=== PATIENT | female | born 1990 | race Caucasian/White ===

== ENCOUNTER → 2018-01-22 13:38 | Outpatient (CLI) | payer OTHER, SELFPAY | PROVIDERS: Visit Provider Obstetrics & Gynecology | DX: R31.0 Gross hematuria (principal) | CPT/HCPCS: 87086; 87088; 87186 ==

== ENCOUNTER → 2018-04-19 16:47 | Outpatient (CLI) | payer OTHER, SELFPAY ==
[2018-04-19 19:20] LABS: Chlamydia Trachomatis by PCR Negative (Negative); Neisserai gonorrhoeae by PCR Negative (Negative); Probe Check PASS; Sample Adequacy Control PASS; Specimen Processing Control PASS
== END ==
PROVIDERS: Visit Provider Obstetrics & Gynecology
DX: Z11.3 Encounter for screening for infections with a predominantly sexual mode of transmission (principal)
CPT/HCPCS: 87491; 87591

== ENCOUNTER → 2018-05-13 14:40 | Outpatient (CLI) | payer OTHER, SELFPAY ==
[2018-05-13 15:42] LABS: Absolute Neutrophil Count 9.7 X10^3/uL (2.0-7.7); Basophil# 0.03 X10^3/uL; Basophil% 0.2 % (0-1); Eosinophil# 0.17 X10^3/uL; Eosinophils% 1.3 % (0-5); Hematocrit 39.1 % (37-47); Hemoglobin 13.1 g/dl (12.0-15.0); Lymphocyte % 19.9 % (19-41); Mean Corp Hgb Conc 33.5 g/gl (32-36); Mean Corpuscular Hgb 29.9 pg (27.0-32.0); Mean Corpuscular Volume 89.3 fL (81-99); Mean Platelet Vol. 10.2 fl (6.2-12.0); Monocyte# 0.58 X10^3/uL; Monocyte% 4.4 % (0-10); Neutrophil # 9.67 X10^3/uL (2.7-7.7); Platelet Count 336 K/mm3 (150-450); Red Blood Count 4.38 M/mm3 (4.2-5.4); White Blood Count 13.1 K/mm3 (4.4-11.0)
[2018-05-13 15:44] LABS: POSITIVE COUNT NO; POSITIVE DIFFERENTIAL NO; POSITIVE MORPHOLOGY NO
[2018-05-13 15:53] LABS: Color, Urine Yellow (Yellow); Glucose, Dipstick Normal (Normal); Ketone-Dipstick Negative (Negative); Leukocyte Esterase-Dipstick 25 /ul (Negative); Nitrite-Dipstick Negative (Negative); Occult Blood-Urine Negative /ul (Negative); Protein-Dipstick Negative (Negative); Urine Bilirubin Dipstick Negative (Negative); Urine Clarity Clear (Clear); Urine Urobilinogen Normal (Normal)
[2018-05-13 16:16] LABS: Amphetamine Urine VISTA NEGATIVE (<1000 ng/mL); Barbiturate Urine VISTA NEGATIVE (< 200 ng/mL); Benzodiazepine Urine VISTA NEGATIVE (< 200 ng/mL); Cocaine Urine VISTA NEGATIVE (< 300 ng/mL); Ecstacy Urine VISTA NEGATIVE (< 500 ng/mL); Methadone Urine VISTA NEGATIVE (< 300 ng/mL); PCP Urine VISTA NEGATIVE (< 25 ng/mL); THC Urine VISTA NEGATIVE (< 50 ng/mL); Vista UDS pH Range 6
[2018-05-13 16:17] LABS: Thyroid Stim Hormone (TSH) 0.82 uIU/mL (0.358-3.74)
[2018-05-13 16:56] LABS: HIV - WCH Non-Reactive (Nonreactive); Rubella IgG 24.7 IU/mL
[2018-05-15 11:11] LABS: HEPATITIS B SURFACE AG Negative (Negative); Hep C Antibodies <0.1 s/co ratio (0.0-0.9)
[2018-05-17 04:13] LABS: Prenatal RPR NONREACTIVE (NONREACTIVE)
== END ==
PROVIDERS: Visit Provider Obstetrics & Gynecology
DX: Z34.81 Encounter for supervision of other normal pregnancy, first trimester (principal)
CPT/HCPCS: 36415; 80307; 81002; 84443; 85025; 86703; 86762; 86803; 87340

== ENCOUNTER → 2018-09-06 10:33 | Outpatient (CLI) | payer OTHER, SELFPAY ==
[2018-09-06 15:28] LABS: Hematocrit 43.1 % (37-47); Hemoglobin 14.3 g/dl (12.0-15.0); Mean Corpuscular Volume 88.3 fL (81-99); Red Blood Count 4.88 M/mm3 (4.2-5.4); White Blood Count 7.8 K/mm3 (4.4-11.0)
[2018-09-06 15:29] LABS: Mean Corp Hgb Conc 33.2 g/gl (32-36); Mean Corpuscular Hgb 29.3 pg (27.0-32.0); Mean Platelet Vol. 10.1 fl (6.2-12.0); Platelet Count 274 K/mm3 (150-450); RBC Distribution Width CV 13.3 % (11.6-14.6); RBC Distribution Width SD 42.6 fl (35.1-43.9); Scan Indicated on CBC? Y/N NO
[2018-09-06 15:41] LABS: Glucose Challenge Gest 1H 50g 90 mg/dL (70-140)
== END ==
PROVIDERS: Visit Provider Obstetrics & Gynecology
DX: Z34.83 Encounter for supervision of other normal pregnancy, third trimester (principal)
CPT/HCPCS: 36415; 82950; 85027

== ENCOUNTER → 2018-11-05 18:11 | Outpatient (CLI) | payer OTHER, SELFPAY ==
[2017-03-14 02:43] VITALS: BMI 37.2
== END ==
PROVIDERS: Referring Provider Obstetrics & Gynecology; Visit Provider Obstetrics & Gynecology
DX: Z36.85 Encounter for antenatal screening for Streptococcus B (principal)
CPT/HCPCS: 87081

== ENCOUNTER 2018-12-01 16:10 | Inpatient (IN) | payer OTHER, SELFPAY ==
[2018-12-01 16:44] VITALS: BMI 39.2
[2018-12-01] MEDS: Lactated Ringers 1,000 ML 50 ML IV ×3 (16:52→17:44)
[2018-12-01 17:18] LABS: Absolute Lymphocyte Count 2.52 X10^3/ul (0.83-4.51); Absolute Neutrophil Count 9.8 X10^3/uL (2.0-7.7); Basophil# 0.01 X10^3/uL; Basophil% 0.1 % (0-1); Eosinophil# 0.05 X10^3/uL; Eosinophils% 0.4 % (0-5); Hematocrit 35.7 % (37-47); Hemoglobin 12.3 g/dl (12.0-15.0); Lymphocyte # 2.52 X10^3/ul (4.0); Lymphocyte % 18.8 % (19-41); Mean Corp Hgb Conc 34.5 g/gl (32-36); Mean Corpuscular Hgb 30.8 pg (27.0-32.0); Mean Corpuscular Volume 89.3 fL (81-99); Mean Platelet Vol. 11.1 fl (6.2-12.0); Monocyte# 0.95 X10^3/uL; Monocyte% 7.1 % (0-10); Neutrophil # 9.83 X10^3/uL (2.7-7.7); Neutrophil % 73.5 % (47-70); Platelet Count 271 K/mm3 (150-450); White Blood Count 13.4 K/mm3 (4.4-11.0)
[2018-12-01 17:19] LABS: POSITIVE COUNT NO; POSITIVE DIFFERENTIAL NO; POSITIVE MORPHOLOGY NO
[2018-12-01] MEDS: fentaNYL-bupivacaine (epidural) 100 ML BAG EPIDURAL (18:08)
[2018-12-01] MEDS: Oxytocin 30 units/NS 500 ml 30 UNITS/500 ML IV.SOLN 334 UNITS IV (19:19)
--- NOTE | 2018-12-01 19:32 | PCM.HP.OB ---
- Problem List (1) Active labor at term Status: Acute (2) Obesity affecting Status: Acute History Date of Admission: 12/01/18 History of this : This is a 28 year-old, G [], P [], at 40 weeks gestational age. Allergies amoxicillin Adverse Reaction (Verified 12/01/18 16:41) Hives Home Medications: Home Medications Vits [Prenatabs FA] 1 tablet PO DAILY 03/13/17 Smoking Status: Never smoker Alcohol: None Number of Fetus(es): 1 Heart Tracin moderate variability reactive no decelerations category I tracing Mars: regular History Past Pregnancies: Past Pregnancies previous 40week 8lbs10 ounces VAVD Labs: Mom's Problem List Problem Status Onset Code Active labor at term Acute Obesity affecting Acute O99.210 Mom's Labs & Results 12/01/18 12/01/18 16:52 16:52 WBC 13.4 H RBC 4.00 L Hgb 12.3 Hct 35.7 L MCV 89.3 MCH 30.8 MCHC 34.5 RDW 14.0 RDW Differential 45.0 H Plt Count 271 MPV 11.1 Immature Gran % (Auto) 0.100 Neut % (Auto) 73.5 H Lymph % (Auto) 18.8 L [place] % (Auto) 7.1 Eos % (Auto) 0.4 Baso % (Auto) 0.1 Absolute Neuts (auto) 9.8 H Absolute Lymphs (auto) 2.52 Total Counted Not Reportable Blood Type O POSITIVE Antibody Screen NEGATIVE Course Did the patient receive Yes care? Labs Blood Type: O RH: POSITIVE RPR/VDRL/Syphilis Nonreactive Rubella status Immune HbSAg Negative Date Done: 05/13/18 Chlamydia Negative Gonorrhea Negative HIV/AIDS Non-Reactive Group B Strep: Negative Current Obstetrical History Gestational Diabetes No Incompetent Cervix No Infertility No IUGR No Macrosomia No Hypertension/Pre-eclampsia No Placenta Previa/Abruption No PTL/PROM No Uterine anomaly No Oligohydramnios No Polyhydramnios No Multiple gestation No Past Medical History Asthma No Diabetes No Hypertension No Heart disease No Mitral valve prolapse No Neurologic/Seizure disorder/ No Migraines Kidney disease No Liver disease No Varicosities No Clotting disorders/Hx of DVT No Thyroid Dysfunction No Other medical diseases No Psychiatric disorders No Major trauma No Abnormal PAP smear No Sleep apnea No Mammogram in the last 2 years No Social History Marital Status: Alleged father dimple Kim Smoking No Smoking Status Never smoker How long have you used na substances (years)? Expected Delivery Method: Spontaneous Vaginal Review of Systems Constitutional: Denies: Fever, Malaise Eyes: Denies: Blurred vision, Vision Change HEENT: Denies: Head Aches, Visual Changes Cardiovascular: Denies: Chest Pain, Palpitations Respiratory: Denies: Cough, Shortness of Breath, Wheezing Gastrointestinal: Denies: Abdominal Pain, Diarrhea, Nausea, Vomiting Genitourinary: Denies: Dysuria, Hematuria Musculoskeletal: Denies: Joint Pain, Muscle pain Skin: Denies: Lesions, Rash Neurological: Denies: Blurred vision, Focal weakness, Headaches Psychiatric: Denies: Anxiety, Depression Endocrine: Denies: Heat/ Cold Intolerance Hematologic/ Lymphatic: Denies: Easy Bruising, Easy Bleeding Physical Exam General: Alert, Cooperative, No apparent distress HEENT: Atraumatic, Normocephalic. Negative for: Thyromegaly, Lymphadenopathy Cardiovascular: Regular rate Lungs: Normal air movement Abdomen: Soft, Non Tender, Gravid Neurological: Deep Tendon Reflexes 2+/4 and Symmetrical, Neuro grossly intact. Negative for: Clonus GEM EXPERT: Normal external genitalia. Negative for: Vulvar lesions Estimated gestational size: Appropriate for gestational size Presentation: Cephalic Cervix Dilation (cm): 4.5 Assessment/Plan All Active Problems Active labor at term (Acute) Obesity affecting (Acute) This is a 28 year-old, at 40 weeks gestational age presents IAL Patient presents IAL, plan expectant management for , pitocin/AROM PRN if needed. Pain management: plans epidural. GBS negative. Management of any complications: none I have reviewed the [facility] and made any clinically relevant updates.
--- NOTE | 2018-12-01 19:36 | HP.PCM_ITS ---
- Problem List (1) Active labor at term Status: Acute (2) Obesity affecting Status: Acute History Date of Admission: 12/01/18 History of this : This is a 28 year-old, G [], P [], at 40 weeks gestational age. Allergies amoxicillin Adverse Reaction (Verified 12/01/18 16:41) Hives Home Medications: Home Medications Vits [Prenatabs FA] 1 tablet PO DAILY 03/13/17 Smoking Status: Never smoker Alcohol: None Number of Fetus(es): 1 Heart Tracin moderate variability reactive no decelerations category I tracing [employer]: regular History Past Pregnancies: Past Pregnancies previous 40week 8lbs10 ounces VAVD Labs: Mom's Problem List Problem Status Onset Code Active labor at term Acute Obesity affecting Acute O99.210 Mom's Labs & Results 12/01/18 12/01/18 16:52 16:52 WBC 13.4 H RBC 4.00 L Hgb 12.3 Hct 35.7 L MCV 89.3 MCH 30.8 MCHC 34.5 RDW 14.0 RDW Differential 45.0 H Plt Count 271 MPV 11.1 Immature Gran % (Auto) 0.100 Neut % (Auto) 73.5 H Lymph % (Auto) 18.8 L [place] % (Auto) 7.1 Eos % (Auto) 0.4 Baso % (Auto) 0.1 Absolute Neuts (auto) 9.8 H Absolute Lymphs (auto) 2.52 Total Counted Not Reportable Blood Type O POSITIVE Antibody Screen NEGATIVE Course Did the patient receive Yes care? Labs Blood Type: O RH: POSITIVE RPR/VDRL/Syphilis Nonreactive Rubella status Immune HbSAg Negative Date Done: 05/13/18 Chlamydia Negative Gonorrhea Negative HIV/AIDS Non-Reactive Group B Strep: Negative Current Obstetrical History Gestational Diabetes No Incompetent Cervix No Infertility No IUGR No Macrosomia No Hypertension/Pre-eclampsia No Placenta Previa/Abruption No PTL/PROM No Uterine anomaly No Oligohydramnios No Polyhydramnios No Multiple gestation No Past Medical History Asthma No Diabetes No Hypertension No Heart disease No Mitral valve prolapse No Neurologic/Seizure disorder/ No Migraines Kidney disease No Liver disease No Varicosities No Clotting disorders/Hx of DVT No Thyroid Dysfunction No Other medical diseases No Psychiatric disorders No Major trauma No Abnormal PAP smear No Sleep apnea No Mammogram in the last 2 years No Social History Marital Status: Alleged father dimple Kim Smoking No Smoking Status Never smoker How long have you used na substances (years)? Expected Delivery Method: Spontaneous Vaginal Review of Systems Constitutional: Denies: Fever, Malaise Eyes: Denies: Blurred vision, Vision Change HEENT: Denies: Head Aches, Visual Changes Cardiovascular: Denies: Chest Pain, Palpitations Respiratory: Denies: Cough, Shortness of Breath, Wheezing Gastrointestinal: Denies: Abdominal Pain, Diarrhea, Nausea, Vomiting Genitourinary: Denies: Dysuria, Hematuria Musculoskeletal: Denies: Joint Pain, Muscle pain Skin: Denies: Lesions, Rash Neurological: Denies: Blurred vision, Focal weakness, Headaches Psychiatric: Denies: Anxiety, Depression Endocrine: Denies: Heat/ Cold Intolerance Hematologic/ Lymphatic: Denies: Easy Bruising, Easy Bleeding Physical Exam General: Alert, Cooperative, No apparent distress HEENT: Atraumatic, Normocephalic. Negative for: Thyromegaly, Lymphadenopathy Cardiovascular: Regular rate Lungs: Normal air movement Abdomen: Soft, Non Tender, Gravid Neurological: Deep Tendon Reflexes 2+/4 and Symmetrical, Neuro grossly intact. Negative for: Clonus SIGHTER: Normal external genitalia. Negative for: Vulvar lesions Estimated gestational size: Appropriate for gestational size Presentation: Cephalic Cervix Dilation (cm): 4.5 Assessment/Plan All Active Problems Active labor at term (Acute) Obesity affecting (Acute) This is a 28 year-old, at 40 weeks gestational age presents IAL Patient presents IAL, plan expectant management for , pitocin/AROM PRN if n eeded. Pain management: plans epidural. GBS negative. Management of any complications: none I have reviewed the [facility] and made any clinically relevant updates.
--- NOTE | 2018-12-01 19:41 | PCM.OPRPT ---
Problem List (1) Active labor at term Status: Acute (2) Obesity affecting Status: Acute Report of Operation Date of Procedure: 12/01/18 Pre-Operative Diagnosis: ial Post-Operative Diagnosis: same Surgery/Procedure Performed:: Vaginal Delivery Maternal Presentation: Active Labor 28-year-old G2, P1 at 40 weeks 2 days presents in active labor Amniotic Membrane Rupture Type: Spontaneous Amniotic Fluid Description: Moderate meconium Final BERKLEY: 11/29/18 Gestational age: 40 Weeks and 2 Days Date of Procedure: 12/01/18 Pre-Operative Diagnosis: Active labor Post-Operative Diagnosis: In active labor Surgery/ Procedure Performed: Spontaneous Vaginal Delivery Type of Anesthesia: Epidural Description of Procedure: Patient began pushing and delivered the head in the MELISSA presentation. The head was delivered atraumatically . The anterior and posterior shoulders delivered without complication followed by the rest of the infant and the was placed on the maternal abdomen. Delayed cord clamping was employed for approximately 60 seconds. Cord was clamped and cut and gentle traction was applied to the cord and the placenta delivered spontaneously immediately following it was noted to be intact with three-vessel cord. The perineum and vagina were inspected and noted to have no laceration. EBL was 200 cc. Patient and infant tolerated delivery well. Presentation: MELISSA Placental Delivery Description: Spontaneous Placenta Disposition: [facility] Cord Vessel Description: 3 Vessels Cord Entanglement: None Estimated Blood Loss: 200 A gender: Male (1 minute): 8 (5 minute): 9 Episiotomy Description: None Laceration: None Medications given after delivery: IV Pitocin Complications: None
[2018-12-01] MEDS: Oxytocin 30 units/NS 500 ml 30 UNITS/500 ML IV.SOLN 167 UNITS IV (19:49)
[2018-12-01] MEDS: 0.9% Saline Lock 10 ML Syringe IV (20:49)
[2018-12-01 21:28] VITALS: BP 127/79; PULSE 102; RESP 18; TEMP 36.3
[2018-12-01 23:15] VITALS: BP 117/60; PULSE 91; RESP 18; TEMP 37.1
[2018-12-02] MEDS: Naproxen 250 MG Tablet 500 MG PO ×3 (04:02→21:18)
[2018-12-02 04:12] VITALS: BP 113/72; PULSE 83; RESP 16; TEMP 37
--- NOTE | 2018-12-02 07:55 | PCM.PN.OB ---
Patient Problems: Active and Suspected Problems Active labor at term (Acute) Obesity affecting (Acute) Subjective: doing well no complaints pain controlled no CP SOB N V ambulating well tolerating po lochia moderate, going well - Physical Exam General: Alert, Oriented x3 Abdomen: Soft, Non Tender, - - FF below U Vital Signs Temp Pulse Resp BP 98.6 F 83 16 113/72 12/02/18 04:12 12/02/18 04:12 12/02/18 04:12 12/02/18 04:12 Oxygen Delivery Method Room Air Weight: 214 lb 4.629 oz Body Mass Index (BMI) 39.2 Intake and Output for Last 24 Hours 11/30/18 12/01/18 12/02/18 23:59 23:59 23:59 Intake Total 2069 / 2069 Output Total 720 / 720 Balance 1350 / 1350 Laboratory Tests Past 24 Hrs 12/01/18 12/01/18 16:52 16:52 WBC 13.4 H RBC 4.00 L Hgb 12.3 Hct 35.7 L MCV 89.3 MCH 30.8 MCHC 34.5 RDW 14.0 RDW Differential 45.0 H Plt Count 271 MPV 11.1 Immature Gran % (Auto) 0.100 Neut % (Auto) 73.5 H Lymph % (Auto) 18.8 L [place] % (Auto) 7.1 Eos % (Auto) 0.4 Baso % (Auto) 0.1 Absolute Neuts (auto) 9.8 H Absolute Lymphs (auto) 2.52 Total Counted Not Reportable Blood Type O POSITIVE Antibody Screen NEGATIVE Medical Necessity - Tobacco Use Smoking Status: Never smoker Assessment/Plan All Active Problems Active labor at term (Acute) Obesity affecting (Acute) s/p PPD # 1 1. routine post delivery care 2. breast feeding- support given 3. rh positive 4. rubella immune
--- NOTE | 2018-12-02 08:21 | PCM.PN.OB ---
Patient Problems: Active and Suspected Problems Active labor at term (Acute) Obesity affecting (Acute) Subjective: PPD#1 Doing well. Breast feeding Some cramping with nursing. Bleeding as a period Plans circumcision. - Physical Exam General: Alert, Oriented x3, Cooperative, No apparent distress HEENT: Atraumatic Neck: Supple Abdomen: Soft - Fundus firm NT at umiblicus Neurological: Cranial nerves II-XII grossly intact Psych/Mental Status: Normal Affect Vital Signs Temp Pulse Resp BP 98.6 F 83 16 113/72 12/02/18 04:12 12/02/18 04:12 12/02/18 04:12 12/02/18 04:12 Oxygen Delivery Method Room Air Weight: 97.2 kg Body Mass Index (BMI) 39.2 Intake and Output for Last 24 Hours 11/30/18 12/01/18 12/02/18 23:59 23:59 23:59 Intake Total 2070 / 2070 Output Total 720 / 720 Balance 1350 / 1350 Laboratory Tests Past 24 Hrs 12/01/18 12/01/18 16:52 16:52 WBC 13.4 H RBC 4.00 L Hgb 12.3 Hct 35.7 L MCV 89.3 MCH 30.8 MCHC 34.5 RDW 14.0 RDW Differential 45.0 H Plt Count 271 MPV 11.1 Immature Gran % (Auto) 0.100 Neut % (Auto) 73.5 H Lymph % (Auto) 18.8 L [place] % (Auto) 7.1 Eos % (Auto) 0.4 Baso % (Auto) 0.1 Absolute Neuts (auto) 9.8 H Absolute Lymphs (auto) 2.52 Total Counted Not Reportable Blood Type O POSITIVE Antibody Screen NEGATIVE Medical Necessity - Tobacco Use Smoking Status: Never smoker Assessment/Plan All Active Problems Active labor at term (Acute) Obesity affecting (Acute) PPD#1 Stable pp. Continue care. Anticipate dischg 12/03/18
[2018-12-02 08:53] VITALS: BP 102/70; PULSE 58; RESP 16; TEMP 36.6
[2018-12-02] MEDS: Senna/Docusate Sodium 1 Tablet PO (11:59)
[2018-12-02 12:10] VITALS: BP 120/64; PULSE 80; RESP 18; TEMP 36.8
[2018-12-02 15:15] VITALS: BP 115/71; PULSE 86; RESP 15; TEMP 36.4
[2018-12-02] MEDS: Acetaminophen 500 MG Tablet 1000 MG PO (18:48)
[2018-12-02 21:19] VITALS: BP 117/76; PULSE 70; RESP 18; TEMP 36.7
[2018-12-03 02:09] VITALS: BP 93/44; PULSE 58; RESP 14; TEMP 36.3; O2SAT 95
--- NOTE | 2018-12-03 07:47 | PCM.PN.OB ---
Patient Problems: Active and Suspected Problems Active labor at term (Acute) Obesity affecting (Acute) Subjective: PPD#2 Doing well. Nursing well. Some cramping but this as well as bleeding has improved. No concerns voiced. - Physical Exam General: Alert, Oriented x3, Cooperative, No apparent distress HEENT: Atraumatic Neck: Supple Abdomen: Soft - Fundus firm NT at approx umbilicus Psych/Mental Status: Normal Affect Vital Signs Temp Pulse Resp BP Pulse Ox 97.4 F L 58 L 14 93/44 L 95 12/03/18 02:09 12/03/18 02:09 12/03/18 02:09 12/03/18 02:12/03/18 02:09 Oxygen Delivery Method Room Air Weight: 97.2 kg Body Mass Index (BMI) 39.2 Intake and Output for Last 24 Hours 12/01/18 12/02/18 12/03/18 23:59 23:59 23:59 Intake Total 0 / 2070 Output Total 720 / 720 Balance 1350 / 1350 Medical Necessity - Tobacco Use Smoking Status: Never smoker Assessment/Plan All Active Problems Active labor at term (Acute) Obesity affecting (Acute) PPD#2 Stable pp. dischg home today. RTO in 6 wk for pp check, prn sooner.
--- NOTE | 2018-12-03 07:49 | PCM.DCVAG ---
Discharge Diet: No Restrictions Discharge Activity: May Shower, May Take a Tub Bath May resume sexual activity in: 4-6 weeks Additional Activity Instructions:: Nothing in the vagina for 4-6 weeks. You may return to work/school in 6 weeks. Additional Instructions: If you experience any of the following, contact your healthcare provider. Bleeding that soaks a pad every hour for 2 hours Fever 100.4 or higher Unrelieved abdominal pain Problems urinating (including inability to urinate or burning while urinating). Visual changes Severe headache Flu-like symptoms Pain or redness in one of both of your breasts Pain, warmth, tenderness or swelling in your legs, especially the calf area Frequent nausea and vomiting Symptoms of depression or anxiety If you experience any of the following, call 911 or go to the nearest Emergency Room. Chest pain Problems breathing Seizure activity Partial or complete paralysis of a body part, slurred speech, weakness or drooping of the face, or a sudden inability to walk or hold your balance Allergies/Adverse Reactions: Allergies amoxicillin Adverse Reaction (Verified 12/01/18 16:41) Hives Medications to take at Discharge Vits [Prenatabs FA] 1 tablet PO DAILY 03/13/17 Please Follow Up With: Trang Burroughs MD - [phone] When: Call to make an appointment with your doctor in 6 weeks. Test Results: Test results from this visit will be discussed in further detail at your follow-up appointment, if applicable. Proposed Discharge Date: 12/03/18
--- NOTE | 2018-12-03 07:50 | DCINST_ITS ---
Discharge Diet: No Restrictions Discharge Activity: May Shower, May Take a Tub Bath May resume sexual activity in: 4-6 weeks Additional Activity Instructions:: Nothing in the vagina for 4-6 weeks. You may return to work/school in 6 weeks. Additional Instructions: If you experience any of the following, contact your healthcare provider. * Bleeding that soaks a pad every hour for 2 hours * Fever 100.4 or higher * Unrelieved abdominal pain * Problems urinating (including inability to urinate or burning while urinating). * Visual changes * Severe headache * Flu-like symptoms * Pain or redness in one of both of your breasts * Pain, warmth, tenderness or swelling in your legs, especially the calf area * Frequent nausea and vomiting * Symptoms of depression or anxiety If you experience any of the following, call 911 or go to the nearest Emergency Room. * Chest pain * Problems breathing * Seizure activity * Partial or complete paralysis of a body part, slurred speech, weakness or drooping of the face, or a sudden inability to walk or hold your balance Allergies/Adverse Reactions: Allergies amoxicillin Adverse Reaction (Verified 12/01/18 16:41) Hives Medications to take at Discharge Vits [Prenatabs FA] 1 tablet PO DAILY 03/13/17 Please Follow Up With: Trang Burroughs MD - [phone] When: Call to make an appointment with your doctor in 6 weeks. Test Results: Test results from this visit will be discussed in further detail at your follow- up appointment, if applicable. Proposed Discharge Date: 12/03/18
[2018-12-03 07:57] VITALS: BP 107/71; PULSE 50; RESP 16; TEMP 36.4; O2SAT 96
[2018-12-03] MEDS: Senna/Docusate Sodium 1 Tablet PO (08:15)
== END 2018-12-03 11:50 | disposition home or self-care (01) | DRG 807 ==
PROVIDERS: Admitting Provider Obstetrics & Gynecology; Visit Provider Obstetrics & Gynecology
DX: O99.214 Obesity complicating childbirth (principal); Z37.0 Single live birth; E66.9 Obesity, unspecified; Z3A.40 40 weeks gestation of pregnancy; O77.0 Labor and delivery complicated by meconium in amniotic fluid
CPT/HCPCS: 85025; 86850; 86900; 99218; J7120; A4216; G0378

== ENCOUNTER → 2019-12-26 14:12 | Outpatient (CLI) | payer OTHER, SELFPAY ==
[2019-12-26 15:04] LABS: Absolute Lymphocyte Count 2.64 X10^3/uL (0.83-4.51); Absolute Neutrophil Count 9.4 X10^3/uL (2.0-7.7); Basophil# 0.04 X10^3/uL; Basophil% 0.3 % (0-1); Eosinophil# 0.08 X10^3/uL; Eosinophils% 0.6 % (0-5); Hematocrit 42.3 % (37-47); Hemoglobin 14.3 g/dL (12.0-15.0); Lymphocyte # 2.64 X10^3/ul (4.0); Lymphocyte % 20.7 % (19-41); Mean Corp Hgb Conc 33.8 g/dL (32-36); Mean Corpuscular Hgb 29.4 pg (27.0-32.0); Mean Corpuscular Volume 86.9 fL (81-99); Mean Platelet Vol. 10.1 fl (6.2-12.0); Monocyte# 0.55 X10^3/uL; Monocyte% 4.3 % (0-10); NRBC Flagged by Analyzer 0 % (0-5); Neutrophil # 9.41 X10^3/uL (2.7-7.7); Neutrophil % 73.8 % (47-70); Platelet Count 398 K/mm3 (150-450); RBC Distribution Width CV 12.8 % (11.6-14.6); RBC Distribution Width SD 40.1 fl (35.1-43.9); Red Blood Count 4.87 M/mm3 (4.2-5.4); White Blood Count 12.8 K/mm3 (4.4-11.0)
[2019-12-26 15:17] LABS: Color, Urine Yellow (Yellow); Glucose, Dipstick Normal (Normal); Ketone-Dipstick 5 mg/dl (Negative); Leukocyte Esterase-Dipstick 25 /ul (Negative); Nitrite-Dipstick Negative (Negative); Occult Blood-Urine Negative /ul (Negative); Protein-Dipstick Negative (Negative); Specific Gravity, Urine 1.015 (1.002-1.030); Urine Bilirubin Dipstick Negative (Negative); Urine Clarity Sl. Cloudy (Clear); Urine Urobilinogen 1 mg/dl (Normal)
[2019-12-26 15:37] LABS: Thyroid Stim Hormone (TSH) < 0.01 uIU/mL (0.358-3.74)
[2019-12-26 15:38] LABS: Amphetamine Urine VISTA NEGATIVE (<1000 ng/mL); Barbiturate Urine VISTA NEGATIVE (< 200 ng/mL); Benzodiazepine Urine VISTA NEGATIVE (< 200 ng/mL); Cocaine Urine VISTA NEGATIVE (< 300 ng/mL); Ecstacy Urine VISTA NEGATIVE (< 500 ng/mL); Methadone Urine VISTA NEGATIVE (< 300 ng/mL); PCP Urine VISTA NEGATIVE (< 25 ng/mL); THC Urine VISTA NEGATIVE (< 50 ng/mL); Vista UDS pH Range 6
[2019-12-26 16:12] LABS: HIV - WCH Non-Reactive (Nonreactive); Hepatitis B Surface Antigen Non-Reactive (Nonreactive); Hepatitis C Antibody Non-Reactive (Nonreactive); Vitamin D,25 Hydroxy 24.4 ng/mL
[2019-12-26 17:16] LABS: Chlamydia Trachomatis by PCR Negative (Negative); Neisserai gonorrhoeae by PCR Negative (Negative); Probe Check PASS; Sample Adequacy Control PASS; Specimen Processing Control PASS
[2019-12-29 12:10] LABS: Free T3 6.1 pg/mL (2.18-3.98); T4 Free Direct 1.96 ng/dL (0.76-1.46)
[2019-12-30 12:30] LABS: HPV APTIMA, High Risk Negative (Negative)
[2020-01-01 01:57] LABS: Prenatal RPR NONREACTIVE (NONREACTIVE)
[2020-01-05 20:43] LABS: Thyroid Stim Immunoglob 2.37 IU/L (0.00-0.55)
--- OUTSIDE RECORDS SUMMARY | 2020-05-09 08:38 | XMS RPT_ITS | CCD ---
:1990 External Reference #:[id number] Author Organization [employer] Care Team Providers Name Role Phone Unavailable Unavailable Unavailable Results Result Name Value Range Unit Interpretation Flag Date Location progress on 2020-03 PROGRESS HNO ID: [id number] Normal 04-21-2020 [facility] Author: Gabo Lake [place] ([id number]) Service: ? Author Type: Physician Type: Progress Notes Filed: 04/21/2020 7:48 AM Note Text: CC: Shereen TAVAREZ is a 29 year old female who presents to [facility] office for follow up HPI: Left low back pain, started yesterday when she was bending o shruthi to pick something up. Is now 27-28 weeks . Has had sciatica with previous pregnancies as well. Is radiating down her left leg posteriorly. No bowel or bladder changes or weakness. Is having tingling down left leg. PAST MEDICAL HISTORY Diagnosis Date - Known health problems: none PAST SURGICAL HISTORY Procedure Laterality Date - NONE Current Outpatient Medications Medication Sig - albuterol HFA (VENTOLIN HFA) 90 mcg/actuation inhaler Inha le 2 Puffs as instructed every 4 hours as needed for Wheezing/Shortness of Breath. No current facility-administered medications for this visit. ALLERGIES Allergen Reactions - Amoxicillin Hives Social History Tobacco Use - Smoking status: Never Smoker - Smokeless tobacco: Never Used Substance Use Topics - Alcohol use: No - Drug use: No ROS: See HPI PE: There were no vitals taken for this visit. Gen: AANDOX3, NAD, non-toxic appearing Skin: No rashes, lesions, or wounds on exposed skin. Left anterior innominate Left inferior pubic shear Lumbar L3-5 NRrSBr No edema legs ASSESSMENT/PLAN: 1. Lumbar back pain with radiculopathy affecting left lower extremity - ICD9: 724.4, ICD10: M54.16 (primary diagnosis) OMT: Discussed risks, benefits, alternatives, and potential SEs of treatment. Patient wished to proceed with OMT. OMT was perfo rmed to the lumbar, pelvic, pubic area including soft tissue, functional methods. Patient tolerated treatment well with good release, increase ROM, and decrease in pain, without complications. Instructed patient to drink plenty of water. Gentle stretches at home. 2. Somatic dysfunction of pelvic region - ICD9: 739.5, ICD10 : M99.05 OMT: Discussed risks, benefits, alternatives, and potential SEs of treatment. Patient wished to proceed with OMT. OMT was perfo rmed to the lumbar, pelvic, pubic area including soft tissue, functional methods. Patient tolerated treatment well with good release, increase ROM, and decrease in pain, without complications. Instructed patient to drink plenty of water. Gentle stretches at home. 3. Somatic dysfunction of spine, lumbar - ICD9: 739.3, ICD10 : M99.03 OMT: Discussed risks, benefits, alternatives, and potential SEs of treatment. Patient wished to proceed with OMT. OMT was perfo rmed to the lumbar, pelvic, pubic area including soft tissue, functional methods. Patient tolerated treatment well with good release, increase ROM, and decrease in pain, without complications. Instructed patient to drink plenty of water. Gentle stretches at home. 4. Somatic dysfunction of pubic bone - ICD9: 739.5, ICD10: M 99.05 OMT: Discussed risks, benefits, alternatives, and potential SEs of treatment. Patient wished to proceed with OMT. OMT was perfo rmed to the lumbar, pelvic, pubic area including soft tissue, functional methods. Patient tolerated treatment well with good release, increase ROM, and decrease in pain, without complications. Instructed patient to drink plenty of water. Gentle stretches at home. Gabo Lake DO Return if no improvement. Follow up with Gabo Lake DO. To ER if develops chest pain, shortness of breath Discussed risks, benefits, alternatives, and potential side effects of medications. Patient/Guardian expressed understanding and agreed with the plan. See patient instructions. Gabo Lake DO [address] [place] [address] cnov on 2020-04-21 CNOV Office Visit (FAMPWS) Normal 04-21-20 [place] [facility] SHEREEN TAVAREZ ([id number]) 1990 [place] Date Time Provider Department ([id number]) 04/21/20 7:20 AM [facility] During your visit today, we recorded the following informati on about you: Gabo Lake DO 04/21/2020 7:48 AM Signed CC: Shereen TAVAREZ is a 29 ye ar old female who presents to the office for follow up HPI: Left low back pain, started yesterday when she was bending o shruthi to pick something up. Is now 27-28 weeks . Has had sciatica with previous pregnancies as well. Is radiating down her left leg po steriorly. No bowel or bladder changes or weakness. Is having tingling down left le g. PAST MEDICAL HISTORY Diagnosis Date - Known health problems: none PAST SURGICAL HISTORY Procedure Laterality Date - NONE Current Outpatient Medications Medication Sig - albuterol HFA (VENTOLIN HFA) 90 mcg/actuation inhaler Inha le 2 Puffs as instructed every 4 hours as needed for Wheezing/Shortness of Breath. No current facility-administered medications for this visit. ALLERGIES Allergen Reactions - Amoxicillin Hives Social History Tobacco Use - Smoking status: Never Smoker - Smokeless tobacco: Never Used Substance Use Topics - Alcohol use: No - Drug use: No ROS: See HPI PE: There were no vitals taken for this visit. Gen: AANDOX3, NAD, non-toxic appearing Skin: No rashes, lesions, or wounds on exposed skin. Left anterior innominate Left inferior pubic shear Lumbar L3-5 NRrSBr No edema legs ASSESSMENT/PLAN: 1. Lumbar back pain with radiculopathy affecting left lower extremity - ICD9: 724.4, ICD10: M54.16 (primary diagnosis) OMT: Discussed risks, benefits, alternatives, an d potential SEs of treatment. Patient wished to proceed with OMT. OMT was performed to the lumbar, pelvic, pubic area including soft tissue, functional methods. Paticammy t tolerated treatment well with good release, increase ROM, and decrease in pain, without complications. Instructed pa tient to drink plenty of water. Gentle stretches at home. 2. Somatic dysfunction of pelvic region - ICD9: 739.5, ICD10 : M99.05 OMT: Discussed risks, benefits, alternatives, an d potential SEs of treatment. Patient wished to proceed with OMT. OMT was performed to the lumbar, pelvic, pubic area including soft tissue, functional methods. Paticammy t tolerated treatment well with good release, increase ROM, and decrease in pain, without complications. Instructed pa tient to drink plenty of water. Gentle stretches at home. 3. Somatic dysfunction of spine, lumbar - ICD9: 739.3, ICD10 : M99.03 OMT: Discussed risks, benefits, alternatives, an d potential SEs of treatment. Patient wished to proceed with OMT. OMT was performed to the lumbar, pelvic, pubic area including soft tissue, functional methods. Paticammy t tolerated treatment well with good release, increase ROM, and decrease in pain, without complications. Instructed pa tient to drink plenty of water. Gentle stretches at home. 4. Somatic dysfunction of pubic bone - ICD9: 739.5, ICD10: M 99.05 OMT: Discussed risks, benefits, alternatives, an d potential SEs of treatment. Patient wished to proceed with OMT. OMT was performed to the lumbar, pelvic, pubic area including soft tissue, functional methods. Kristal t tolerated treatment well with good release, increase ROM, and decrease in pain, without complications. Instructed pa tient to drink plenty of water. Gentle stretches at home. Gabo Lake DO Return if no improvement. Follow up with Gabo Lake DO. To ER if develops chest pain, shortness of breath Discussed risks, benefits, alternatives, and potential side effects of medications. Patient/Guardian expressed understanding and agreed with the plan. See patient instructions. Gabo Lake DO [address] [place] [address] Referring Provider: [facility] [[id number]] Allergies As of Date: 04/21/2020 Noted Allergy Reaction AMOXICILLIN 08/13/2017 4 - Hives Date Reviewed: 04/27/2018 Reviewed by: Tahir Mckeon LPN - Fully Assessed Primary Visit Diagnosis:Lumbar back pain with radiculopathy affecting left lower extremity [M54.16] Other Visit Diagnoses:Somatic dysfunction of pelvic region [ M99.05] Somatic dysfunction of spine, lumbar [M99.03] Somatic dysfunction of pubic bone [M99.05] Prescriptions as of 04/21/2020 Sig: ALBUTEROL SULFATE HFA 90 MCG/* Inhale 2 Puffs as instructed * Problem List As Of Date: 04/21/2020 (None) Encounter Status:Closed by [facility] DO on 04/21/20 progress note on 11-04-23 Print Producer I saw Shereen for genetic coun seling along with the licensed genetic counselor. Normal 04-14-2020 [facility]' s Authentication See counseling letter for further details. Hospital ([id number]) Interface Message Text 29 y.o. at 24w3d with - short femur length - thyroid disorder in , managed by musculoskeletal physician. Continue methimazole as prescribed Follow up monthly growth. The total patient time of th e visit was 25 minutes, of which greater than 50% of the time was spent counseling and coordinating care. progress note on 08-02-02 Print Producer Maternal Medicine Consult Norm al 01-22-2020 [place] Authentication Date of Service: 01/22/2020 [facility] Interface Message Referring Provider: Esmer Acevedo [facility] Text Primary Care Provider: [facility] MD Mary ([id number]) Reason for Consult: Dr. Esmer Acevedo requests that Shereen be evaluated due to maternal Graves' disease. HPI: Shereen is a and is at 12 w4d. She presents today for evaluation of her blood glucose values and co management . She has be en diagnosed with Graves's disease. The disease course is stable and she has minimal symptoms. She Shereen denies nausea, vomiting, visual disturbance, headaches, epigastric pain, abdominal pain, cramping, regular contractions, leakage of fluid, and/or vaginal bleeding. Overall, she feels wel l and has no complaints. Her treatment includes PTU. She appears to be compliant most of the time. OB History Para Term AB Living 3 2 2 0 0 2 SAB TAB Ectopic Multiple Live Births 0 0 0 0 2 # Outcome Date GA Lbr Naun/2nd Weight Sex Delivery Anes PTL L v 3 Current 2 Term 12/01/18 40w5d 3.827 kg M Vag-Spont EPI N WOOD Name: Ladarius England Term 03/14/17 40w5d 3.941 kg M Vag-Spont EPI WOOD Name: Munir Past Medical History: Diagnosis Date Graves disease 01/05/20: TSI = 2.37 Obesity BMI = 35.09 History reviewed. No pertinent surgical history. Allergies Allergen Reactions Amoxicillin Hives Social History Socioeconomic History Marital status: Spouse name: None Number of children: None Years of education: None Highest education level: None Occupational History None Social Needs Financial resource strain: None Food insecurity Worry: None Inability: None Transportation needs Medical: None Non-medical: None Tobacco Use Smoking status: Never Smoker Smokeless tobacco: Never Used Substance and Sexual Activity Alcohol use: Never Frequency: Never Drug use: Never Sexual activity: None Lifestyle Physical activity Days per week: None Minutes per session: None Stress: None Relationships Social connections Talks on phone: None Gets together: None Attends buddhism service: None Active member of club or organization: None Attends meetings of clubs or organizations: None Relationship status: None Intimate partner violence Fear of current or ex partner: None Emotionally abused: None Physically abused: None Forced sexual activity: None Other Topics Concern None Social History Narrative None Infections Live with someone with or exposed to TB No History of STI's None Rash or viral illness since last menstruation No 2nd STI GBS 3rd STI Hx of Chicken Pox Yes Other infections Partner has hx of genital herpes No Genetics Age is > than 35y as of estimated date No Thalassemia No Neural Tube Defect No Congenital Heart Defect No Down Syndrome No Joao-Sachs No Kristina Disease No Sickle Cell Disease or Trait No Hemophilia, Thrombophilia No Muscular Dystrophy No Cystic Fibrosis No Kamron's Chorea No Intellectual Disability/Autism No Metabolic Disorder No Recurrent Loss, or a Stillbirth No Inherited Genetic or Chromosomal Disorder No Illicit; Rec.drugs; Alcohol since last menses No Family History Problem Relation Age of Onset No known problems Mother No known problems Father No known problems Sister No known problems Brother Heart Disease Maternal Grandfather DVT Paternal Grandmother Clotting Disorder Paternal Grandmother Heart Disease Paternal Grandmother Outpatient Encounter Medications as of 01/22/2020 Medication Sig Dispense Refill propylthiouracil (PTU) 50 MG tablet take 1 tablet by m outh three times a day Vit-Fe Fumarate-FA ( VITAMIN PO) Take by mo uth cholecalciferol (VITAMIN D3) 125 MCG (5000 UT) cap Take by m outh daily No facility-administered encounter medications on file as of 01/22/2020. Review of Systems Review of Systems Constitutional: Negative. HENT: Negative. Eyes: Negative. Respiratory: Negative. Cardiovascular: Negative. Gastrointestinal: Negative. Genitourinary: Negative. Musculoskeletal: Negative. Skin: Negative. Neurological: Negative. Endo/Heme/Allergies: Negative. Psychiatric/Behavioral: Negative. Physical Exam Constitutional: She is oriented to person, place, and time. She appears well-developed. Neck: Normal range of motion. Cardiovascular: Normal rate and regular rhythm. Pulmonary/Chest: Effort normal. Abdominal: Soft. Musculoskeletal: Normal range of motion. Neurological: She is alert and oriented to person, place, an d time. Skin: Skin is warm. Psychiatric: She has a normal mood and a ffect. Her behavior is normal. Thought content normal. Laboratory Test Results: No results found for any previous visit. Ultrasound Results: - Please see Ultrasound test for full de tails. Assessment/Plan: Shereen Tavarez is a 29 y.o. at 12w4d with: Active Non-Hospital Problems Diagnosis Date Noted Supervision of other high risk , antepartum 020 MFM PLAN OF CARE MD/OB APPOINTMENTS Genetic screening: How often should patient be evaluated? Monthly t o 28 weeks, q 2 weeks from 28 to 36 weeks then weekly until delivery Work restrictions: NA EVALUATION surveillance: weekly BPP after 32 weeks Ultrasound: growth every 4 weeks The scans will focus also on the presence of a goiter as indicated by a an anterior neck mass and polyhydramnios. DELIVERY PLAN Hospital: per her provider's cjoice Let labor GBS culture: Contraception: : Graves disease Business Management Manager: [facility] 01/05/20: TSI = 2.37 Positive 12/26/19: TSH < 0.01, Free T4= 1.96, Free T3 = 6.1. The patient has Graves' disease on PTU and is followed by medical endocrine. See genetic counseling regar ding the potential effects of early medication exposure. I explained the patient the maternal and effects of Gr aves' disease Maternal: Increased risk for preeclampsia and labor Possible thyroid scott : FGR In utero and Graves' disease tachycardia leading to heart failure and hydrops goiter Recommendations: 1. Follow with endocrine 2. She will switch to PTU therapy 3. evaluation to monitor for Graves' disea se Follow up as clinically inidcated. The total patient time of e visit was 30 minutes, of which greater than 50% of the time was spent counseling and coordinating care. radhan on 2019-12-26 CNPN Telephone (FAMPWS) Normal 12-26-2019 [facility] SHEREEN TAVAREZ ([id number]) 1990 [place] Date Time Provider Department ([id number]) 12/26/19 [facility] During your visit today, we recorded the following informati on about you: Allergies As of Date: 12/26/2019 Noted Allergy Reaction AMOXICILLIN 08/13/2017 4 - Hives Date Reviewed: 04/27/2018 Reviewed by: Tahir Mckeon LPN - Fully Assessed Reason for Visit: orders only [Other] Order(s):albuterol HFA (VENTOLIN HFA) 90 mcg/actuation inhalerInhale 2 Puffs as instructed every 4 hours as needed for Wheezing/Shortness of Breath.Disp: 1 InhalerRfl: 0 Prescriptions as of 12/26/2019 Sig: ALBUTEROL SULFATE HFA 90 MCG/* Inhale 2 Puffs as instructed * Problem List As Of Date: 12/26/2019 (None) Prescriptions ordered this encounter Disp Refills Start End ALBUTEROL SULFATE HFA 90 MCG/ACTUATI* 1 In* 0 12/26/2019 Cmt: Generic or brand: dispense inhaler preferre d by patient/insurance unless AUSTYN flag is selected. Route: INHALATION Sig: Inhale 2 Puffs as instructed every 4 hours as needed fo r Wheezing/Shortness of Breath. Encounter Status:Closed by LAURYN REAGAN on 01/01/20 Summary Purpose Family History No Family History Records FoundNo Family History Records Found Advance Directives No Advanced Directives Records FoundNo Advanced Directives Records Found Additional Source Comments FOR RECORDS PERTAINING TO PATIENTS WHO ARE OR HAVE BEEN ENROLLED IN A CHEMICAL DEPENDENCY/SUBSTANCE ABUSE PROGRAM, SOME INFORMATION MAY BE OMITTED. This clinical summary was aggregated from multiple sources. Caution should be exercised in using it in the provision of clinical care. This summary normalizes information from multiple sources, and as a consequence, information in this document may materially changethe coding, format and clinical context of patient data. In addition, data may be omittedin some cases. CLINICAL DECISIONS SHOULD BE BASED ON THE PRIMARY CLINICAL RECORDS. [facility] provides no warranty or guarantee of the accuracy or completeness of information in this document. UNRECOGNIZED CONTENT PROVIDED BELOW FOR UNRECOGNIZED SECTION INFORMATION SOURCE DATE CREATED AUTHOR AUTHOR'S ORGANIZATIO N 04/16/2020 [facility] DATE CREATED AUTHOR AUTHOR'S ORGANIZATIO N 04/21/2020 [facility]
== END ==
PROVIDERS: Visit Provider Obstetrics & Gynecology
DX: Z34.81 Encounter for supervision of other normal pregnancy, first trimester (principal); Z12.4 Encounter for screening for malignant neoplasm of cervix; Z11.3 Encounter for screening for infections with a predominantly sexual mode of transmission; E55.9 Vitamin D deficiency, unspecified
CPT/HCPCS: 36415; 80307; 81002; 82306; 84439; 84443; 84445; 84481; 85025; 86703; 86762; 86803; 87340; 87491; 87591; 87624; 88175; G0145

== ENCOUNTER → 2020-01-21 16:09 | Outpatient (CLI) | payer OTHER, SELFPAY ==
[2020-01-13 18:39] VITALS: BMI 39.2
[2020-01-21 17:29] LABS: AST(SGOT) 23 U/L (15-37); Alanine Aminotransfer ALT/SGPT 41 U/L (13-56); Albumin, Serum 3.1 g/dL (3.2-5.0); Alkaline Phosphatase 73 U/L (45-117); Bilirubin, Direct 0.13 mg/dL (0.00-0.30); Globulin 3.5 g/dL (2.2-4.2); Protein, Total 6.6 g/dL (6.4-8.2)
[2020-01-21 17:40] LABS: Free T3 3.8 pg/mL (2.18-3.98); T4 Free Direct 1.47 ng/dL (0.76-1.46); Thyroid Stim Hormone (TSH) < 0.01 uIU/mL (0.358-3.74)
== END ==
PROVIDERS: PCP Internal Medicine Endocrinology, Diabetes & Metabolism; Visit Provider Obstetrics & Gynecology
DX: O99.281 Endocrine, nutritional and metabolic diseases complicating pregnancy, first trimester (principal); E05.90 Thyrotoxicosis, unspecified without thyrotoxic crisis or storm; Z3A.00 Weeks of gestation of pregnancy not specified
CPT/HCPCS: 36415; 80076; 84439; 84443; 84481

== ENCOUNTER → 2020-02-16 12:10 | Outpatient (CLI) | payer OTHER, SELFPAY ==
[2020-01-13 18:39] VITALS: BMI 39.2
[2020-02-16 15:41] LABS: Free T3 3.5 pg/mL (2.18-3.98); T4 Free Direct 1.17 ng/dL (0.76-1.46); Thyroid Stim Hormone (TSH) < 0.01 uIU/mL (0.358-3.74)
== END ==
PROVIDERS: PCP Internal Medicine Endocrinology, Diabetes & Metabolism; Referring Provider Internal Medicine Endocrinology, Diabetes & Metabolism; Visit Provider Internal Medicine Endocrinology, Diabetes & Metabolism
DX: O99.280 Endocrine, nutritional and metabolic diseases complicating pregnancy, unspecified trimester (principal); E05.90 Thyrotoxicosis, unspecified without thyrotoxic crisis or storm; Z3A.00 Weeks of gestation of pregnancy not specified
CPT/HCPCS: 36415; 84439; 84443; 84481

== ENCOUNTER → 2020-03-19 16:24 | Outpatient (CLI) | payer OTHER, SELFPAY ==
[2020-01-13 18:39] VITALS: BMI 39.2
[2020-03-19 18:04] LABS: Free T3 2.5 pg/mL (2.18-3.98); T4 Free Direct 0.95 ng/dL (0.76-1.46); Thyroid Stim Hormone (TSH) < 0.01 uIU/mL (0.358-3.74)
== END ==
PROVIDERS: PCP Internal Medicine Endocrinology, Diabetes & Metabolism; Visit Provider Internal Medicine Endocrinology, Diabetes & Metabolism
DX: O99.282 Endocrine, nutritional and metabolic diseases complicating pregnancy, second trimester (principal); E05.90 Thyrotoxicosis, unspecified without thyrotoxic crisis or storm; Z3A.00 Weeks of gestation of pregnancy not specified
CPT/HCPCS: 36415; 84439; 84443; 84481

== ENCOUNTER → 2020-05-06 16:13 | Outpatient (CLI) | payer OTHER, SELFPAY ==
[2020-04-21 16:02] VITALS: BMI 39.2
[2020-05-06 17:55] LABS: Free T3 2.2 pg/mL (2.18-3.98); T4 Free Direct 0.87 ng/dL (0.76-1.46); Thyroid Stim Hormone (TSH) 0.65 uIU/mL (0.358-3.74)
== END ==
PROVIDERS: PCP Student in an Organized Health Care Education/Training Program; Referring Provider Internal Medicine Endocrinology, Diabetes & Metabolism; Visit Provider Internal Medicine Endocrinology, Diabetes & Metabolism
CPT/HCPCS: 36415; 84439; 84443; 84481

== ENCOUNTER → 2020-05-12 15:41 | Outpatient (CLI) | payer OTHER, SELFPAY ==
[2020-04-21 16:02] VITALS: BMI 39.2
[2020-05-12 14:46] VITALS: BMI 39.9
[2020-05-12 15:11] LABS: Absolute Lymphocyte Count 2.63 X10^3/uL (0.83-4.51); Absolute Neutrophil Count 9.8 X10^3/uL (2.0-7.7); Basophil# 0.04 X10^3/uL; Basophil% 0.3 % (0-1); Eosinophils% 0.8 % (0-5); Hematocrit 36.2 % (37-47); Hemoglobin 11.9 g/dL (12.0-15.0); Lymphocyte # 2.63 X10^3/ul (4.0); Lymphocyte % 20.1 % (19-41); Mean Corp Hgb Conc 32.9 g/dL (32-36); Mean Corpuscular Hgb 30.7 pg (27.0-32.0); Mean Corpuscular Volume 93.5 fL (81-99); Mean Platelet Vol. 10.2 fl (6.2-12.0); Monocyte% 3.8 % (0-10); NRBC Flagged by Analyzer 0 % (0-5); Neutrophil # 9.75 X10^3/uL (2.7-7.7); Neutrophil % 74.4 % (47-70); Platelet Count 341 K/mm3 (150-450); RBC Distribution Width CV 13.8 % (11.6-14.6); RBC Distribution Width SD 47.1 fl (35.1-43.9); Red Blood Count 3.87 M/mm3 (4.2-5.4); White Blood Count 13.1 K/mm3 (4.4-11.0)
[2020-05-12 15:29] LABS: Glucose Challenge Gest 1H 50g 125 mg/dL (70-140)
--- NOTE | 2020-05-12 15:42 | US_ITS ---
STUDY: SECOND AND THIRD TRIMESTER OBSTETRICAL ULTRASOUND REASON FOR EXAM: Female, 29 years old GROWTH LMP: TECHNIQUE: Transabdominal TECHNICAL QUALITY: Adequate. PRIOR ULTRASOUND: None. FINDINGS: There is a single intrauterine fetus. The fetus is in a breech presentation. There is demonstrated cardiac activity with a heart rate of 153 bpm. There is a normal amniotic fluid volume.. The amniotic fluid index (COLEMAN) is 14.4 cm. The placenta is posterior There are Grade 1 placental changes. The cervix measures 3.6 cm in length. The bilateral adnexal regions are normal. BIOMETRY: BPD: 7.1 cm: 28 weeks, 2 days HC: 26.2 cm: 28 weeks, 3 days AC: 23.9 cm: 28 weeks, 1 days FL: 4.8 cm: 26 weeks, 1 days CI: 0.78 FL/BPD: 0.68 FL/HC: FL/AC: 0.2 HC/AC: 1.1 age by current US: 28 weeks, 3 days. BERKLEY by current US: 08/01/2020. Estimated weight: 1096 grams, +/- 164 grams, 33 %. age by prior US: weeks, days. BERKLEY by prior US: . Age by LMP: 27 weeks, 5 days. BERKLEY by LMP: 08/06/2020. ANATOMY: Limited study demonstrating femoral length 5.1% US/OB Limited With Biometrics IMPRESSION: Viable intrauterine gestation approximately 28-29 weeks gestational age with fetus in breech position.. Femoral length 5.1%. Recommend correlation with prior studies to assess for interval changes when available Electronically Signed: Augusto Mooney MD at 17:40 EDT , Service support ,
== END ==
PROVIDERS: PCP Student in an Organized Health Care Education/Training Program; Referring Provider Obstetrics & Gynecology; Visit Provider Obstetrics & Gynecology
DX: O09.90 Supervision of high risk pregnancy, unspecified, unspecified trimester (principal); O28.3 Abnormal ultrasonic finding on antenatal screening of mother; Z3A.00 Weeks of gestation of pregnancy not specified
CPT/HCPCS: 36415; 76816; 82950; 85025

== ENCOUNTER → 2020-06-08 16:02 | Outpatient (CLI) | payer OTHER, SELFPAY ==
[2020-04-21 16:02] VITALS: BMI 39.2
[2020-06-08 14:10] VITALS: BMI 39.9
[2020-06-08 14:55] LABS: Free T3 2.3 pg/mL (2.18-3.98); T4 Free Direct 0.86 ng/dL (0.76-1.46); Thyroid Stim Hormone (TSH) 1.13 uIU/mL (0.358-3.74)
--- NOTE | 2020-06-08 16:03 | US_ITS ---
STUDY: SECOND AND THIRD TRIMESTER OBSTETRICAL ULTRASOUND REASON FOR EXAM: Female, 29 years old. Growth. Known bilateral short femurs. LMP: 10/26/2019. TECHNIQUE: Transabdominal TECHNICAL QUALITY: Adequate. PRIOR ULTRASOUND: 05/12/2020. FINDINGS: There is a single intrauterine fetus. The fetus is in a cephalic presentation. There is demonstrated cardiac activity with a heart rate of 164 bpm. There is a normal amniotic fluid volume. The largest amniotic fluid pocket measures 3.7 cm. The amniotic fluid index (COLEMAN) is 13.78 cm. The placenta is posterior in location and is not low lying. There are Grade 1 placental changes. The cervix measures 3.9 cm in length. The bilateral adnexal regions are normal. BIOMETRY: BPD: 7.56 cm: 30 weeks, 2 days HC: 28.95 cm: 31 weeks, 6 days AC: 28.69 cm: 32 weeks, 4 days FL: 5.48 cm: 28 weeks, 6 days CI: 74.96 FL/BPD: 72.47 FL/HC: 18.92 FL/AC: 19.09 HC/AC: 1.08 age by current US: 30 weeks, 6 days. BERKLEY by current US: 08/11/2020. Estimated weight: 1736 grams, +/- 26 grams, 50 %. age by prior US: 32 weeks, 2 days. BERKLEY by prior US: 08/01/2020. Age by LMP: 32 weeks, 2 days. BERKLEY by LMP: 08/06/2020. US/OB Limited With Biometrics IMPRESSION: 1. Live single intrauterine at 30 weeks, 6 days. BERKLEY is 08/11/2020. There is adequate interval growth since the prior ultrasound. 2. Continued low femur length in relationship to the liver may represent measurements. This lies at 0 22 percentile. 3. EFW 1736 g 4. COLEMAN 13.78 cm. 5. Posterior grade 1 placenta. 6. VERTEX presentation. Electronically Signed: Héctor Adair DO at 17:20 EST Tel [phone], Service support ,
== END ==
PROVIDERS: Internal Medicine Endocrinology, Diabetes & Metabolism; PCP Student in an Organized Health Care Education/Training Program; Referring Provider Obstetrics & Gynecology; Visit Provider Obstetrics & Gynecology
DX: O28.3 Abnormal ultrasonic finding on antenatal screening of mother (principal); E05.00 Thyrotoxicosis with diffuse goiter without thyrotoxic crisis or storm; Z3A.00 Weeks of gestation of pregnancy not specified
CPT/HCPCS: 36415; 76816; 84439; 84443; 84481

== ENCOUNTER → 2020-07-08 15:39 | Outpatient (CLI) | payer OTHER, SELFPAY ==
[2020-06-30 15:58] VITALS: BMI 41.0
[2020-07-08 16:27] LABS: Free T3 2.2 pg/mL (2.18-3.98); T4 Free Direct 0.94 ng/dL (0.76-1.46); Thyroid Stim Hormone (TSH) 0.89 uIU/mL (0.358-3.74)
== END ==
PROVIDERS: PCP Student in an Organized Health Care Education/Training Program; Visit Provider Internal Medicine Endocrinology, Diabetes & Metabolism
DX: E05.00 Thyrotoxicosis with diffuse goiter without thyrotoxic crisis or storm (principal)
CPT/HCPCS: 36415; 84439; 84443; 84481

== ENCOUNTER → 2020-07-09 | Outpatient (CLI) | payer OTHER, SELFPAY ==
[2020-07-09 15:44] VITALS: BMI 41.5
== END | disposition home or self-care (01) ==
LOC: LABSPEC 16:53
PROVIDERS: PCP Student in an Organized Health Care Education/Training Program; Visit Provider Obstetrics & Gynecology
DX: O09.90 Supervision of high risk pregnancy, unspecified, unspecified trimester (principal); Z3A.00 Weeks of gestation of pregnancy not specified
CPT/HCPCS: 87081

== ENCOUNTER → 2020-07-28 17:32 | Outpatient (CLI) | payer OTHER, SELFPAY ==
[2020-07-21 11:40] VITALS: BMI 41.3
[2020-07-28 15:45] VITALS: BMI 41.9
== END ==
PROVIDERS: PCP Student in an Organized Health Care Education/Training Program; Referring Provider Obstetrics & Gynecology; Visit Provider Obstetrics & Gynecology
DX: Z34.90 Encounter for supervision of normal pregnancy, unspecified, unspecified trimester (principal)
CPT/HCPCS: 87635; C9803; U0005; U0003

== ENCOUNTER 2020-08-06 03:00 | Inpatient (IN) | payer OTHER, SELFPAY ==
[2020-08-03 15:28] VITALS: BMI 41.9
[2020-08-06] VITALS (53 sets, daily range): BP systolic 84–141; BP diastolic 51–84; PULSE 74–157; RESP 18; TEMP 35.9–37.3; O2SAT 97–100; BMI 41.4
[2020-08-06] MEDS: Lactated Ringers 500 ML 999 ML IV ×3 (02:45→12:41)
[2020-08-06 03:13] LABS: Absolute Lymphocyte Count 3.27 X10^3/uL (0.83-4.51); Basophil# 0.04 X10^3/uL; Basophil% 0.3 % (0-1); Eosinophil# 0.13 X10^3/uL; Hematocrit 34.6 % (37-47); Hemoglobin 11.6 g/dL (12.0-15.0); Lymphocyte # 3.27 X10^3/ul (4.0); Lymphocyte % 24.8 % (19-41); Mean Corp Hgb Conc 33.5 g/dL (32-36); Mean Corpuscular Hgb 31.2 pg (27.0-32.0); Mean Platelet Vol. 10.7 fl (6.2-12.0); Monocyte# 0.68 X10^3/uL; Monocyte% 5.2 % (0-10); NRBC Flagged by Analyzer 0 % (0-5); Neutrophil # 8.96 X10^3/uL (2.7-7.7); Neutrophil % 68.1 % (47-70); Platelet Count 295 K/mm3 (150-450); RBC Distribution Width CV 13.7 % (11.6-14.6); RBC Distribution Width SD 45.8 fl (35.1-43.9); Red Blood Count 3.72 M/mm3 (4.2-5.4); White Blood Count 13.2 K/mm3 (4.4-11.0)
[2020-08-06] MEDS: Lactated Ringers 1,000 ML 200 ML IV ×3 (03:15→10:49)
[2020-08-06 03:29] LABS: Prothrombin Time (Protime)PT. 12.4 SECONDS (11.7-14.9)
[2020-08-06 03:36] LABS: AST(SGOT) 26 U/L (15-37); Alanine Aminotransfer ALT/SGPT 33 U/L (13-56); Creatinine, Serum 0.76 mg/dL (0.55-1.02); EST Glomerular Filtration Rate 95 mL/min (>60); Est Glom Filt Rate - Afr Amer 115 mL/min (>60); Estimated Creatinine Clearance 85.61 ml/min; Uric Acid 4.2 mg/dL (2.6-6.0)
--- NOTE | 2020-08-06 03:36 | PCM.HPOB.BLA ---
- Problem List (1) Active labor at term Status: Acute (2) 39 weeks gestation of Status: Acute Comment: electronic covid test NEGATIVE (3) Abnormal ultrasound Status: Acute Comment: Short long bones 03/04- <10th%, 04/16- FL 5th%, 06/08 FL <1%ile overall growth 15%ile; growth [id number]. NIPT low risk. Per MFM, no need to increase frequency of growths. Recommend checking thoracic circumference with next growth to make sure lungs developing. MFM concerned for skeletal dysplasia. US 07/08 shows EFW 41%ile with long bones 5-9%. (4) Graves disease Status: Acute Comment: On methimazole. On ASA to lower PreE risk since autoimmune. Follows with (5) Influenza vaccination declined Status: Acute (6) Obesity affecting Status: Acute Comment: 1h GTT next visit. (7) Status: Acute Qualifiers: Comment: cell free DNA- normal; normal NT. CHINMAY Diamante Ob (8) Supervision of high risk , antepartum Status: Acute Comment: PRR BERKLEY 08/01/20 boy PC:Munir Durand Spouse: Arnoldo History and Physical Date of Admission: 08/06/20 Intake Vital Signs 08/03/20 Height 5 ft 2 in 08/03/20 Weight: 229 lb 4 oz 08/03/20 BMI 41.9 08/03/20 BP 110/88 H Intake Visit Reasons: 40 WK OB Construction Rigger Required: No Is patient in pain?: No Allergies amoxicillin Adverse Reaction (Verified 08/03/20 15:28) Hives Medications Vits Prenatabs FA 1 tab PO DAILY 03/13/17 history Confirmed 08/03/20 acetaminophen 325 mg capsule 325 mg PO ONCE PRN 01/12/20 history Confirmed 08/03/20 cholecalciferol (vitamin D3) 50 mcg (2,000 unit) capsule 50 mcg PO DAILY 01/12/20 history Confirmed 08/03/20 aspirin 81 mg tablet,delayed release 81 mg PO DAILY 04/21/20 history Confirmed 08/03/20 methimazole 5 mg tablet 5 mg PO .M, W, F only #30 tab 07/09/20 Rx Confirmed 08/03/20 Last Menstral Period: 10/26/19 Zika: Zika virus screening: Negative : No PFSH PFSH Medical History Graves disease (Acute) Family History Grandmother blood clots Heart disease Grandfather Heart disease Social History (Updated 08/03/20 @ 15:[address] 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 Date Name GA/Weeks Outcome Route Bth Weight Gen Labor Lgth Anesthesia Del Locatn Provider FOB 03/14/17 Munir 40 live - full term vacuum 8lbs 11oz Male 27 epidural [facility] Dr. Manjeet Acuña 12/01/18 Ladarius 40 live - full term 8lbs 7oz Male 5 hours epidural [facility] Dr. Sharonda Acuña Delivery Date: 03/14/17 No issues during or delivery JoleenLaura Delivery Date: 12/01/18 No issues during or delivery Laura Goodrich HPI 40 WK OB: Details: ANMOL AGARWAL is a 29 year old G3, P2 presents at 40 weeks 5 days with contractions as any vaginal bleeding or loss of fluid admits good movement. has been complicated with short and long bones but overall normal growth. OB Visit BERKLEY Calculator Estimated Delivery Date Method Current WG Current Estimate 08/01/20 LMP (Certain) 40w 2d Expected Delivery Route/Plan Labor Preferences- labor support person: Arianne labor intervention preferences: open pain management options preferred: epidural cut cord/dad catch: Yes - both : PP control planned: discussed possible routes of delivery and associated risks: discussed possible delivery modalities and possible indications for each including R/B/A of , VAVD, FAVD, and CS. questions answered. special requests: Specific Issue/Plans flu vaccine: declines tdap vaccine: given 05/12 rhogam: NA LARC form signed: declined movement and labor precautions reviewed. Problem list reviewed and updated with the most current plan of care details and appropriate orders placed. Relevant counseling for the gestational age provided. Continue routine care and follow up unless otherwise noted in visit notes/problem list details Initial Weight: Not Recorded Date EGA Weight BP Urine Prot Glucose FHR FuHt Pres Dilation Effaced St Visit Note 04/21/20 25w 3d 214 lb 120/80 Negative Negative 135 25 GP - CHINMAY from [employer]. Denies ctx, LOF, VB, DFM. Discussed practice model. Needs q4 growths for short femur lengths - wants to do at hospital to group with appointments. 05/12/20 28w 3d 218 lb 128/78 Negative Negative 140 28 GP - no LOF, VB, DFM, Ctx. Glucose test done today. Has growth scheduled for today. 05/25/20 30w 2d 219 lb 120/84 Negative Negative 145 30 SM- no vb lof good fm no regular ctx discussed leg bones 06/08/20 32w 2d 218 lb 4 oz 96/76 Negative Negative 145 32 SM- SM- no vb lof good fm no regular ctx. fu us today 06/23/20 34w 3d 225 lb 110/80 150 34 Cephalic GP - no LOF, VB, DFM, ctx. Discussed FL <1%ile with Dr. Díaz - recommend thoracic circumference with next growth. No need for more frequent surveillance with overall normal growth. 06/30/20 35w 3d 224 lb 2 oz 122/82 155 Cephalic 0.5 40 -3 GP - Problem visit for vaginal spotting. Reports was red this am. Has tapered throughout the day. No bleeding on exam. Cervix ftp. 07/09/20 36w 5d 227 lb 108/78 Negative Negative 150 36 Cephalic 1 40 -3 GP -no LOF, VB, DFM, ctx. Most recent growth shows interval growth of long bones with overall EFW 41%ile. GBS done today. 07/15/20 37w 4d 226 lb 2 oz 110/70 Negative Negative 145 37 Cephalic 1 40 -3 Sm- no vb lof good fm no regular ctx 07/21/20 38w 3d 226 lb 2 oz 110/76 Negative Negative 140 38 Cephalic 2 40 -3 GP - no LOF, VB, DFM, ctx. Denies complaints. COVID testing scheduled for 40 weeks. 07/28/20 39w 3d 229 lb 4 oz 110/86 150 39 Cephalic 3 60 -2 GP - no LOF, VB, DFM, ctx. Membranes swept today. 08/03/20 40w 2d 229 lb 4 oz 110/88 Negative Negative 140 40 Cephalic 3 60 -2 SM- no vb lof good fm no reuglar ctx plan IOL Diagnostics Diagnostics Details: HIV: Urine Culture: Sequential Screen: NIPT Screen: ROS Const Reports system reviewed and no additional complaints, except as docu Card Reports system reviewed and no additional complaints, except as docu Resp Reports system reviewed and no additional complaints, except as docu GI Reports system reviewed and no additional complaints, except as docu, Reports nausea Reports system reviewed and no additional complaints, except as docu Musc Reports system reviewed and no additional complaints, except as docu Exam Const General: cooperative, healthy appearing, comfortable, anxious HENFL Head: normal to inspection Nose: external nose normal Face and sinus: normal facial exam Neck Neck: normal visual inspection, full ROM, no lymphadenopathy Thyroid: thyroid normal Chest Chest palpation & inspection: normal inspection of the chest Resp Effort & Inspection: normal respiratory effort GI Inspection: normal to inspection Palpation: soft, other (gravid uterus) Other: vertex and appropriate size for gestational age Other: Cervical Exam: 4 Extrem General: pedal edema Results POC Urinalysis 2 Dip (Clinic) Office Urine Glucose Negative Last Edit by Laura Goodrich on 08/03/20 15:39 Office Urine Protein Negative Last Edit by Laura Goodrich on 08/03/20 15:39 Assessment & Plan Problems 1. Influenza vaccination declined Z28.21 2. Graves disease E05.00 On methimazole. On ASA to lower PreE risk since autoimmune. Follows with 3. Abnormal ultrasound O28.3 Short long bones 03/04- US 07/08 shows EFW 41%ile with long bones 5-9%. 4. 39 weeks gestation of Z3A.39 electronic covid test NEGATIVE 5. Supervision of high risk , antepartum O09.90 PRR BERKLEY 1/10/21 boy PC:Munir Durand Spouse: Arnoldo 6. 40 weeks gestation of Z3A.40 cell free DNA- normal; normal NT. CHINMAY Diamante Ob 7. Obesity affecting O99.210 1h GTT nl 29-year-old G3, P2 at 40 weeks 5 days presents in active labor Patient presents IAL, plan expectant management for , pitocin/AROM if needed. Pain management: Plans epidural. GBS negative. Management of any complications: Short long bones but overall reassuring growth I have reviewed the [facility] and made any clinically relevant updates. Orders Orders: POC Urinalysis 2 Dip (Clinic) Today Coding Level of Care Code OB Routine Diagnoses Influenza vaccination declined Z28.21 Graves disease E05.00 Abnormal ultrasound O28.3 39 weeks gestation of Z3A.39 Supervision of high risk , antepartum O09.90 40 weeks gestation of Z3A.40 ??Weeks of gestation: 40 weeks Obesity affecting O99.210
[2020-08-06] MEDS: fentaNYL-bupivacaine (epidural) 100 ML BAG EPIDURAL ×2 (04:51→10:25)
[2020-08-06] MEDS: Mag Hydrox/Al Hydrox/Simeth 30 ML UDC PO (05:01)
--- NOTE | 2020-08-06 05:13 | NURSING ---
pt just received epidural, on bed rest until after delivery and pt to be assisted by RN when ambulating
[2020-08-06] MEDS: Oxytocin 30 units/NS 500 ml 30 UNITS/500 ML IV.SOLN IV (10:20)
[2020-08-06] MEDS: Oxytocin 30 units/NS 500 ml 30 UNITS/500 ML IV.SOLN 334 UNITS IV (12:52)
[2020-08-06] MEDS: Naproxen 250 MG Tablet 500 MG PO ×2 (15:14→23:28)
[2020-08-06] MEDS: 0.9% Saline Lock 10 ML Syringe IV (15:28)
[2020-08-06] MEDS: Acetaminophen 500 MG Tablet 1000 MG PO (17:25)
--- NOTE | 2020-08-06 22:11 | OP.PCM_ITS ---
Problem List (1) Active labor at term Status: Acute (2) 39 weeks gestation of Status: Acute Comment: electronic covid test NEGATIVE (3) Abnormal ultrasound Status: Acute Comment: Short long bones 03/04- <10th%, 04/16- FL 5th%, 06/08 FL <1%ile overall growth 15%ile; growth [id number]. NIPT low risk. Per MFM, no need to increase frequency of growths. Recommend checking thoracic circumference with next growth to make sure lungs developing. MFM concerned for skeletal dysplasia. US 07/08 shows EFW 41%ile with long bones 5-9%. (4) Graves disease Status: Acute Comment: On methimazole. On ASA to lower PreE risk since autoimmune. Follows with (5) Influenza vaccination declined Status: Acute (6) Obesity affecting Status: Acute Comment: 1h GTT next visit. (7) Status: Acute Qualifiers: Comment: cell free DNA- normal; normal NT. CHINMAY Diamante Ob (8) Supervision of high risk , antepartum Status: Acute Comment: PRR BERKLEY 08/01/20 boy PC:Munir Durand Spouse: Arnoldo Vaginal Delivery Maternal Presentation: Active Labor ial 40w5d Amniotic Membrane Rupture Type: Artificial Amniotic Fluid Description: Clear Final BERKLEY: 08/01/20 Gestational age: 40 Weeks and 5 Days Date of Procedure: 08/06/20 Pre-Operative Diagnosis: ial Post-Operative Diagnosis: same Surgery/ Procedure Performed: Spontaneous Vaginal Delivery Type of Anesthesia: Epidural Description of Procedure: Patient began pushing and delivered the head in the RAIN presentation. The head was delivered atraumatically and a loose nuchal cord ?1 was identified and ea sily reduced over the infant's head. The anterior and posterior shoulders delivered without complication followed by the rest of the and the was placed on the maternal abdomen. Delayed cord clamping was employed for approximately 60 seconds. Cord was clamped and cut and gentle traction was applied to the cord and the placenta delivered spontaneously immediately following it was noted to be intact with three-vessel cord. The perineum and vagina were inspected and noted to have no laceration. EBL was 200. Patient and tolerated delivery well. Presentation: RAIN Placental Delivery Description: Spontaneous Placenta Disposition: [facility] Cord Vessel Description: 3 Vessels Cord Entanglement: Around neck x 1, loose Estimated Blood Loss: 200 A gender: Male Episiotomy Description: None Laceration: None Medications given after delivery: IV Pitocin Complications: None Multi Select Codes - Urinary/Genital Urinary/Genital CPT Codes: 90603 Vaginal Delivery [facility]
--- NOTE | 2020-08-06 22:12 | DCINST_ITS ---
Discharge Diet: No Restrictions Discharge Activity: Return to Normal Activity, May not drive while taking narcotic pain medications., May Shower May resume sexual activity in: 4-6 weeks Call your doctor if your incision/area has: Continuous Slow Oozing, Sudden Increased Bleeding, Increased Pain/ Swelling, Increased Redness, Foul Smelling Discharge Additional Instructions: If you experience any of the following, contact your healthcare provider. * Bleeding that soaks a pad every hour for 2 hours * Fever 100.4 or higher * Unrelieved incision or abdominal pain * Swelling, redness, discharge or bleeding from your incision or episiotomy site * Your incision begins to separate * Problems urinating (including inability to urinate or burning while urinating). * Visual changes * Severe headache * Flu-like symptoms * Pain or redness in one of both of your breasts * Pain, warmth, tenderness or swelling in your legs, especially the calf area * Frequent nausea and vomiting * Symptoms of depression or anxiety If you experience any of the following, call 911 or go to the nearest Emergency Room. * Chest pain * Problems breathing * Seizure activity * Partial or complete paralysis of a body part, slurred speech, weakness or drooping of the face, or a sudden inability to walk or hold your balance Allergies/Adverse Reactions: Allergies amoxicillin Adverse Reaction (Verified 08/03/20 15:28) Hives Medications to take at Discharge Vits [Prenatabs FA] 1 tab PO DAILY 03/13/17 acetaminophen 325 mg capsule 325 mg PO ONCE PRN 01/12/20 cholecalciferol (vitamin D3) 50 mcg (2,000 unit) capsule 50 mcg PO DAILY 01/12/20 aspirin 81 mg tablet,delayed release 81 mg PO DAILY 04/21/20 methimazole 5 mg tablet 5 mg PO .M, W, F only #30 tab 07/09/20 Naproxen [Naprosyn] 250 - 500 mg PO Q8H PRN PRN #30 tab 08/06/20 The following prescriptions were given: Naproxen [Naprosyn] 250 - 500 mg PO Q8H PRN PRN #30 tab PRN Reason: MILD PAIN Transmission Status: Pending to [facility] Please Follow Up With: Jacquelyn Mcdonough MD - [phone] When: Call to make an appointment with your doctor in 6 weeks. If you had elevated Blood pressure or 4th degree laceration you will need to be seen in 2 weeks. Primary Care Physician: Gabo Lake DO [Primary Care Provider] - Test Results: Test results from this visit will be discussed in further detail at your follow- up appointment, if applicable.
--- NOTE | 2020-08-06 23:25 | NURSING ---
RN in room, pt up to bathroom. Baseball sized clot passed into toilet. RN will continue to assess, instructed pt to call if another clot is passed.
[2020-08-07 03:44] VITALS: BP 116/72; PULSE 71; RESP 18; TEMP 36.7; O2SAT 98
[2020-08-07] MEDS: Acetaminophen 500 MG Tablet 1000 MG PO ×2 (03:46→19:57)
[2020-08-07] MEDS: Naproxen 250 MG Tablet 500 MG PO ×2 (07:51→15:33)
[2020-08-07 07:55] VITALS: BP 109/65; PULSE 78; RESP 16; TEMP 36.2; O2SAT 95
[2020-08-07] MEDS: Senna/Docusate Sodium 1 Tablet PO ×2 (08:21→19:56)
--- NOTE | 2020-08-07 08:48 | PCM.PN.OB ---
Patient Problems: Active and Suspected Problems (Last Reviewed 08/03/20 @ 15:28 by Laura Goodrich) Active labor at term (Acute) 39 weeks gestation of (Acute) electronic covid test NEGATIVE Influenza vaccination declined (Acute) Graves disease (Acute) On methimazole. On ASA to lower PreE risk since autoimmune. Follows with Abnormal ultrasound (Acute) Short long bones 03/04- <10th%, 04/16- FL 5th%, 06/08 FL <1%ile overall growth 15%ile; growth [id number]. NIPT low risk. Per MFM, no need to increase frequency of growths. Recommend checking thoracic circumference with next growth to make sure lungs developing. MFM concerned for skeletal dysplasia. US 07/08 shows EFW 41%ile with long bones 5-9%. Supervision of high risk , antepartum (Acute) PRR BERKLEY 08/01/20 boy PC:Munir Durand Spouse: Arnoldo (Acute) cell free DNA- normal; normal NT. CHINMAY Diamante Ob Obesity affecting (Acute) 1h GTT next visit. Subjective: Patient doing well without complaints. Tolerating PO. Ambulating and voiding without difficulty. feeding well. Denies chest pain, shortness of breath, calf pain/swelling, fevers, chills, lightheadedness. - Physical Exam Vitals/I&O's: Vital Signs Temp Pulse Resp BP Pulse Ox 97.2 F L 78 16 109/65 95 08/07/20 07:55 08/07/20 07:55 08/07/20 07:55 08/07/20 07:55 08/07/20 07:55 Oxygen Delivery Method Room Air Weight: 226 lb 10.163 oz Body Mass Index (BMI) 41.4 Intake and Output for Last 24 Hours 08/05/20 08/06/20 08/07/20 23:59 23:59 23:59 Intake Total 4167.38 / 4167.38 Output Total 1600 / 1600 Balance 2567.38 / 2567.38 General: Alert, Oriented x3 Current Medications Acetaminophen (Acetaminophen 500 Mg Tablet) 1,000 mg PO Q8H PRN PRN PRN Reason: Pain Score 1-3 Last Admin: 08/07/20 03:46 Dose: 1,000 mg Documented by: Bisacodyl (Bisacodyl 10 Mg Suppository) 10 mg RECTAL UD PRN PRN Reason: If no BM Dibucaine (Dibucaine 30 Gm Tube) 1 applic TOPICAL TID PRN PRN; Protocol PRN Reason: Discomfort Hydrocortisone (Hydrocortisone 2.5% Crm) 1 applic TOPICAL TID PRN PRN; Protocol PRN Reason: Discomfort Methylergonovine Maleate (Methylergonovine 0.2 Mg/Ml Ampul) 0.2 mg IM X1 PRN PRN Reason: Excess bleeding/uterine atony Naproxen (Naproxen 250 Mg Tablet) 500 mg PO Q8H PRN PRN PRN Reason: Pain Score 1-3 Last Admin: 08/07/20 07:51 Dose: 500 mg Documented by: Ondansetron HCl (Ondansetron 4 Mg/2 Ml Vial) 4 mg IV Q4H PRN PRN PRN Reason: Nausea Oxycodone HCl (Oxycodone 5 Mg Tablet) 5 - 10 mg PO Q4H PRN PRN PRN Reason: Pain Score 4-10 Senna/Docusate Sodium (Senna/Docusate Sodium 1 Tablet) 1 - 2 tablet PO DAILY PRN PRN PRN Reason: Constipation Last Admin: 08/07/20 08:21 Dose: 2 tablet Documented by: Simethicone (Simethicone 80 Mg Tablet) 80 mg PO PCHS PRN PRN Reason: Indigestion/Stomach pain Sodium Chloride (0.9% Saline Lock 10 Ml Syringe) 5 - 15 ml IV UD PRN PRN Reason: SALINE FLUSH Last Admin: 08/06/20 15:28 Dose: 10 ml Documented by: Medical Necessity - Tobacco Use Smoking Status: Never smoker Assessment/Plan All Active Problems (Last Reviewed 08/03/20 @ 15:28 by Laura Goodrich) Active labor at term (Acute) 39 weeks gestation of (Acute) Influenza vaccination declined (Acute) Graves disease (Acute) Abnormal ultrasound (Acute) Supervision of high risk , antepartum (Acute) (Acute) Obesity affecting (Acute) Active labor at term (Resolved) Echogenic intracardiac focus of fetus on ultrasound (Resolved) s/p PPD # 1 1. routine post delivery care 2. breast feeding- support given 3. rh positive 4. rubella immune
[2020-08-07 11:28] VITALS: BP 117/71; PULSE 81; RESP 16; TEMP 36.6
[2020-08-07 14:32] VITALS: BP 108/66; PULSE 81; RESP 16; TEMP 36.2
[2020-08-07 19:51] VITALS: BP 120/60; PULSE 88; RESP 16; TEMP 36.6
[2020-08-08 01:41] VITALS: BP 134/81; PULSE 70; RESP 16; TEMP 36.6
[2020-08-08] MEDS: Naproxen 250 MG Tablet 500 MG PO (03:23)
--- NOTE | 2020-08-08 06:14 | PCM.PN.OB ---
Patient Problems: Active and Suspected Problems (Last Reviewed 08/03/20 @ 15:28 by Laura Goodrich) Active labor at term (Acute) 39 weeks gestation of (Acute) electronic covid test NEGATIVE Influenza vaccination declined (Acute) Graves disease (Acute) On methimazole. On ASA to lower PreE risk since autoimmune. Follows with Abnormal ultrasound (Acute) Short long bones 03/04- <10th%, 04/16- FL 5th%, 06/08 FL <1%ile overall growth 15%ile; growth [id number]. NIPT low risk. Per MFM, no need to increase frequency of growths. Recommend checking thoracic circumference with next growth to make sure lungs developing. MFM concerned for skeletal dysplasia. US 07/08 shows EFW 41%ile with long bones 5-9%. Supervision of high risk , antepartum (Acute) PRR BERKLEY 08/01/20 boy PC:Munir Durand Spouse: Arnoldo (Acute) cell free DNA- normal; normal NT. CHINMAY Diamante Ob Obesity affecting (Acute) 1h GTT next visit. Subjective: Patient doing well without complaints. Tolerating PO. Ambulating and voiding without difficulty. feeding well. Denies chest pain, shortness of breath, calf pain/swelling, fevers, chills, lightheadedness. - Physical Exam Vitals/I&O's: Vital Signs Temp Pulse Resp BP Pulse Ox 97.8 F 70 16 134/81 H 95 08/08/20 01:41 08/08/20 01:41 08/08/20 01:41 08/08/20 01:41 08/07/20 07:55 Oxygen Delivery Method Room Air Weight: 226 lb 10.163 oz Body Mass Index (BMI) 41.4 Intake and Output for Last 24 Hours 08/06/20 08/07/20 08/08/20 23:59 23:59 23:59 Intake Total 4167.38 / 4167.38 Output Total 1600 / 1600 Balance 2567.38 / 2567.38 General: Alert, Oriented x3 Current Medications Acetaminophen (Acetaminophen 500 Mg Tablet) 1,000 mg PO Q8H PRN PRN PRN Reason: Pain Score 1-3 Last Admin: 08/07/20 19:57 Dose: 1,000 mg Documented by: Bisacodyl (Bisacodyl 10 Mg Suppository) 10 mg RECTAL UD PRN PRN Reason: If no BM Dibucaine (Dibucaine 30 Gm Tube) 1 applic TOPICAL TID PRN PRN; Protocol PRN Reason: Discomfort Hydrocortisone (Hydrocortisone 2.5% Crm) 1 applic TOPICAL TID PRN PRN; Protocol PRN Reason: Discomfort Methylergonovine Maleate (Methylergonovine 0.2 Mg/Ml Ampul) 0.2 mg IM X1 PRN PRN Reason: Excess bleeding/uterine atony Naproxen (Naproxen 250 Mg Tablet) 500 mg PO Q8H PRN PRN PRN Reason: Pain Score 1-3 Last Admin: 08/08/20 03:23 Dose: 500 mg Documented by: Ondansetron HCl (Ondansetron 4 Mg/2 Ml Vial) 4 mg IV Q4H PRN PRN PRN Reason: Nausea Oxycodone HCl (Oxycodone 5 Mg Tablet) 5 - 10 mg PO Q4H PRN PRN PRN Reason: Pain Score 4-10 Senna/Docusate Sodium (Senna/Docusate Sodium 1 Tablet) 1 - 2 tablet PO DAILY PRN PRN PRN Reason: Constipation Last Admin: 08/07/20 19:56 Dose: 1 tablet Documented by: Simethicone (Simethicone 80 Mg Tablet) 80 mg PO PCHS PRN PRN Reason: Indigestion/Stomach pain Sodium Chloride (0.9% Saline Lock 10 Ml Syringe) 5 - 15 ml IV UD PRN PRN Reason: SALINE FLUSH Last Admin: 08/06/20 15:28 Dose: 10 ml Documented by: Medical Necessity - Tobacco Use Smoking Status: Never smoker Assessment/Plan All Active Problems (Last Reviewed 08/03/20 @ 15:28 by Laura Goodrich) Active labor at term (Acute) 39 weeks gestation of (Acute) Influenza vaccination declined (Acute) Graves disease (Acute) Abnormal ultrasound (Acute) Supervision of high risk , antepartum (Acute) (Acute) Obesity affecting (Acute) Active labor at term (Resolved) Echogenic intracardiac focus of fetus on ultrasound (Resolved) s/p PPD # 2 1. routine post delivery care 2. breast feeding- support given 3. rh positive 4. rubella immune
[2020-08-08] MEDS: Acetaminophen 500 MG Tablet 1000 MG PO (06:30)
[2020-08-08 08:39] VITALS: BP 117/68; PULSE 53; RESP 16; TEMP 36; O2SAT 96
== END 2020-08-08 10:40 | disposition home or self-care (01) | DRG 807 ==
LOC: WPOUT 03:01 → WP 03:01
PROVIDERS: Admitting Provider Obstetrics & Gynecology; PCP Student in an Organized Health Care Education/Training Program; Referring Provider Obstetrics & Gynecology; Visit Provider Obstetrics & Gynecology
DX: O99.284 Endocrine, nutritional and metabolic diseases complicating childbirth (principal); Z37.0 Single live birth; E05.00 Thyrotoxicosis with diffuse goiter without thyrotoxic crisis or storm; O99.214 Obesity complicating childbirth; Z3A.40 40 weeks gestation of pregnancy; O69.81X0 Labor and delivery complicated by cord around neck, without compression, not applicable or unspecified
CPT/HCPCS: 59050; 82565; 84450; 84460; 84550; 85025; 85610; 85730; 86850; 86900; 86901; 99218; J7120; A4216; G0378

== ENCOUNTER → 2020-09-24 07:42 | Outpatient (CLI) | payer OTHER, SELFPAY ==
[2020-09-16 11:30] VITALS: BMI 38.8
[2020-09-24 08:40] LABS: Free T3 2.4 pg/mL (2.18-3.98); T4 Free Direct 1.06 ng/dL (0.76-1.46); Thyroid Stim Hormone (TSH) 1.18 uIU/mL (0.358-3.74)
== END ==
PROVIDERS: PCP Student in an Organized Health Care Education/Training Program; Visit Provider Internal Medicine Endocrinology, Diabetes & Metabolism
DX: E05.00 Thyrotoxicosis with diffuse goiter without thyrotoxic crisis or storm (principal)
CPT/HCPCS: 36415; 84439; 84443; 84481

== ENCOUNTER → 2020-10-21 12:28 | Outpatient (CLI) | payer OTHER, SELFPAY ==
[2020-09-27 15:35] VITALS: BMI 39.0
[2020-10-21 13:58] LABS: Vitamin B12 371 pg/mL (211-911)
[2020-10-21 14:09] LABS: Free T3 3.2 pg/mL (2.18-3.98); T4 Free Direct 1.26 ng/dL (0.76-1.46); Thyroid Stim Hormone (TSH) 0.15 uIU/mL (0.358-3.74)
== END ==
PROVIDERS: PCP Student in an Organized Health Care Education/Training Program; Visit Provider Internal Medicine Endocrinology, Diabetes & Metabolism
DX: E05.00 Thyrotoxicosis with diffuse goiter without thyrotoxic crisis or storm (principal); M79.601 Pain in right arm; M79.602 Pain in left arm; R20.2 Paresthesia of skin
CPT/HCPCS: 36415; 82607; 84439; 84443; 84481

== ENCOUNTER → 2020-12-11 08:33 | Outpatient (CLI) | payer OTHER, SELFPAY ==
[2020-09-27 15:35] VITALS: BMI 39.0
[2020-12-11 10:24] LABS: Free T3 6.7 pg/mL (2.18-3.98); T4 Free Direct 2.19 ng/dL (0.76-1.46); Thyroid Stim Hormone (TSH) < 0.01 uIU/mL (0.358-3.74)
== END ==
PROVIDERS: PCP Student in an Organized Health Care Education/Training Program; Referring Provider Internal Medicine Endocrinology, Diabetes & Metabolism; Visit Provider Internal Medicine Endocrinology, Diabetes & Metabolism
DX: E05.00 Thyrotoxicosis with diffuse goiter without thyrotoxic crisis or storm (principal)
CPT/HCPCS: 36415; 84439; 84443; 84481

== ENCOUNTER → 2020-12-24 12:50 | Outpatient (CLI) | payer OTHER, SELFPAY ==
[2020-09-27 15:35] VITALS: BMI 39.0
[2020-12-24 14:24] LABS: Free T3 6.1 pg/mL (2.18-3.98); T4 Free Direct 1.74 ng/dL (0.76-1.46); Thyroid Stim Hormone (TSH) < 0.01 uIU/mL (0.358-3.74)
== END ==
PROVIDERS: PCP Student in an Organized Health Care Education/Training Program; Referring Provider Internal Medicine Endocrinology, Diabetes & Metabolism; Visit Provider Internal Medicine Endocrinology, Diabetes & Metabolism
DX: E05.00 Thyrotoxicosis with diffuse goiter without thyrotoxic crisis or storm (principal)
CPT/HCPCS: 36415; 84439; 84443; 84481

== ENCOUNTER → 2021-01-28 12:07 | Outpatient (CLI) | payer OTHER, SELFPAY ==
[2020-09-27 15:35] VITALS: BMI 39.0
[2021-01-28 13:23] LABS: Free T3 5.6 pg/mL (2.18-3.98); T4 Free Direct 1.81 ng/dL (0.76-1.46); Thyroid Stim Hormone (TSH) < 0.01 uIU/mL (0.358-3.74)
== END ==
PROVIDERS: PCP Student in an Organized Health Care Education/Training Program; Referring Provider Internal Medicine Endocrinology, Diabetes & Metabolism; Visit Provider Internal Medicine Endocrinology, Diabetes & Metabolism
DX: E05.00 Thyrotoxicosis with diffuse goiter without thyrotoxic crisis or storm (principal)
CPT/HCPCS: 36415; 84439; 84443; 84481

== ENCOUNTER → 2021-03-12 10:44 | Outpatient (CLI) | payer OTHER, SELFPAY ==
[2021-03-12 13:03] LABS: Free T3 3.2 pg/mL (2.18-3.98); T4 Free Direct 1.16 ng/dL (0.76-1.46); Thyroid Stim Hormone (TSH) < 0.01 uIU/mL (0.358-3.74)
== END ==
PROVIDERS: PCP Student in an Organized Health Care Education/Training Program; Referring Provider Internal Medicine Endocrinology, Diabetes & Metabolism; Visit Provider Internal Medicine Endocrinology, Diabetes & Metabolism
DX: E05.00 Thyrotoxicosis with diffuse goiter without thyrotoxic crisis or storm (principal)
CPT/HCPCS: 36415; 84439; 84443; 84481

== ENCOUNTER → 2021-06-14 12:44 | Outpatient (CLI) | payer OTHER, SELFPAY ==
[2021-06-14 16:10] LABS: Free T3 2.7 pg/mL (2.18-3.98); T4 Free Direct 1.05 ng/dL (0.76-1.46); Thyroid Stim Hormone (TSH) 2.64 uIU/mL (0.358-3.74)
== END ==
PROVIDERS: PCP Student in an Organized Health Care Education/Training Program; Referring Provider Internal Medicine Endocrinology, Diabetes & Metabolism; Visit Provider Internal Medicine Endocrinology, Diabetes & Metabolism
DX: E05.00 Thyrotoxicosis with diffuse goiter without thyrotoxic crisis or storm (principal)
CPT/HCPCS: 36415; 84439; 84443; 84481

== ENCOUNTER → 2021-12-17 | Outpatient (CLI) | payer OTHER, SELFPAY ==
[2021-12-17 10:46] LABS: Cholesterol 185 mg/dL (200); Glucose 94 mg/dL (74-106); High Density Lipoprotein 34 mg/dL; Triglycerides 91 mg/dL; Very Low Density Lipoprotein 18 mg/dL (5-40)
[2021-12-17 10:50] LABS: Vitamin D,25 Hydroxy 111.3 ng/mL
[2021-12-17 10:51] LABS: Vitamin B12 1546 pg/mL (211-911)
[2021-12-17 10:59] LABS: Free T3 2.4 pg/mL (2.18-3.98); T4 Free Direct 0.95 ng/dL (0.76-1.46); Thyroid Stim Hormone (TSH) 5.15 uIU/mL (0.358-3.74)
== END | disposition home or self-care (01) ==
LOC: LAB 09:15
PROVIDERS: Internal Medicine Endocrinology, Diabetes & Metabolism; PCP Student in an Organized Health Care Education/Training Program; Visit Provider Obstetrics & Gynecology
DX: E05.00 Thyrotoxicosis with diffuse goiter without thyrotoxic crisis or storm (principal); R20.2 Paresthesia of skin; Z13.1 Encounter for screening for diabetes mellitus; Z13.21 Encounter for screening for nutritional disorder
CPT/HCPCS: 36415; 80061; 82306; 82607; 82947; 84439; 84443; 84481

== ENCOUNTER → 2022-01-26 | Outpatient (CLI) | payer OTHER, SELFPAY ==
[2022-01-26 12:38] LABS: Vitamin B12 662 pg/mL (211-911)
[2022-01-26 12:43] LABS: Free T3 2.4 pg/mL (2.18-3.98); T4 Free Direct 0.91 ng/dL (0.76-1.46)
== END | disposition home or self-care (01) ==
PROVIDERS: PCP Student in an Organized Health Care Education/Training Program; Referring Provider Nurse Practitioner Family; Visit Provider Nurse Practitioner Family
DX: E05.00 Thyrotoxicosis with diffuse goiter without thyrotoxic crisis or storm (principal); R79.89 Other specified abnormal findings of blood chemistry
CPT/HCPCS: 36415; 82607; 84439; 84443; 84481

== ENCOUNTER → 2022-04-29 | Outpatient (CLI) | payer OTHER, SELFPAY ==
[2022-04-29 11:44] LABS: Free T3 2.5 pg/mL (2.18-3.98); T4 Free Direct 1.01 ng/dL (0.76-1.46); Thyroid Stim Hormone (TSH) 3.16 uIU/mL (0.358-3.74)
== END | disposition home or self-care (01) ==
LOC: LAB 09:50
PROVIDERS: PCP Student in an Organized Health Care Education/Training Program; Referring Provider Internal Medicine Endocrinology, Diabetes & Metabolism; Visit Provider Internal Medicine Endocrinology, Diabetes & Metabolism
DX: E05.00 Thyrotoxicosis with diffuse goiter without thyrotoxic crisis or storm (principal)
CPT/HCPCS: 36415; 84439; 84443; 84481

== ENCOUNTER → 2022-07-21 | Outpatient (CLI) | payer OTHER, SELFPAY ==
[2022-07-21 15:12] LABS: Free T3 2.2 pg/mL (2.18-3.98); T4 Free Direct 0.88 ng/dL (0.76-1.46); Thyroid Stim Hormone (TSH) 2.74 uIU/mL (0.358-3.74)
== END | disposition home or self-care (01) ==
LOC: LAB 13:28
PROVIDERS: PCP Student in an Organized Health Care Education/Training Program; Referring Provider Internal Medicine Endocrinology, Diabetes & Metabolism; Visit Provider Internal Medicine Endocrinology, Diabetes & Metabolism
DX: E05.00 Thyrotoxicosis with diffuse goiter without thyrotoxic crisis or storm (principal)
CPT/HCPCS: 36415; 84439; 84443; 84481

== ENCOUNTER → 2022-08-22 | Outpatient (CLI) | payer OTHER, SELFPAY ==
[2022-08-22 17:57] LABS: Free T3 2.8 pg/mL (2.18-3.98); T4 Free Direct 1.15 ng/dL (0.76-1.46); Thyroid Stim Hormone (TSH) 1.23 uIU/mL (0.358-3.74)
[2022-08-24 22:06] LABS: Chlamydia By Nucleic Acid AMP Negative (Negative)
[2022-08-24 22:37] LABS: Gonococcus By Nucleic Acid AMP Negative (Negative)
== END | disposition home or self-care (01) ==
PROVIDERS: Obstetrics & Gynecology; PCP Student in an Organized Health Care Education/Training Program; Visit Provider Internal Medicine Endocrinology, Diabetes & Metabolism
DX: Z34.90 Encounter for supervision of normal pregnancy, unspecified, unspecified trimester (principal); E05.00 Thyrotoxicosis with diffuse goiter without thyrotoxic crisis or storm
CPT/HCPCS: 36415; 84439; 84443; 84481; 87086; 87088; 87491; 87591

== ENCOUNTER → 2022-09-08 | Outpatient (CLI) | payer OTHER, SELFPAY ==
[2022-09-08 10:58] LABS: Absolute Lymphocyte Count 2.28 X10^3/uL (0.83-4.51); Absolute Neutrophil Count 8.4 X10^3/uL (2.0-7.7); Basophil# 0.03 X10^3/uL; Basophil% 0.3 % (0-1); Eosinophil# 0.15 X10^3/uL; Eosinophils% 1.3 % (0-5); Hematocrit 37.5 % (37-47); Lymphocyte # 2.28 X10^3/ul (0.83-4.51); Lymphocyte % 19.9 % (19-41); Mean Corp Hgb Conc 34.7 g/dL (32-36); Mean Corpuscular Volume 89.3 fL (81-99); Mean Platelet Vol. 10.1 fl (6.2-12.0); Monocyte# 0.53 X10^3/uL; Monocyte% 4.6 % (0-10); NRBC Flagged by Analyzer 0 % (0-5); Neutrophil # 8.39 X10^3/uL (2.7-7.7); Neutrophil % 73.5 % (47-70); Platelet Count 340 K/mm3 (150-450); RBC Distribution Width CV 13.2 % (11.6-14.6); RBC Distribution Width SD 42.6 fl (35.1-43.9); White Blood Count 11.4 K/mm3 (4.4-11.0)
[2022-09-08 11:20] LABS: Glucose Challenge Gest 1H 50g 100 mg/dL (70-140)
[2022-09-08 11:59] LABS: HIV - WCH Non-Reactive (Nonreactive); Hepatitis B Surface Antigen Non-Reactive (Nonreactive); Hepatitis C Antibody Non-Reactive (Nonreactive); Rubella IgG Reactive (Nonreactive); Syphilis Antibodies Non-reactive
[2022-09-08 14:36] LABS: Free T3 2.5 pg/mL (2.18-3.98); T4 Free Direct 1.08 ng/dL (0.76-1.46); Thyroid Stim Hormone (TSH) 0.72 uIU/mL (0.358-3.74)
== END | disposition home or self-care (01) ==
LOC: LAB 10:00
PROVIDERS: Internal Medicine Endocrinology, Diabetes & Metabolism; Obstetrics & Gynecology; PCP Student in an Organized Health Care Education/Training Program; Visit Provider Obstetrics & Gynecology
DX: Z34.90 Encounter for supervision of normal pregnancy, unspecified, unspecified trimester (principal); E05.00 Thyrotoxicosis with diffuse goiter without thyrotoxic crisis or storm; Z68.36 Body mass index [BMI] 36.0-36.9, adult
CPT/HCPCS: 36415; 82950; 84439; 84443; 84481; 85025; 86703; 86762; 86780; 86803; 86850; 86900; 86901; 87340

== ENCOUNTER → 2022-11-02 | Outpatient (CLI) | payer OTHER, SELFPAY ==
[2022-11-02 12:06] LABS: Free T3 2.6 pg/mL (2.18-3.98); T4 Free Direct 0.96 ng/dL (0.76-1.46); Thyroid Stim Hormone (TSH) 1.42 uIU/mL (0.358-3.74)
== END | disposition home or self-care (01) ==
LOC: LAB 11:03
PROVIDERS: PCP Student in an Organized Health Care Education/Training Program; Referring Provider Internal Medicine Endocrinology, Diabetes & Metabolism; Visit Provider Internal Medicine Endocrinology, Diabetes & Metabolism
DX: E05.00 Thyrotoxicosis with diffuse goiter without thyrotoxic crisis or storm (principal)
CPT/HCPCS: 36415; 84439; 84443; 84481

== ENCOUNTER → 2022-12-21 | Outpatient (CLI) | payer OTHER, SELFPAY ==
[2022-12-21 16:26] LABS: Free T3 2.2 pg/mL (2.18-3.98); T4 Free Direct 0.99 ng/dL (0.76-1.46); Thyroid Stim Hormone (TSH) 0.74 uIU/mL (0.358-3.74)
[2022-12-23 04:08] LABS: Thyroid Peroxidase AB 39 IU/mL (0-34)
== END | disposition home or self-care (01) ==
LOC: LAB 15:02
PROVIDERS: Obstetrics & Gynecology; PCP Student in an Organized Health Care Education/Training Program; Visit Provider Internal Medicine Endocrinology, Diabetes & Metabolism
DX: E05.00 Thyrotoxicosis with diffuse goiter without thyrotoxic crisis or storm (principal)
CPT/HCPCS: 36415; 84439; 84443; 84481; 86376

== ENCOUNTER → 2023-01-08 | Outpatient (CLI) | payer OTHER, SELFPAY ==
[2023-01-08 12:49] LABS: Glucose Challenge Gest 1H 50g 97 mg/dL (70-140); T4 Free Direct 0.88 ng/dL (0.76-1.46); Thyroid Stim Hormone (TSH) 1.16 uIU/mL (0.358-3.74)
[2023-01-08 12:58] LABS: Absolute Lymphocyte Count 2.47 X10^3/uL (0.83-4.51); Absolute Neutrophil Count 9.8 X10^3/uL (2.0-7.7); Basophil# 0.03 X10^3/uL; Basophil% 0.2 % (0-1); Eosinophils% 0.8 % (0-5); Hematocrit 34.9 % (37-47); Hemoglobin 11.5 g/dL (12.0-15.0); Lymphocyte # 2.47 X10^3/ul (0.83-4.51); Lymphocyte % 18.9 % (19-41); Mean Corpuscular Hgb 31.2 pg (27.0-32.0); Mean Corpuscular Volume 94.6 fL (81-99); Mean Platelet Vol. 10.6 fl (6.2-12.0); Monocyte# 0.56 X10^3/uL; Monocyte% 4.3 % (0-10); NRBC Flagged by Analyzer 0 % (0-5); Neutrophil # 9.82 X10^3/uL (2.7-7.7); Platelet Count 316 K/mm3 (150-450); RBC Distribution Width CV 13.8 % (11.6-14.6); RBC Distribution Width SD 47.3 fl (35.1-43.9); Red Blood Count 3.69 M/mm3 (4.2-5.4); White Blood Count 13.1 K/mm3 (4.4-11.0)
[2023-01-08 13:06] LABS: HIV - WCH Non-Reactive (Nonreactive); Syphilis Antibodies Non-reactive
[2023-01-08 13:39] LABS: Free T3 2.4 pg/mL (2.18-3.98)
== END | disposition home or self-care (01) ==
LOC: LAB 11:23
PROVIDERS: Internal Medicine Endocrinology, Diabetes & Metabolism; PCP Student in an Organized Health Care Education/Training Program; Referring Provider Obstetrics & Gynecology; Visit Provider Obstetrics & Gynecology
DX: O99.280 Endocrine, nutritional and metabolic diseases complicating pregnancy, unspecified trimester (principal); E05.00 Thyrotoxicosis with diffuse goiter without thyrotoxic crisis or storm; Z3A.00 Weeks of gestation of pregnancy not specified
CPT/HCPCS: 36415; 82950; 84439; 84443; 84481; 85025; 86703; 86780

== ENCOUNTER → 2023-03-06 | Outpatient (CLI) | payer OTHER, SELFPAY ==
[2023-03-06 14:43] LABS: Free T3 2.2 pg/mL (2.18-3.98); Thyroid Stim Hormone (TSH) 0.81 uIU/mL (0.358-3.74)
[2023-03-08 08:13] LABS: Thyroid Peroxidase AB 28 IU/mL (0-34)
== END | disposition home or self-care (01) ==
LOC: LAB 12:48
PROVIDERS: PCP Student in an Organized Health Care Education/Training Program; Referring Provider Advanced Practice Midwife; Visit Provider Advanced Practice Midwife
DX: O99.280 Endocrine, nutritional and metabolic diseases complicating pregnancy, unspecified trimester (principal); E05.00 Thyrotoxicosis with diffuse goiter without thyrotoxic crisis or storm; Z3A.00 Weeks of gestation of pregnancy not specified
CPT/HCPCS: 36415; 84439; 84443; 84481; 86376

== ENCOUNTER → 2023-03-19 | Outpatient (CLI) | payer OTHER, SELFPAY | END | disposition home or self-care (01) | LOC: LABSPEC 17:03 | PROVIDERS: PCP Student in an Organized Health Care Education/Training Program; Visit Provider Obstetrics & Gynecology | DX: O09.90 Supervision of high risk pregnancy, unspecified, unspecified trimester (principal); Z3A.00 Weeks of gestation of pregnancy not specified | CPT/HCPCS: 87081 ==

== ENCOUNTER 2023-04-07 01:30 | Outpatient (CLI) | payer OTHER, SELFPAY ==
[2023-04-07 01:47] VITALS: BMI 40.7
[2023-04-07 01:53] VITALS: BP 123/74; PULSE 96; O2SAT 96
[2023-04-07 01:55] VITALS: TEMP 36.8
[2023-04-07 03:08] VITALS: PULSE 83; O2SAT 100
[2023-04-07 03:13] VITALS: PULSE 89; O2SAT 100
[2023-04-07 04:13] VITALS: PULSE 93; O2SAT 100
[2023-04-07] MEDS: Calcium Carbonate 500 MG Tablet 1000 MG PO (04:38)
[2023-04-07 06:11] VITALS: BP 136/81; PULSE 82; TEMP 36.6; O2SAT 98
--- NOTE | 2023-04-08 10:21 | OB.TRI.PN_ITS ---
Progress Notes Date of Service: 04/07/23 Progress Note: Patient presents for triage evaluation secondary to contractions FHT: 140 Moderate variability reactive no decelerations category I tracing [place]: q 2-5 Contractions Assessment and plan: false labor no cervical change Reactive NST, reassuring maternal and status patient discharged to home to follow-up as scheduled. See problem list details for additional plan information. Charges/Coding Procedures Urinary/Genital 52xxx-59xxx: 02125-41 non-stress test Interp
== END 2023-04-07 06:30 | disposition home or self-care (01) ==
LOC: WPOUT 01:34 → WP 01:34
PROVIDERS: PCP Student in an Organized Health Care Education/Training Program; Referring Provider Obstetrics & Gynecology; Visit Provider Obstetrics & Gynecology
DX: O47.9 False labor, unspecified (principal); Z3A.00 Weeks of gestation of pregnancy not specified
CPT/HCPCS: 59025; 59050; 99221; G0378

== ENCOUNTER 2023-04-17 07:25 | Inpatient (IN) | payer OTHER, SELFPAY ==
[2023-04-17] VITALS (46 sets, daily range): BP systolic 69–140; BP diastolic 35–102; PULSE 82–143; RESP 16–18; TEMP 35.9–36.9; O2SAT 80–100; BMI 40.2
--- NOTE | 2023-04-17 07:26 | HP.PCM.OB_ITS ---
HPI - General General Date of Admission: 04/17/23 HPI Narrative ANMOL AGARWAL, is a 32 F at 40.2 weeks who presents in active labor. Maternal Data Information BERKLEY Calculator Estimated Delivery Date Method Current WG Current Estimate 04/15/23 Ultrasound #1 40w 2d Other Estimates 04/02/23 LMP (Certain) 42w 1d 04/07/23 Ultrasound #2 41w 3d Final BERKLEY: 04/15/23 Final BERKLEY Source: US >20 weeks Gestational age: 40.2 weeks [facility] Medical History (Updated 04/17/23 @ 07:39 by Melida Armas CNM) Graves disease Home Medications vits,calcium no.78-iron fumarate-folic acid 29 mg-1 mg tablet 1 tab PO DAILY Check with primary doctor 03/13/17 [History Last Taken 04/16/23 21:00] Allergy/AdvReac Type Severity Reaction Status Date / Time amoxicillin AdvReac Hives Verified 04/17/23 07:18 Family History Grandmother blood clots Heart disease Grandfather Heart disease Social History adopted: No household members: family number of children: 3 current occupational status: employed 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 current occupational exposures/hazards: No pets and animals: No history of recent travel: No sexually active: Yes Smoking Status: Never smoker alcohol intake: never substance use type: does not use well-balanced diet: daily or most days caffeine: No eating out: 1-3 times/week during the past year weight has: remained stable what type of physical activity do you participate in: walking frequency: 1-2 times per week duration: < 15 minutes/day nj/scientology: Latter-Day seatbelt use: always do you feel safe at home: Yes additional social history: - [place]- 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 Date Name GA/Weeks Outcome Route Bth Weight Infant Gen Labor Lgth Anesthesia Del Locatn Provider FOB 03/14/17 Munir 40 live - full term vacuum 8lbs 11oz Male [address] [facility] [address]. Manjeet Acuña 12/01/18 Ladarius 40 live - full term 8lbs 7oz Male 5 ho urs epidural [facility] Dr. Sharonda Acuña 08/06/20 [place] 40 live - full term Male epidu ral [facility] SHAZIA Delivery Date: 03/14/17 Last Updated by: Laura Goodrich No issues during or delivery Delivery Date: 12/01/18 Last Updated by: Laura Goodrich No issues during or delivery Delivery Date: 08/06/20 Last Updated by: Trang Holliday abnormal US- shortened long bones Visit Details Expected Delivery Route/Plan Labor Preferences- CB/BF classes: declines labor support person: Arnoldo labor intervention preferences: [] pain management options preferred: epidural cut cord/dad catch: cord : yes PP control planned: condoms discussed possible routes of delivery and associated risks: [] special requests: [] Plans Covid status: discussed Flu vaccine: discussed Tdap vaccine: given Rhogam: na LARC form signed: yes Problem list reviewed and updated with the most current plan of care details and appropriate orders placed. Relevant counseling for the gestational age provided. Continue routine care and follow up unless otherwise noted in visit notes/problem list details OB Flowsheet Initial Weight: Not Recorded Date -?-?-?-?-?-?-?-?-?-?-?-?- EGA Weight BP Urine Prot -?-?-?-?-?-?-?-?-?-?-?-?- Glucose FHR FuHt Pres Dilation -?-?-?-?-?-?-?-?-?-?-?-?- Effaced St Visit Note 08/22/22 -?-?-?-?-?-?-?-?-?-?-?-?- 6w 2d 207 lb 130/89 -?-?-?-?-?-?-?-?-?-?-?-?- 130 -?-?-?-?-?-?-?-?-?-?-?-?- JV- single live IUP measuring 6 weeks 2 days. denies NIPT. needs early GCT. has albaro followed by Dr. Portillo. 09/20/22 -?-?-?-?-?-?-?-?-?-?-?-?- 10w 3d 206 lb 6 oz 118/80 Nega tive -?-?-?-?-?-?-?-?-?-?-?-?- Negative 155 -?-?-?-?-?-?-?-?-?-?-?-?- JV- CRL much mor e clear today and measuring 11 weeks 4 days. BERKLEY now 04/07. 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 11/13/22 -?-?-?-?-?-?-?-?-?-?-?-?- 18w 1d 210 lb 116/77 Negative -?-?-?-?-?-?-?-?-?-?-?-?- Negative 150 -?-?-?-?-?-?-?-?-?-?-?-?- SM- no vb lof go od fm no regular ctx will determine due date 12/11/22 -?-?-?-?-?-?-?-?-?-?-?-?- 22w 1d 209 lb 8 oz 116/79 -?-?-?-?-?-?-?-?-?-?-?-?- 145 -?-?-?-?-?-?-?-?-?-?-?-?- SM- no vb crampi ng 01/08/23 -?-?-?-?-?-?-?-?-?-?-?-?- 26w 1d 213 lb 4 oz 112/75 -?-?-?-?-?-?-?-?-?-?-?-?- 140 -?-?-?-?-?-?-?-?-?-?-?-?- Sm- no vb lof go od fm no regular ctx cbc gct reviewed and thyroid labs 01/22/23 -?-?-?-?-?-?-?-?-?-?-?-?- 28w 1d 215 lb 4 oz 114/60 Nega tive -?-?-?-?-?-?-?-?-?-?-?-?- Negative 145 28 -?-?-?-?-?-?-?-?-?-?-?-?- SM- no vb lof go od fm no regular ctx 02/05/23 -?-?-?-?-?-?-?-?-?-?-?-?- 30w 1d 217 lb 116/76 Negative -?-?-?-?-?-?-?-?-?-?-?-?- Negative 149 30 -?-?-?-?-?-?-?-?-?-?-?-?- MH-No Vb, LOF. G ood FM. Denies complaints 02/19/23 -?-?-?-?-?-?-?-?-?-?-?-?- 32w 1d 219 lb 97/69 Negative -?-?-?-?-?-?-?-?-?-?-?-?- Negative 145 32 -?-?-?-?-?-?-?-?-?-?-?-?- SM- no vb lof go od fm nor egualr ctx 03/05/23 -?-?-?-?-?-?-?-?-?-?-?-?- 34w 1d 218 lb 6 oz 115/79 Nega tive -?-?-?-?-?-?-?-?--?-?-?-?- Negative 135 34 -?-?-?-?-?-?-?-?-?-?-?-?- KW-no lof/vb/ctx . good fm. thyroid labs ordered for 3rd trimester. 03/19/23 -?-?-?-?-?-?-?-?-?-?--?-?- 36w 1d 220 lb 114/77 Negative -?-?-?-?-?-?-?-?-?-?-?-?- Negative 135 37 Cephalic 0 .5 -?-?-?-?-?-?-?-?-?-?-?-?- SM- no vb lof go od fm no regular ctx 03/28/23 -?-?-?-?-?-?-?-?-?-?-?-?- 37w 3d 221 lb 4 oz 111/68 Nega tive -?-?-?-?-?-?-?-?-?-?-?-?- Negative 134 38.5 Cephalic 1 -?-?-?-?-?-?-?-?-?-?-?-?- 0 -3 JV- JV- no lof, vaginal bleeding , or dec fm. no complaints. wants breast pump 04/02/23 -?-?-?-?-?-?-?-?-?-?-?-?- 38w 1d 217 lb 6 oz 122/84 Nega tive -?-?-?-?-?-?-?-?-?-?-?-?- Negative 132 39 Cephalic 1 .5 -?-?-?-?-?-?-?-?-?-?-?-?- 50 -2 MH-No VB, LOF. Good FM. No reg CTX. Doing well. 04/09/23 -?-?-?-?-?-?-?-?-?-?-?-?- 39w 1d 216 lb 8 oz 119/87 Nega tive -?-?-?-?-?-?-?-?-?-?-?-?- Negative 135 40 Cephalic 2 .5 -?-?-?-?-?-?-?-?-?-?-?-?- 50 -3 SM- no vb lof good fm irreuglar ctx 04/16/23 -?-?-?-?-?-?-?-?-?-?-?-?- 40w 1d 218 lb 126/82 -?-?-?-?-?-?-?-?-?-?-?-?- 135 40 Cephalic 3.5 -?-?-?-?-?-?-?-?-?-?-?-?- 70 -2 SM- membra carlos swept no vb lof good fm n oregular ctx plan IOL sunday NST FHR Rate Baby B Baseline: 135 Variability:: Moderate Accelerations:: 15 x 15 FHR Category:: Category I ROS Constitutional Constitutional: Denies change in weight, fatigue, fever(s), headache(s), poor appetite or weakness Eyes Eyes: Denies blurry vision, change in vision, floaters, seeing flashes or spots in vision ENT HEENT: Denies dizziness, headache(s), loss taste/smell or sore throat Cardiovascular Cardiovascular: Denies chest pain, dizziness, dyspnea, irregular heart rhythm, lightheadedness, palpitations or rapid heart rate Respiratory/Chest Respiratory/Chest: Denies change in mental status, chest tightness, cough, dyspnea or breast pain Gastrointestinal Gastrointestinal: Denies anorexia, chewing difficulty, constipation, diarrhea or weight changes Genitourinary Genitourinary: Denies difficulty urinating, dysuria, flank pain, genital pain, urinary frequency or urinary urgency Musculoskeletal Musculoskeletal: Denies back pain, difficulty walking, extremity pain, joint pain, muscle cramps or muscle weakness Integumentary Integumentary: Denies lesions or unusual bruising Neurologic Neurologic: Denies abnormal movements, abnormal speech, dizziness, numbness, seizure-like activity, syncope or weakness Psychiatric Psychiatric: Denies behavioral changes, change in appetite, confusion, depres ritu, homicidal ideation, suicidal ideation or suicidal thoughts Endocrine Endocrinology: Denies excessive sweating, polydipsia or polyuria Hematologic/Lymphatic Hematologic/Lymphatic: Denies anemia Allergic/Immunologic Allergic/Immunologic: Denies itchy eyes, lip swelling, throat swelling, tongue swelling or wheezing Vital Signs Vital Signs Vital Signs: 04/17/23 07:17 04/17/23 07:17 Pulse Rate 96 Blood Pressure 125/79 H BP Systolic 125 BP Diastolic 79 Weight Weight: 216 lb 11.43 oz Body Mass Index (BMI) 40.2 Physical Exam Const alert, oriented x3 and no apparent distress General Appearance: cooperative Orientation / Consciousness: awake HEENT normocephalic Neck full ROM Lymph Lymphatic: no lymphadenopathy noted Chest inspection of chest normal Resp normal respiratory effort and normal air movement Effort and Inspection: able to speak in complete sentences and symmetric chest movement GI soft to palpation and non-tender Inspection: gravid Palpation: soft; Negative for tender external exam normal Back/Spine normal to inspection Extremity normal to inspection and full ROM Skin no rashes or lesions noted Psych mental status grossly normal Appearance: grossly normal Speech: normal speech Labs Labs Labs: Blood Type O POSITIVE Antibody Screen NEGATIVE Hct 34.9 % (37-47) L Hgb 11.5 g/dL (12.0-15.0) L Obstetrics US Syphilis Total Ab Non-reactive Rubella IgG Antibody Reactive (Nonreactive) Hep Bs Antigen Non-Reactive (Nonreactive) Chlamydia DNA (KAREN) Negative (Negative) Neisseria gonorrhoeae DNA (KAREN) Negative (Negative) HIV 1&2 Antibody Non-Reactive (Nonreactive) Glucose 1 Hr 50 gm 97 mg/dL (70-140) Group B Strep DNA Negative (Negative) Rhogam given: No Miscellaneous Test Assessment & Plan (1) Supervision of high risk , antepartum: COMMENT: PRR , BERKLEY 04/15/23 (per [facility]) girl Ladarius Valle Easton Arnoldo (2) : QUALIFIERS: Weeks of gestation: 40 weeks Qualified Code(s): Z3A.40 - 40 weeks gestation of COMMENT: declines ntd genetic & carrier testing. (3) High serum vitamin B12: (4) Graves disease: COMMENT: labs q trimester (5) Active labor at term: PLAN: Patient presents IAL, plan expectant management for , pitocin/AROM PRN if needed. Pain management: plans epidural. GBS neg. Management of any complications: none I have reviewed the [facility] and made any clinically relevant updates. Dr Rendon aware of admission and plan of care. Agrees with plan of care. Charges/Coding Multi Select Codes Urinary/Genital Urinary/Genital CPT Codes: No Charge
[2023-04-17] MEDS: Lactated Ringers 1,000 ML 50 ML IV (07:45)
[2023-04-17] MEDS: LACTATED RINGERS 500 ML 999 ML IV ×2 (08:00→08:59)
[2023-04-17 08:03] LABS: Absolute Lymphocyte Count 2.64 X10^3/uL (0.83-4.51); Absolute Neutrophil Count 10.7 X10^3/uL (2.0-7.7); Basophil# 0.02 X10^3/uL; Basophil% 0.1 % (0-1); Eosinophil# 0.09 X10^3/uL; Eosinophils% 0.6 % (0-5); Hematocrit 31.6 % (37-47); Hemoglobin 10.8 g/dL (12.0-15.0); Lymphocyte # 2.64 X10^3/ul (0.83-4.51); Lymphocyte % 18.5 % (19-41); Mean Corp Hgb Conc 34.2 g/dL (32-36); Mean Corpuscular Volume 90.8 fL (81-99); Mean Platelet Vol. 10.6 fl (6.2-12.0); Monocyte# 0.79 X10^3/uL; Monocyte% 5.5 % (0-10); NRBC Flagged by Analyzer 0 % (0-5); Neutrophil # 10.69 X10^3/uL (2.7-7.7); Neutrophil % 74.9 % (47-70); Platelet Count 229 K/mm3 (150-450); RBC Distribution Width SD 46.1 fl (35.1-43.9); Red Blood Count 3.48 M/mm3 (4.2-5.4); White Blood Count 14.3 K/mm3 (4.4-11.0)
[2023-04-17] MEDS: fentaNYL-bupivacaine (epidural) 100 ML BAG EPIDURAL ×2 (08:34→12:57)
[2023-04-17 09:17] LABS: Syphilis Antibodies Non-reactive
[2023-04-17] MEDS: Oxytocin 15 Units/NS 250ml 15 UNITS/250 ML IV.SOLN 2 UNITS IV (11:45)
--- NOTE | 2023-04-17 12:41 | PCM.PN.OB ---
Subjective Subjective Comfortable with epidural. current tracing: FHT: 130 Moderate variability reactive no decelerations category I tracing [place]: moderate Contractions, became irregular after epidural SVE 5/90/-1 AROM clear fluid at 1240 A/P: continue pitocin titration per policy position changes epidural management per anesthesia Anticipate Objective Data Objective Data Vital Signs: Vital Signs Temp Pulse BP Pulse Ox 97.2 F L 84 99/56 L 99 04/17/23 12:25 04/17/23 12:26 04/17/23 12:04/17/23 12:26 Weight: 216 lb 11.43 oz Body Mass Index (BMI) 40.2 Intake & Output: Intake and Output for Last 24 Hours 04/15/23 04/16/23 04/17/23 23:59 23:59 23:59 Intake Total 1013.87 / 1013.87 Balance 1013.87 / 1013.87 Lab / Micro Data 04/17/23 07:45 Labs: Laboratory Results - last 24 hr 04/17/23 07:45: WBC 14.3 H, RBC 3.48 L, Hgb 10.8 L, Hct 31.6 L, MCV 90.8, MCH 31.0, MCHC 34.2, RDW Std Deviation 46.1 H, RDW Coeff of Crys 14.0, Plt Count 229, MPV 10.6, Immature Gran % (Auto) 0.400, Neut % (Auto) 74.9 H, Lymph % (Auto) 18.5 L, Cassia % (Auto) 5.5, Eos % (Auto) 0.6, Baso % (Auto) 0.1, Absolute Neuts (auto) 10.7 H, Absolute Lymphs (auto) 2.64, Nucleated RBC % 0, Syphilis Total Ab Non-reactive, Blood Type O POSITIVE, Antibody Screen NEGATIVE Assessment & Plan (1) Active labor at term: (2) Supervision of high risk , antepartum: COMMENT: PRR , BERKLEY 04/15/23 (per [facility]) girl Ladarius Valle Easton Arnoldo (3) : QUALIFIERS: Weeks of gestation: 40 weeks Qualified Code(s): Z3A.40 - 40 weeks gestation of COMMENT: declines ntd genetic & carrier testing. (4) High serum vitamin B12: (5) Graves disease: COMMENT: labs q trimester Charges/Coding Multi Select Codes Urinary/Genital Urinary/Genital CPT Codes: No Charge
[2023-04-17] MEDS: Oxytocin 15 Units/NS 250ml 15 UNITS/250 ML IV.SOLN 83 UNITS IV (14:39)
--- NOTE | 2023-04-17 15:05 | EX.PCM.OBRPT ---
Assessment & Plan (1) Vaginal delivery: COMMENT: KW 40.2 IAL, Girl Malinda (2) Supervision of high risk , antepartum: COMMENT: PRR , BERKLEY 04/15/23 (per [facility]) girl Mercedes Ladarius Connell Stephane Arnoldo (3) : QUALIFIERS: Weeks of gestation: 40 weeks Qualified Code(s): Z3A.40 - 40 weeks gestation of COMMENT: declines ntd genetic & carrier testing. (4) High serum vitamin B12: (5) Graves disease: COMMENT: labs q trimester Maternal Data Information BERKLEY Calculator Estimated Delivery Date Method Current WG Current Estimate 04/15/23 Ultrasound #1 40w 2d Other Estimates 04/02/23 LMP (Certain) 42w 1d 04/07/23 Ultrasound #2 41w 3d Final BERKLEY: 04/15/23 Final BERKLEY Source: [place] >20 weeks Gestational age: 40.2 Vaginal Delivery Maternal Presentation Maternal Presentation: Active Labor Maternal Presentation: Progressed well to 10cm dilated and made steady progress with effective maternal pushing. Delivered the head in RAIN presentation. The head was delivered atraumatically and no nuchal cord was identified. The anterior and posterior shoulders delivered without complication followed by the rest of the infant and the was placed on the maternal abdomen. Delayed cord clamping was employed for approximately 3 minutes. Cord was clamped and cut and gentle traction was applied to the cord and the placenta delivered spontaneously. Immediately following, it was noted to be intact with a 3 vessel cord. The perineum and vagina were inspected and noted to have no laceration. EBL was 150cc. Patient and tolerated delivery well. Apgars 8/9. Dr Velásquez notified of vaginal delivery and orders reviewed. Physician agrees with current plan of care. Operative Information Date of Procedure: 04/17/23 Pre-Operative Diagnosis: See AP comments Post-Operative Diagnosis: Same Surgery / Procedure Performed: Spontaneous Vaginal Delivery corporate counselor #1: Melida Armas Type of Anesthesia: Epidural Estimated Blood Loss: 150 Time of Delivery: 11:50 Findings Presentation: Vertex Amniotic Membrane Rupture Type: Artificial Amniotic Fluid Description: Clear Placental Delivery Description: Spontaneous Placenta Disposition: [facility] Cord Vessel Description: 3 Vessels Cord Entanglement: None A Gender: Female (1 minute): 8 (5 minute): 9 Delayed Cord Clamping: Yes Post Vaginal Delivery Medications Given After Delivery: IV Pitocin and IM Pitocin Episiotomy Description: None Laceration: None Complication Complications: None Multi Select Codes Urinary/Genital Urinary/Genital CPT Codes: 82837 Vaginal Delivery [facility]
--- NOTE | 2023-04-17 15:09 | DCINST_ITS ---
Discharge Instructions Diet Discharge Diet: No restrictions Activity Discharge Activity: Return to Normal Activity May resume sexual activity in: 6-8 weeks Dressing / Incision Call your doctor if you observe: Fever of 101 or Higher, Coldness, Increased Pain, Numbness or Tingling, Change in Color, Inability to urinate, Inability to have a bowel movement, Using more than 1 pad per hour, Shortness of breath, Dizziness, Fainting spells, Swelling in the ankles, Chest pain, Increased palpitations (irregular heartbeat), Calf discomfort and Uncontrolled pain Follow Up Care Please Follow Up With: Melida Armas CNM When: Please call the office to schedule your follow up appointment in 6 weeks. If you had high blood pressure please call to schedule an appointment in 2 weeks. Test Results: Test results from this visit will be discussed in further detail at your follow- up appointment, if applicable. Discharge Plan Admission Admit Date/Time: 04/17/23 07:25 Attending Provider: Melida Armas Primary Care Provider: Gabo Lake Discharge Orders/Prescriptions Prescriptions: No Action vit,[id number] 1 TABLET tablet 1 tab PO DAILY Referrals / Follow Up: Gabo Lake DO [Primary Care Provider] - Disposition Disposition (needs filled in before D/C Order can be placed): Home, Self Care
[2023-04-17] MEDS: Ibuprofen 600 MG Tablet PO (20:15)
[2023-04-17] MEDS: Acetaminophen 500 MG Tablet 1000 MG PO (23:14)
[2023-04-18] VITALS (7 sets, daily range): BP systolic 120–138; BP diastolic 74–91; PULSE 60–80; RESP 16–18; TEMP 36.1–36.6; O2SAT 98–99
[2023-04-18] MEDS: Ibuprofen 600 MG Tablet PO ×4 (03:37→21:48)
[2023-04-18] MEDS: Acetaminophen 500 MG Tablet 1000 MG PO ×3 (06:26→20:47)
[2023-04-18] MEDS: Senna/Docusate Sodium 1 Tablet PO (09:16)
--- NOTE | 2023-04-18 13:02 | PCM.PN.OB ---
Subjective Subjective Patient doing well without complaints. Tolerating PO. Ambulating and voiding without difficulty. Feeding well. Denies chest pain, shortness of breath, calf pain/swelling, fevers, chills, lightheadedness. Objective Data Objective Data Vital Signs: Vital Signs Temp Pulse Resp BP Pulse Ox O2 Del Method 97.0 F L 77 16 120/85 H 97 Room Air 04/18/23 12:27 04/18/23 12:27 04/18/23 12:27 04/18/23 12:27 04/17/23 20:00 04/18/23 08:46 Oxygen Delivery Method Room Air Weight: 216 lb 11.43 oz Body Mass Index (BMI) 40.2 Intake & Output: Intake and Output for Last 24 Hours 04/16/23 04/17/23 04/18/23 23:59 23:59 23:59 Intake Total 2352.36 / 2352.36 Output Total 1750 / 1750 Balance 602.36 / 602.36 Lab / Micro Data 04/17/23 07:45 Physical Exam Const alert and no apparent distress Chest inspection of chest normal Resp normal respiratory effort Cardio regular rate and regular rhythm GI normal to inspection, nondistended, normoactive bowel sounds GI Narrative: fundus firm, below u, no clots Extremity normal to inspection and no calf tenderness Extremity Narrative: trace edema Skin no rashes or lesions noted Assessment & Plan (1) Vaginal delivery: COMMENT: KW 40.2 IAL, Girl Gracelynn PLAN: s/p PPD # 1 1. routine post delivery care 2. breast feeding- support given, desires additional support overnight 3. rh positive 4. rubella immune 5. d/c home tomorrow
[2023-04-19 01:36] VITALS: BP 118/71; PULSE 68; RESP 18; TEMP 36.3; O2SAT 98
[2023-04-19 01:37] VITALS: BP 118/71; PULSE 68
[2023-04-19] MEDS: Acetaminophen 500 MG Tablet 1000 MG PO (03:05)
--- NOTE | 2023-04-19 07:28 | PCM.PN.OB ---
Subjective Subjective Patient doing well without complaints. Tolerating PO. Ambulating and voiding without difficulty. feeding well. Denies chest pain, shortness of breath, calf pain/swelling, fevers, chills, lightheadedness. Objective Data Objective Data Vital Signs: Vital Signs Temp Pulse Resp BP Pulse Ox O2 Del Method 97.3 F L 68 18 118/71 98 Room Air 04/19/23 01:36 04/19/23 01:37 04/19/23 01:36 04/19/23 01:37 04/19/23 01:36 04/19/23 01:36 Oxygen Delivery Method Room Air Weight: 216 lb 11.43 oz Body Mass Index (BMI) 40.2 Intake & Output: Intake and Output for Last 24 Hours 04/17/23 04/18/23 04/19/23 23:59 23:59 23:59 Intake Total 2352.36 / 2352.36 Output Total 1750 / 1750 Balance 602.36 / 602.36 Lab / Micro Data 04/17/23 07:45 ROS Constitutional Constitutional: Reports systems reviewed and no addt'l complaints, except as documented Cardiovascular Cardiovascular: Reports systems reviewed and no addt'l complaints, except as documented Respiratory/Chest Respiratory/Chest: Reports systems reviewed and no addt'l complaints, except as documented Gastrointestinal Gastrointestinal: Reports systems reviewed and no addt'l complaints, except as documented Physical Exam Const alert, oriented x3 and no apparent distress HEENT Head and Scalp: atraumatic Resp normal respiratory effort GI soft to palpation and non-tender Bimanual Exam - Vag & Uterus: uterus non-tender Uterus Palpation: uterus fundus firm (below Umbilicus) Assessment & Plan (1) Vaginal delivery: COMMENT: KW 40.2 IAL, Girl Gracelynn PLAN: Plan s/p PPD # 2 1. routine post delivery care 2. breast feeding- support given 3. rh positive 4. rubella immune
[2023-04-19 07:54] VITALS: BP 118/78; PULSE 68; RESP 14; TEMP 36.2; O2SAT 97
[2023-04-19 07:55] VITALS: BP 118/78; PULSE 71
[2023-04-19 10:20] VITALS: RESP 16
== END 2023-04-19 10:25 | disposition home or self-care (01) | DRG 807 ==
LOC: WPOUT 07:27 → WP 07:27
PROVIDERS: Admitting Provider Advanced Practice Midwife; PCP Student in an Organized Health Care Education/Training Program; Referring Provider Advanced Practice Midwife; Visit Provider Advanced Practice Midwife
DX: O99.284 Endocrine, nutritional and metabolic diseases complicating childbirth (principal); Z37.0 Single live birth; O26.23 Pregnancy care for patient with recurrent pregnancy loss, third trimester; E05.00 Thyrotoxicosis with diffuse goiter without thyrotoxic crisis or storm; O48.0 Post-term pregnancy; Z3A.40 40 weeks gestation of pregnancy
CPT/HCPCS: 59025; 59050; 85025; 86780; 86850; 86900; 86901; 99221; J7120; G0378

== ENCOUNTER → 2023-04-20 | Outpatient (CLI) | payer OTHER, SELFPAY ==
[2023-04-20 18:20] LABS: Free T3 2.3 pg/mL (2.18-3.98); T4 Free Direct 0.95 ng/dL (0.76-1.46); Thyroid Stim Hormone (TSH) 1.31 uIU/mL (0.358-3.74)
== END | disposition home or self-care (01) ==
LOC: LAB 17:07
PROVIDERS: PCP Student in an Organized Health Care Education/Training Program; Referring Provider Internal Medicine Endocrinology, Diabetes & Metabolism; Visit Provider Internal Medicine Endocrinology, Diabetes & Metabolism
DX: E05.00 Thyrotoxicosis with diffuse goiter without thyrotoxic crisis or storm (principal)
CPT/HCPCS: 84439; 84443; 84445; 84481

== ENCOUNTER → 2023-05-17 | Outpatient (CLI) | payer OTHER, SELFPAY ==
[2023-05-17 13:46] LABS: Free T3 2.5 pg/mL (2.18-3.98); T4 Free Direct 1.05 ng/dL (0.76-1.46); Thyroid Stim Hormone (TSH) 0.89 uIU/mL (0.358-3.74)
== END | disposition home or self-care (01) ==
LOC: LAB 10:51
PROVIDERS: PCP Student in an Organized Health Care Education/Training Program; Referring Provider Internal Medicine Endocrinology, Diabetes & Metabolism; Visit Provider Internal Medicine Endocrinology, Diabetes & Metabolism
DX: E05.00 Thyrotoxicosis with diffuse goiter without thyrotoxic crisis or storm (principal)
CPT/HCPCS: 36415; 84439; 84443; 84481

== ENCOUNTER → 2025-02-27 | Outpatient (CLI) | payer OTHER, SELFPAY ==
--- OUTSIDE RECORDS SUMMARY | 2025-02-27 10:16 | XMS RPT_ITS | CCD ---
Author Organization [facility] Care Team Providers Care Tax Specialist Name Role Phone Dr. Gabo Harrington Primary Care Provider Dr. Gabo Harrington Referring Provider Dr. Jacquelyn Mcdonough Attending Provider [phone] Dr. Ruddy Portillo Attending Provider Gabo Harrington DO Primary Care Provider Dr. Gabo Harrington Primary Care Provider Dr. Gabo Harrington Referring Provider Dr. Ruddy Portillo Attending Provider Dr. Mandie العلي Attending Provider [phone] Dr. Gabo Harrington Primary Care Provider Dr. Gabo Harrington Referring Provider Dr. Gabo Harrington Primary Care Provider Dr. Gabo Harrington Referring Provider Dr. Mandie العلي Attending Provider [phone] QI Armas Attending Provider [phone] Dr. Ruddy Portillo Attending Provider GABO HARRINGTON Primary Care Unavailable DENEEN PUGA Attending Unavailable MARQUISE TSE Referring Unavailable GABO HARRINGTON Primary Care Unavailable DENEEN PUGA Attending Unavailable MARQUISE TSE Referring Unavailable Dr. Gabo Harrington Primary Care Provider Dr. Gabo Harrington Referring Provider Dr. Mandie العلي Attending Provider Dr. Jacquelyn Mcdonough Attending Provider [phone] Dr. Gabo Harrington Primary Care Provider Dr. Gabo Harrington Referring Provider WHITNEY Tse NP Attending Provider [phone] QI Armas Attending Provider [phone] Dr. Gabo Harrington Primary Care Provider Dr. Gabo Harrington Referring Provider Dr. Jacquelyn Mcdonough Attending Provider [phone] Dr. Mandie العلي Attending Provider [phone] Gabo Harrington DO Primary Care Provider GABO HARRINGTON Primary Care Unavailable Mandie Negrete Attending UnavailGabo Araiza Referring Unavailable Gabo Harrington Primary Care Unavailable Gabo Harrington Primary Care Unavailable Rachel Be Attending Unavailable Dr. Gabo Harrington DO Primary Care Provider Rachel Be RN Attending Provider UnavailDr. Gabo Araiza DO Referring Provider Meghan Ames CNM Attending Provider Meghan Ames CNM Referring Provider Allergies Allergy Classification Reported Allergen(s) Allergy Type Date of Onset Reaction(s) Facility (16 sources) Amoxicillin; Translations: [AMOXICILLIN] Drug Allergy 08-13-2017 [facility] Work Phone: (1 source) Amoxicillin Drug Allergy 02-20-2025 [facility] Medications Current Medications Medication Drug Class(es) Dates Sig (Normalized) Sig (Original) [id number] 200 actuat albuterol 0.09 mg/actuat metered dose inhaler (3 sources) beta2-Adrenergic Agonist Start: 12-26-2019 take 2 puff(s) by inhalation every four hours as needed for wheezing albuterol HFA (VENTOLIN HFA) 90 mcg/actuation inhaler Inhale 2 Puffs as instructed every 4 hours as needed for Wheezing/Shortness of Breath. 1 Inhaler 12/26/2019 Active Comment on above: Inhale 2 Puffs as in structed every 4 hours as needed for Wheezing/Shortness of Breath. ciprofloxacin 500 mg oral tablet (2 sources) Quinolone Antimicrobial Start: 04-02-2024 End: 04-12-2024 take 1 tablet by mouth twice daily ciprofloxacin HCl (CIPRO) 500 mg tablet Take 1 tablet by mouth two times a day for 10 days. 20 tablet 04/02/2024 04/12/2024 Active doxycycline monohydrate 100 mg oral tablet (1 source) Tetracycline-class Drug Start: 07-06-2022 End: 07-16-2022 take 1 tablet by mouth twice daily doxycycline monohydrate 100 mg tablet Indications: Bacterial sinusitis Take 1 tablet by mouth twice daily for 10 days. 20 tablet 0 07/06/2022 07/16/2022 Active Comment on above: Take 1 tablet by karyn th twice daily for 10 days. nitrofurantoin, macrocrystals 25 mg / nitrofurantoin, monohydrate 75 mg oral capsule (1 source) Nitrofuran Antibacterial Start: 03-24-2024 End: 03-29-2024 take 1 capsule by mouth twice daily nitrofurantoin monohydrate and macrocrystal (MACROBID) 100 mg capsule Take 1 capsule by mouth two times a day for 5 days. 10 capsule 03/24/2024 03/29/2024 Active Vit,Bbzw42-Nsqi-Kpg ic (10 sources) Start: 03-13-2017 take 1 tablet by mouth once daily Vit,Pxbs88-Euio-Nfi ic Active 1 TABLET PO DAILY March 13, 2017 9:28am Start: 03-13-2017 take 1 tablet by karyn th once daily Vit,Hbmj01-Hcse-Fpbgz Active 1 TABLET PO DAILY March 13, 2017 12:00am Start: 03-13-2017 take 1 tablet by karyn th once daily Vit,Ffen38-Acxo-Gvxth Active 1 TABLET PO DAILY March 12, 2017 11:00pm Vit,Fthy83-Awcd-Sormy 1 TABLET tablet (1 source) Start: 03-13-2017 take 1 tablet by mouth once daily Vit,Wqpj83-Hoqj-Lcbmc 1 TABLET tablet Active 1 {tbl} PO DAILY March 13, 2017 12:00am Check with primary doctor Vitamin B Complex (B Complex-Vitamin B12) tablet (11 sources) Start: 11-08-2021 take 1 tablet by mouth once daily Vitamin B Complex (B Complex-Vitamin B12) tablet Active 1 TABLET PO DAILY November 08, 2021 4:37pm Start: 11-08-2021 End: 08-18-2022 Vitamin B Complex (B Complex -Vitamin B12) tablet Discontinued 1 {tbl} PO DAILY November 08, 2021 12:00am August 18, 2022 4:35pm Start: 11-08-2021 End: 08-18-2022 take 1 tablet by mouth once daily Vitamin B Complex (B Complex-Vitamin B12) tablet Discontinued 1 TABLET PO DAILY November 08, 2021 12:00am August 18, 2022 4:35pm Start: 11-08-2021 End: 08-18-2022 take 1 tablet by mouth once daily Vitamin B Complex (B Complex-Vitamin B12) tablet Discontinued 1 TABLET PO DAILY November 07, 2021 11:00pm August 18, 2022 3:35pm Start: 11-08-2021 take 1 tablet by karyn th once daily Vitamin B Complex (B Complex-Vitamin B12) tablet Active 1 TABLET PO DAILY November 07, 2021 11:00pm Completed/Discontinued Medications Medication Drug Class(es) Dates Sig (Normalized) Sig (Original) acetaminophen 325 mg oral capsule (11 sources) Start: 01-12-2020 End: 09-16-2020 take 1 capsule by mouth once as needed for pain Acetaminophen (Tylenol) 325 mg capsule Discontinued 325 mg PO ONCE as needed for Pain Score 1-10 January 12, 2020 12:00am September 16, 2020 12:30pm aspirin 81 mg delayed release oral tablet (11 sources) Platelet Aggregation Inhibitor, Nonsteroidal Anti-inflammatory Drug Start: 04-21-2020 End: 09-16-2020 Aspirin (Adult Low Dose Aspirin) 81 mg tablet,delayed release (DR/EC) Discontinued 81 mg PO DAILY April 21, 2020 12:00am September 16, 2020 12:30pm cholecalciferol 0.05 mg oral capsule (20 sources) Vitamin D Start: 11-08-2021 End: 08-18-2022 take 1 capsule by mouth once daily Cholecalciferol (Vitamin D3) 50 mcg (2,000 unit) capsule Discontinued 50 ug PO DAILY November 08, 2021 12:00am August 18, 2022 4:35pm Start: 01-12-2020 End: 09-16-2020 take 1 capsule by mouth once daily Cholecalciferol (Vitamin D3) 50 mcg (2,000 unit) capsule Discontinued 50 ug PO DAILY January 12, 2020 12:00am September 16, 2020 12:30pm methIMAzole 5 mg oral tablet (20 sources) Thyroid Hormone Synthesis Inhibitor Start: 11-07-2022 End: 04-07-2023 Methimazole 5 mg tablet Discontinued 2.5 mg PO .-W-January 08, 2023 12:54pm April 07, 2023 1:49am Start: 11-07-2022 End: 04-07-2023 Methimazole Discontinued 2.5 MG PO .-W-F January 08, 2023 12:54pm April 07, 2023 1:49am Start: 09-25-2022 End: 11-07-2022 take 2.5 mg by mouth once daily Methimazole 5 mg table t Discontinued 2.5 mg PO DAILY 15 November 07, 2022 4:17pm November 07, 2022 4:18pm Start: 09-25-2022 End: 11-07-2022 take 2.5 mg by mouth once daily Methimazole Discontinu ed 2.5 MG PO DAILY November 07, 2022 4:17pm November 07, 2022 4:18pm Start: 05-15-2022 End: 08-06-2022 take 1 tablet by mouth once daily Methimazole 5 mg tablet Discontinued 5 mg PO DAILY 60 May 15, 2022 4:33pm August 06, 2022 4:21pm Start: 01-27-2022 End: 05-15-2022 take 2 tablets by mouth once daily Methimazole 5 mg tablet Discontinued 10 mg PO DAILY 60 May 15, 2022 4:32pm May 15, 2022 4:33pm Start: 01-27-2022 End: 05-15-2022 take 10 mg by mouth once daily Methimazole Discontinue d 10 MG PO DAILY 60 May 15, 2022 4:32pm May 15, 2022 4:33pm Start: 04-08-2021 End: 01-27-2022 take 3 tablets by mouth once daily Methimazole 5 mg tablet Discontinued 15 mg PO DAILY 90 January 17, 2022 1:12pm January 27, 2022 5:32pm Start: 04-08-2021 End: 01-27-2022 take 15 mg by mouth once daily Methimazole Discontinue d 15 MG PO DAILY January 17, 2022 1:12pm January 27, 2022 5:32pm Start: 03-17-2021 End: 04-08-2021 Methimazole Discontinued 15 MG PO DAILY March 17, 2021 8:07am April 08, 2021 7:43pm Sun- 10 mg, Mon- 15 mg, Tues- 10 mg, Wed- 15 mg, Thurs- 10 mg, Fri- 15 mg, Sat- 10 mg Start: 12-24-2020 End: 04-08-2021 Methimazole 5 mg tablet Disc ontinued 15 mg PO DAILY 90 2 March 17, 2021 8:07am April 08, 2021 7:43pm Sun- 10 mg, Mon- 15 mg, Tues- 10 mg, Wed- 15 mg, Thurs- 10 mg, Fri- 15 mg, Sat- 10 mg Start: 12-24-2020 End: 03-17-2021 Methimazole Discontinued 10 MG PO DAILY January 28, 2021 3:34pm March 17, 2021 8:08am Sun- 10 mg, Mon- 15 mg, Tues- 10 mg, Wed- 15 mg, Thurs- 10 mg, Fri- 15 mg, Sat- 10 mg Start: 01-22-2020 End: 12-24-2020 take 1 tablet by mouth once daily Methimazole 5 mg tablet Discontinued 5 mg PO DAILY 30 December 13, 2020 8:01am December 24, 2020 2:40pm naproxen 250 mg oral tablet (11 sources) Nonsteroidal Anti-inflammatory Drug Start: 08-06-2020 End: 09-16-2020 take 250-500 mg by mouth every eight hours as needed for pain Naproxen 250 MG tablet Discontinued 250 - 500 mg PO EVERY 8 HOURS NEEDED as needed for MILD PAIN 21 08August 06, 2020 1:00am September 16, 2020 12:30pm propylthiouracil 50 mg oral tablet (20 sources) Thyroid Hormone Synthesis Inhibitor Start: 08-06-2022 End: 09-25-2022 Propylthiouracil 50 mg tablet Discontinued 50 mg PO .Mon-Sat 30 3 August 06, 2022 4:25pm September 25, 2022 9:44am Start: 01-12-2020 End: 01-22-2020 take 1 tablet by mouth three times daily Propylthiouracil 50 mg tablet Discontinued 50 mg PO THREE TIMES A DAY January 12, 2020 12:00am January 22, 2020 8:21am Problems Active Problems Problem Classification Problem Date Documented Da te Episodic/Chronic Other complications of (13 sources) Maternal obesity complicating , childbirth and the puerperium, antepartum; Translations: [Obesity complicating , unspecified trimester] 08-10-2020 Chronic Comment on above: HgBA1C Ordered w/NOB labs 1h GTT next visit. Other complications of (11 sources) ultrasound scan abnormal; Translations: [Abnormal ultrasonic finding on screening of mother] 08-10-2020 Episodic Comment on above: Short long bones 02/20 3- <10th%, 04/16- FL 5th%, 06/08 FL <1%ile overall growth 15%ile; growth i2maitb. NIPT low risk. Per [facility], no need to increase frequency of growths. Recommend checking thoracic circumference with next growth to make sure lungs developing. [facility] concerned for skeletal dysplasia. US 07/08 shows EFW 41%ile with long bones 5-9%. Other complications of (11 sources) heart echogenicity on obstetric ultrasound scan; Translations: [Abnormal ultrasonic finding on screening of mother] 05-25-2020 Episodic Comment on above: resolved 04/14/20 Other complications of (20 sources) High risk ; Translations: [Supervision of high risk , unspecified, unspecified trimester] 08-18-2022 Episodic Comment on above: , B[place]LEY 09/30/25, PC: Ladarius Amaral [place]on & Malinda, : Arnoldo PRR [place] 08/01/20 boy PC:Munir Durand Spouse: Arnoldo PRR , B[place]LEY 04/15/ 3 (per [facility] US) girl Mercedes PC Ladarius Amaral, Stephane Arnoldo Other complications of (20 sources) Supervision of high risk , unspecified, unspecified trimester; Translations: [Supervision of unspecified high-risk ] 08-22-2022 Episodic Other complications of (2 sources) Multigravida of advanced maternal age; Translations: [Supervision of elderly multigravida, unspecified trimester] 02-20-2025 Episodic Other nutritional; endocrine; and metabolic disorders (11 sources) Body mass index 30+ - obesity; Translations: [Body mass index (BMI) 36.0-36.9, adult] 10-10-2021 Chronic Comment on above: labs ordered weight management [id number] trim glucose WNL Other nutritional; endocrine; and metabolic disorders (7 sources) Body mass index (BMI) 36.0-36.9, adult; Translations: [Body Mass Index 36.0-36.9, adult] Chronic Other and delivery including normal (20 sources) ; Translations: [Encounter for supervision of normal , unspecified, unspecified trimester] 08-18-2022 Episodic Comment on above: KW 40.2 IAL, Girl Gr belen Discussed genetic/ca rrier testing - declined. cell free DNA- normal; normal NT. [facility] [place] [facility] declines ntd genetic & carrier testing. Other screening for suspected conditions (not mental disorders or infectious disease) (20 sources) Other specified abnormal findings of blood chemistry; Translations: [High serum vitamin B12] 12-20-2021 Episodic Other upper respiratory infections (1 source) Bacterial sinusitis; Translations: [Chronic sinusitis, unspecified] Chronic Residual codes; unclassified (11 sources) Influenza vaccination declined; Translations: [Immunization not carried out because of patient refusal] 08-10-2020 Episodic Residual codes; unclassified (11 sources) Gestation period, 39 weeks; Translations: [39 weeks gestation of ] 08-10-2020 Episodic Comment on above: electronic covid ursula t NEGATIVE Thyroid disorders (20 sources) Graves' disease; Translations: [Thyrotoxicosis with diffuse goiter without thyrotoxic crisis or storm] Chronic Comment on above: Resolved/Stable; N o medications since 2022 Urinary tract infections (1 source) Acute cystitis; Translations: [Acute cystitis without hematuria] 03-24-2024 Episodic Past or Other Problems Problem Classification Problem Date Documented Da te Episodic/Chronic Unclassified (20 sources) Normal labor; Translations: [Active labor at term] 08-06-2020 Results Test Name Value Interpretation Reference Range Facility [facility] STEFANOSHEREEN ([id number]) 1990 F Date Time Provider Department 04/02/24 GABO HARRINGTON INTMWS During your visit today, we recorded the following information about you: Kaye Whitman LPN 04/02/2024 3:59 PM Signed Patient did virtual visit 03/24/2024, dx UTI, prescribed Macrobid, recommended to take AZO with Macrobid, s/s resolved. Starting with dysuria, urgency, no as bad. Appt offered, Patient prefers not to come in asking for RX to be called into [facility]. Lakisha Abdul LPN, APRN.JESSICA 04/02/2024 7:11 PM Signed Needs appt or express care visit for further tx. Lakisha Adrian APRN.Gabo Peña DO 04/02/2024 7:44 PM Signed rx sent to pharmacy I was able to assess her today Gabo Harrington DO Allergies As of Date: 04/02/2024 Noted Allergy Reaction AMOXICILLIN 08/13/2017 4 - Hives Date Reviewed: 07/06/2022 Reviewed by: Cammy Enamorado LPN - Fully Assessed Reason for Visit: Patient Question [4737] Order(s):ciprofloxac in HCl (CIPRO) 500 mg tabletTake 1 tablet by mouth two times a day for 10 days.Disp: 20 tabletRfl: 0 Prescriptions as of 04/02/2024 - ciprofloxacin HCl (CIPRO) 500 mg tablet Take 1 tablet by mouth two times a day for 10 days. - albuterol HFA (VENTOLIN HFA) 90 mcg/actuation inhaler Inhale 2 Puffs as instructed every 4 hours as needed for Wheezing/Shortness of Breath. Problem List As Of Date: 04/02/2024 (None) Prescriptions ordered this encounter Disp Refills Start End CIPROFLOXACIN 500 MG TABLET 20 t* 0 04/02/2024 04/02/2024 Route: ORAL Sig: Take 1 tablet by mouth two times a day for 10 days. CIPROFLOXACIN 500 MG TABLET 20 t* 0 04/02/2024 04/12/2024 Route: ORAL Sig: Take 1 tablet by mouth two times a day for 10 days. Medications Discontinued During This Encounter Prescriptions - ciprofloxacin HCl (CIPRO) 500 mg tablet (Discontinued) Take 1 tablet by mouth two times a day for 10 days. Encounter Status:Closed by CE VAZQUEZ LPN on 04/02/24 Normal [facility] Laboratory - Chemistry and C hemistry - challengeon 04-02-2023 Glucose Ql (U) Negative [facility] - Urinalysison Protein Ql (U) Negative [facility] - Chemistry and C hemistry - challengeon 03-28-2023 Glucose Ql (U) Negative [facility] - Urinalysison Protein Ql (U) Negative [facility] - Chemistry and C hemistry - challengeon 03-19-2023 Glucose Ql (U) Negative [facility] - Urinalysison Protein Ql (U) Negative [facility] No Panel InformationOrdered By: Jacquelyn Mcdonough on 03-19-2023 Group B Streptococcus Culture Group B Beta Streptococcus is not isolated. [facility] Laboratory - Chemistry and C hemistry - challengeOrdered By: Melida Armas on 03-06-2023 Free T4 [Mass/Vol] 1.00 ng/dL 0.76-1.46 [facility] No Panel InformationOrdered By: Melida Armas on 03-06-2023 Free Triiodothyronine (T3) pg/dL 2.2 pg/mL 2.18-3.98 [facility] Thyroid Stimulating Hormone (TSH) 0.81 uIU/mL 0.358-3.74 [facility] Serum or plasma thyroperoxid ase antibody assay (units/volume)Ordered By: Melida Armas on 03-06-2023 TPO Ab Qn 28 [IU]/mL 0-34 [facility] Comment on above: Performed at: [address] [id number] Director: Shukri Montesinos PhD, Phone: [phone] Laboratory - Chemistry and C hemistry - challengeon 03-05-2023 Glucose Ql (U) Negative [facility] - Urinalysison Protein Ql (U) Negative [facility] Laboratory - Chemistry and C hemistry - challengeon 02-19-2023 Glucose Ql (U) Negative [facility] - Urinalysison Protein Ql (U) Negative [facility] Laboratory - Chemistry and C hemistry - challengeon 02-05-2023 Glucose Ql (U) Negative [facility] - Urinalysison Protein Ql (U) Negative [facility] Laboratory - Chemistry and C hemistry - challengeon 01-22-2023 Glucose Ql (U) Negative [facility] - Urinalysison Protein Ql (U) Negative [facility] Absolute lymphocyte countOrd ered By: Dr. Mcdonough on 01-08-2023 Lymphocytes Auto (Unsp spec) [#/Vol] 2.47 10*3/uL 0.83-4.51 [facility] Basophil percentageOrdered B y: Dr. Mcdonough on 01-08-2023 Basophils/100 WBC (Bld) 0.2 % 0-1 [facility] Eosinophils/100 WBC (Bld) 0.8 % 0-5 [facility] Neutrophils (Bld) [#/Vol] 9.8 10*3/uL 2.0-7.7 [facility] Neutrophils/100 WBC (Bld) 75.0 % 47-70 [facility] WBC (Bld) [#/Vol] 13.1 10*3/uL 4.4-11.0 [place] Blood erythrocytes count (nu mber/volume)Ordered By: Dr. Mcdonough on 01-08-2023 RBC (Bld) [#/Vol] 3.69 10*6/uL 4.2-5.4 [place] Blood hemoglobin measurement (mass/volume)Ordered By: Dr. Mcdonough on 01-08-2023 Hemoglobin (Bld) [Mass/Vol] 11.5 g/dL 12.0-15.0 [facility] Blood lymphocytes/100 leukoc ytesOrdered By: Dr. Mcdonough on 01-08-2023 Lymphocytes/100 WBC (Bld) 18.9 % 19-41 [facility] Blood monocytes/100 leukocyt esOrdered By: Dr. Mcdonough on 01-08-2023 Monocytes/100 WBC (Bld) 4.3 % 0-10 [facility] Blood platelet mean volumeOr dered By: Dr. Mcdonough on 01-08-2023 Platelet mean volume (Bld) [Entitic vol] 10.6 fL 6.2-12.0 [facility] Determination of erythrocyte mean corpuscular volume (MCV)Ordered By: Dr. Mcdonough on 01-08-2023 MCV (RBC) [Entitic vol] 94.6 fL 81-99 [facility] Gestational diabetes screen 1-hour screen with 50g oral glucose loadOrdered By: Dr. Mcdonough on 01-08-2023 Glucose 1 Hr post 50 g glucose PO [Mass/Vol] 97 mg/dL 70-140 [facility] HIV 1 and HIV-2 antibody ass ay with HIV-1 p24 antigen detectionOrdered By: Dr. Mcdonough on 01-08-2023 HIV 1+2 Ab+HIV1 p24 Ag IA Ql Non-Reactive Nonreactive [facility] Hematocrit Auto (Bld) [Volum e fraction]Ordered By: Dr. Mcdonough on 01-08-2023 Hematocrit (Bld) [Volume fraction] 34.9 % 37-47 [facility] Laboratory - Chemistry and C hemistry - challengeOrdered By: Dr. Mcdonough on 01-08-2023 Free T4 [Mass/Vol] 0.88 ng/dL 0.76-1.46 [facility] Laboratory - Hematology and Cell countsOrdered By: Dr. Mcdonough on 01-08-2023 Erythrocyte distribution width (RBC) [Entitic vol] 47.3 fL 35.1-43.9 [facility] Erythrocyte distribution width (RBC) [Ratio] 13.8 % 11.6-14.6 [facility] Immature granulocytes/100 WBC (Bld) 0.800 % 0.0-0.9 [facility] Comment on above: IG% - Immature Granu locytes (promyelocytes, myelocytes and metamyelocytes) > 1% indicates that a LEFT SHIFT is Present. MCH (RBC) [Entitic mass] 31.2 pg 27.0-32.0 [facility] Nucleated RBC/100 WBC (Bld) [Ratio] 0 % 0-5 [facility] MCHC Auto (RBC) [Mass/Vol]Or dered By: Dr. Mcdonough on 01-08-2023 MCHC (RBC) [Mass/Vol] 33.0 g/dL 32-36 [facility] No Panel InformationOrdered By: Dr. Portillo on 01-08-2023 Free Triiodothyronine (T3) pg/dL 2.4 pg/mL 2.18-3.98 [facility] No Panel InformationOrdered By: Dr. Mcdonough on 01-08-2023 Thyroid Stimulating Hormone (TSH) 1.16 uIU/mL 0.358-3.74 [facility] Platelets bldOrdered By: Dr. Mcdonough on 01-08-2023 Platelets (Bld) [#/Vol] 316 10*3/uL 150-450 [facility] Serum Treponema species anti body detectionOrdered By: Dr. Mcdonough on 01-08-2023 Treponema sp Ab Ql (S) Non-Reactive [facility] Laboratory - Chemistry and C hemistry - challengeOrdered By: Dr. Portillo on 12-21-2022 Free T4 [Mass/Vol] 0.99 ng/dL 0.76-1.46 [facility] No Panel InformationOrdered By: Dr. Portillo on 12-21-2022 Free Triiodothyronine (T3) pg/dL 2.2 pg/mL 2.18-3.98 [facility] Thyroid Stimulating Hormone (TSH) 0.74 uIU/mL 0.358-3.74 [facility] Serum or plasma thyroperoxid ase antibody assay (units/volume)Ordered By: Dr. Mcdonough on 12-21-2022 TPO Ab Qn 39 [IU]/mL 0-34 [facility] Comment on above: Performed at: [address] [id number] Director: Shukri Montesinos PhD, Phone: [phone] Laboratory - Chemistry and C hemistry - challengeon 11-13-2022 Glucose Ql (U) Negative [facility] Laboratory - Urinalysison Protein Ql (U) Negative [facility] Laboratory - Chemistry and C hemistry - challengeOrdered By: Dr. Protillo on 11-02-2022 Free T4 [Mass/Vol] 0.96 ng/dL 0.76-1.46 [facility] No Panel InformationOrdered By: Dr. Portillo on 11-02-2022 Free Triiodothyronine (T3) pg/dL 2.6 pg/mL 2.18-3.98 [facility] Thyroid Stimulating Hormone (TSH) 1.42 uIU/mL 0.358-3.74 [facility] Laboratory - Chemistry and C hemistry - challengeon 10-17-2022 Glucose Ql (U) Negative [facility] Laboratory - Urinalysison Protein Ql (U) Negative [facility] Laboratory - Chemistry and C hemistry - challengeon 09-20-2022 Glucose Ql (U) Negative [facility] Laboratory - Urinalysison Protein Ql (U) Negative [facility] Absolute lymphocyte countOrd ered By: Dr. Mcdonough on 09-08-2022 Lymphocytes Auto (Unsp spec) [#/Vol] 2.28 10*3/uL 0.83-4.51 [facility] Basophil percentageOrdered B y: Dr. Mcdonough on 09-08-2022 Basophils/100 WBC (Bld) 0.3 % 0-1 [facility] Eosinophils/100 WBC (Bld) 1.3 % 0-5 [facility] Neutrophils (Bld) [#/Vol] 8.4 10*3/uL 2.0-7.7 [facility] Neutrophils/100 WBC (Bld) 73.5 % 47-70 [facility] WBC (Bld) [#/Vol] 11.4 10*3/uL 4.4-11.0 [place] Blood erythrocytes count (nu mber/volume)Ordered By: Dr. Mcdonough on 09-08-2022 RBC (Bld) [#/Vol] 4.20 10*6/uL 4.2-5.4 [place] Blood hemoglobin measurement (mass/volume)Ordered By: Dr. Mcdonough on 09-08-2022 Hemoglobin (Bld) [Mass/Vol] 13.0 g/dL 12.0-15.0 [facility] Blood lymphocytes/100 leukoc ytesOrdered By: Dr. Mcdonough on 09-08-2022 Lymphocytes/100 WBC (Bld) 19.9 % 19-41 [facility] Blood monocytes/100 leukocyt esOrdered By: Dr. Mcdonough on 09-08-2022 Monocytes/100 WBC (Bld) 4.6 % 0-10 [facility] Blood platelet mean volumeOr dered By: Dr. Mcdonough on 09-08-2022 Platelet mean volume (Bld) [Entitic vol] 10.1 fL 6.2-12.0 [facility] Determination of erythrocyte mean corpuscular volume (MCV)Ordered By: Dr. Mcdonough on 09-08-2022 MCV (RBC) [Entitic vol] 89.3 fL 81-99 [facility] Gestational diabetes screen 1-hour screen with 50g oral glucose loadOrdered By: Dr. Negrete on 09-08-2022 Glucose 1 Hr post 50 g glucose PO [Mass/Vol] 100 mg/dL 70-140 [facility] HIV 1 and HIV-2 antibody ass ay with HIV-1 p24 antigen detectionOrdered By: Dr. Mcdonough on 09-08-2022 HIV 1+2 Ab+HIV1 p24 Ag IA Ql Non-Reactive Nonreactive [facility] Hematocrit Auto (Bld) [Volum e fraction]Ordered By: Dr. Mcdonough on 09-08-2022 Hematocrit (Bld) [Volume fraction] 37.5 % 37-47 [facility] Laboratory - Chemistry and C hemistry - challengeOrdered By: Dr. Portillo on 09-08-2022 Free T4 [Mass/Vol] 1.08 ng/dL 0.76-1.46 [facility] Laboratory - Hematology and Cell countsOrdered By: Dr. Mcdonough on 09-08-2022 Erythrocyte distribution width (RBC) [Entitic vol] 42.6 fL 35.1-43.9 [facility] Erythrocyte distribution width (RBC) [Ratio] 13.2 % 11.6-14.6 [facility] Immature granulocytes/100 WBC (Bld) 0.400 % 0.0-0.9 [facility] Comment on above: IG% - Immature Granu locytes (promyelocytes, myelocytes and metamyelocytes) > 1% indicates that a LEFT SHIFT is Present. MCH (RBC) [Entitic mass] 31.0 pg 27.0-32.0 [facility] Nucleated RBC/100 WBC (Bld) [Ratio] 0 % 0-5 [facility] MCHC Auto (RBC) [Mass/Vol]Or dered By: Dr. Mcdonough on 09-08-2022 MCHC (RBC) [Mass/Vol] 34.7 g/dL 32-36 [facility] No Panel InformationOrdered By: Dr. Portillo on 09-08-2022 Free Triiodothyronine (T3) pg/dL 2.5 pg/mL 2.18-3.98 [facility] Thyroid Stimulating Hormone (TSH) 0.72 uIU/mL 0.358-3.74 [facility] No Panel InformationOrdered By: Dr. Mcdonough on 09-08-2022 Hepatitis B Surface Antigen Non-Reactive Nonreactive [facility] Hepatitis C Antibody Non-Reactive Nonreactive [facility] Comment on above: Non Reactive: < 0.8 Equivocal: >/= 0.8 to < 1.0 Reactive: >/= 1.0The CDC recommends that a reactive/equivocal HCV antibody result be followed up by the HCV Nucleic Acid Amplificationtest (676615) Rubella IgG Antibody Reactive Nonreactive [facility] Comment on above: Antibody Results Int erpretation of Immune Status Non Reactive Presumed Non-Immune Equivocal Equivocal Reactive Presumed Immune Platelets bldOrdered By: Dr. Mcdonough on 09-08-2022 Platelets (Bld) [#/Vol] 340 10*3/uL 150-450 [facility] Serum Treponema species anti body detectionOrdered By: Dr. Mcdonough on 09-08-2022 Treponema sp Ab Ql (S) Non-Reactive [facility] Culture, urineOrdered By: Dr Milton Mcdonough on 08-24-2022 Bacteria identified Cx Nom (U) Presumptive Lactobacillus sp. [facility] Chlamydia trachomatis rRNA d etection by probe and target amplification methodOrdered By: Dr. Mcdonough on 08-22-2022 C. trachomatis rRNA KAREN+probe Ql (Unsp spec) Negative Negative [facility] Laboratory - Chemistry and C hemistry - challengeOrdered By: Dr. Portillo on 08-22-2022 Free T4 [Mass/Vol] 1.15 ng/dL 0.76-1.46 [facility] - Microbiology an d Antimicrobial susceptibilityOrdered By: Dr. Mcdonough on 08-22-2022 N. gonorrhoeae DNA KAREN+probe Ql (Unsp spec) Negative Negative [facility] Comment on above: Performed at: [address] [id number] Director: Norma Stubbs MD, Phone: [phone] No Panel InformationOrdered By: Dr. Portillo on 08-22-2022 Free Triiodothyronine (T3) pg/dL 2.8 pg/mL 2.18-3.98 [facility] Thyroid Stimulating Hormone (TSH) 1.23 uIU/mL 0.358-3.74 [facility] Laboratory - Chemistry and C hemistry - challengeOrdered By: Dr. Portillo on 07-21-2022 Free T4 [Mass/Vol] 0.88 ng/dL 0.76-1.46 [facility] No Panel InformationOrdered By: Dr. Portillo on 07-21-2022 Free Triiodothyronine (T3) pg/dL 2.2 pg/mL 2.18-3.98 [facility] Thyroid Stimulating Hormone (TSH) 2.74 uIU/mL 0.358-3.74 [facility] - Chemistry and C hemistry - challengeon 04-29-2022 Free T4 [Mass/Vol] 1.01 ng/dL 0.76-1.46 [facility] Work Phone: No Panel Informationon 04-29 Free Triiodothyronine (T3) pg/dL 2.5 pg/mL 2.18-3.98 [facility] Work Phone: [phone] Thyroid Stimulating Hormone (TSH) 3.16 uIU/mL 0.358-3.74 [facility] Work Phone: Basophil percentageon 2021 Cholesterol [Mass/Vol] 185 mg/dL <200 [facility] Work Phone: [phone] Comment on above: <200 mg/dL Desirable 200-240 mg/dL Borderline >240 mg/dL High Risk Glucose [Mass/Vol] 94 mg/dL 74-106 [facility] Work Phone: [phone] Triglyceride [Mass/Vol] 91 mg/dL [facility] Work Phone: [phone] Comment on above: The drugs N-Acetylcy steine and Metamizole may falsely depress this assay.Serum Triglycerides Reference Interval Normal <150 mg/dL Borderline high 150 - 199 mg/dL High 200 - 499 mg/dL Very High > or = 500 mg/dL Laboratory - Chemistry and C hemistry - challengeon 12-17-2021 Cobalamin (Vitamin B12) [Mass/Vol] 1546 pg/mL 211-911 [facility] Work Phone: [phone] Free T4 [Mass/Vol] 0.95 ng/dL 0.76-1.46 [facility] Work Phone: [phone] Panel Informationon 12-17 Free Triiodothyronine (T3) pg/dL 2.4 pg/mL 2.18-3.98 [facility] Work Phone: [phone] Thyroid Stimulating Hormone (TSH) 5.15 uIU/mL 0.358-3.74 [facility] Work Phone: [phone] Vitamin D 25-Hydroxy 111.3 ng/mL [facility] Work Phone: [phone] Comment on above: Vitamin D 25(OH) Sta tus Range Deficiency <20 ng/mL (50nmol/L) Insufficiency 20 - 30 ng/mL (50 - 75 nmol/L) Sufficiency 30 - 100 ng/mL (75 - 250 nmol/L) Toxicity >100 ng/mL (>250 nmol/L)Evidence suggests that patients undergoing fluorescein dye angiography can retain small amounts of fluorescein in the body for up to 48 to 72 hours post-treatment. In the cases of patients with renal insufficiency, retention could be much longer. Samples containing fluorescein can produce falsely elevated values when tested with the Advia Centaur Vitamin D assay. With fluorescein interference, observed Vitamin D values can be as high as >150 ng/mL (>375 nmol/L). Samples should be resubmitted post fluorescein clearance to ensure there is no interference with Vitamin D test results. Serum or plasma cholesterol in HDL measurement (mass/volume)on 12-17-2021 Cholesterol in HDL [Mass/Vol] 34 mg/dL [facility] Work Phone: Comment on above: The drugs N-Acetylcy steine and Metamizole may falsely depress this assay. Reference Range HDL <40 mg/dL Low HDL Cholesterol HDL >or= 60 mg/dL High HDL Cholesterol Serum or plasma cholesterol in VLDL measurement (mass/volume)on 12-17-2021 Cholesterol in VLDL [Mass/Vol] 18 mg/dL 5-40 [facility] Work Phone: Serum or plasma low density lipoprotein (LDL) cholesterol measurement (mass/volume)on 12-17-2021 Cholesterol in LDL [Mass/Vol] 133 mg/dL 0-130 [facility] Work Phone: Vital Signs Date Time Vital Sign Value Performing Clinician Tushar ramos 02-27-2025 08:48-0400 Body height 156.[address] Gabo Harrington DO Work Phone: [facility] 02-27-2025 08:48-0400 Body mass index (BMI) [Ratio] 39.6 kg/m2 Dr. Gabo Harrington DO Work Phone: [facility] 02-27-2025 08:48-0400 Body weight 96.[address] Gabo Harrington DO Work Phone: [facility] 02-27-2025 08:48-0400 Diastolic blood pressure 81 mm[Hg] Dr. Gabo Harringotn DO Work Phone: 0(262)376-623941 [place] [address] 02-27-2025 08:48-0400 Systolic blood pressure 116 mm[Hg] Dr. Gabo Harrington DO Work Phone: 4(340)158-028041 [place] [address] 04-07-2023 06:11-0400 Diastolic blood pressure 81 mm[Hg] Dr. Gabo Harrington Work Phone: 5(194)390-247041 [place] [address] 04-07-2023 06:11-0400 Heart rate 82 /min Dr. Gabo Harrington Work Phone: 3(670)599-081041 [place] [address] 04-07-2023 06:11-0400 SaO2% (BldA) [Mass fraction] 98 % Dr. Gabo Harrington Work Phone: 3(697)411-741541 [place] [address] 04-07-2023 06:11-0400 Systolic blood pressure 136 mm[Hg] Dr. Gabo Harrington Work Phone: 6(872)764-210441 [place] [address] 04-07-2023 01:55-0400 Body temperature 98.2 [degF] Dr. Gabo Harrington Work Phone: 3(850)983-464241 [place] [address] 04-07-2023 01:47-0400 Body height 154.[address] Gabo Harrington Work Phone: 6(059)397-196741 [place] [address] 04-07-2023 01:47-0400 Body mass index (BMI) [Ratio] 40.7 kg/m2 Dr. Gabo Harrington Work Phone: 9(814)549-866441 [place] [address] 04-07-2023 01:47-0400 Body weight 97.[address] Gabo Harrington Work Phone: 8(233)521-055341 [place] [address] 04-02-2023 08:39-0400 Body mass index (BMI) [Ratio] 39.1 kg/m2 Dr. Gabo Harrington Work Phone: 6(133)355-103041 [place] [address] 04-02-2023 08:39-0400 Body weight 98.[address] Gabo Harrington Work Phone: 9(552)863-862541 [place] [address] 04-02-2023 08:39-0400 Diastolic blood pressure 84 mm[Hg] Dr. Gabo Harrington Work Phone: 3(981)045-996141 [place] [address] 04-02-2023 08:39-0400 Systolic blood pressure 122 mm[Hg] Dr. Gabo Harrington Work Phone: 1(765)271-913641 [place] [address] 03-28-2023 16:21-0400 Body mass index (BMI) [Ratio] 39.8 kg/m2 Dr. Gabo Harrington Work Phone: 5(506)106-529841 [place] [address] 03-28-2023 16:21-0400 Body weight 100.[address] Gabo Harrington Work Phone: 4(376)851-135241 [place] [address] 03-28-2023 16:21-0400 Diastolic blood pressure 68 mm[Hg] Dr. Gabo Harrington Work Phone: 0(727)400-720241 [place] [address] 03-28-2023 16:21-0400 Systolic blood pressure 111 mm[Hg] Dr. Gabo Harrington Work Phone: 7(030)208-157341 [place] [address] 03-19-2023 16:25-0400 Body height 158.[address] Gabo Harrington Work Phone: 1(984)268-079041 [place] [address] 03-19-2023 16:23-0400 Body mass index (BMI) [Ratio] 36 kg/m2 Dr. Gabo Harrington Work Phone: 1(220)407-196641 [place] [address] 03-19-2023 16:23-0400 Body weight 99.[address] Gabo Harrington Work Phone: 0(357)048-807941 [place] [address] 03-19-2023 16:23-0400 Diastolic blood pressure 77 mm[Hg] Dr. Gabo Harrington Work Phone: 4(960)203-898141 [place] [address] 03-19-2023 16:23-0400 Systolic blood pressure 114 mm[Hg] Dr. Gabo Harrington Work Phone: 0(579)332-900441 [place] [address] 03-05-2023 09:14-0400 Body height 158.[address] Gabo Harrington Work Phone: 3(177)053-122541 [place] [address] 03-05-2023 09:10-0400 Body mass index (BMI) [Ratio] 39.3 kg/m2 Dr. Gabo Harrington Work Phone: 2(484)719-305441 [place] [address] 03-05-2023 09:10-0400 Body weight 99.[address] Gabo Harrington Work Phone: 3(647)145-540841 [place] [address] 03-05-2023 09:10-0400 Diastolic blood pressure 79 mm[Hg] Dr. Gabo Harrington Work Phone: 6(425)366-457741 [place] [address] 03-05-2023 09:10-0400 Systolic blood pressure 115 mm[Hg] Dr. Gabo Harrington Work Phone: 6(130)021-644041 [place] [address] 02-19-2023 16:15-0400 Body mass index (BMI) [Ratio] 40.7 kg/m2 Dr. Gabo Harrington Work Phone: 4(492)495-934541 [place] [address] 02-19-2023 16:15-0400 Body weight 99.[address] Gabo Harrington Work Phone: 6(123)105-821841 [place] [address] 02-19-2023 16:15-0400 Diastolic blood pressure 69 mm[Hg] Dr. Gabo Harrington Work Phone: 1(704)647-967541 [place] [address] 02-19-2023 16:15-0400 Systolic blood pressure 97 mm[Hg] Dr. Gabo Harrington Work Phone: 5(180)109-423341 [place] [address] 02-05-2023 15:51-0400 Body mass index (BMI) [Ratio] 39 kg/m2 Dr. Gabo Harrington Work Phone: 3(026)917-371541 [place] [address] 02-05-2023 15:51-0400 Body weight 98.[address] Gabo Harrington Work Phone: 7(465)736-373041 [place] [address] 02-05-2023 15:51-0400 Diastolic blood pressure 76 mm[Hg] Dr. Gabo Harrington Work Phone: 9(721)848-910841 [place] [address] 02-05-2023 15:51-0400 Systolic blood pressure 116 mm[Hg] Dr. Gabo Harrington Work Phone: 2(026)834-039041 [place] [address] 01-22-2023 16:23-0400 Body mass index (BMI) [Ratio] 38.7 kg/m2 Dr. Gabo Harrington Work Phone: 0(678)896-539441 [place] [address] 01-22-2023 16:23-0400 Body weight 97.[address] Gabo Harrington Work Phone: 3(646)932-846741 [place] [address] 01-22-2023 16:23-0400 Diastolic blood pressure 60 mm[Hg] Dr. Gabo Harrington Work Phone: 8(511)021-588941 [place] [address] 01-22-2023 16:23-0400 Systolic blood pressure 114 mm[Hg] Dr. Gabo Harrington Work Phone: 2(373)596-625541 [place] [address] 01-08-2023 16:26-0400 Diastolic blood pressure 75 mm[Hg] Dr. Gabo Harrington Work Phone: 5(148)314-354141 [place] [address] 01-08-2023 16:26-0400 Systolic blood pressure 112 mm[Hg] Dr. Gabo Harrington Work Phone: 6(381)003-933641 [place] [address] 01-08-2023 16:11-0400 Body height 158.[address] Gabo Harrington Work Phone: 3(129)798-992641 [place] [address] 01-08-2023 16:08-0400 Body mass index (BMI) [Ratio] 38.3 kg/m2 Dr. Gabo Harrington Work Phone: 1(032)872-400441 [place] [address] 01-08-2023 16:08-0400 Body weight 96.[address] Gabo Harrington Work Phone: 1(340)045-421341 [place] [address] 12-11-2022 16:19-0400 Body height 158.[address] Gabo Harrington Work Phone: 6(287)743-778441 [place] [address] 12-11-2022 16:10-0400 Body mass index (BMI) [Ratio] 37.7 kg/m2 Dr. Gabo Harrington Work Phone: 9(552)103-828541 [place] [address] 12-11-2022 16:10-0400 Body weight 95.[address] Gabo Harrington Work Phone: 4(131)007-660641 [place] [address] 12-11-2022 16:10-0400 Diastolic blood pressure 79 mm[Hg] Dr. Gabo Harrington Work Phone: 0(040)036-281446 [place] [address] 12-11-2022 16:10-0400 Systolic blood pressure 116 mm[Hg] Dr. Gabo Harrington Work Phone: 9(563)103-717341 [place] [address] 11-13-2022 16:35-0400 Body mass index (BMI) [Ratio] 38.4 kg/m2 Dr. Gabo Harrington Work Phone: 2(029)937-710241 [place] [address] 11-13-2022 16:35-0400 Body weight 95.[address] Gabo Harrington Work Phone: 1(067)279-798141 [place] [address] 11-13-2022 16:35-0400 Diastolic blood pressure 77 mm[Hg] Dr. Gabo Harrington Work Phone: 4(678)472-359941 [place] [address] 11-13-2022 16:35-0400 Systolic blood pressure 116 mm[Hg] Dr. Gabo Harrington Work Phone: 0(259)810-781441 [place] [address] 11-07-2022 16:01-0400 Body temperature 98 [degF] Dr. Gabo Harrington Work Phone: 4(984)024-613241 [place] [address] 11-07-2022 16:01-0400 Body weight 95.[address] Gabo Harrington Work Phone: 6(883)447-134841 [place] [address] 11-07-2022 16:01-0400 Diastolic blood pressure 72 mm[Hg] Dr. Gabo Harrington Work Phone: 4(874)712-055141 [place] [address] 11-07-2022 16:01-0400 Heart rate 85 /min Dr. Gabo Harrington Work Phone: 1(985)954-122541 [place] [address] 11-07-2022 16:01-0400 Respiratory rate 16 /min Dr. Gabo Harrington Work Phone: 9(036)598-586741 [place] [address] 11-07-2022 16:01-0400 SaO2% (BldA) [Mass fraction] 99 % Dr. Gabo Harrington Work Phone: 3(864)368-888241 [place] [address] 11-07-2022 16:01-0400 Systolic blood pressure 115 mm[Hg] Dr. Gabo Harrington Work Phone: 2(440)579-028941 [place] [address] 10-17-2022 16:29-0400 Body height 158.[address] Gabo Harrington Work Phone: 7(872)025-533341 [place] [address] 10-17-2022 16:28-0400 Body mass index (BMI) [Ratio] 37.1 kg/m2 Dr. Gabo Harrington Work Phone: 7(790)638-425941 [place] [address] 10-17-2022 16:28-0400 Body weight 93.[address] Gabo Harrington Work Phone: 3(513)898-759941 [place] [address] 10-17-2022 16:28-0400 Diastolic blood pressure 88 mm[Hg] Dr. Gabo Harrington Work Phone: 6(954)518-374641 [place] [address] 10-17-2022 16:28-0400 Systolic blood pressure 128 mm[Hg] Dr. Gabo Harrington Work Phone: 1(828)245-864041 [place] [address] 09-20-2022 15:45-0500 Body mass index (BMI) [Ratio] 37.1 kg/m2 Dr. Gabo Harrington Work Phone: 0(661)233-069141 [place] [address] 09-20-2022 15:45-0500 Body weight 93.[address] Gabo Harrington Work Phone: 4(437)682-860941 [place] [address] 09-20-2022 15:45-0500 Diastolic blood pressure 80 mm[Hg] Dr. Gabo Harrington Work Phone: 2(066)190-357041 [place] [address] 09-20-2022 15:45-0500 Systolic blood pressure 118 mm[Hg] Dr. Gabo Harrington Work Phone: 0(802)432-190741 [place] [address] 08-22-2022 16:05-0500 Body height 158.[address] Gabo Harrington Work Phone: 4(241)688-336741 [place] [address] 08-22-2022 16:05-0500 Body mass index (BMI) [Ratio] 37.2 kg/m2 Dr. Gabo Harrington Work Phone: 7(024)016-998441 [place] [address] 08-22-2022 16:05-0500 Body weight 93.[address] Gabo Harrington Work Phone: 9(594)744-066546 [place] [address] 08-22-2022 16:05-0500 Diastolic blood pressure 89 mm[Hg] Dr. Gabo Harrington Work Phone: 5(360)518-432341 [place] [address] 08-22-2022 16:05-0500 Systolic blood pressure 130 mm[Hg] Dr. Gabo Harrington Work Phone: 8(706)964-989741 [place] [address] 05-15-2022 16:04-0400 Body height 158.[address] Gabo Harrington Work Phone: 9(139)907-420141 [place] [address] Work Phone: 05-15-2022 16:04-0400 Body mass index (BMI) [Ratio] 36.9 kg/m2 Dr. Gabo Harrington Work Phone: 8(415)716-088841 [place] [address] 05-15-2022 16:04-0400 Body temperature 96.4 [degF] Dr. Gabo Harrington Work Phone: 1(396)301-273741 [place] [address] 05-15-2022 16:04-0400 Body weight 93.[address] Gabo Harrington Work Phone: 7(728)252-331041 [place] [address] 05-15-2022 16:04-0400 Diastolic blood pressure 77 mm[Hg] Dr. Gabo Harrington Work Phone: 4(472)972-618741 [place] [address] 05-15-2022 16:04-0400 Heart rate 97 /min Dr. Gabo Harrington Work Phone: 0(371)222-476346 [place] [address] 05-15-2022 16:04-0400 Respiratory rate 18 /min Dr. Gabo Harrington Work Phone: 8(518)778-395241 [place] [address] 05-15-2022 16:04-0400 SaO2% (BldA) [Mass fraction] 96 % Dr. Gabo Harrington Work Phone: 8(215)157-498041 [place] [address] 05-15-2022 16:04-0400 Systolic blood pressure 119 mm[Hg] Dr. Gabo Harrington Work Phone: 5(440)973-488241 [place] [address] 11-08-2021 16:32-0400 Body height 158.[address] Gabo Harrington Work Phone: [facility] Work Phone: 11-08-2021 16:32-0400 Body mass index (BMI) [Ratio] 37 kg/m2 Dr. Gabo Harrington Work Phone: [facility] Work Phone: 11-08-2021 16:32-0400 Body temperature 95.6 [degF] Dr. Gabo Harrington Work Phone: [facility] Work Phone: 11-08-2021 16:32-0400 Body weight 93.[address] Gabo Harrington Work Phone: [facility] Work Phone: 11-08-2021 16:32-0400 Diastolic blood pressure 84 mm[Hg] Dr. Gabo Harrington Work Phone: [facility] Work Phone: 11-08-2021 16:32-0400 Heart rate 81 /min Dr. Gabo Harrington Work Phone: [facility] Work Phone: 11-08-2021 16:32-0400 Respiratory rate 18 /min Dr. Gabo Harrington Work Phone: [facility] Work Phone: 11-08-2021 16:32-0400 SaO2% (BldA) [Mass fraction] 98 % Dr. Gabo Harrington Work Phone: [facility] Work Phone: 11-08-2021 16:32-0400 Systolic blood pressure 124 mm[Hg] Dr. Gabo Harrington Work Phone: [facility] Work Phone: 10-10-2021 16:26-0400 Body mass index (BMI) [Ratio] 36.7 kg/m2 Dr. Gabo Harrington Work Phone: [facility] Work Phone: 10-10-2021 16:26-0400 Body weight 92.[address] Gabo Harrington Work Phone: [facility] Work Phone: 10-10-2021 16:26-0400 Diastolic blood pressure 88 mm[Hg] Dr. Gabo Harrington Work Phone: [facility] Work Phone: 10-10-2021 16:26-0400 Systolic blood pressure 114 mm[Hg] Dr. Gabo Harrington Work Phone: [facility] Work Phone: Encounters Encounter Date Encounter Type Care Provider Facility Start: 02-27-2025 End: 02-27-[address] Gabo Harrington DO Work Phone: -[facility] Start: 02-27-2025 End: 02-27-2025 Patient encounter procedure Meghanflori COSBYM -[facility] Work Phone: Start: 02-20-2025 Non-patient / Non-visit Rachel mistry RN -[facility] Work Phone: Start: 02-20-2025 ambulatory Gabo Dickson y:[facility] Start: 07-24-2024 ambulatory Mandietimothy Ross Caden [place] [place]: 04-02-2024 End: 04-02-2024 Telephone encounter Gabo Harrington DO Work Phone: [facility] [place] Comment on above: Patient Question Start: 03-24-2024 End: 03-24-2024 ambulatory GABO HARRINGTON Facility:[facility] Start: 03-24-2024 End: 03-24-2024 Telemedicine consultation with patient Stef Mantilla XIOMARA Work Phone: Telemedicine Comment on above: Acute cystitis witho ut hematuria (Primary Dx) Start: 04-07-2023 End: 04-07-[address] Gabo Harrington Work Phone: [facility] Work Phone: Start: 04-07-2023 End: 04-07-[address] Gabo Harrington Work Phone: [facility] Work Phone: Start: 04-02-2023 End: 04-02-[address] Gabo Harrington Work Phone: [facility] Work Phone: Start: 03-28-2023 End: 03-28-[address] Gabo Harrington Work Phone: [facility] Work Phone: Start: 03-19-2023 End: 03-19-[address] Gabo Harrington Work Phone: [facility] Work Phone: Start: 03-19-2023 End: 03-19-[address] Gabo Harrington Work Phone: [facility] Work Phone: Start: 03-06-2023 End: 03-06-[address] Gabo Harrington Work Phone: [facility] Work Phone: Start: 03-06-2023 End: 03-06-[address] Gabo Harrington Work Phone: [facility] Work Phone: Start: 03-05-2023 End: 03-05-[address] Gabo Harrington Work Phone: [facility] Work Phone: Start: 02-19-2023 End: 02-19-[address] Gabo Harrington Work Phone: [facility] Work Phone: Start: 02-05-2023 End: 02-05-[address] Gabo Harrington Work Phone: [facility] Work Phone: Start: 01-22-2023 End: 01-22-[address] Gabo Harrington Work Phone: [facility] Work Phone: Start: 01-08-2023 End: 01-08-[address] Gabo Harrington Work Phone: [facility] Start: 01-08-2023 End: 01-08-[address] Gabo Harrington Work Phone: [facility] Work Phone: Start: 01-08-2023 End: 01-08-[address] Gabo Harrington Work Phone: [facility] Start: 12-21-2022 End: 12-21-[address] Gabo Harrington Work Phone: [facility] Work Phone: Start: 12-21-2022 End: 12-21-[address] Gabo Harrington Work Phone: [facility] Start: 12-11-2022 End: 12-11-[address] Gabo Harrington Work Phone: [facility] Start: 12-05-2022 End: 12-05-2022 ambulatory GABO HARRINGTON [facility] Start: 11-13-2022 End: 11-13-[address] Gabo Harrington Work Phone: [facility] Start: 11-07-2022 End: 11-07-[address] Gabo Harrington Work Phone: [facility] Start: 11-02-2022 End: 11-02-[address] Gabo Harrington Work Phone: [facility] Work Phone: Start: 11-02-2022 End: 11-02-[address] [facility] Start: 10-17-2022 End: 10-17-[address] Gabo Harrington Work Phone: [facility] Start: 09-20-2022 End: 09-20-[address] Gabo Harrington Work Phone: [facility] Start: 09-08-2022 End: 09-08-[address] Gabo Harrington Work Phone: [facility] Work Phone: Start: 09-08-2022 End: 09-08-[address] [facility] Start: 08-22-2022 End: 08-22-[address] Gabo Harrington Work Phone: [facility] Work Phone: Start: 08-22-2022 End: 08-22-[address] [facility] Start: 08-22-2022 End: 08-22-[address] Gabo Harrington Work Phone: [facility] Start: 07-21-2022 End: 07-21-[address] Gabo Harrington Work Phone: [facility] Work Phone: Start: 07-21-2022 End: 07-21-[address] Gabo Harrington Work Phone: [facility] Start: 07-06-2022 End: 07-06-2022 ambulatory Aimee Finch APRN.[employer] OPERATOR Work Phone: [facility] [place] Comment on above: Bacterial sinusitis (Primary Dx) Start: 07-06-2022 End: 07-06-2022 Telemedicine consultation with patient Aimee Finch APRN.[employer] OPERATOR Work Phone: [facility] Start: 05-15-2022 End: 05-15-[address] Gabo Harrington Work Phone: [facility] Start: 04-29-2022 End: 04-29-[address] Gabo Harrington Work Phone: [facility] Start: 12-17-2021 End: 12-17-[address] Gabo Harrington Work Phone: [facility] Start: 11-08-2021 End: 11-08-[address] Gabo Harrington Work Phone: [facility] Start: 10-10-2021 End: 10-10-[address] Gabo Harrington Work Phone: [facility] Procedures Date Procedure Procedure Detail Performing Clinician Start: 03-19-2023 Group B Streptococcu s Culture Dr. Gabo Harrington Work Phone: Urine culture Dr. Gabo valadez Work Phone: Plan of Treatment Date Care Activity Detail Author Start: 01-22-2033 Urine microalbumin profile DTaP,Tdap,Td Vaccine (4 - Td or Tdap) [facility] Start: 02-27-2025 CBC W Auto Differential panel - Blood [facility] Start: 02-27-2025 Hemoglobin A1c/Hemoglobin.total in Blood [facility] Start: 02-27-2025 Hepatitis C antibody measurement [facility] Start: 02-27-2025 Procedure [facility] Start: 02-27-2025 Rubella IgG measurement [facility] Start: 02-27-2025 Serologic test for syphilis [facility] Start: 02-27-2025 T4 free measurement [facility] Start: 02-27-2025 Thyroid stimulating hormone measurement [facility] Start: 02-27-2025 Triiodothyronine, free measurement [facility] Start: 02-27-2025 [facility] Start: 03-23-2024 Covid-19 Vaccine () Covid-19 Vaccine () [facility] Start: 03-23-2024 Influenza vaccination Influenza Vaccine (#1) [facility] Start: 04-07-2023 Nonstress test [facility] Start: 04-07-2023 Obstetric monitoring [facility] Start: 04-07-2023 Vital signs measurements [facility] Start: 04-07-2023 [facility] Start: 04-07-2023 Patient discharge [facility] Start: 03-23-2022 Influenza vaccination INFLUENZA (#1) [facility] Start: 10-14-2021 COVID-19 VACCINE (3 - Booster for Moderna series) COVID-19 VACCINE (3 - Booster for Moderna series) [facility] Start: 07-23-2021 DEPRESSION ASSESSMENT DEPRESSION ASSESSMENT [facility] Start: 11-07-2019 HPV TESTING HPV TESTING [facility] Start: 2010 PAP TESTING PAP TESTING [facility] Start: 2010 Screening for malignant neoplasm of cervix Cervical Cancer Screening [facility] Start: 2008 Hepatitis B Vaccine (1 of 3 - 19+ 3-dose series) Hepatitis B Vaccine (1 of 3 - 19+ 3-dose series) [facility] Start: 2008 Urine microalbumin profile DTAP,TDAP,TD (1 - Tdap) [facility] Start: 11-07-2007 Anxiety Screening Anxiety Screening [facility] Start: 11-07-2007 Depression Screening Depression Screening [facility] Start: 11-07-2007 HEPATITIS C SCREENING HEPATITIS C SCREENING [facility] Start: 11-07-2007 Hepatitis C screening Hepatitis C Screening [facility] Start: 11-07-2007 HIV SCREENING HIV SCREENING [facility] Start: 1989 HEPATITIS B (1 of 3 - 3-dose series) HEPATITIS B (1 of 3 - 3-dose series) [facility] CBC W Auto Different ial panel - Blood [facility] CBC W Auto Different ial panel - Blood [facility] Chlamydia deoxyribon ucleic acid detection [facility] Erythrocyte mean cor puscular volume determination [facility] Glucose [Mass/volume ] in Serum or Plasma --1 hour post 50 g glucose PO [facility] Glucose [Mass/volume ] in Serum or Plasma --1 hour post 50 g glucose PO [facility] Hematocrit [Volume F raction] of Blood [facility] Hemoglobin [Mass/vol ume] in Blood [facility] Hepatitis B surface antigen measurement [facility] Hepatitis B virus knowles rface Ag [Presence] in Serum [facility] Hepatitis C antibody measurement [facility] HIV 1+2 Ab+HIV1 p24 Ag [Presence] in Serum or Plasma by Immunoassay [facility] HIV 1+2 Ab+HIV1 p24 Ag [Presence] in Serum or Plasma by Immunoassay [facility] Leukocytes [#/volume ] in Blood [facility] Liquid based cervica l cytology screening [facility] Mean corpuscular hem oglobin concentration determination [facility] Mean corpuscular hem oglobin determination [facility] Neutrophil count [facility] Neutrophil percent differential count [facility] Patient Education Kick Counts ED False Labor OB Triage: Return to Hospital or Notify Physician if you Experience: [facility] Work Phone: Patient referral [facility] Work Phone: Platelets [#/volume] in Blood [facility] Red blood cell count [facility] Red cell distributio n width determination [facility] Rubella IgG measurement [facility] T4 free measurement [facility] T4 free measurement [facility] Thyroid stimulating hormone measurement [facility] Thyroid stimulating hormone measurement [facility] Treponema sp Ab [Pre sence] in Serum [facility] Treponema sp Ab [Pre sence] in Serum [facility] Triiodothyronine, fr ee measurement [facility] Immunizations Immunization Date Immunization Notes Care Provider Kenneth kinney 01-22-2023 tetanus toxoid, redu terrence diphtheria toxoid, and acellular pertussis vaccine, adsorbed Dr. Gabo Harrington Work Phone: [facility] 05-12-2020 diphtheria, tetanus toxoids and acellular pertussis vaccine, unspecified formulation Dr. Gabo Harrington Work Phone: [facility] Work Phone: 05-12-2020 tetanus toxoid, redu terrence diphtheria toxoid, and acellular pertussis vaccine, adsorbed Dr. Gabo Harrington Work Phone: [facility] Payers Date Payer Category Payer Self-pay [id number] 2019 Unknown [id number] 2012 Unknown [id number] 47 [id number] 1989 Unknown [id number] 1989 Unknown [id number] Unknown [id number] Unknown [id number] Unknown [id number] Social History Date Type Detail Facility Start: 11-08-2021 End: 04-02-2023 Tobacco smoking status KYIS Unknown if ever smoked [facility] Start: 12-01-2018 None [facility] Start: 1990 Sex Assigned At Female W [facility] Start: 08-13-2017 End: 08-01-2025 Tobacco smoking status NHIS Never smoked tobacco [facility] Work Phone: Start: 08-13-2017 Tobacco use and exposure Smoke less tobacco non-user [facility] Work Phone: Start: 02-26-2022 Alcohol intake 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) [facility] Start: 07-06-2022 History SDOH Alcohol Frequency 1 [facility] Start: 07-06-2022 History SDOH Alcohol Std Drinks 0 [facility] Start: 07-06-2022 History SDOH Social Connections Phone 5 [facility] Start: 07-06-2022 History SDOH Social Connections Get Together 2 [facility] Start: 07-06-2022 History SDOH Social Connections Baptism 3 [facility] Start: 1990 Sex Assigned At Not on file C [facility] Start: 07-06-2022 End: 08-19-2022 History of Social function [facility] Start: 07-06-2022 End: 08-19-2022 Social connection and isolation panel [facility] Do you belong to any clubs or organizations such as mormonism groups, unions, fraternal or athletic groups, or school groups? Yes [facility] Are you now , , , , never or living with a partner? [facility] How often to you hav e a drink containing alcohol? Never [facility] How many standard dr inks containing alcohol do you have on a typical day? Patient does not drink [facility] In the past 12 month s, was there a time when you were not able to pay the mortgage or rent on time? No [facility] Clinical Notes 07-06-2022 to 02-27-2025 Telephone Encounter - Gabo Harringtno DO - 04/02/2024 7:44 PM EDTTelephone Encounter - Gabo Harrington DO - 04/02/2024 7:44 PM Stef Huang APRN.[employer] OPERATOR - 03/24/2024 8:16 AM EDT Note Date & Type Note Facility 02-27-2025 Progress note [facility] 04-02-2024 Telephone encounter Note rx sent to pharmacy I was able to assess her today Gabo Harrington DO [facility] 04-02-2024 Miscellaneous Notes rx sent to pharmacy I was able to assess her today Gabo Meyer DO Jaya Needs appt or express care visit for further tx. Lakisha Adrian APRN.[employer] OPERATOR Patient did virtual visit 03/24/2024, dx UTI, prescribed Macrobid, recommended to take AZO with Macrobid, s/s resolved. Starting with dysuria, urgency, no as bad. Appt offered, Patient prefers not to come in asking for RX to be called into [facility] Kaye Whitman LPN documented in this encounter [facility] 04-02-2024 Telephone encounter Note Needs appt or express care visit for further tx. Lakisha Adrian APRN.[employer] OPERATOR [facility] Work Phone: 04-02-2024 Telephone encounter Note Patient did virtual visit 03/24/2024, dx UTI, prescribed Macrobid, recommended to take AZO with Macrobid, s/s resolved. Starting with dysuria, urgency, no as bad. Appt offered, Patient prefers not to come in asking for RX to be called into [facility]. Kaye Whitman LPN [facility] 03-24-2024 Note HNO ID: [id number] Author: STEF MANTILLA APRN.[employer] OPERATOR Service: ? Author Type: Nurse Practitioner Type: Progress Notes Filed: 03/24/2024 08:23 Note Text: Telemedicine Visit - Distance Health Virtual Visit Note Patient seen on [employer] Video Visit platform. Location of patient: [place] I have communicated my name and active licensure. The patient's identity and physical location were verified at the time of this visit. Either the patient or their legal door to door sales representative has been informed of the risks and benefits of -- and alternatives to -- treatment through a remote evaluation and consents to proceed with the evaluation remotely. History of Present Illness Shereen Tavarez is a 33 year old female with a history of UTI symptoms for 1 days. Urinary symptoms ROS: Positive for: Abdominal pain , Bladder pressure, Dysuria, Increase in frequency of urination, and Urgency Negative for: Back/Flank pain, Blood in urine, Cloudy urine, Diarrhea, Fevers, Malodorous urine, Vaginal itch or discharge, and Vomiting /Lactating: : No: Lactating: No Sexually active: Yes: STI concerns: No LMP: 2 weeks ago Number of previous UTI's in last 6 months: 0 Number of previous UTI's in last 12 months: 1 Alleviating Factors include none PAST MEDICAL HISTORY No date: Known health problems: none PAST SURGICAL HISTORY No date: NONE FAMILY HISTORY Problem Relation Age of Onset Heart Maternal Grandfather early [place], age 52 [place] Social History Tobacco Use Smoking status: Never Smokeless tobacco: Never Substance Use Topics Alcohol use: No Drug use: No ALLERGIES Allergen Reactions Amoxicillin Hives Current Outpatient Medications Medication Sig nitrofurantoin monohydrate and macrocrystal (MACROBID) 100 mg capsule Take 1 capsule by mouth two times a day for 5 days. albuterol HFA (VENTOLIN HFA) 90 mcg/actuation inhaler Inhale 2 Puffs as instructed every 4 hours as needed for Wheezing/Shortness of Breath. No current facility-administered medications for this visit. Video Exam (Examination performed via Video enabled technology) General Appearance: Alert, oriented, pleasant, in NAD: Yes Ill appearing: No Lethargic appearing: No Respiratory distress: No Abdomen: non-tender by self palpation CVA Tenderness: non-tender bilaterally by self palpation ASSESSMENT/PLAN: 1. Acute cystitis without hematuria - ICD9: 595.0, ICD10: N30.00 1. Symptoms consistent with UTI 2. Antibiotic: Macrobid 3 Patient instructed to increase fluid intake through out the day. 4. May use UroStat (pyridium) over the counter for bladder spasm/discomfort. 5. Express Care if symptoms not resolved or markedly improved within 2-3 days Red flags discussed for in person care and follow up, including but not limited to worsening symptoms, hematuria, new back pain, fever, chills, or other concerning symptoms All questions answered Stef Mantilla APRN.[facility] 03-24-2024 History of Presen t illness Narrative Telemedicine Visit - Distance Health Virtual Visit Note Patient seen on [employer] Video Visit platform. Location of patient: [place] I have communicated my name and active licensure. The patient's identity and physical location were verified at the time of this visit. Either the patient or their legal door to door sales representative has been informed of the risks and benefits of -- and alternatives to -- treatment through a remote evaluation and consents to proceed with the evaluation remotely. History of Present Illness Shereen Tavarez is a 33 year old female with a history of UTI symptoms for 1 days. Urinary symptoms ROS: Positive for: Abdominal pain , Bladder pressure, Dysuria, Increase in frequency of urination, and Urgency Negative for: Back/Flank pain, Blood in urine, Cloudy urine, Diarrhea, Fevers, Malodorous urine, Vaginal itch or discharge, and Vomiting /Lactating: : No: Lactating: No Sexually active: Yes: STI concerns: No LMP: 2 weeks ago Number of previous UTI's in last 6 months: 0 Number of previous UTI's in last 12 months: 1 Alleviating Factors include none PAST MEDICAL HISTORY No date: Known health problems: none PAST SURGICAL HISTORY No date: NONE FAMILY HISTORY Problem Relation Age of Onset Heart Maternal Grandfather early [place], age 52 [place] Social History Tobacco Use Smoking status: Never Smokeless tobacco: Never Substance Use Topics Alcohol use: No Drug use: No ALLERGIES Allergen Reactions Amoxicillin Hives Current Outpatient Medications Medication Sig nitrofurantoin monohydrate and macrocrystal (MACROBID) 100 mg capsule Take 1 capsule by mouth two times a day for 5 days. albuterol HFA (VENTOLIN HFA) 90 mcg/actuation inhaler Inhale 2 Puffs as instructed every 4 hours as needed for Wheezing/Shortness of Breath. No current facility-administered medications for this visit. Video Exam (Examination performed via Video enabled technology) General Appearance: Alert, oriented, pleasant, in NAD: Yes Ill appearing: No Lethargic appearing: No Respiratory distress: No Abdomen: non-tender by self palpation CVA Tenderness: non-tender bilaterally by self palpation ASSESSMENT/PLAN: 1. Acute cystitis without hematuria - ICD9: 595.0, ICD10: N30.00 1. Symptoms consistent with UTI 2. Antibiotic: Macrobid 3 Patient instructed to increase fluid intake through out the day. 4. May use UroStat (pyridium) over the counter for bladder spasm/discomfort. 5. Express Care if symptoms not resolved or markedly improved within 2-3 days Red flags discussed for in person care and follow up, including but not limited to worsening symptoms, hematuria, new back pain, fever, chills, or other concerning symptoms All questions answered Stef Mantilla APRN.CNP documented in this encounter [facility] 07-06-2022 History of Presen t illness Narrative This Team Access Model visit is a virtual encounter. It required patient-provider interaction for the medical decision making as documented below. Patient agrees to the visit: Yes Patient Location: [place] CC: Patient presents with: Sinus Problem HPI Shereen TAVAREZ is a 31 year old female who is contacted today for a virtual visit. This is an established patient of Dr. Gabo Harrington DO. Shereen is a new patient to me today. Concerns today.. Sinus infection? -- Had likely influenza A about 2 weeks ago -- never tested but around others who were tested and now her 2 sons were tested positive for Flu A yesterday. 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 Pt reports symptoms are not improving. Feels like it has now turned into a sinus infection. Sinus pain and tenderness below bilateral eyes. Sinus headache intermittently. Green nasal drainage and productive cough with green sputum. All together symptoms have been going on for 12-14 days. Pt denies any SOB, CP, Dizziness, or palpations. No other concerns or complaints. REVIEW OF SYSTEMS See HPI PAST MEDICAL HISTORY Diagnosis Date Known health problems: none PAST SURGICAL HISTORY Procedure Laterality Date NONE ALLERGIES Amoxicillin MEDICATIONS albuterol HFA (VENTOLIN HFA) 90 mcg/actuation inhaler Inhale 2 Puffs as instructed every 4 hours as needed for Wheezing/Shortness of Breath. FAMILY HISTORY Problem Relation Age of Onset Heart Maternal Grandfather early [place], age 52 [place] Social History Tobacco Use Smoking status: Never Smokeless tobacco: Never Substance Use Topics Alcohol use: No Drug use: No EXAM: Deferred physical exam as visit was completed over the phone Patient is speaking in complete sentences without obvious respiratory distress or audible wheezing. Virtual visit completed using video, limited exam completed. GENERAL: alert and appropriate, in no distress, well-hydrated, well nourished, and happy, smiling, interactive SKIN: no rash noted HEAD: normocephalic, no abnormality or lesion noted DATA REVIEWED: Most recent labs and imaging results. HEPATITIS B(1 of 3 - 3-dose series) Never done COVID-19 VACCINE(1) Never done HEPATITIS C SCREENING Never done HIV SCREENING Never done DTAP,TDAP,TD(1 - Tdap) Never done PAP TESTING Never done HPV TESTING Never done DEPRESSION ASSESSMENT Never done INFLUENZA(1) Never done ASSESSMENT/PLAN: 1. Bacterial sinusitis - ICD9: 473.9, 041.9, ICD10: J32.9, B96.89 - Will begin treatment with as per antibiotic as written, see orders - The patient should also be given OTC decongestants prn, OTC cough and cold meds as needed, warm salt water gargles, throat lozenges and/or OTC throat spray as needed, and nasal saline gtts and suction prn for the first 5-7 days of treatment. - Supportive care with plenty of fluids, rest, and analgesia prn. - Follow up in 3-5 days if symptoms persist or worsen. - DOXYCYCLINE MONOHYDRATE 100 MG TABLET RTO if symptoms worsen or do not improve. Prescription instructions reviewed with patient as applicable. Potential red flag symptoms discussed with the patient. Reviewed appropriate action plan to take if red flag symptoms occur. Patient agreeable to treatment plan. During this patient visit I have spent approximately 15 minutes in counseling regarding treatment options and medications. Aimee Finch APRN.[employer] OPERATOR documented in this encounter [facility] Evaluation note Diagnosis Onset Date BMI 36.0-36.9,adult acute Graves disease acute [facility] Work Phone: evaluation note* Diagnosis Bacterial sinusitis- Primary Unspecified sinusitis (chronic) [facility] Diagnosis Onset Date Resolution Status Graves disease acute [facility] Work Phone: evaluation note* Diagnosis Onset Date Resolution Status Graves disease acute BMI 36.0-36.9,adult acute Graves disease acute High serum vitamin B12 acute acute Supervision of high risk , antepartum acute [facility] Work Phone: evaluation note* Diagnosis Onset Date Resolution Status BMI 36.0-36.9,adult acute Graves disease acute High serum vitamin B12 acute acute Supervision of high risk , antepartum acute [facility] Work Phone: evaluation note* Diagnosis Onset Date Resolution Status BMI 36.0-36.9,adult acute Graves disease acute High serum vitamin B12 acute acute Supervision of high risk , antepartum acute BMI 36.0-36.9,adult acute Graves disease acute High serum vitamin B12 acute acute Supervision of high risk , antepartum acute Graves disease acute acute Supervision of high risk , antepartum acute Graves disease acute [facility] Work Phone: evaluation note* Diagnosis Onset Date Resolution Status Graves disease acute High serum vitamin B12 acute acute Supervision of high risk , antepartum acute BMI 36.0-36.9,adult resolved Graves disease acute acute Supervision of high risk , antepartum acute Graves disease acute Graves disease acute High serum vitamin B12 acute acute Supervision of high risk , antepartum acute Graves disease acute High serum vitamin B12 acute acute Supervision of high risk , antepartum acute [facility] Work Phone: evaluation note* Diagnosis Onset Date Resolution Status Graves disease acute High serum vitamin B12 acute acute Supervision of high risk , antepartum acute BMI 36.0-36.9,adult resolved Graves disease acute acute Supervision of high risk , antepartum acute Graves disease acute Graves disease acute High serum vitamin B12 acute acute Supervision of high risk , antepartum acute Graves disease acute High serum vitamin B12 acute acute Supervision of high risk , antepartum acute Graves disease acute High serum vitamin B12 acute acute Supervision of high risk , antepartum acute [facility] Work Phone: evaluation note* Diagnosis Onset Date Resolution Status Graves disease acute High serum vitamin B12 acute acute Supervision of high risk , antepartum acute Graves disease acute High serum vitamin B12 acute acute Supervision of high risk , antepartum acute Graves disease acute High serum vitamin B12 acute acute Supervision of high risk , antepartum acute Graves disease acute acute Supervision of high risk , antepartum acute Graves disease acute High serum vitamin B12 acute acute Supervision of high risk , antepartum acute Graves disease acute High serum vitamin B12 acute acute Supervision of high risk , antepartum acute Graves disease acute High serum vitamin B12 acute acute Supervision of high risk , antepartum acute [facility] Work Phone: evaluation note* Diagnosis Onset Date Resolution Status Graves disease acute High serum vitamin B12 acute acute Supervision of high risk , antepartum acute Graves disease acute High serum vitamin B12 acute acute Supervision of high risk , antepartum acute Graves disease acute acute Supervision of high risk , antepartum acute Graves disease acute High serum vitamin B12 acute acute Supervision of high risk , antepartum acute Graves disease acute High serum vitamin B12 acute acute Supervision of high risk , antepartum acute Graves disease acute High serum vitamin B12 acute acute Supervision of high risk , antepartum acute Graves disease acute High serum vitamin B12 acute acute Supervision of high risk , antepartum acute [facility] Work Phone: Evaluation note* Diagnosis Onset Date Resolution Status Graves disease acute High serum vitamin B12 acute acute Supervision of high risk , antepartum acute Graves disease acute High serum vitamin B12 acute acute Supervision of high risk , antepartum acute Graves disease acute acute Supervision of high risk , antepartum acute Graves disease acute High serum vitamin B12 acute acute Supervision of high risk , antepartum acute Graves disease acute High serum vitamin B12 acute acute Supervision of high risk , antepartum acute Graves disease acute High serum vitamin B12 acute acute Supervision of high risk , antepartum acute Graves disease acute High serum vitamin B12 acute acute Supervision of high risk , antepartum acute Graves disease acute High serum vitamin B12 acute acute Supervision of high risk , antepartum acute Graves disease acute acute Supervision of high risk , antepartum acute [facility] Work Phone: Evaluation note* Diagnosis Acute cystitis without hematuria- Primary Acute cystitis documented in this encounter [facility] Diagnosis Onset Date Resolution Status Admit Date AMA (advanced maternal age) multigravida 35+ acute February 27 8:45am Obesity affecting acute February 27, 2025 8:45am acute February 27 8:45am Supervision of high-risk acute February 27, 2025 8:45am Graves disease chronic February 8:45am [facility] Work Phone: Progress note Author Meghan Ames [facility] Services Note Date/Time February 27, 2025 9:3 2am [facility] [address], [address] [place] [address] OFFICE VISIT Date of Service: 02/27/25 MR#: [id number] Acct: [id number] Name: SHEREEN TAVAREZ Rep #: [id number] : 1990 Provider: QI Ames Age/Sex: 34/F Location: [facility] Status: Signed Intake Vital Signs 06/08/23 15:36 02/27/25 08:48 Height 5 ft 1.5 in 5 ft 1.5 in Weight: 213 lb BMI 39.6 BP 116/81 H Intake Visit Reasons: *EST* NOB LMP 6/4, [place] 09/30 Local Government Legislator Required: No Is patient in pain?: No Allergies amoxicillin Adverse Reaction (Verified 02/27/25 08:48) Hives Medications ?Medication ?Instructions ?Recorded ?Confirmed ?Type vits,calcium no.78-iron 1 tab PO DAILY Check with primary 03/13/17 02/27/25 History fumarate-folic acid 29 mg-1 mg doctor tablet Last Menstrual Period: 12/24/24 Zika: Zika virus screening: Negative : No PFSH PFSH Medical History Graves disease Family History Grandmother blood clots Heart disease Grandfather Heart disease Social History adopted: No household members: spouse and children number of children: 4 current occupational status: employed 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 @ [employer] current occupational exposures/hazards: No pets and animals: No history of recent travel: Yes ( - January 2025) out of state: Yes out of country: No sexually active: Yes Smoking Status: Never smoker second hand exposure: No alcohol intake: never substance use type: does not use well-balanced diet: daily or most days caffeine: Yes Type: coffee eating out: 1-3 times/week during the past year weight has: remained stable what type of physical activity do you participate in: walking frequency: 3-4 times per week duration: 15-30 minutes/day nj/pentecostalism: Orthodox seatbelt use: always do you feel safe at home: Yes additional social history: : 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 Date Name GA/Weeks Outcome Route Bth Weight Infant Gen Labor Lgth Anesthesia Del Locatn Provider FOB 03/14/17 Munir 40 live - full term vacuum 8lbs 11oz Male [address] [facility] [address]. Manjeet Mclaughlin 12/01/18 Ladarius 40 live - full term 8lbs 7oz Male 5 ho urs epidural [facility] Dr. Melody Mclaughlin 08/06/20 Stephane 40 live - full term 7lb 10oz Male ep idural [facility] SHAZIA Arnoldo 04/17/23 Malinda 40 live - full term 9lb 2oz Female epidural [facility] Rustam Mclaughlin Delivery Date: 03/14/17 Last Updated by: Laura Goodrich No issues during or delivery Delivery Date: 12/01/18 Last Updated by: Laura Goodrich No issues during or delivery Delivery Date: 08/06/20 Last Updated by: Trang Holliday abnormal US- shortened long bones HPI *EST* NOB LMP 6/4, [place] 09/30 Details: SHEREEN TAVAREZ is a 34 year old who presents for New OB visit. OB Visit [place] Calculator Estimated Delivery Date Method Current WG Current Estimate 10/08/25 Ultrasound #1 8w 1d Other Estimates 09/30/25 LMP (Certain) 9w 2d Estimated Due Date: 09/30/25 Expected Delivery Route/Plan Labor Preferences- CB/BF classes: [] labor support person: [] labor intervention preferences: [] pain management options preferred: [] cut cord/dad catch: [] : [] PP control planned: [] discussed possible routes of delivery and associated risks: [] special requests: [] Specific Issue/Plans Covid status: [] Flu vaccine: [] Tdap vaccine: [] Rhogam: [] LARC form signed: [] Problem list reviewed and updated with the most current plan of care details and appropriate orders placed. Relevant counseling for the gestational age provided. Continue routine care and follow up unless otherwise noted in visit notes/problem list details Initial Weight: 213 lb Date -?-?-?-?-?-?-?-?-?-?-?-?- EGA Weight BP Urine Prot -?-?-?-?-?-?-?-?-?-?-?-?- Glucose FHR FuHt Pres Dilation -?-?-?-?-?-?-?-?-?-?-?-?- Effaced St Visit Note 02/27/25 -?-?-?-?-?-?-?-?-?-?-?-?- 8w 1d 213 lb (+0 oz) 116/81 -?-?-?-?-?-?-?-?-?-?-?-?- 170 -?-?-?-?-?-?-?-?-?-?--?-?- LC-1.79CRL not c on with LMP. [place] changed 10/08/2025. declines nipt LC-1.79CRL not con with LMP. [place] changed 10/08/2025. declines nipt. thryoid panel and hbga1c added to nob labs Menstrual History Last Menstrual Period: 12/24/24 Reported LMP: definite Normal amount/duration: Yes Frequency in days: 28 On hormonal BC at conception: No hCG+: 02/11/25 Antepartum Record Genetic Screening: Congenital Heart Defect: Other, Neural Tube Defect: Other, Hemoglobinopathy Or Carrier: Other, Cystic Fibrosis: Other, Chromosome Abnormality: Other, Joao-Sachs: Other, Hemophilia: Other, Intellectual Disability/Autism: Other, Recurrent Loss/Stillbirth: Other, Other Structural Defect: Other, Other Genetic Disease: Other and Maternal Metabolic Disorder: Other Infection History: Live with someone with TB or Exposed to TB: No, Patient or Partner has history of Genital Herpes: No, Rash or Viral illness since last mentrual period: No, Prior GBS-Infected child: No, History of STD: No, HIV Infection: No, History of Hepatitis: No, Recent travel outside of [place]: No, Concern for hepatitis exposure: No, Varicella immune: Yes (Had chicken pox) and Covid Vaccinated: Yes (Moderna - no boosters) Medical History Medical History: Positive: Auto-immune disorder (Graves disease), Thyroid dysfunction and Drug/latex allergies/reactions (see allergies list) and Negative: Diabetes, Hypertension, Heart disease, Kidney disease/UTI, Neurologic/epilepsy, Psychiatric, Depression/ depression, Hepatitis/liver disease, Varicosities/phlebitis, Trauma/domestic violence, History of blood transfusions (O+), D (Rh) Sensitized, Pulmonary (e.g.,TB,Asthma), Seasonal allergies, Breast, Ip Litigation Associate surgery, Operations/hospitalizations, Anesthetic complications, History of abnormal pap, Uterine anomaly/etta, Infertility, Anti-retroviral treatment, Relevant family history and Other ACOG First Trimester First Trimester: Desire for , Alcohol, Tobacco Cessation, Illicit/Recreational Drug/Substance Use, Intimate Partner Violence, Barriers to care, Unstable Housing, Communication Barriers, Environmental/Work Hazards, Anticipated Course of Care, Toxoplasmosis Precations, Use of Any medications, Sexual activity, Exercise, Dental Care, Sauna/Hot tub use, Seat Belt use, Childbirth classes/Hospital facilities, Travel, Indications for Ultrasound and Screening for Aneuploidy; Discussed Second Trimester Second Trimester: Signs and Symptoms of Labor, Selecting a care provider, Reproductive Life Planning & Contreception, Care Planning and Intimate Partner Violence; Discussed Tobacco Cessation and Discussed Depression/Anxiety Third Trimester Third Trimester: Pain Management Plans, Labor support person(s), Immediate Larc, Movement Monitoring, Signs and Symptoms of Preeclampsia, Infant Feeding No , [place] Education and Family Medical Leave or Disability Forms ROS Const Denies anorexia, Denies body aches, Denies chills, Denies excessive sweating, Denies fatigue, Denies headache(s) and Denies lethargy ENT Denies headache(s) GI Denies abdominal pain, Denies coffee ground emesis, Reports constipation, Denies cramping and Reports nausea Denies sexual dysfunction, Reports urinary frequency, Denies urinary incontinence, Denies urinary hesitancy, Denies urinary urgency, Denies vaginal discharge, Denies vaginal dryness, Denies vaginal odor and Denies vaginal pruritus Skin/Breast Details: breast discomfort Neuro No headache(s) Endo Denies cold intolerance, Denies deepening of the voice, Denies excessive sweating, Denies fatigue, Denies flushing, Denies heat intolerance, Denies polydipsia and Denies polyphagia Exam Const General: cooperative, healthy appearing, comfortable and no acute distress Neck Neck: normal visual inspection, full ROM and no lymphadenopathy Thyroid: thyroid normal Chest Chest palpation & inspection: normal inspection of the chest Breast inspection: normal inspection of the breasts and normal inspection of the axillae Resp Effort & Inspection: normal respiratory effort, able to speak in complete sentences and symmetric chest movement GI Inspection: normal to inspection Palpation: soft External Female Exam: normal external appearance and normal appearance of the urethra Urethra: normal appearance of the urethra Speculum Exam - Vagina: normal appearance of the vagina Speculum Exam - Cervix: normal appearance of the cervix Bimanual Exam- Vagina & Uterus: uterine size normal (consistent with dates of ) OB/External & Speculum: no bleeding Skin General: rashes and/or lesions noted Neuro General: patient alert, patient awake and patient oriented x3 Psych Appearance: grossly normal and well kempt Coding Level of Care Code OB Routine Diagnoses Obesity affecting O99.210 AMA (advanced maternal age) multigravida 35+ O09.529 Supervision of high-risk O09.90 9 weeks gestation of Z3A.09 Weeks of gestation: 9 weeks Graves disease E05.00 Assessment and Plan Assessment and Plan (1) Obesity affecting : Status: Acute Comment: HgBA1C Ordered w/NOB labs (2) AMA (advanced maternal age) multigravida 35+: Status: Acute (3) Supervision of high-risk : Status: Acute Comment: , [place] 09/30/25, PC: Ladarius Amaral Easton & Malinda, : Arnoldo (4) : Status: Acute Qualifiers: Weeks of gestation: 9 weeks Qualified Code(s): Z3A.09 - 9 weeks gestation of Comment: Discussed genetic/carrier testing - declined. (5) Graves disease: Status: Chronic Comment: Resolved/Stable; No medications since 2022 Plan Details Additional Comments: ACOG trimester education reviewed and updated. oriented to practice. reviewed genetic and carrier screening patient has decided to not obtain screening. nutrition, medication approved list reviewed. weight gain goal 10-15 in ACOG booklet provided and reviewed see problem list details for updated plan management information and see below for orders placed at this visit. GA appropriate handout given. 02/27/25 0977 <Electronically signed by Meghan gaspar CNM> Date _ Meghan Ames CNM Cosigner Signature: Date (if applicable) CC: ~ [facility] Work Phone: Reason for referral (narrative)No reason for referral information availableBlRancho [facility] Work Phone: Chief Complaint and Reason for Visit Chief Complaint Annual (BODY AND FRAME MAN) 6 M FU MELODY AND ORDERS Reason for Visit BMI 36.0-36.9,adult Graves disease Chief Complaint EORDER FU Appt Reason for Visit Graves disease Chief Complaint FU Appt NOB LMP 12/5 Reason for Visit Graves disease BMI 36.0-36.9,adult Graves disease High serum vitamin B12 Supervision of high risk , antepartum Chief Complaint NOB LMP 12/5 ONE HR GLUCOSE Reason for Visit BMI 36.0-36.9,adult Graves disease High serum vitamin B12 Supervision of high risk , antepartum Chief Complaint NOB LMP 12/5 ONE HR GLUCOSE est ob 10w est ob 14w 6 M FU Reason for Visit BMI 36.0-36.9,adult Graves disease High serum vitamin B12 Supervision of high risk , antepartum BMI 36.0-36.9,adult Graves disease High serum vitamin B12 Supervision of high risk , antepartum Graves disease Supervision of high risk , antepartum Graves disease Chief Complaint ONE HR GLUCOSE est ob 10w est ob 14w 6 M FU est ob 18w est ob 22w E-ORDER Reason for Visit Graves disease High serum vitamin B12 Supervision of high risk , antepartum BMI 36.0-36.9,adult Graves disease Supervision of high risk , antepartum Graves disease Graves disease High serum vitamin B12 Supervision of high risk , antepartum Graves disease High serum vitamin B12 Supervision of high risk , antepartum Chief Complaint est ob 10w est ob 14w 6 M FU est ob 18w est ob 22w E-ORDER E-ORDER est ob 26w Reason for Visit Graves disease High serum vitamin B12 Supervision of high risk , antepartum BMI 36.0-36.9,adult Graves disease Supervision of high risk , antepartum Graves disease Graves disease High serum vitamin B12 Supervision of high risk , antepartum Graves disease High serum vitamin B12 Supervision of high risk , antepartum Graves disease High serum vitamin B12 Supervision of high risk , antepartum Chief Complaint est ob 18w est ob 22w E-ORDER E-ORDER est ob 26w est ob 28w est ob 30w est ob 32w est ob 34w E ORDERS Reason for Visit Graves disease High serum vitamin B12 Supervision of high risk , antepartum Graves disease High serum vitamin B12 Supervision of high risk , antepartum Graves disease High serum vitamin B12 Supervision of high risk , antepartum Graves disease Supervision of high risk , antepartum Graves disease High serum vitamin B12 Supervision of high risk , antepartum Graves disease High serum vitamin B12 Supervision of high risk , antepartum Graves disease High serum vitamin B12 Supervision of high risk , antepartum Chief Complaint est ob 22w E-ORDER E-ORDER est ob 26w est ob 28w est ob 30w est ob 32w est ob 34w E ORDERS est ob 36w Reason for Visit Graves disease High serum vitamin B12 Supervision of high risk , antepartum Graves disease High serum vitamin B12 Supervision of high risk , antepartum Graves disease Supervision of high risk , antepartum Graves disease High serum vitamin B12 Supervision of high risk , antepartum Graves disease High serum vitamin B12 Supervision of high risk , antepartum Graves disease High serum vitamin B12 Supervision of high risk , antepartum Graves disease High serum vitamin B12 Supervision of high risk , antepartum Chief Complaint est ob 22w E-ORDER E-ORDER est ob 26w est ob 28w est ob 30w est ob 32w est ob 34w E ORDERS est ob 36w est ob 37w est ob 38w RULE OUT [employer] Reason for Visit Graves disease High serum vitamin B12 Supervision of high risk , antepartum Graves disease High serum vitamin B12 Supervision of high risk , antepartum Graves disease Supervision of high risk , antepartum Graves disease High serum vitamin B12 Supervision of high risk , antepartum Graves disease High serum vitamin B12 Supervision of high risk , antepartum Graves disease High serum vitamin B12 Supervision of high risk , antepartum Graves disease High serum vitamin B12 Supervision of high risk , antepartum Graves disease High serum vitamin B12 Supervision of high risk , antepartum Graves disease Supervision of high risk , antepartum Chief Complaint Admit Date Amb Documentation February 20, 2025 9:2 2am *EST* NOB LMP 12/24, [place] 09/30February 27, 2025 8:45am Reason for Visit Admit Date AMA (advanced maternal age) multigravida 35+ February 27, 2025 8:45am Obesity affecting February 27, 2025 8:45am February 27, 2025 8:4 5am Supervision of high-risk Augus t 2024 8:45am Graves disease February 27, 2025 8:4 5am Family History Relationship Condition Age at Onset Recorded Date/T eduarda grandmother Unknown Cardiac disease Unknown grandfather Cardiac disease Unknown Advance Directives Advance Directive Response Recorded Date/ Time Living Will No August 06 4:14am Power of Box Printer No August 06, 2020 4:14am Advance Directive Response Recorded Date/ Time Living Will No August 06 3:14am Power of Box Printer No August 06, 2020 3:14am Summary Purpose Additional Source Comments Goals (unrecognized section and content) Goals may be documented in a n alternate sectionGoals may be documented in an alternate sectionGoals may be documented in an alternate sectionGoals may be documented in an alternate sectionGoals may be documented in an alternate sectionGoals may be documented in an alternate sectionGoals may be documented in an alternate sectionGoals may be documented in an alternate sectionGoals may be documented in an alternate sectionGoals may be documented in an alternate sectionGoals may be documented in an alternate section Source Comments (unrecognize d section and content) In the event this informatio n is protected by the Federal Confidentiality of Alcohol and Drug Abuse Patient Records regulations: The Federal rules restrict any use of the information to criminally investigate or prosecute any alcohol or drug abuse patient.[facility] CenterIn the event this information is protected by the Federal Confidentiality of Alcohol and Drug Abuse Patient Records regulations: The Federal rules restrict any use of the information to criminally investigate or prosecute any alcohol or drug abuse patient.[facility] CenterIn the event this information is protected by the Federal Confidentiality of Alcohol and Drug Abuse Patient Records regulations: The Federal rules restrict any use of the information to criminally investigate or prosecute any alcohol or drug abuse patient.[facility] Reason for Visit (unrecogniz ed section and content) Reason Comments Sinus Problem Reason Comments UTI Reason Comments Patient Question Care Teams (unrecognized sec tion and content) Tax Specialist Relationship Specialty Start Date End Date Gabo Harrington DO [address] [place] [address] PCP - General Family Medicine 12/21/17 Team Status: Active Member Role Status Dates Dr. Gabo Harrnigton DO Primary Care Provider Active Team Status: Inactive Member Role Status Dates Dr. Gabo Harrington DO Primary Care Provider, Referr ing Provider Active Dr. Ruddy Portillo MD Attending Provider Active Team Status: Inactive Member Role Status Dates Dr. Gabo Harrington DO Primary Care Provider, Referr ing Provider Active Dr. Mandie العلي DO Attending Provider Activ e Team Status: Inactive Member Role Status Dates Dr. Gabo Harrington DO Primary Care Provider Active Dr. Ruddy Portillo MD Attending Provider, Referring Provi tangeal Active Team Status: Inactive Member Role Status Dates Dr. Gabo Harrington DO Primary Care Provider Active Dr. Jacquelyn Mcdonough MD Other Provider Active Dr. Ruddy Portillo MD Attending Provider Active Team Status: Inactive Member Role Status Dates Dr. Gabo Harrington DO Primary Care Provider Active Dr. Jacquelyn Mcdonough MD Attending Provider Active Dr. Mandie العلي DO Other Provider Active Dr. Ruddy Portillo MD Other Provider Active Team Status: Inactive Member Role Status Dates Dr. Gabo Harrington DO Primary Care Provider, Referr ing Provider Active Melida Armas CNM Attending Provider Active Team Status: Inactive Member Role Status Dates Dr. Gabo Harrington DO Primary Care Provider, Referr ing Provider Active Dr. Jacquelyn Mcdonough MD Attending Provider Active Team Status: Inactive Member Role Status Dates Dr. Gabo Harrington DO Primary Care Provider Active Dr. Ruddy Portillo MD Attending Provider Active Dr. Jacquelyn Mcdonough MD Other Provider Active Team Status: Inactive Member Role Status Dates Dr. Gabo Harrington DO Primary Care Provider Active Dr. Jacquelyn Mcdonough MD Attending Provider, Referr ing Provider Active Dr. Ruddy Portillo MD Other Provider Active Team Status: Inactive Member Role Status Dates Dr. Gabo Harrington DO Primary Care Provider, Referr ing Provider Active Marquise Tse BRIGADIER, BRIGADIER-C Attending Provider Active Team Status: Inactive Member Role Status Dates Dr. Gabo Harrington DO Primary Care Provider Active Melida Armas CNM Attending Provider, Referring Pro vider Active Team Status: Inactive Member Role Status Dates Dr. Gabo Harrington DO Primary Care Provider Active Dr. Jacquelyn Mcdonough MD Attending Provider Active Team Status: Inactive Member Role Status Dates Dr. Gabo Harrington DO Primary Care Provider Active Dr. Jacquelyn Mcdonough MD Attending Provider, Referr ing Provider Active Tax Specialist Relationship Specialty Start Date End Date Gabo Harrington DO [address] [place] [address] PCP - General Family Medicine 12/21/17 Tax Specialist Relationship Specialty Start Date End Date Gabo Harrington DO [address] [place] [address] PCP - General Family Medicine 12/21/17 Team Status: Active Member Role/Relationship Status Dates Dr. Gabo Harrington DO Primary Care Provider Active Team Status: Active Member Role/Relationship Status Dates Dr. aGbo Harrington DO Primary Care Provider Active Start: February 20, 2025 Rachel Be RN Attending Provider Active St art: February 20, 2025 Team Status: Inactive Member Role/Relationship Status Dates Dr. Gabo Harrington DO Primary Care Provider Active Start: February 27, 2025 End: February 27, 2025 Dr. Gabo Harrington DO Referring Provider Active Start: February 27, 2025 End: February 27, 2025 Meghan Ames CNM Attending Provider Active Start: February 27, 2025 End: February 27, 2025 Team Status: Active Member Role/Relationship Status Dates Dr. Gabo Harrington DO Primary Care Provider Active Start: February 27, 2025 Meghan Ames CNM Attending Provider Active Start: February 27, 2025 Meghan Ames CNM Referring Provider Active Start: February 27, 2025 INFORMATION SOURCE (unrecogn ized section and content) DATE CREATED AUTHOR 12/06/2022 [facility] DATE CREATED AUTHOR 'S ORGANIZ ATION 04/05/2024 [facility] DATE CREATED AUTHOR AUTHOR'S FRIDA KENDRICK 02/22/2025 [facility] FOR RECORDS PERTAINING TO PATIENTS WHO ARE OR HAVE BEEN ENROLLED IN A CHEMICAL DEPENDENCY/SUBSTANCEABUSE PROGRAM, SOME INFORMATION MAY BE OMITTED. This clinical summary was aggregated from multiple sources. Caution should be exercised in using it in the provision of clinical care. This summary normalizes information from multiple sources, and as a consequence, information in this document may materially change the coding, format and clinical context of patient data. In addition, data may be omitted in some cases. CLINICAL DECISIONS SHOULD BE BASED ON THE PRIMARY CLINICAL RECORDS. [facility] [employer] [facility]. provides no warranty or guarantee of the accuracy or completeness of information in this document.
--- OUTSIDE RECORDS SUMMARY | 2025-02-27 10:16 | XMS RPT_ITS | CCD ---
Author Organization [facility] Care Team Providers Care Level Vial Marker Name Role Phone Dr. Gabo Harringtno Primary Care Provider Dr. Gabo Harrington Referring [...] sources) Amoxicillin; Translations: [AMOXICILLIN] Drug Allergy 08-13-2017 [facility] Work Phone: (1 source) Amoxicillin Drug Allergy 02-20-2025 [facility] Medications Current Medications Medication Drug Class(es) Dates Sig (Normalized) Sig (Original) [id number] 200 actuat albuterol 0.09 mg/actuat metered dose [...] 5 days. 10 capsule 03/24/2024 03/29/2024 Active Vit,Uckp04-Rvma-Xgf ic (10 sources) Start: 03-13-2017 take 1 tablet by mouth once daily Vit,Spzi71-Lfwl-Mru ic Active 1 TABLET PO DAILY March 13, 2017 9:28am Start: 03-13-2017 take 1 tablet by karyn th once daily Vit,Njbn30-Wgpm-Jkatp Active 1 TABLET PO DAILY March 13, 2017 12:00am Start: 03-13-2017 take 1 tablet by karyn th once daily Vit,Quis60-Qbln-Cbacl Active 1 TABLET PO DAILY March 12, 2017 11:00pm Vit,Nuqm69-Umcu-Felyd 1 TABLET tablet (1 source) Start: 03-13-2017 take 1 tablet by mouth once daily Vit,Buik09-Kpuk-Dywic 1 TABLET tablet Active 1 {tbl} PO [...] 06/08 [place] <1%ile overall growth 15%ile; growth [id number]. NIPT low risk. Per [facility], no need to increase frequency of growths. Recommend checking thoracic circumference with next growth to make sure lungs developing. [facility] concerned for skeletal dysplasia. US 07/08 [...] Arnoldo PRR , [place] 04/15/ 3 (per [facility] US) [facility] Ladarius Amaral, [...] Comment on above: labs ordered weight management [id number] trim glucose WNL Other nutritional; endocrine; and [...] cell free DNA- normal; normal NT. [facility] [place] [facility] declines ntd genetic & carrier testing. [...] Test Name Value Interpretation Reference Range Facility [facility] STEFANOSHEREEN ([id number]) 1990 F Date Time Provider Department 04/02/24 [...] asking for RX to be called into [facility]. Lakisha Abdul LPN, APRN.JESSICA 04/02/2024 7:11 PM Signed Needs appt or express care visit for further tx. Lakisha Adrian APRN.Gabo Peña DO 04/02/2024 7:44 PM Signed rx sent to pharmacy I was able to assess her today Gabo Harrington DO Allergies As of Date: 04/02/2024 Noted Allergy Reaction AMOXICILLIN 08/13/2017 4 - Hives Date Reviewed: 07/06/2022 Reviewed by: Cammy Enamordao LPN - Fully Assessed Reason for Visit: Patient Question [6467] Order(s):ciprofloxac in HCl (CIPRO) 500 mg tabletTake [...] by CE VAZQUEZ LPN on 04/02/24 Normal [facility] Laboratory - Chemistry and C hemistry - challengeon 04-02-2023 Glucose Ql (U) Negative [facility] Laboratory - Urinalysison Protein Ql (U) Negative [facility] Laboratory - Chemistry and C hemistry - challengeon 03-28-2023 Glucose Ql (U) Negative [facility] Laboratory - Urinalysison Protein Ql (U) Negative [facility] Laboratory - Chemistry and C hemistry - challengeon 03-19-2023 Glucose Ql (U) Negative [facility] Laboratory - Urinalysison Protein Ql (U) Negative [facility] No Panel InformationOrdered By: Jacquelyn Mcdonough on 03-19-2023 Group B Streptococcus Culture Group B Beta Streptococcus is not isolated. [facility] Laboratory - Chemistry and C hemistry - challengeOrdered By: Melida Armas on 03-06-2023 Free T4 [Mass/Vol] 1.00 ng/dL 0.76-1.46 [facility] No Panel InformationOrdered By: Melida Armas on 03-06-2023 Free Triiodothyronine (T3) pg/dL 2.2 pg/mL 2.18-3.98 [facility] Thyroid Stimulating Hormone (TSH) 0.81 uIU/mL 0.358-3.74 [facility] Serum or plasma thyroperoxid ase antibody assay (units/volume)Ordered By: Melida Armas on 03-06-2023 TPO Ab Qn 28 [IU]/mL 0-34 [facility] Comment on above: Performed at: [address] [id number] Director: Shukri Montesinos PhD, Phone: [phone] Laboratory - Chemistry and C hemistry - challengeon 03-05-2023 Glucose Ql (U) Negative [facility] Laboratory - Urinalysison Protein Ql (U) Negative [facility] Laboratory - Chemistry and C hemistry - challengeon 02-19-2023 Glucose Ql (U) Negative [facility] Laboratory - Urinalysison Protein Ql (U) Negative [facility] Laboratory - Chemistry and C hemistry - challengeon 02-05-2023 Glucose Ql (U) Negative [facility] Laboratory - Urinalysison Protein Ql (U) Negative [facility] Laboratory - Chemistry and C hemistry - challengeon 01-22-2023 Glucose Ql (U) Negative [facility] Laboratory - Urinalysison Protein Ql (U) Negative [facility] Absolute lymphocyte countOrd ered By: Dr. Mcdonough on 01-08-2023 Lymphocytes Auto (Unsp spec) [#/Vol] 2.47 10*3/uL 0.83-4.51 [facility] Basophil percentageOrdered B y: Dr. Mcdonough on 01-08-2023 Basophils/100 WBC (Bld) 0.2 % 0-1 [facility] Eosinophils/100 WBC (Bld) 0.8 % 0-5 [facility] Neutrophils (Bld) [#/Vol] 9.8 10*3/uL 2.0-7.7 [facility] Neutrophils/100 WBC (Bld) 75.0 % 47-70 [facility] WBC (Bld) [#/Vol] 13.1 10*3/uL 4.4-11.0 [facility] Blood erythrocytes count (nu mber/volume)Ordered By: Dr. Mcdonough on 01-08-2023 RBC (Bld) [#/Vol] 3.69 10*6/uL 4.2-5.4 [facility] Blood hemoglobin measurement (mass/volume)Ordered By: Dr. Mcdonough on 01-08-2023 Hemoglobin (Bld) [Mass/Vol] 11.5 g/dL 12.0-15.0 [facility] Blood lymphocytes/100 leukoc ytesOrdered By: Dr. Mcdonough on 01-08-2023 Lymphocytes/100 WBC (Bld) 18.9 % 19-41 [facility] Blood monocytes/100 leukocyt esOrdered By: Dr. Mcdonough on 01-08-2023 Monocytes/100 WBC (Bld) 4.3 % 0-10 [facility] Blood platelet mean volumeOr dered By: Dr. Mcdonough on 01-08-2023 Platelet mean volume (Bld) [Entitic vol] 10.6 fL 6.2-12.0 [facility] Determination of erythrocyte mean corpuscular volume (MCV)Ordered By: Dr. Mcdonough on 01-08-2023 MCV (RBC) [Entitic vol] 94.6 fL 81-99 [facility] Gestational diabetes screen 1-hour screen with 50g oral glucose loadOrdered By: Dr. Mcdonough on 01-08-2023 Glucose 1 Hr post 50 g glucose PO [Mass/Vol] 97 mg/dL 70-140 [facility] HIV 1 and HIV-2 antibody ass ay with HIV-1 p24 antigen detectionOrdered By: Dr. Mcdonough on 01-08-2023 HIV 1+2 Ab+HIV1 p24 Ag IA Ql Non-Reactive Nonreactive [facility] Hematocrit Auto (Bld) [Volum e fraction]Ordered By: Dr. Mcdonough on 01-08-2023 Hematocrit (Bld) [Volume fraction] 34.9 % 37-47 [facility] Laboratory - Chemistry and C hemistry - challengeOrdered By: Dr. Mcdonough on 01-08-2023 Free T4 [Mass/Vol] 0.88 ng/dL 0.76-1.46 [facility] Laboratory - Hematology and Cell countsOrdered By: Dr. Mcdonough on 01-08-2023 Erythrocyte distribution width (RBC) [Entitic vol] 47.3 fL 35.1-43.9 [facility] Erythrocyte distribution width (RBC) [Ratio] 13.8 % 11.6-14.6 [facility] Immature granulocytes/100 WBC (Bld) 0.800 % 0.0-0.9 [facility] Comment on above: IG% - Immature Granu locytes (promyelocytes, myelocytes and metamyelocytes) > 1% indicates that a LEFT SHIFT is Present. MCH (RBC) [Entitic mass] 31.2 pg 27.0-32.0 [facility] Nucleated RBC/100 WBC (Bld) [Ratio] 0 % 0-5 [facility] MCHC Auto (RBC) [Mass/Vol]Or dered By: Dr. Mcdonough on 01-08-2023 MCHC (RBC) [Mass/Vol] 33.0 g/dL 32-36 [facility] No Panel InformationOrdered By: Dr. Portillo on 01-08-2023 Free Triiodothyronine (T3) pg/dL 2.4 pg/mL 2.18-3.98 [facility] No Panel InformationOrdered By: Dr. Mcdonough on 01-08-2023 Thyroid Stimulating Hormone (TSH) 1.16 uIU/mL 0.358-3.74 [facility] Platelets bldOrdered By: Dr. Mcdonough on 01-08-2023 Platelets (Bld) [#/Vol] 316 10*3/uL 150-450 [facility] Serum Treponema species anti body detectionOrdered By: Dr. Mcdonough on 01-08-2023 Treponema sp Ab Ql (S) Non-Reactive [facility] Laboratory - Chemistry and C hemistry - challengeOrdered By: Dr. Portillo on 12-21-2022 Free T4 [Mass/Vol] 0.99 ng/dL 0.76-1.46 [facility] No Panel InformationOrdered By: Dr. Portillo on 12-21-2022 Free Triiodothyronine (T3) pg/dL 2.2 pg/mL 2.18-3.98 [facility] Thyroid Stimulating Hormone (TSH) 0.74 uIU/mL 0.358-3.74 [facility] Serum or plasma thyroperoxid ase antibody assay (units/volume)Ordered By: Dr. Mcdonough on 12-21-2022 TPO Ab Qn 39 [IU]/mL 0-34 [facility] Comment on above: Performed at: [address] [id number] Director: Shukri Montesinos PhD, Phone: [phone] Laboratory - Chemistry and C hemistry - challengeon 11-13-2022 Glucose Ql (U) Negative [facility] Laboratory - Urinalysison Protein Ql (U) Negative [facility] Laboratory - Chemistry and C hemistry - challengeOrdered By: Dr. Portillo on 11-02-2022 Free T4 [Mass/Vol] 0.96 ng/dL 0.76-1.46 [facility] No Panel InformationOrdered By: Dr. Portillo on 11-02-2022 Free Triiodothyronine (T3) pg/dL 2.6 pg/mL 2.18-3.98 [facility] Thyroid Stimulating Hormone (TSH) 1.42 uIU/mL 0.358-3.74 [facility] Laboratory - Chemistry and C hemistry - challengeon 10-17-2022 Glucose Ql (U) Negative [facility] Laboratory - Urinalysison Protein Ql (U) Negative [facility] Laboratory - Chemistry and C hemistry - challengeon 09-20-2022 Glucose Ql (U) Negative [facility] Laboratory - Urinalysison Protein Ql (U) Negative [facility] Absolute lymphocyte countOrd ered By: Dr. Mcdonough on 09-08-2022 Lymphocytes Auto (Unsp spec) [#/Vol] 2.28 10*3/uL 0.83-4.51 [facility] Basophil percentageOrdered B y: Dr. Mcdonough on 09-08-2022 Basophils/100 WBC (Bld) 0.3 % 0-1 [facility] Eosinophils/100 WBC (Bld) 1.3 % 0-5 [facility] Neutrophils (Bld) [#/Vol] 8.4 10*3/uL 2.0-7.7 [facility] Neutrophils/100 WBC (Bld) 73.5 % 47-70 [facility] WBC (Bld) [#/Vol] 11.4 10*3/uL 4.4-11.0 [facility] Blood erythrocytes count (nu mber/volume)Ordered By: Dr. Mcdonough on 09-08-2022 RBC (Bld) [#/Vol] 4.20 10*6/uL 4.2-5.4 [facility] Blood hemoglobin measurement (mass/volume)Ordered By: Dr. Mcdonough on 09-08-2022 Hemoglobin (Bld) [Mass/Vol] 13.0 g/dL 12.0-15.0 [facility] Blood lymphocytes/100 leukoc ytesOrdered By: Dr. Mcdonough on 09-08-2022 Lymphocytes/100 WBC (Bld) 19.9 % 19-41 [facility] Blood monocytes/100 leukocyt esOrdered By: Dr. Mcdonough on 09-08-2022 Monocytes/100 WBC (Bld) 4.6 % 0-10 [facility] Blood platelet mean volumeOr dered By: Dr. Mcdonough on 09-08-2022 Platelet mean volume (Bld) [Entitic vol] 10.1 fL 6.2-12.0 [facility] Determination of erythrocyte mean corpuscular volume (MCV)Ordered By: Dr. Mcdonough on 09-08-2022 MCV (RBC) [Entitic vol] 89.3 fL 81-99 [facility] Gestational diabetes screen 1-hour screen with 50g oral glucose loadOrdered By: Dr. Negrete on 09-08-2022 Glucose 1 Hr post 50 g glucose PO [Mass/Vol] 100 mg/dL 70-140 [facility] HIV 1 and HIV-2 antibody ass ay with HIV-1 p24 antigen detectionOrdered By: Dr. Mcdonough on 09-08-2022 HIV 1+2 Ab+HIV1 p24 Ag IA Ql Non-Reactive Nonreactive [facility] Hematocrit Auto (Bld) [Volum e fraction]Ordered By: Dr. Mcdonough on 09-08-2022 Hematocrit (Bld) [Volume fraction] 37.5 % 37-47 [facility] Laboratory - Chemistry and C hemistry - challengeOrdered By: Dr. Portillo on 09-08-2022 Free T4 [Mass/Vol] 1.08 ng/dL 0.76-1.46 [facility] Laboratory - Hematology and Cell countsOrdered By: Dr. Mcdonough on 09-08-2022 Erythrocyte distribution width (RBC) [Entitic vol] 42.6 fL 35.1-43.9 [facility] Erythrocyte distribution width (RBC) [Ratio] 13.2 % 11.6-14.6 [facility] Immature granulocytes/100 WBC (Bld) 0.400 % 0.0-0.9 [facility] Comment on above: IG% - Immature Granu locytes (promyelocytes, myelocytes and metamyelocytes) > 1% indicates that a LEFT SHIFT is Present. MCH (RBC) [Entitic mass] 31.0 pg 27.0-32.0 [facility] Nucleated RBC/100 WBC (Bld) [Ratio] 0 % 0-5 [facility] MCHC Auto (RBC) [Mass/Vol]Or dered By: Dr. Mcdonough on 09-08-2022 MCHC (RBC) [Mass/Vol] 34.7 g/dL 32-36 [facility] No Panel InformationOrdered By: Dr. Portillo on 09-08-2022 Free Triiodothyronine (T3) pg/dL 2.5 pg/mL 2.18-3.98 [facility] Thyroid Stimulating Hormone (TSH) 0.72 uIU/mL 0.358-3.74 [facility] No Panel InformationOrdered By: Dr. Mcdonough on 09-08-2022 Hepatitis B Surface Antigen Non-Reactive Nonreactive [facility] Hepatitis C Antibody Non-Reactive Nonreactive [facility] Comment on above: Non Reactive: < 0.8 Equivocal: >/= 0.8 to < 1.0 Reactive: >/= 1.0The CDC recommends that a reactive/equivocal HCV antibody result be followed up by the HCV Nucleic Acid Amplificationtest ([id number]) Rubella IgG Antibody Reactive Nonreactive [facility] Comment on above: Antibody Results Int erpretation of Immune Status Non Reactive Presumed Non-Immune Equivocal Equivocal Reactive Presumed Immune Platelets bldOrdered By: Dr. Mcdonough on 09-08-2022 Platelets (Bld) [#/Vol] 340 10*3/uL 150-450 [facility] Serum Treponema species anti body detectionOrdered By: Dr. Mcdonough on 09-08-2022 Treponema sp Ab Ql (S) Non-Reactive [facility] Culture, urineOrdered By: Dr Milton Mcdonough on 08-24-2022 Bacteria identified Cx Nom (U) Presumptive Lactobacillus sp. [facility] Chlamydia trachomatis rRNA d etection by probe and target amplification methodOrdered By: Dr. Mcdonough on 08-22-2022 C. trachomatis rRNA KAREN+probe Ql (Unsp spec) Negative Negative [facility] Laboratory - Chemistry and C hemistry - challengeOrdered By: Dr. Portillo on 08-22-2022 Free T4 [Mass/Vol] 1.15 ng/dL 0.76-1.46 [facility] Laboratory - Microbiology an d Antimicrobial susceptibilityOrdered By: Dr. Mcdonough on 08-22-2022 N. gonorrhoeae DNA KAREN+probe Ql (Unsp spec) Negative Negative [facility] Comment on above: Performed at: [address] [id number] Director: Norma Stubbs MD, Phone: [phone] No Panel InformationOrdered By: Dr. Portillo on 08-22-2022 Free Triiodothyronine (T3) pg/dL 2.8 pg/mL 2.18-3.98 [facility] Thyroid Stimulating Hormone (TSH) 1.23 uIU/mL 0.358-3.74 [facility] Laboratory - Chemistry and C hemistry - challengeOrdered By: Dr. Portillo on 07-21-2022 Free T4 [Mass/Vol] 0.88 ng/dL 0.76-1.46 [facility] No Panel InformationOrdered By: Dr. Portillo on 07-21-2022 Free Triiodothyronine (T3) pg/dL 2.2 pg/mL 2.18-3.98 [facility] Thyroid Stimulating Hormone (TSH) 2.74 uIU/mL 0.358-3.74 [facility] Laboratory - Chemistry and C hemistry - challengeon 04-29-2022 Free T4 [Mass/Vol] 1.01 ng/dL 0.76-1.46 [facility] Work Phone: No Panel Informationon 04-29 Free Triiodothyronine (T3) pg/dL 2.5 pg/mL 2.18-3.98 [facility] Work Phone: [phone] Thyroid Stimulating Hormone (TSH) 3.16 uIU/mL 0.358-3.74 [facility] Work Phone: Basophil percentageon 2021 Cholesterol [Mass/Vol] 185 mg/dL <200 [facility] Work Phone: [phone] Comment on above: <200 mg/dL Desirable 200-240 mg/dL Borderline >240 mg/dL High Risk Glucose [Mass/Vol] 94 mg/dL 74-106 [facility] Work Phone: [phone] Triglyceride [Mass/Vol] 91 mg/dL [facility] Work Phone: [phone] Comment on above: The drugs N-Acetylcy steine and Metamizole may falsely depress this assay.Serum Triglycerides Reference Interval Normal <150 mg/dL Borderline high 150 - 199 mg/dL High 200 - 499 mg/dL Very High > or = 500 mg/dL Laboratory - Chemistry and C hemistry - challengeon 12-17-2021 Cobalamin (Vitamin B12) [Mass/Vol] 1546 pg/mL 211-911 [facility] Work Phone: [phone] Free T4 [Mass/Vol] 0.95 ng/dL 0.76-1.46 [facility] Work Phone: [phone] Panel Informationon 12-17 Free Triiodothyronine (T3) pg/dL 2.4 pg/mL 2.18-3.98 [facility] Work Phone: [phone] Thyroid Stimulating Hormone (TSH) 5.15 uIU/mL 0.358-3.74 [facility] Work Phone: [phone] Vitamin D 25-Hydroxy 111.3 ng/mL [facility] Work Phone: [phone] Comment on above: Vitamin D 25(OH) Sta [...] 12-17-2021 Cholesterol in HDL [Mass/Vol] 34 mg/dL [facility] Work Phone: Comment on above: The drugs N-Acetylcy steine and Metamizole may falsely depress this assay. Reference Range HDL <40 mg/dL Low HDL Cholesterol HDL >or= 60 mg/dL High HDL Cholesterol Serum or plasma cholesterol in VLDL measurement (mass/volume)on 12-17-2021 Cholesterol in VLDL [Mass/Vol] 18 mg/dL 5-40 [facility] Work Phone: Serum or plasma low density lipoprotein (LDL) cholesterol measurement (mass/volume)on 12-17-2021 Cholesterol in LDL [Mass/Vol] 133 mg/dL 0-130 [facility] Work Phone: Vital Signs Date Time Vital Sign Value Performing Clinician Tushar ramos 02-27-2025 08:48-0400 Body height 156.[address] Gabo Harrington DO Work Phone: [facility] 02-27-2025 08:48-0400 Body mass index (BMI) [Ratio] 39.6 kg/m2 Dr. Gabo Harrington DO Work Phone: [facility] 02-27-2025 08:48-0400 Body weight 96.[address] Gabo Harrington DO Work Phone: [facility] 02-27-2025 08:48-0400 Diastolic blood pressure 81 mm[Hg] Dr. Gabo Harrington DO Work Phone: 4(290)446-786010 [place] [address] 02-27-2025 08:48-0400 Systolic blood pressure 116 mm[Hg] Dr. Gabo Harrington DO Work Phone: 9(443)730-366210 [place] [address] 04-07-2023 06:11-0400 Diastolic blood pressure 81 mm[Hg] Dr. Gabo Harrington Work Phone: 3(500)316-644310 [place] [address] 04-07-2023 06:11-0400 Heart rate 82 /min Dr. Gabo Harrington Work Phone: 1(836)296-480110 [place] [address] 04-07-2023 06:11-0400 SaO2% (BldA) [Mass fraction] 98 % Dr. Gabo Harrington Work Phone: 8(142)295-589110 [place] [address] 04-07-2023 06:11-0400 Systolic blood pressure 136 mm[Hg] Dr. Gabo Harrington Work Phone: 7(690)675-537210 [place] [address] 04-07-2023 01:55-0400 Body temperature 98.2 [degF] Dr. Gabo Harrington Work Phone: 9(895)659-146510 [place] [address] 04-07-2023 01:47-0400 Body height 154.[address] Gabo aHrrington Work Phone: 5(260)094-473410 [place] [address] 04-07-2023 01:47-0400 Body mass index (BMI) [Ratio] 40.7 kg/m2 Dr. Gabo Harrington Work Phone: 3(763)770-399410 [place] [address] 04-07-2023 01:47-0400 Body weight 97.[address] Gabo Harrington Work Phone: 6(464)845-477010 [place] [address] 04-02-2023 08:39-0400 Body mass index (BMI) [Ratio] 39.1 kg/m2 Dr. Gabo Harrington Work Phone: 0(205)106-079710 [place] [address] 04-02-2023 08:39-0400 Body weight 98.[address] Gabo Harrington Work Phone: 2(227)721-024410 [place] [address] 04-02-2023 08:39-0400 Diastolic blood pressure 84 mm[Hg] Dr. Gabo Harrington Work Phone: 0(407)945-971910 [place] [address] 04-02-2023 08:39-0400 Systolic blood pressure 122 mm[Hg] Dr. Gabo Harrington Work Phone: 5(987)821-297910 [place] [address] 03-28-2023 16:21-0400 Body mass index (BMI) [Ratio] 39.8 kg/m2 Dr. Gabo Harrington Work Phone: 4(801)643-835310 [place] [address] 03-28-2023 16:21-0400 Body weight 100.[address] Gabo Harrington Work Phone: 7(146)507-191810 [place] [address] 03-28-2023 16:21-0400 Diastolic blood pressure 68 mm[Hg] Dr. Gabo Harrington Work Phone: 0(049)840-052910 [place] [address] 03-28-2023 16:21-0400 Systolic blood pressure 111 mm[Hg] Dr. Gabo Harrington Work Phone: 7(232)089-009310 [place] [address] 03-19-2023 16:25-0400 Body height 158.[address] Gabo Harrington Work Phone: 5(094)212-318110 [place] [address] 03-19-2023 16:23-0400 Body mass index (BMI) [Ratio] 36 kg/m2 Dr. Gabo Harrington Work Phone: 9(884)429-082710 [place] [address] 03-19-2023 16:23-0400 Body weight 99.[address] Gabo Harrington Work Phone: 6(478)910-355510 [place] [address] 03-19-2023 16:23-0400 Diastolic blood pressure 77 mm[Hg] Dr. Gabo Harrington Work Phone: 6(333)786-235110 [place] [address] 03-19-2023 16:23-0400 Systolic blood pressure 114 mm[Hg] Dr. Gabo Harrington Work Phone: 1(345)466-777210 [place] [address] 03-05-2023 09:14-0400 Body height 158.[address] Gabo Harrington Work Phone: 4(138)670-755410 [place] [address] 03-05-2023 09:10-0400 Body mass index (BMI) [Ratio] 39.3 kg/m2 Dr. Gabo Harrington Work Phone: 5(017)336-986710 [place] [address] 03-05-2023 09:10-0400 Body weight 99.[address] Gabo Harrington Work Phone: 6(244)169-574810 [place] [address] 03-05-2023 09:10-0400 Diastolic blood pressure 79 mm[Hg] Dr. Gabo Harrington Work Phone: 5(166)654-949810 [place] [address] 03-05-2023 09:10-0400 Systolic blood pressure 115 mm[Hg] Dr. Gabo Harrington Work Phone: 0(189)665-573110 [place] [address] 02-19-2023 16:15-0400 Body mass index (BMI) [Ratio] 40.7 kg/m2 Dr. Gabo Harrington Work Phone: 0(578)954-979110 [place] [address] 02-19-2023 16:15-0400 Body weight 99.[address] Gabo Harrington Work Phone: 5(661)833-992510 [place] [address] 02-19-2023 16:15-0400 Diastolic blood pressure 69 mm[Hg] Dr. Gabo Harrington Work Phone: 9(875)489-503210 [place] [address] 02-19-2023 16:15-0400 Systolic blood pressure 97 mm[Hg] Dr. Gabo Harrington Work Phone: 3(704)734-915410 [place] [address] 02-05-2023 15:51-0400 Body mass index (BMI) [Ratio] 39 kg/m2 Dr. Gabo Harrington Work Phone: 5(934)309-124610 [place] [address] 02-05-2023 15:51-0400 Body weight 98.[address] Gabo Harrington Work Phone: 3(807)611-040010 [place] [address] 02-05-2023 15:51-0400 Diastolic blood pressure 76 mm[Hg] Dr. Gabo Harrington Work Phone: 3(830)303-664510 [place] [address] 02-05-2023 15:51-0400 Systolic blood pressure 116 mm[Hg] Dr. Gabo Harrington Work Phone: 2(562)543-128510 [place] [address] 01-22-2023 16:23-0400 Body mass index (BMI) [Ratio] 38.7 kg/m2 Dr. Gabo Harrington Work Phone: 3(387)284-366710 [place] [address] 01-22-2023 16:23-0400 Body weight 97.[address] Gabo Harrington Work Phone: 9(186)680-409110 [place] [address] 01-22-2023 16:23-0400 Diastolic blood pressure 60 mm[Hg] Dr. Gabo Harrington Work Phone: 9(742)705-440610 [place] [address] 01-22-2023 16:23-0400 Systolic blood pressure 114 mm[Hg] Dr. Gabo Harrington Work Phone: 0(857)555-147010 [place] [address] 01-08-2023 16:26-0400 Diastolic blood pressure 75 mm[Hg] Dr. Gabo Harrington Work Phone: 7(569)625-381910 [place] [address] 01-08-2023 16:26-0400 Systolic blood pressure 112 mm[Hg] Dr. Gabo Harrington Work Phone: 9(141)841-379110 [place] [address] 01-08-2023 16:11-0400 Body height 158.[address] Gabo Harrington Work Phone: 4(145)260-881310 [place] [address] 01-08-2023 16:08-0400 Body mass index (BMI) [Ratio] 38.3 kg/m2 Dr. Gabo Harrington Work Phone: 6(809)795-442010 [place] [address] 01-08-2023 16:08-0400 Body weight 96.[address] Gabo Harrington Work Phone: 6(560)784-421410 [place] [address] 12-11-2022 16:19-0400 Body height 158.[address] Gabo Harrington Work Phone: 3(969)605-790510 [place] [address] 12-11-2022 16:10-0400 Body mass index (BMI) [Ratio] 37.7 kg/m2 Dr. Gabo Harrington Work Phone: 3(301)349-599610 [place] [address] 12-11-2022 16:10-0400 Body weight 95.[address] Gabo Harrington Work Phone: 8(289)766-670610 [address] [place] [place] [address] 12-11-2022 16:10-0400 Diastolic blood pressure 79 mm[Hg] Dr. Gabo Harrington Work Phone: 9(876)811-796474 [place] [address] 12-11-2022 16:10-0400 Systolic blood pressure 116 mm[Hg] Dr. Gabo Harrington Work Phone: 2(867)053-724310 [place] [address] 11-13-2022 16:35-0400 Body mass index (BMI) [Ratio] 38.4 kg/m2 Dr. Gabo Harrington Work Phone: 4(953)903-911910 [place] [address] 11-13-2022 16:35-0400 Body weight 95.[address] Gabo Harrington Work Phone: 1(680)012-920710 [place] [address] 11-13-2022 16:35-0400 Diastolic blood pressure 77 mm[Hg] Dr. Gabo Harrington Work Phone: 3(459)898-161810 [place] [address] 11-13-2022 16:35-0400 Systolic blood pressure 116 mm[Hg] Dr. Gabo Harrington Work Phone: 1(867)714-848010 [place] [address] 11-07-2022 16:01-0400 Body temperature 98 [degF] Dr. Gabo Harrington Work Phone: 0(764)117-783910 [place] [address] 11-07-2022 16:01-0400 Body weight 95.[address] Gabo Harrington Work Phone: 8(511)890-488810 [place] [address] 11-07-2022 16:01-0400 Diastolic blood pressure 72 mm[Hg] Dr. Gabo Harrington Work Phone: 6(823)701-582210 [place] [address] 11-07-2022 16:01-0400 Heart rate 85 /min Dr. Gabo Harrington Work Phone: 5(674)654-584210 [place] [address] 11-07-2022 16:01-0400 Respiratory rate 16 /min Dr. Gabo Harrington Work Phone: 0(951)207-036110 [place] [address] 11-07-2022 16:01-0400 SaO2% (BldA) [Mass fraction] 99 % Dr. Gabo Harrington Work Phone: 9(145)362-301810 [place] [address] 11-07-2022 16:01-0400 Systolic blood pressure 115 mm[Hg] Dr. Gabo Harrington Work Phone: 8(471)707-981910 [place] [address] 10-17-2022 16:29-0400 Body height 158.[address] Gabo Harrington Work Phone: 8(669)970-051810 [place] [address] 10-17-2022 16:28-0400 Body mass index (BMI) [Ratio] 37.1 kg/m2 Dr. Gabo Harrington Work Phone: 9(742)851-974910 [place] [address] 10-17-2022 16:28-0400 Body weight 93.[address] Gabo Harrington Work Phone: 0(731)753-090410 [place] [address] 10-17-2022 16:28-0400 Diastolic blood pressure 88 mm[Hg] Dr. Gabo Harrington Work Phone: 7(941)192-954010 [place] [address] 10-17-2022 16:28-0400 Systolic blood pressure 128 mm[Hg] Dr. Gabo Harrington Work Phone: 2(696)210-189710 [place] [address] 09-20-2022 15:45-0500 Body mass index (BMI) [Ratio] 37.1 kg/m2 Dr. Gabo Harrington Work Phone: 1(238)753-480210 [place] [address] 09-20-2022 15:45-0500 Body weight 93.[address] Gabo Harrington Work Phone: 9(431)857-902210 [place] [address] 09-20-2022 15:45-0500 Diastolic blood pressure 80 mm[Hg] Dr. Gabo Harrington Work Phone: 9(359)438-918710 [place] [address] 09-20-2022 15:45-0500 Systolic blood pressure 118 mm[Hg] Dr. Gabo Harrington Work Phone: 1(079)546-811910 [place] [address] 08-22-2022 16:05-0500 Body height 158.[address] Gabo Harrington Work Phone: 2(204)133-083610 [place] [address] 08-22-2022 16:05-0500 Body mass index (BMI) [Ratio] 37.2 kg/m2 Dr. Gabo Harrington Work Phone: 4(667)135-339610 [place] [address] 08-22-2022 16:05-0500 Body weight 93.[address] Gabo Harrington Work Phone: 3(865)543-370374 [place] [address] 08-22-2022 16:05-0500 Diastolic blood pressure 89 mm[Hg] Dr. Gabo Harrington Work Phone: 0(058)800-643410 [place] [address] 08-22-2022 16:05-0500 Systolic blood pressure 130 mm[Hg] Dr. Gabo Harrington Work Phone: 2(705)435-623010 [place] [address] 05-15-2022 16:04-0400 Body height 158.[address] Gabo Harrington Work Phone: 2(498)134-692210 [place] [address] Work Phone: 05-15-2022 16:04-0400 Body mass index (BMI) [Ratio] 36.9 kg/m2 Dr. Gabo Harrington Work Phone: 9(813)259-091610 [place] [address] 05-15-2022 16:04-0400 Body temperature 96.4 [degF] Dr. Gabo Harrington Work Phone: 9(682)802-623510 [place] [address] 05-15-2022 16:04-0400 Body weight 93.[address] Gabo Harrington Work Phone: 0(131)852-216710 [place] [address] 05-15-2022 16:04-0400 Diastolic blood pressure 77 mm[Hg] Dr. Gabo Harrington Work Phone: 9(610)006-215910 [place] [address] 05-15-2022 16:04-0400 Heart rate 97 /min Dr. Gabo Harrington Work Phone: 9(423)212-436274 [place] [address] 05-15-2022 16:04-0400 Respiratory rate 18 /min Dr. Gabo Harrington Work Phone: 4(558)183-605810 [place] [address] 05-15-2022 16:04-0400 SaO2% (BldA) [Mass fraction] 96 % Dr. Gabo Harrington Work Phone: 3(846)905-255510 [place] [address] 05-15-2022 16:04-0400 Systolic blood pressure 119 mm[Hg] Dr. Gabo Harrington Work Phone: 5(841)383-469110 [place] [address] 11-08-2021 16:32-0400 Body height 158.[address] Gabo Harrington Work Phone: [facility] Work Phone: 11-08-2021 16:32-0400 Body mass index (BMI) [Ratio] 37 kg/m2 Dr. Gabo Harrington Work Phone: [facility] Work Phone: 11-08-2021 16:32-0400 Body temperature 95.6 [degF] Dr. Gabo Harrington Work Phone: [facility] Work Phone: 11-08-2021 16:32-0400 Body weight 93.[address] Gabo Harrington Work Phone: [facility] Work Phone: 11-08-2021 16:32-0400 Diastolic blood pressure 84 mm[Hg] Dr. Gabo Harrington Work Phone: [facility] Work Phone: 11-08-2021 16:32-0400 Heart rate 81 /min Dr. Gabo Harrington Work Phone: [facility] Work Phone: 11-08-2021 16:32-0400 Respiratory rate 18 /min Dr. Gabo Harrington Work Phone: [facility] Work Phone: 11-08-2021 16:32-0400 SaO2% (BldA) [Mass fraction] 98 % Dr. Gabo Harrington Work Phone: [facility] Work Phone: 11-08-2021 16:32-0400 Systolic blood pressure 124 mm[Hg] Dr. Gabo Harrington Work Phone: [facility] Work Phone: 10-10-2021 16:26-0400 Body mass index (BMI) [Ratio] 36.7 kg/m2 Dr. Gabo Harrington Work Phone: [facility] Work Phone: 10-10-2021 16:26-0400 Body weight 92.[address] Gabo Harrington Work Phone: [facility] Work Phone: 10-10-2021 16:26-0400 Diastolic blood pressure 88 mm[Hg] Dr. Gabo Harrington Work Phone: [facility] Work Phone: 10-10-2021 16:26-0400 Systolic blood pressure 114 mm[Hg] Dr. Gabo Harrington Work Phone: [facility] Work Phone: Encounters Encounter Date Encounter Type Care Provider Facility Start: 02-27-2025 End: 02-27-[address] Gabo Harrington DO Work Phone: -[facility] Start: 02-27-2025 End: 02-27-2025 Patient encounter procedure Meghanflori COSBYM -[facility] Work Phone: Start: 02-20-2025 Non-patient / Non-visit Rachel mistry RN -[facility] Work Phone: Start: 02-20-2025 ambulatory Gabo Dickson y:[facility] Start: 07-24-2024 ambulatory Mandietimothy Ross Caden Facility:[facility] Start: 04-02-2024 End: 04-02-2024 Telephone encounter Gabo Harrington DO Work Phone: [facility] [place] Comment on above: Patient Question Start: 03-24-2024 End: 03-24-2024 ambulatory GABO HARRINGTON Facility:[facility] Start: 03-24-2024 End: 03-24-2024 Telemedicine consultation with patient Stef Mantilla XIOMARA Work Phone: Telemedicine Comment on above: Acute cystitis witho ut hematuria (Primary Dx) Start: 04-07-2023 End: 04-07-[address] Gabo Harrington Work Phone: [facility] Work Phone: Start: 04-07-2023 End: 04-07-[address] Gabo Harrington Work Phone: [facility] Work Phone: Start: 04-02-2023 End: 04-02-[address] Gabo Harrington Work Phone: [facility] Work Phone: Start: 03-28-2023 End: 03-28-[address] Gabo Harrington Work Phone: [facility] Work Phone: Start: 03-19-2023 End: 03-19-[address] Gabo Harrington Work Phone: [facility] Work Phone: Start: 03-19-2023 End: 03-19-[address] Gabo Harrington Work Phone: [facility] Work Phone: Start: 03-06-2023 End: 03-06-[address] Gabo Harrington Work Phone: [facility] Work Phone: Start: 03-06-2023 End: 03-06-[address] Gabo Harrington Work Phone: [facility] Work Phone: Start: 03-05-2023 End: 03-05-[address] Gabo Harrington Work Phone: [facility] Work Phone: Start: 02-19-2023 End: 02-19-[address] Gabo Harrington Work Phone: [facility] Work Phone: Start: 02-05-2023 End: 02-05-[address] Gabo Harrington Work Phone: [facility] Work Phone: Start: 01-22-2023 End: 01-22-[address] Gabo Harrington Work Phone: [facility] Work Phone: Start: 01-08-2023 End: 01-08-[address] Gabo Harrington Work Phone: [facility] Start: 01-08-2023 End: 01-08-[address] Gabo Harrington Work Phone: [facility] Work Phone: Start: 01-08-2023 End: 01-08-[address] Gabo Harrington Work Phone: [facility] Start: 12-21-2022 End: 12-21-[address] Gabo Harrington Work Phone: [facility] Work Phone: Start: 12-21-2022 End: 12-21-[address] Gabo Harrington Work Phone: [facility] Start: 12-11-2022 End: 12-11-[address] Gabo Harrington Work Phone: [facility] Start: 12-05-2022 End: 12-05-2022 ambulatory GABO HARRINGTON [facility] Start: 11-13-2022 End: 11-13-[address] Gabo Harrington Work Phone: [facility] Start: 11-07-2022 End: 11-07-[address] Gabo Harrington Work Phone: [facility] Start: 11-02-2022 End: 11-02-[address] Gabo Harrington Work Phone: [facility] Work Phone: Start: 11-02-2022 End: 11-02-[address] [facility] Start: 10-17-2022 End: 10-17-[address] Gabo Harrington Work Phone: [facility] Start: 09-20-2022 End: 09-20-[address] Gabo Harrington Work Phone: [facility] Start: 09-08-2022 End: 09-08-[address] Gabo Harrington Work Phone: [facility] Work Phone: Start: 09-08-2022 End: 09-08-[address] [facility] Har[facility] Start: 08-22-2022 End: 08-22-[address] Gabo Harrington Work Phone: [facility] Work Phone: Start: 08-22-2022 End: 08-22-[address] Gab[facility] Har[facility] Start: 08-22-2022 End: 08-22-[address] Gabo Harrington Work Phone: [facility] Start: 07-21-2022 End: 07-21-[address] Gabo Harrington Work Phone: [facility] Work Phone: Start: 07-21-2022 End: 07-21-[address] Gabo Harrington Work Phone: [facility] Start: 07-06-2022 End: 07-06-2022 ambulatory Aimee Finch APRN.COLLATERAL SPECIALIST Work Phone: [facility] [place] Comment on above: Bacterial sinusitis (Primary Dx) Start: 07-06-2022 End: 07-06-2022 Telemedicine consultation with patient Aimee Finch APRN.COLLATERAL SPECIALIST Work Phone: [facility] Start: 05-15-2022 End: 05-15-[address] Gabo Harrington Work Phone: [facility] Start: 04-29-2022 End: 04-29-[address] Gabo Harrington Work Phone: [facility] Start: 12-17-2021 End: 12-17-[address] Gabo Harrington Work Phone: [facility] Start: 11-08-2021 End: 11-08-[address] Gabo Harrington Work Phone: [facility] Start: 10-10-2021 End: 10-10-[address] Gabo Harrington Work Phone: [facility] Procedures Date Procedure Procedure Detail Performing Clinician Start: 03-19-2023 Group B Streptococcu s Culture Dr. Gabo Harrington Work Phone: Urine culture Dr. Gabo valadez Work Phone: Plan of Treatment Date Care Activity Detail Author Start: 01-22-2033 Urine microalbumin profile DTaP,Tdap,Td Vaccine (4 - Td or Tdap) [facility] Start: 02-27-2025 CBC W Auto Differential panel - Blood [facility] Start: 02-27-2025 Hemoglobin A1c/Hemoglobin.total in Blood [facility] Start: 02-27-2025 Hepatitis C antibody measurement [facility] Start: 02-27-2025 Procedure [facility] Start: 02-27-2025 Rubella IgG measurement [facility] Start: 02-27-2025 Serologic test for syphilis [facility] Start: 02-27-2025 T4 free measurement [facility] Start: 02-27-2025 Thyroid stimulating hormone measurement [facility] Start: 02-27-2025 Triiodothyronine, free measurement [facility] Start: 02-27-2025 [facility] Start: 03-23-2024 Covid-19 Vaccine () Covid-19 Vaccine () [facility] Start: 03-23-2024 Influenza vaccination Influenza Vaccine (#1) [facility] Start: 04-07-2023 Nonstress test [facility] Start: 04-07-2023 Obstetric monitoring [facility] Start: 04-07-2023 Vital signs measurements [facility] Start: 04-07-2023 [facility] Start: 04-07-2023 Patient discharge [facility] Start: 03-23-2022 Influenza vaccination INFLUENZA (#1) [facility] Start: 10-14-2021 COVID-19 VACCINE (3 - Booster for Moderna series) COVID-19 VACCINE (3 - Booster for Moderna series) [facility] Start: 07-23-2021 DEPRESSION ASSESSMENT DEPRESSION ASSESSMENT [facility] Start: 11-07-2019 HPV TESTING HPV TESTING [facility] Start: 2010 PAP TESTING PAP TESTING [facility] Start: 2010 Screening for malignant neoplasm of cervix Cervical Cancer Screening [facility] Start: 2008 Hepatitis B Vaccine (1 of 3 - 19+ 3-dose series) Hepatitis B Vaccine (1 of 3 - 19+ 3-dose series) [facility] Start: 2008 Urine microalbumin profile DTAP,TDAP,TD (1 - Tdap) [facility] Start: 11-07-2007 Anxiety Screening Anxiety Screening [facility] Start: 11-07-2007 Depression Screening Depression Screening [facility] Start: 11-07-2007 HEPATITIS C SCREENING HEPATITIS C SCREENING [facility] Start: 11-07-2007 Hepatitis C screening Hepatitis C Screening [facility] Start: 11-07-2007 HIV SCREENING HIV SCREENING [facility] Start: 1989 HEPATITIS B (1 of 3 - 3-dose series) HEPATITIS B (1 of 3 - 3-dose series) [facility] CBC W Auto Different ial panel - Blood [facility] CBC W Auto Different ial panel - Blood [facility] Chlamydia deoxyribon ucleic acid detection [facility] Erythrocyte mean cor puscular volume determination [facility] Glucose [Mass/volume ] in Serum or Plasma --1 hour post 50 g glucose PO [facility] Glucose [Mass/volume ] in Serum or Plasma --1 hour post 50 g glucose PO [facility] Hematocrit [Volume F raction] of Blood [facility] Hemoglobin [Mass/vol ume] in Blood [facility] Hepatitis B surface antigen measurement [facility] Hepatitis B virus knowles rface Ag [Presence] in Serum [facility] Hepatitis C antibody measurement [facility] HIV 1+2 Ab+HIV1 p24 Ag [Presence] in Serum or Plasma by Immunoassay [facility] HIV 1+2 Ab+HIV1 p24 Ag [Presence] in Serum or Plasma by Immunoassay [facility] Leukocytes [#/volume ] in Blood [facility] Liquid based cervica l cytology screening [facility] Mean corpuscular hem oglobin concentration determination [facility] Mean corpuscular hem oglobin determination [facility] Neutrophil count [facility] Neutrophil percent differential count [facility] Patient Education Kick Counts ED False Labor OB Triage: Return to Hospital or Notify Physician if you Experience: [facility] Work Phone: Patient referral [facility] Work Phone: Platelets [#/volume] in Blood [facility] Red blood cell count [facility] Red cell distributio n width determination [facility] Rubella IgG measurement [facility] T4 free measurement [facility] T4 free measurement [facility] Thyroid stimulating hormone measurement [facility] Thyroid stimulating hormone measurement [facility] Treponema sp Ab [Pre sence] in Serum [facility] Treponema sp Ab [Pre sence] in Serum [facility] Triiodothyronine, fr ee measurement [facility] Immunizations Immunization Date Immunization Notes Care Provider Kenneth kinney 01-22-2023 tetanus toxoid, redu terrence diphtheria toxoid, and acellular pertussis vaccine, adsorbed Dr. Gabo Harrington Work Phone: [facility] 05-12-2020 diphtheria, tetanus toxoids and acellular pertussis vaccine, unspecified formulation Dr. Gabo Harrington Work Phone: [facility] Work Phone: 05-12-2020 tetanus toxoid, redu terrence diphtheria toxoid, and acellular pertussis vaccine, adsorbed Dr. Gabo Harrington Work Phone: [facility] Payers Date Payer Category Payer Self-pay [id number] 2019 Unknown [id number] 2012 Unknown [id number] 1989 Unknown [id number] 1989 Unknown [id number] Unknown [id number] Unknown [id number] Unknown [id number] Social History Date Type Detail Facility Start: 11-08-2021 End: 04-02-2023 Tobacco smoking status MDIS Unknown if ever smoked [facility] Start: 12-01-2018 None [facility] Start: 1990 Sex Assigned At Female [facility] Start: 08-13-2017 End: 08-01-2025 Tobacco smoking status NHIS Never smoked tobacco [facility] Work Phone: Start: 08-13-2017 Tobacco use and exposure Smoke less tobacco non-user [facility] Work Phone: Start: 02-26-2022 Alcohol intake 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) [facility] Start: 07-06-2022 History SDOH Alcohol Frequency 1 [facility] Start: 07-06-2022 History SDOH Alcohol Std Drinks 0 [facility] Start: 07-06-2022 History SDOH Social Connections Phone 5 [facility] Start: 07-06-2022 History SDOH Social Connections Get Together 2 [facility] Start: 07-06-2022 History SDOH Social Connections Holiness 3 [facility] Start: 1990 Sex Assigned At Not on file [facility] Start: 07-06-2022 End: 08-19-2022 History of Social function [facility] Start: 07-06-2022 End: 08-19-2022 Social connection and isolation panel [facility] Do you belong to any clubs or organizations such as pentecostalism groups, unions, fraternal or athletic groups, or school groups? Yes [facility] Are you now , , , , never or living with a partner? [facility] How often to you hav e a drink containing alcohol? Never [facility] How many standard dr inks containing alcohol do you have on a typical day? Patient does not drink [facility] In the past 12 month s, was there a time when you were not able to pay the mortgage or rent on time? No [facility] Clinical Notes 07-06-2022 to 02-27-2025 Telephone Encounter - Gabo Harrington DO - 04/02/2024 7:44 PM EDTTelephone Encounter - Gabo Harrington DO - 04/02/2024 7:44 PM Stef Huang APRN.COLLATERAL SPECIALIST - 03/24/2024 8:16 AM EDT Note Date & Type Note Facility 02-27-[address] [facility] 04-02-2024 Telephone encounter Note rx sent to pharmacy I was able to assess her today Gabo Harrington DO [facility] 04-02-2024 Miscellaneous Notes rx sent to pharmacy I was able to assess her today Gabo Meyer DO Jaya Needs appt or express care visit for further tx. Lakisha Adrian APRN.COLLATERAL SPECIALIST Patient did virtual visit 03/24/2024, dx UTI, prescribed Macrobid, recommended to take AZO with Macrobid, s/s resolved. Starting with dysuria, urgency, no as bad. Appt offered, Patient prefers not to come in asking for RX to be called into [facility] Kaye Whitman LPN documented in this encounter [facility] 04-02-2024 Telephone encounter Note Needs appt or express care visit for further tx. Lakisha Adrian APRN.COLLATERAL SPECIALIST [facility] Work Phone: 04-02-2024 Telephone encounter Note Patient did virtual visit 03/24/2024, dx UTI, prescribed Macrobid, recommended to take AZO with Macrobid, s/s resolved. Starting with dysuria, urgency, no as bad. Appt offered, Patient prefers not to come in asking for RX to be called into [facility]. Kaye Whitman LPN [facility] 03-24-2024 Note HNO ID: [id number] Author: STEF MANTILLA APRN.COLLATERAL SPECIALIST Service: ? Author Type: Nurse Practitioner Type: Progress Notes Filed: 03/24/2024 08:23 Note Text: Telemedicine Visit - Distance Health Virtual Visit Note Patient seen on [employer] Video Visit platform. Location of patient: [place] I have communicated my name and active licensure. The patient's identity and physical location were verified at the time of this visit. Either the patient or their legal guest experience representative has been informed of the risks [...] Age of Onset Heart Maternal Grandfather early [place], age 52 [place] Social History Tobacco Use [...] concerning symptoms All questions answered Stef Mantilla APRN.[facility] 03-24-2024 History of Presen t illness Narrative Telemedicine Visit - Distance Health Virtual Visit Note Patient seen on [employer] Video Visit platform. Location of patient: [place] I have communicated my name and active licensure. The patient's identity and physical location were verified at the time of this visit. Either the patient or their legal guest experience representative has been informed of the risks [...] Age of Onset Heart Maternal Grandfather early [place], age 52 [place] Social History Tobacco Use [...] Stef Mantilla APRN.CNP documented in this encounter [facility] 07-06-2022 History of Presen t illness Narrative This Team Access Model visit is a virtual encounter. It required patient-provider interaction for the medical decision making as documented below. Patient agrees to the visit: Yes Patient Location: [place] CC: Patient presents with: Sinus Problem HPI [...] positive for Flu A yesterday. 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 Pt reports symptoms are not improving. [...] Age of Onset Heart Maternal Grandfather early [place], age 52 [place] Social History Tobacco Use [...] regarding treatment options and medications. Aimee Finch APRN.COLLATERAL SPECIALIST documented in this encounter [facility] Evaluation note Diagnosis Onset Date BMI 36.0-36.9,adult acute Graves disease acute [facility] Work Phone: evaluation note* Diagnosis Bacterial sinusitis- Primary Unspecified sinusitis (chronic) [facility] Diagnosis Onset Date Resolution Status Graves disease acute [facility] Work Phone: evaluation note* Diagnosis Onset Date Resolution Status Graves disease acute BMI 36.0-36.9,adult acute Graves disease acute High serum vitamin B12 acute acute Supervision of high risk , antepartum acute [facility] Work Phone: evaluation note* Diagnosis Onset Date Resolution Status BMI 36.0-36.9,adult acute Graves disease acute High serum vitamin B12 acute acute Supervision of high risk , antepartum acute [facility] Work Phone: evaluation note* Diagnosis Onset Date Resolution Status BMI 36.0-36.9,adult acute Graves disease acute High serum vitamin B12 acute acute Supervision of high risk , antepartum acute BMI 36.0-36.9,adult acute Graves disease acute High serum vitamin B12 acute acute Supervision of high risk , antepartum acute Graves disease acute acute Supervision of high risk , antepartum acute Graves disease acute [facility] Work Phone: evaluation note* Diagnosis Onset Date [...] Supervision of high risk , antepartum acute [facility] Work Phone: evaluation note* Diagnosis Onset Date [...] Supervision of high risk , antepartum acute [facility] Work Phone: evaluation note* Diagnosis Onset Date [...] Supervision of high risk , antepartum acute [facility] Work Phone: evaluation note* Diagnosis Onset Date [...] Supervision of high risk , antepartum acute [facility] Work Phone: Evaluation note* Diagnosis Onset Date [...] Supervision of high risk , antepartum acute [facility] Work Phone: Evaluation note* Diagnosis Acute cystitis without hematuria- Primary Acute cystitis [facility] Diagnosis Onset Date Resolution Status Admit Date AMA (advanced maternal age) multigravida 35+ acute February 27 8:45am Obesity affecting acute February 27, 2025 8:45am acute February 27 8:45am Supervision of high-risk acute February 27, 2025 8:45am Graves disease chronic February 8:45am [facility] Work Phone: Progress note Author Meghan Ames 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 Required: No Is patient in pain?: No [...] 4 current occupational status: employed 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 Date Name GA/Weeks Outcome Route Bth Weight Infant Gen Labor Lgth Anesthesia Del Locatn Provider FOB 03/14/17 Munir 40 live - full term vacuum 8lbs 11oz Male 26 epidural [facility] Dr. Manjeet Mclaughlin 12/01/18 Ladarius 40 live - full term 8lbs 7oz Male 5 ho urs epidural [facility] Dr. Melody Mclaughlin 08/06/20 Stephane 40 live - full term 7lb 10oz Male ep idural [facility] SHAZIA Arnoldo 04/17/23 Malinda 40 live - full term 9lb 2oz Female epidural [facility] Rustam Mclaughlin Delivery Date: 03/14/17 Last [...] (Rh) Sensitized, Pulmonary (e.g.,TB,Asthma), Seasonal allergies, Breast, Cra Officer surgery, Operations/hospitalizations, Anesthetic complications, History of abnormal [...] Symptoms of Preeclampsia, Infant Feeding No , [employer] and Family Medical Leave or Disability [...] this visit. GA appropriate handout given. 02/27/25 0949 <Electronically signed by Meghan gaspar CNM> Date _ Meghan Ames CNM Cosigner Signature: Date (if applicable) CC: ~ 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 Reason for Visit BMI 36.0-36.9,adult [...] Will No August 06 4:14am Power of Councilman No August 06, 2020 4:14am Advance Directive Response Recorded Date/ Time Living Will No August 06 3:14am Power of Councilman No August 06, 2020 3:14am Summary Purpose [...] or prosecute any alcohol or drug abuse patient.[facility] the event this information is protected by the Federal Confidentiality of Alcohol and Drug Abuse Patient Records regulations: The Federal rules restrict any use of the information to criminally investigate or prosecute any alcohol or drug abuse patient.[facility] the event this information is protected by the Federal Confidentiality of Alcohol and Drug Abuse Patient Records regulations: The Federal rules restrict any use of the information to criminally investigate or prosecute any alcohol or drug abuse patient.[facility] Reason for Visit (unrecogniz ed section and content) Reason Comments Sinus Problem Reason Comments UTI Reason Comments Patient Question Care Teams (unrecognized sec tion and content) Level Vial Marker Relationship Specialty Start Date End Date Gabo Harrington DO [address] [place] [address] PCP - General Family Medicine 12/21/17 Team Status: Active Member Role Status Dates Dr. Gabo Harrington [...] Ruddy Portillo MD Attending Provider, Referring Provi tangela Active Team Status: Inactive Member Role Status [...] Provider, Referr ing Provider Active Marquise Tse ONLINE CONTENT COORDINATOR, ONLINE CONTENT COORDINATOR-C Attending Provider Active Team Status: Inactive Member [...] MD Attending Provider, Referr ing Provider Active Level Vial Marker Relationship Specialty Start Date End Date Gabo Harrington DO [address] [facility] [place] [address] PCP - General Family Medicine 12/21/17 Level Vial Marker Relationship Specialty Start Date End Date Gabo Harrington DO [address] [facility] [place] [address] PCP - General Family Medicine 12/21/17 Team [...] section and content) DATE CREATED AUTHOR 12/06/2022 [facility] DATE CREATED AUTHOR 'S ORGANIZ ATION 04/05/2024 [facility] DATE CREATED AUTHOR AUTHOR'S FRIDA KENDRICK 02/22/2025 [facility] FOR RECORDS PERTAINING TO PATIENTS WHO ARE [...] BE BASED ON THE PRIMARY CLINICAL RECORDS. [facility]. provides no warranty or guarantee of the accuracy or completeness of information in this document.
[2025-02-27 12:21] LABS: Hematocrit 39.7 % (37-47); Hemoglobin 13.8 g/dL (12.0-15.0); Immature Granulocytes Count 0.040 X10^3/uL (0.0-0.0); Mean Corp Hgb Conc 34.8 g/dL (32-36); Mean Corpuscular Volume 88.8 fL (81-99); Mean Platelet Vol. 10.8 fl (6.2-12.0); NRBC Flagged by Analyzer 0 % (0-5); Platelet Count 393 K/mm3 (150-450); RBC Distribution Width CV 12.9 % (11.6-14.6); RBC Distribution Width SD 42.2 fl (35.1-43.9); Red Blood Count 4.47 M/mm3 (4.2-5.4); White Blood Count 9.8 K/mm3 (4.4-11.0)
[2025-02-27 13:16] LABS: Free T3 3.3 pg/mL (2.18-3.98); HIV Nonreactive (Nonreactive); Hepatitis B Surface Antigen Nonreactive (Nonreactive); Hepatitis C Antibody Nonreactive (Nonreactive); Syphilis Antibodies Nonreactive (Nonreactive)
[2025-03-02 21:07] LABS: Chlamydia By Nucleic Acid AMP Negative (Negative); Gonococcus By Nucleic Acid AMP Negative (Negative)
[2025-03-03 12:09] LABS: HPV APTIMA, High Risk Negative (Negative)
== END | disposition home or self-care (01) ==
PROVIDERS: PCP Student in an Organized Health Care Education/Training Program; Referring Provider Registered Nurse; Visit Provider Registered Nurse
DX: O09.90 Supervision of high risk pregnancy, unspecified, unspecified trimester (principal); Z3A.00 Weeks of gestation of pregnancy not specified; O99.280 Endocrine, nutritional and metabolic diseases complicating pregnancy, unspecified trimester; E05.90 Thyrotoxicosis, unspecified without thyrotoxic crisis or storm; Z12.4 Encounter for screening for malignant neoplasm of cervix; O99.210 Obesity complicating pregnancy, unspecified trimester
CPT/HCPCS: 36415; 83036; 84439; 84443; 84481; 85025; 86703; 86762; 86780; 86803; 86850; 86900; 86901; 87086; 87088; 87340; 87491; 87591; 87624; 88175; G0145

== ENCOUNTER → 2025-05-27 | Outpatient (CLI) | payer OTHER, SELFPAY | END | disposition home or self-care (01) | PROVIDERS: PCP Student in an Organized Health Care Education/Training Program; Visit Provider Obstetrics & Gynecology | DX: O09.522 Supervision of elderly multigravida, second trimester (principal); O28.3 Abnormal ultrasonic finding on antenatal screening of mother; O23.40 Unspecified infection of urinary tract in pregnancy, unspecified trimester; Z3A.00 Weeks of gestation of pregnancy not specified | CPT/HCPCS: 36415; 87086; 87088 ==

== ENCOUNTER → 2025-07-13 | Outpatient (CLI) | payer OTHER, SELFPAY ==
[2025-07-13 12:55] LABS: Hematocrit 36.3 % (37-47); Hemoglobin 11.8 g/dL (12.0-15.0); Immature Granulocytes Count 0.060 X10^3/uL (0.0-0.0); Mean Corp Hgb Conc 32.5 g/dL (32-36); Mean Corpuscular Volume 96.0 fL (81-99); Mean Platelet Vol. 11.3 fl (6.2-12.0); NRBC Flagged by Analyzer 0 % (0-5); Platelet Count 311 K/mm3 (150-450); RBC Distribution Width CV 14.3 % (11.6-14.6); RBC Distribution Width SD 50.1 fl (35.1-43.9); Red Blood Count 3.78 M/mm3 (4.2-5.4); White Blood Count 13.9 K/mm3 (4.4-11.0)
[2025-07-13 13:51] LABS: Glucose Challenge Gest 1H 50g 93 mg/dL (70-140); HIV Nonreactive (Nonreactive); Syphilis Antibodies Nonreactive (Nonreactive)
== END | disposition home or self-care (01) ==
PROVIDERS: Nurse Practitioner Women's Health; PCP Student in an Organized Health Care Education/Training Program; Visit Provider Obstetrics & Gynecology
DX: O99.282 Endocrine, nutritional and metabolic diseases complicating pregnancy, second trimester (principal); E05.80 Other thyrotoxicosis without thyrotoxic crisis or storm; Z3A.24 24 weeks gestation of pregnancy; Z13.1 Encounter for screening for diabetes mellitus
CPT/HCPCS: 36415; 82950; 85025; 86376; 86703; 86780

== ENCOUNTER → 2025-07-15 | Outpatient (CLI) | payer OTHER, SELFPAY ==
--- OUTSIDE RECORDS SUMMARY | 2025-07-15 13:05 | XMS RPT_ITS | CCD ---
Author Organization [facility] Care Team Providers Care Traffic Enumerator Name Role Phone Dr. Gabo Harrington Primary Care Provider Dr. Gabo Harrington Referring Provider Dr. Jacquelyn Mcdonough Attending Provider [phone] Dr. Ruddy Portillo Attending Provider Gabo Harrington DO Primary Care Provider Dr. Gabo Harrington Primary Care Provider Dr. Gabo Harrington Referring Provider Dr. Ruddy Portillo Attending Provider Dr. Mandie العلي Attending Provider [phone] Dr. Gabo Harrington Primary Care Provider Dr. Gabo Harrington Referring Provider Dr. Gabo Harrington Primary Care Provider Dr. Gabo Harrington Referring Provider Dr. Mandie العلي Attending Provider [phone] QI Armas Attending Provider [phone] Dr. Ruddy Portillo Attending Provider Dr. Gabo Harrington Primary Care Provider Dr. Gabo Harrington Referring Provider Dr. Mandie العلي Attending Provider [phone] Dr. Jacquelyn Mcdonough Attending Provider [phone] Dr. Gabo Harrington Primary Care Provider Dr. Gabo Harrington Referring Provider Cyndi ADMINISTRATIVE ASSISTANT DATA ENTRY, ADMINISTRATIVE ASSISTANT DATA ENTRY-C Marquise Attending Provider [phone] QI Armas Attending Provider [phone] Dr. Gabo Harrington Primary Care Provider Dr. Gabo Harrington Referring Provider Dr. Jacquelyn Mcdonough Attending Provider [phone] Dr. Mandie العلي Attending Provider Gabo Harrington DO Primary Care Provider Dr. Gabo Harrington DO Primary Care Provider [phone] Rachel Be RN Attending Provider UnavailDr. Gabo Araiza DO Referring Provider Meghan Ames CNM Attending Provider Meghan Ames CNM Referring Provider Marquise Wang Attending Provider Dr. Gabo Harrington DO Primary Care Physician Rachel Be RN Attending Physician Unavailab Meghan Isabel CNM Attending Physician [phone] Cyndi ADMINISTRATIVE ASSISTANT DATA ENTRY-CMarquise Attending Physician [phone] Mandie العلي DO Attending Physician RUTH ANN DOOLEY Attending Unavailable HARRINGTON, GABO L Primary Care Unavailable ANA PORTILLO Attending Unavailable HARRINGTON, GABO Meyer Primary Care Unavailable HARRINGTON, GABO Betsy Primary Care Unavailable MARQUISE TSE Referring Unavailable MANDIE DORADO Attending Unavailable Mandie العلي Attending Unavailmariia e Gabo Harrington Primary Care Unavailable Harrington, Gabo Referring Unavailable Rachel Be Attending Unavailable Jaya, Gabo Primary Care Unavailable Marquise Tse NP Attending Unavailable Jaya, Gabo Referring Unavailable Jaya, Gabo Primary Care Unavailable Meghan Ames Attending Unavailable Meghan Ames Referring Unavailable Harrington, Gabo Primary Care Unavailable Mandie العلي Attending Unavailmariia Jorison, Gabo Primary Care Unavailable Harrington, Gabo Primary Care Unavailable Meghan Ames Attending Unavailable Harrington, Gabo Referring Unavailable Jacquelyn Mcdonough Attending Unavailable Harrington, Gabo Referring Unavailable Harrington, Gabo Primary Care Unavailable Mandie العلي Attending Unavailmariia Jorison, Gabo Referring Unavailable Harrington, Gabo Primary Care Unavailable Allergies Allergy Classification Reported Allergen(s) Allergy Type Date of Onset Reaction(s) Facility (19 sources) Amoxicillin; Translations: [AMOXICILLIN] Drug Allergy 08-13-2017 [facility] Work Phone: (1 source) Amoxicillin Drug Allergy 05-27-2025 [facility] Repository Medications Current Medications Medication Drug Class(es) Dates Sig (Normalized) Sig (Original) [id number] 200 actuat albuterol 0.09 mg/actuat metered dose [...] on above: Take 1 tablet by karyn twice daily for 10 days. nitrofurantoin, macrocrystals 25 mg / nitrofurantoin, monohydrate 75 mg oral capsule (1 source) Nitrofuran Antibacterial Start: 03-24-2024 End: 03-29-2024 take 1 capsule by mouth twice daily nitrofurantoin monohydrate and macrocrystal (MACROBID) 100 mg capsule Take 1 capsule by mouth two times a day for 5 days. 10 capsule 03/24/2024 03/29/2024 Active Vit,Yosef 06-Opta-Ohmxn 1 TABLET tablet (2 sources) Start: 03-13-2017 Vit,Yosef 79-Bqxn-Lfcmc 1 TABLET tablet Active 1 {tbl} PO DAILY March 13, 2017 12:00am Check with primary doctor Complies with drug therapy Start: 03-13-2017 Vit,C al 10-Glvk-Nhxbj 1 TABLET tablet Active 1 {tbl} PO DAILY March 13, 2017 12:00am Check with primary doctor Vit,Dqkr87-Ftyy-Uhwny (10 sources) Start: 03-13-2017 take 1 tablet by mouth once daily Vit,Otpf34-Sryv-Yajqf Active 1 TABLET PO DAILY March 13, 2017 9:28am Start: 03-13-2017 take 1 tablet by karyn th once daily Vit,Bncw21-Otyt-Ldkug Active 1 TABLET PO DAILY March 13, 2017 12:00am Start: 03-13-2017 take 1 tablet by karyn th once daily Vit,Fdez86-Dfnv-Rftbb Active 1 TABLET PO DAILY March 12, 2017 11:00pm Vit,Eevr30-Hnec-Mhsfy 1 TABLET tablet (2 sources) Start: 03-13-2017 take 1 tablet by mouth once daily Vit,Aiye66-Iify-Qvbcg 1 TABLET tablet Active 1 {tbl} PO DAILY March 13, 2017 12:00am Check with primary doctor Vitamin B Complex (B Complex-Vitamin B12) tablet (14 sources) Start: 11-08-2021 take 1 tablet by [...] Sig (Original) acetaminophen 325 mg oral capsule (14 sources) Start: 01-12-2020 End: 09-16-2020 take 1 capsule by mouth once as needed for pain Acetaminophen (Tylenol) 325 mg capsule Discontinued 325 mg PO ONCE as needed for Pain Score 1-10 January 12, 2020 12:00am September 16, 2020 12:30pm aspirin 81 mg delayed release oral tablet (14 sources) Platelet Aggregation Inhibitor, Nonsteroidal Anti-inflammatory Drug [...] 5 mg tablet Discontinued 2.5 mg PO .-W- 15 January 08, 2023 12:54pm April 07, 2023 1:49am Start: 11-07-2022 End: 04-07-2023 Methimazole Discontinued 2.5 MG PO .-W-F January 08, 2023 12:54pm April 07, 2023 1:49am Start: 09-25-2022 End: 11-07-2022 take 2.5 mg by mouth once daily Methimazole 5 mg table t Discontinued 2.5 mg PO DAILY 04 10November 07, 2022 4:17pm November 07, 2022 4:18pm Start: 09-25-2022 End: 11-07-2022 take 2.5 mg by mouth once daily Methimazole Discontinu ed 2.5 MG PO DAILY November 07, 2022 4:17pm November 07, 2022 4:18pm Start: 05-15-2022 End: 08-06-2022 take 1 tablet by mouth once daily Methimazole 5 mg tablet Discontinued 5 mg PO DAILY 60 4 May 15, 2022 4:33pm August 06, 2022 4:21pm Start: 01-27-2022 End: 05-15-2022 take 2 tablets by mouth once daily Methimazole 5 mg tablet Discontinued 10 mg PO DAILY 60 4 May 15, 2022 4:32pm May 15, 2022 [...] Methimazole Discontinue d 15 MG PO DAILY 90 January 17, 2022 1:12pm January 27, 2022 5:32pm Start: 03-17-2021 End: 04-08-2021 Methimazole Discontinued 15 MG PO DAILY 90 March 17, 2021 8:07am April 08, 2021 [...] 03-17-2021 Methimazole Discontinued 10 MG PO DAILY 68 January 28, 2021 3:34pm March 17, 2021 8:08am Sun- 10 mg, Mon- 15 mg, Tues- 10 mg, Wed- 15 mg, Thurs- 10 mg, Fri- 15 mg, Sat- 10 mg Start: 01-22-2020 End: 12-24-2020 take 1 tablet by mouth once daily Methimazole 5 mg tablet Discontinued 5 mg PO DAILY 30 December 13, 2020 8:01am December 24, 2020 2:40pm naproxen 250 mg oral tablet (14 sources) Nonsteroidal Anti-inflammatory Drug Start: 08-06-2020 End: 09-16-2020 take 250-500 mg by mouth every eight hours as needed for pain Naproxen 250 MG tablet Discontinued 250 - 500 mg PO EVERY 8 HOURS NEEDED as needed for MILD PAIN 30 August 06, 2020 1:00am September 16, 2020 12:30pm propylthiouracil 50 mg oral tablet (20 sources) Thyroid Hormone Synthesis Inhibitor Start: 08-06-2022 End: 09-25-2022 Propylthiouracil 50 mg tablet Discontinued 50 mg PO .Mon-Sat 30 August 06, 2022 4:25pm September 25, 2022 9:44am Start: 01-12-2020 End: 01-22-2020 take 1 tablet by mouth three times daily Propylthiouracil 50 mg tablet Discontinued 50 mg PO THREE TIMES A DAY January 12, 2020 12:00am January 22, 2020 8:21am Problems Active Problems Problem Classification Problem Date Documented Date Episodic/Chronic Genitourinary symptoms and ill-defined conditions (1 source) Frequency of micturition; Translations: [Urinary frequency] Onset: 04-26-2025 Episodic Other complications of (20 sources) Maternal obesity complicating , childbirth and the puerperium, antepartum; Translations: [Obesity complicating , unspecified trimester] 08-10-2020 Chronic Comment on above: HgBA1C Ordered w/NOB labs 1h GTT next visit. Other complications of (1 source) Obesity complicating , unspecified trimester; Translations: [Obesity complicating , unspecified trimester] Onset: 02-27-2025 Chronic Other complications of (14 sources) ultrasound scan abnormal; Translations: [Abnormal ultrasonic finding on screening of mother] 08-10-2020 Episodic Comment on above: Short long bones 02/20 3- <10th%, 04/16- FL 5th%, 06/08 FL <1%ile overall growth 15%ile; growth d6ptksh. NIPT low risk. Per MFM, no need to increase frequency of growths. Recommend checking thoracic circumference with next growth to make sure lungs developing. [facility] concerned for skeletal dysplasia. US 07/08 shows EFW 41%ile with long bones 5-9%. Other complications of (14 sources) heart echogenicity on obstetric ultrasound scan; [...] Arnoldo PRR , [place] 04/15/ 3 (per [facility] US) girl Mercedes PC Ladarius Amaral Easton Arnoldo [id number], [place] 6, PC: Ladarius Amaral Easton & Malinda, : Arnoldo Other complications of (20 sources) Supervision of high risk , unspecified, unspecified trimester; Translations: [Supervision of unspecified high-risk ] Onset: 03-06-2025 08-22-2022 Episodic Other complications of (11 sources) Multigravida of advanced maternal age; Translations: [Supervision of elderly multigravida, unspecified trimester] 02-20-2025 Episodic Other complications of (2 sources) Urinary tract infection in ; Translations: [Unspecified infection of urinary tract in , unspecified trimester] 04-27-2025 Episodic Comment on above: UC at [facility] 04/26. Nitr ofurantoin. culture sent. Other nutritional; endocrine; and metabolic disorders (14 sources) Body mass index 30+ - obesity; Translations: [Body mass index (BMI) 36.0-36.9, adult] 10-10-2021 Chronic Comment on above: labs ordered weight management [id number] trim glucose WNL Other nutritional; endocrine; and [...] cell free DNA- normal; normal NT. CHINMAY Hardin Ob declines ntd genetic & carrier testing. Other screening for suspected conditions (not mental disorders or infectious disease) (20 sources) Other specified abnormal findings of blood chemistry; Translations: [High serum vitamin B12] 12-20-2021 Episodic Other upper respiratory infections (1 source) Bacterial sinusitis; Translations: [Chronic sinusitis, unspecified] Chronic Residual codes; unclassified (14 sources) Influenza vaccination declined; Translations: [Immunization not carried out because of patient refusal] 08-10-2020 Episodic Residual codes; unclassified (14 sources) Gestation period, 39 weeks; Translations: [39 weeks gestation of ] 08-10-2020 Episodic Comment on above: electronic covid ursula t NEGATIVE Thyroid disorders (20 sources) Graves' disease; Translations: [Thyrotoxicosis with diffuse goiter without thyrotoxic crisis or storm] Onset: 02-27-2025 Chronic Comment on above: Resolved/Stable; N o medications since mid 2022 Urinary tract infections (2 sources) Acute cystitis; Translations: [Acute cystitis without hematuria] Onset: 05-13-2025 03-24-2024 Episodic Past or Other Problems Problem Classification Problem Date Documented Da te Episodic/Chronic Other complications of (1 source) Supervision of elderly multigravida, unspecified trimester; Translations: [Supervision of elderly multigravida, unspecified trimester] Onset: 02-27-2025 Episodic Residual codes; unclassified (1 source) 9 weeks gestation of ; Translations: [9 weeks gestation of ] Onset: 02-27-2025 Episodic Unclassified (20 sources) Normal labor; Translations: [Active labor at term] 08-06-2020 Results Test Name Value Interpretation Reference Range Facility Urine Cultureon 05-29-2025 [facility] Mixed Gram Positive Organisms [place] Count 80,000-100,000 MIXC Mixed contaminants. Submit a new specimen if indicated. Normal [facility] Comment on above: Performed By: #### M 100.2200 #### [facility] [address] [place], [place], [address] NATERAon 05-27-2025 RADHA BILLINGS SCANNED REPORT Normal [facility] Comment on above: Performed By: #### L 900.0098 ####[facility] [address] [place], [place], [id number] Hematology Oncology Consultant Office Visit Reporton 05-27-2025 Hematology Oncology Consultant Office Visit Report [facility] [address], [address] [place] [address] OFFICE VISIT Date of Service: 05/27/25 MR#: [id number] Acct: [id number] Name: SHEREEN TAVAREZ Rep #: [id number] : 1990 Provider: Dr. Jacquelyn fernando MD Age/Sex: 34/F Location[place] [facility] [place] [facility] [place] Status: Signed Intake Vital Signs 02/27/25 08:48 03/30/25 08:39 04/28/25 15:54 05/27/25 15:45 05/27/25 15:52 Height 5 ft 1.5 in 5 ft 1.5 in 5 ft 1.5 in 5 ft 1.5 in 5 ft 1.5 in Weight: 216 lb 4 oz BMI 40.1 BP 122/86 H Intake Visit Reasons: 21wk ob Supervisor Heat Treating Required: No Is patient in pain?: No Allergies amoxicillin Adverse Reaction (Verified 05/27/25 15:47) Hives Medications ???Medication ???Instructions ???Recorded ???Confirmed ???Type vits,calcium no.78-iron 1 tab PO DAILY Check with primary 03/13/17 05/27/25 History fumarate-folic acid 29 mg-1 mg doctor tablet Last Menstrual Period: 12/24/24 Zika: Zika virus screening: Negative : No PFSH PFSH Medical History Graves disease Family History Grandmother blood clots Heart disease Grandfather Heart disease Social History adopted: No household members: spouse and children number of children: 4 current occupational status: employed 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 Date Name GA/Weeks Outcome Route Bth Weight Infant Gen Labor Lgth Anesthesia Del Locatn Provider FOB 03/14/17 Munir 40 live - full term vacuum 8lbs 11oz Male [address] [facility] Dr. Manjeet Mclaughlin 12/01/18 Ladarius 40 live - full term 8lbs 7oz Male [address] [facility] Dr. Sharonda Mclaughlin 08/06/20 Stephane 40 live - full term 7lb 10oz Male epidural [facility] S SAMANTHA Mclaughlin 04/17/23 Malinda 40 live - full term 9lb 2oz Female epidural [facility] Torey Mclaughlin Delivery Date: 03/14/17 Last Updated by: Laura Goodrich No issues during or delivery Delivery Date: 12/01/18 Last Updated by: Laura Goodrich No issues during or delivery Delivery Date: 08/06/20 Last Updated by: Trang Holliday abnormal US- shortened long bones HPI 21wk ob Details: SHEREEN TAVAREZ is a 34 year old who presents for routine OB visit. OB Visit [place] Calculator Estimated Delivery Date Method Current WG Current Estimate 10/08/25 Ultrasound #1 20w 6d Other Estimates 09/30/25 LMP (Certain) 22w 0d Expected Delivery Route/Plan Labor Preferences- CB/BF classes: [...] list details Initial Weight: 213 lb Date -???-???-???-???-??? -???-???-???-???-??? -???-???- EGA Weight BP Urine Prot -???-???-???-???-??? -???-???-???-???-??? -???-???- Glucose FHR FuHt Pres Dilation -???-???-???-???-??? -???-???-???-???-??? -???-???- Effaced St Visit Note 02/27/25 -???-???-???-???-??? -???-???-???-???-??? -???-???- 8w 1d 213 lb (+0 oz) 116/81 -???-???-???-???-??? -???-???-???-???-??? -???-???- 170 -???-???-???-???-??? -???-???-???-???-??? -???-???- LC-1.79CRL n ot con with LMP. [place] changed 10/08/2025. declines nipt (more content not included)... Normal [facility] Bacteria Ur Culton 5 Bacteria identified Cx Nom (U) ORGANISM ID: 1 >=100,000 CFU/ml Mixed microbiota No further workup. Mixed microbiota can be due to???urine???contami nation with skin bacteria at time of collection or presence of a long-term urinary catheter. If a new culture is needed, please consider re-education of the patient on proper midstream collection technique or straight catheterization for???urine???collec tion. Normal [facility] Comment on above: Performed By: #### 6 30-4 #### [facility] CLIA [id number] [address] [place] [address] [place] CNOVon 05-13-2025 CNOV Office Visit ([facility]OU[facility]) SHEREEN TAVAREZ ([id number]) 1990 F Date Time Provider Department 05/13/25 4:45 PM RUTH ANN DOOLEY During your visit today, we recorded the following information about you: Temperature Pulse Respiration Blood pressure 97.3 degrees 95/minute 20/minute 104/78 Weight 99.3 kg Ruth Ann Dooley APRN.ELECTRO PLATER 05/13/2025 4:52 PM Signed [facility] Subjective Shereen Tavarez is a 34 year old female. Patient presents with: Urinary Problem: Frequency, chills started this morning HPI Patient presents today with claims of urinary frequency and chills that started this morning. She otherwise denies any nausea vomiting or fever. She is approximately 20 weeks Review of Systems As above Objective BP 104/78 Pulse 95 Temp 36.3 ?C (97.3 ?F) Resp 20 Wt 99.3 kg (218 lb 14.7 oz) SpO2 98% No BMI 41.36 kg/m? Physical Exam Vitals and nursing note reviewed. Constitutional: General: She is not in acute distress. Appearance: Normal appearance. She is not ill-appearing. HENT: Head: Normocephalic. Pulmonary: Effort: Pulmonary effort is normal. Abdominal: Comments: Rounded abdomen Musculoskeletal: General: Normal range of motion. Skin: General: Skin is warm. Neurological: General: No focal deficit present. Mental Status: She is alert and oriented to person, place, and time. Psychiatric: Mood and Affect: Mood normal. Behavior: Behavior normal. {ASSESSMENT/PLAN: 1. Acute UTI - ICD9: 599.0, ICD10: N39.0 acute - UA positive for maisha esterase and hematuria - Send urine for culture - Begin treatment with Keflex for 5 days - Patient education for prevention given -Previous urine culture from her visit about a week ago was negative for infection. We did discuss delaying initiation of antibiotics until culture returns however patient would prefer to initiate antibiotics and then adjust treatment from there. Patient has just recently finished a course of Macrobid. She does note a possible history of rash when she was an infant with amoxicillin. - UA DIP, URINE (POC) - BACTERIAL CULTURE, URINE - CEPHALEXIN 500 MG CAPSULE Ruth Ann Dooley APRN.CNP History and Record Review External record(s) reviewed: prior outpatient record. Findings from review of outpatient records: Previous urine culture Disposition The patient was discharged. Procedures Allergies As of Date: 05/13/2025 Noted Allergy Reaction AMOXICILLIN 08/13/2017 4 - Hives Date Reviewed: 05/13/2025 Reviewed by: Ruth Ann Dooley APRN.CNP - Fully Assessed Reason for Visit: Urinary Problem [252] Cmt: Frequency, chills started this morning Primary Visit Diagnosis:Acute UTI [N39.0] Order(s):UA DIP, URINE (POC) [5977468] Order #: [id number]. #:[id number] BACTERIAL CULTURE, URINE [SQURCUL] Order #: [id number]. #:[id number] cephALEXin (KEFLEX) 500 mg capsuleTake 1 capsule by mouth two times a day for 5 days.Disp: 10 capsuleRfl: 0 Prescriptions as of 05/13/2025 - cephALEXin (KEFLEX) 500 mg capsule Take 1 capsule by mouth two times a day for 5 days. - albuterol HFA (VENTOLIN HFA) 90 mcg/actuation inhaler Inhale 2 Puffs as instructed every 4 hours as needed for Wheezing/Shortness of Breath. Problem List As Of Date: 05/13/2025 (None) Prescriptions ordered this encounter Disp Refills Start End CEPHALEXIN 500 MG CAPSULE 10 c* 0 05/13/2025 05/18/2025 Route: PO Sig: Take 1 capsule by mouth two times a day for 5 days. Encounter Status:Closed by RUTH ANN DOOLEY on 05/13/25 Normal [facility] Hematology Oncology Consultant Office Visit Reporton 04-28-2025 Hematology Oncology Consultant Office Visit Report [facility] [address], [address] [place] [address] OFFICE VISIT Date of Service: 04/28/25 MR#: [id number] Acct: [id number] Name: SHEREEN TAVAREZ ZAHRAA Rep #: [id number] : 1990 Provider: Dr. Mandie Loznao DO Age/Sex: 34/F Location[place] [facility] [place] [facility] [place] Status: Signed Intake Vital Signs 06/08/23 15:36 03/30/25 08:39 04/28/25 15:54 04/28/25 15:54 Height 5 ft 1.5 in 5 ft 1.5 in 5 ft 1.5 in 5 ft 1.5 in Weight: 217 lb BMI 40.3 BP 129/82 H Intake Visit Reasons: 17wk OB Supervisor Heat Treating Required: No Is patient in pain?: No Allergies amoxicillin Adverse Reaction (Verified 04/28/25 15:53) Hives Medications ???Medication ???Instructions ???Recorded ???Confirmed ???Type vits,calcium no.78-iron 1 tab PO DAILY Check with primary 03/13/17 04/28/25 History fumarate-folic acid 29 mg-1 mg doctor tablet Last Menstrual Period: 12/24/24 Zika: Zika virus screening: Negative : No PFSH PFSH Medical History Graves disease Family History Grandmother blood clots Heart disease Grandfather Heart disease Social History adopted: No household members: spouse and children number of children: 4 current occupational status: employed 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 Date Name GA/Weeks Outcome Route Bth Weight Gen Labor Lgth Anesthesia Del Locatn Provider FOB 03/14/17 Munir 40 live - full term vacuum 8lbs 11oz Male [address] [facility] Dr. Manjeet Mclaughlin 12/01/18 Ladarius 40 live - full term 8lbs 7oz Male [address] [facility] Dr. Sharonda Mclaughlin 08/06/20 Stephane 40 live - full term 7lb 10oz Male epidural [facility] S EM Arnoldo 04/17/23 Malinda 40 live - full term 9lb 2oz Female epidural [facility] Torey Mclaughlin Delivery Date: 03/14/17 Last Updated by: Laura Goodrich No issues during or delivery Delivery Date: 12/01/18 Last Updated by: Laura Goodrich No issues during or delivery Delivery Date: 08/06/20 Last Updated by: Trang Holliday abnormal US- shortened long bones HPI 17wk OB Details: SHEREEN TAVAREZ is a 34 year old who presents for routine OB visit. OB Visit [place] Calculator Estimated Delivery Date Method Current WG Current Estimate 10/08/25 Ultrasound #1 16w 5d Other Estimates 09/30/25 LMP (Certain) 17w 6d Expected Delivery Route/Plan Labor Preferences- CB/BF classes: [...] list details Initial Weight: 213 lb Date -???-???-???-???-??? -???-???-???-???-??? -???-???- EGA Weight BP Urine Prot -???-???-???-???-??? -???-???-???-???-??? -???-???- Glucose FHR FuHt Pres Dilation -???-???-???-???-??? -???-???-???-???-??? -???-???- Effaced St Visit Note 02/27/25 -???-???-???-???-??? -???-???-???-???-??? -???-???- 8w 1d 213 lb (+0 oz) 116/81 -???-???-???-???-??? -???-???-???-???-??? -???-???- 170 -???-???-???-???-??? -???-???-???-???-??? -???-???- LC-1.79CRL n ot con with LMP. [place] changed 10/08/2025. declines nipt LC-1.79CRL not con with (more content not included)... Normal [facility] Bacteria Ur Culton 5 Bacteria identified Cx Nom (U) ORGANISM ID: 1 10,000 -<50,000 CFU/ml Mixed microbiota No further workup. Mixed microbiota can be due to???urine???contami nation with skin bacteria at time of collection or presence of a long-term urinary catheter. If a new culture is needed, please consider re-education of the patient on proper midstream co llection technique or straight catheterization for???urine???collec tion. Normal [facility] Comment on above: Performed By: #### 6 30-4 #### [facility] CLIA [id number] [address] [place] [address] STATES OF [place] CNOVon 04-26-2025 CNOV Office Visit (WOUCA) SHEREEN TAVAREZ ([id number]) 1990 F Date Time Provider Department 04/26/25 8:45 AM ANA PORTILLO During your visit today, we recorded the following information about you: Temperature Pulse Respiration Blood pressure 98.1 degrees 102/minute 16/minute 124/78 Weight 97.1 kg Ana Portillo APRN.ELECTRO PLATER 04/26/2025 9:14 AM Signed [facility] Subjective HPI HPI Shereen Tavarez is a 34 year old female who presents today for CC of urinary burning, frequency, and small amount of blood in urine. This started today. Has tried nothing for relief. Symptoms are worsened by nothing. Risk factors hx of uti, these are classic symptoms for this patient. Patient is 16 weeks y. Denies vaginal bleeding, abd pain, nausea, vomiting. Reports feeling well aside of urinary symptoms. .Patient presents with: UTI PAST MEDICAL HISTORY Diagnosis Date Known health problems: none PAST SURGICAL HISTORY Procedure Laterality Date NONE ALLERGIES Amoxicillin MEDICATIONS albuterol HFA (VENTOLIN HFA) 90 mcg/actuation inhaler Inhale 2 Puffs as instructed every 4 hours as needed for Wheezing/Shortness of Breath. FAMILY HISTORY Problem Relation Age of Onset Heart Maternal Grandfather early [place], age 52 [place] SOCIAL HISTORY[1] Review of Systems Constitutional: Negative for fever. Cardiovascular: Negative for chest pain. Gastrointestinal: Negative for abdominal pain, constipation, diarrhea, nausea and vomiting. Genitourinary: Positive for dysuria, frequency and urgency. Negative for flank pain. Musculoskeletal: Negative for back pain. Objective BP 124/78 Pulse 102 Temp 36.7 ?C (98.1 ?F) (Tympanic) Resp 16 Wt 97.1 kg (214 lb 1.1 oz) SpO2 98% BMI 40.45 kg/m? Physical Exam Constitutional: General: She is not in acute distress. Appearance: Normal appearance. She is not toxic-appearing. Cardiovascular: Rate and Rhythm: Normal rate and regular rhythm. Heart sounds: Normal heart sounds. Pulmonary: Effort: Pulmonary effort is normal. Breath sounds: Normal breath sounds. Abdominal: General: Bowel sounds are normal. Palpations: Abdomen is soft. Tenderness: There is no abdominal tenderness. There is no right CVA tenderness or left CVA tenderness. Skin: General: Skin is warm and dry. {ASSESSMENT/PLAN: 1. 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 - UA DIP, URINE (POC) - BACTERIAL CULTURE, URINE - NITROFURANTOIN MONOHYDRATE AND MACROCRYSTAL 100 MG ORAL CAP Ana Portillo APRN.CNP History and Record Review External record(s) reviewed: prior outpatient record. Disposition The patient was discharged. Procedures [1] Social History Tobacco Use Smoking status: Never Smokeless tobacco: Never Substance Use Topics Alcohol use: No Drug use: Ana Barnes APRN.CNP 04/26/2025 9:13 AM Signed Urinary Tract Infection in You are being sent home after having been diagnosed with a urinary tract infection during . A urinary tract infection (UTI), also called a bladder infection, happens when bacteria infect your urinary tract. Your urinary tract is your kidneys, ureters, bladder, and urethra. UTIs are most common in the urethra and bladder. But when they are serious, they might travel to the kidneys. There are normal changes that happen during that make UTIs more likely. For example, because the uterus (womb) gets bigger, it can block urine from leaving the bladder. This can lead to an infection. The symptoms of a UTI during are like the symptoms of a UTI in someone who is not . They are: A pain or burning feeling that happens when you urinate (pee). A need to urinate more often than usual. Blood in the urine (pee). Abdominal (belly) pain, and pressure or cramping in the lower part of the abdomen. Fever (a temperature higher than 100.4?F or 38?C) or chills. Urine that is cloudy or that has a smell. A UTI is often diagnosed by a urine test (urinalysis) and a urine culture. Having a UTI during gives you a higher chance of getting a kidney infection (pyelonephritis). It also gives you a higher chance of going into labor earlier than normal (premature labor). Kidney infections increase the chance that you will have a miscarriage. Also, UTIs make your baby more likely to have a low weight. Antibiotics help to cure UTIs. You might not have any of these symptoms. But if you have bacteria in your urine, you will be treated with antibiotics. Doctors most often start women on antibiotics before the culture results return, 2 to 3 d (more content not included)... Normal [facility] - Chemistry and C hemistry - challengeOrdered By: Marquise Tse on 03-30-2025 Glucose Ql (U) Negative [facility] - UrinalysisOrder ed By: Marquise Tse on 03-30-2025 Protein Ql (U) Trace [facility] Hematology Oncology Consultant Office Visit Reporton 03-30-2025 Hematology Oncology Consultant Office Visit Report [facility] [address], [address] [place] [address] OFFICE VISIT Date of Service: 03/30/25 MR#: [id number] Acct: [id number] Name: SHEREEN TAVAREZ Rep #: [id number] : 1990 Provider: WHITNEY gabriel Age/Sex: 34/F Location: [facility] Status: Signed Intake Vital Signs 06/08/23 15:36 02/27/25 08:48 03/30/25 08:39 Height 5 ft 1.5 in 5 ft 1.5 in 5 ft 1.5 in Weight: 214 lb 2 oz BMI 39.8 BP 123/74 H Intake Visit Reasons: 13wk OB Chief Complaint: 13 Week OB Supervisor Heat Treating Required: No Is patient in pain?: No Allergies amoxicillin Adverse Reaction (Verified 03/30/25 08:42) Hives Medications ???Medication ???Instructions ???Recorded ???Confirmed ???Type vits,calcium no.78-iron 1 tab PO DAILY Check with primary 03/13/17 03/30/25 History fumarate-folic acid 29 mg-1 mg doctor tablet Last Menstrual Period: 12/24/24 Zika: Zika virus screening: Negative : No PFSH PFSH Medical History Graves disease Family History Grandmother blood clots Heart disease Grandfather Heart disease Social History adopted: No household members: spouse and children number of children: 4 current occupational status: employed 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 Date Name GA/Weeks Outcome Route Bth Weight Infant Gen Labor Lgth Anesthesia Del Locatn Provider FOB 03/14/17 Munir 40 live - full term vacuum 8lbs 11oz Male [address] [facility] Dr. Manjeet Mclaughlin 12/01/18 Ladarius 40 live - full term 8lbs 7oz Male [address] [facility] Dr. Sharonda Mclaughlin 08/06/20 Stephane 40 live - full term 7lb 10oz Male epidural [facility] S SAMANTHA Mclaughlin 04/17/23 Malinda 40 live - full term 9lb 2oz Female epidural [facility] Torey Mclaughlin Delivery Date: 03/14/17 Last Updated by: Laura Goodrich No issues during or delivery Delivery Date: 12/01/18 Last Updated by: Laura Goodrich No issues during or delivery Delivery Date: 08/06/20 Last Updated by: Trang Holliday abnormal US- shortened long bones HPI 13wk OB Details: SHEREEN TAVAREZ is a 34 year old who presents for routine OB visit. OB Visit BERKLEY Calculator Estimated Delivery Date Method Current WG Current Estimate 10/08/25 Ultrasound #1 12w 4d Other Estimates 09/30/25 LMP (Certain) 13w 5d Expected Delivery Route/Plan Labor Preferences- CB/BF classes: [...] list details Initial Weight: 213 lb Date -???-???-???-???-??? -???-???-???-???-??? -???-???- EGA Weight BP Urine Prot -???-???-???-???-??? -???-???-???-???-??? -???-???- Glucose FHR FuHt Pres Dilation -???-???-???-???-??? -???-???-???-???-??? -???-???- Effaced St Visit Note 02/27/25 -???-???-???-???-??? -???-???-???-???-??? -???-???- 8w 1d 213 lb (+0 oz) 116/81 -???-???-???-???-??? -???-???-???-???-??? -???-???- 170 -???-???-???-???-??? -???-???-???-???-??? -???-???- LC-1.79CRL n ot con with LMP. BERKLEY changed 10/08/2025. declines nipt LC-1.79CRL not con with (more content not included)... Normal [facility] L3410.9992on 03-11-2025 [facility] Misc. COMMENT Normal . [facility] Comment on above: Order Comment: [id number] 8TSH R AB Result Comment: Test Ordered: [id number] TSH Receptor Antibody (TBII) TSH Receptor Antibody (TBII) 1.5 U/L ES Reference Range: . Reference Range: Antibody Titer: <1.0 U/L = Negative 1.1 - 1.5 U/L = Equivocal >1.5 U/L = Positive Performed at: [facility] [address] [place] [id number] Driver Retraining Instructor: Jona Sánchez MD, Phone: [phone] Performed at: [facility] [id number] Driver Retraining Instructor: Shukri Montesinos PhD, Phone: [phone] Performed By: #### L 100.0100, L509.8002, L3890.6006, L501.9520, L3410.9992, L501.9985, L506.0400, BTS, L3890.6102, L501.09273, L509.4006, L3890.6301 ####[facility] [id number] [place], [address] PAP IG HPV APTIMA 16/18,45on 03-03-2025 ADEQ Comment Normal . [facility] Comment on above: Order Comment: Speci men Comment: [id number] Specimen Comment: No. of containers..01 ThinPrep Vial Result Comment: Sati sfactory for evaluation. Endocervical and/or squamous metaplastic cells (endocervical component) are present. Performed By: #### L 7400.0280, M100.2200, L7000.1800 #### [facility] [address] [place], [place], [id number] COMM . Normal . [facility] Comment on above: Order Comment: Speci men Comment: [id number] Specimen Comment: No. of containers..01 ThinPrep Vial Performed By: #### L 7400.0280, M100.2200, L7000.1800 #### [facility] [address] [place], [address] COMMENT Comment Normal . [facility] Comment on above: Order Comment: Speci men Comment: [id number] Specimen Comment: No. of containers..01 ThinPrep Vial Result Comment: This liquid based ThinPrep(R) pap test was screened with the use of an image guided system. Performed By: #### L 7400.0280, M100.2200, L7000.1800 #### [facility] [address] [place], [address] DIAG Comment Normal . [facility] Comment on above: Order Comment: Speci men Comment: [id number] Specimen Comment: No. of containers..01 ThinPrep Vial Result Comment: NEGA TIVE FOR INTRAEPITHELIAL LESION OR MALIGNANCY. Performed By: #### L 7400.0280, M100.2200, L7000.1800 #### [facility] [address] [place], [place], [address] HPV APTIMA, HR Negative Normal Negative [facility] Comment on above: Order Comment: Speci men Comment: [id number] Specimen Comment: No. of containers..01 ThinPrep Vial Result Comment: This nucleic acid amplification test detects fourteen high- risk HPV types (16,18,31,33,35,39,45,51,52,56,58,59,66,68) without differentiation. Performed By: #### L 7400.0280, M100.2200, L7000.1800 #### [facility] [address] [place], [place], [address] HPV Angy Rfx Comment Normal . [facility] Comment on above: Order Comment: Speci men Comment: [id number] Specimen Comment: No. of containers..01 ThinPrep Vial Result Comment: Crit eria not met, HPV Genotype not performed. Performed at: - [address] [id number] Driver Retraining Instructor: Norma Stubbs MD, Phone: [phone] Performed at: = - [facility] [id number] Driver Retraining Instructor: Norma Stubbs MD, Phone: [phone] Performed By: #### L 7400.0280, M100.2200, L7000.1800 #### [facility] [address] [place], [address] PAPSMR Comment Normal . [facility] Comment on above: Order Comment: Speci men Comment: [id number] Specimen Comment: No. of containers..01 ThinPrep Vial Result Comment: The Pap smear is a screening test designed to aid in the detection of premalignant and malignant conditions of the uterine cervix. It is not a diagnostic procedure and should not be used as the sole means of detecting cervical cancer. Both false-positive and false-negative reports do occur. Performed By: #### L 7400.0280, M100.2200, L7000.1800 #### [facility] [address] [place], [place], [id number] PERFORM Comment Normal . [facility] Comment on above: Order Comment: Speci men Comment: [id number] Specimen Comment: No. of containers..01 ThinPrep Vial Result Comment: Javed Ruvalcaba, Biological Science Technician Fish Performed By: #### L 7400.0280, M100.2200, L7000.1800 #### [facility] [address] [place], [address] Chlamydia/GC KAREN aptimaon CHLAMY,NUC ACID Negative Normal Negative [facility] Comment on above: Performed By: #### L 7400.0280, M100.2200, L7000.1800 #### [facility] [address] [place], [address] GC BY NUC ACID Negative Normal Negative [facility] Comment on above: Result Comment: Perf ormed at: =G - [facility] [address] [id number] Driver Retraining Instructor: Norma Stubbs MD, Phone: [phone] Performed By: #### L 7400.0280, M100.2200, L7000.1800 #### [facility] [address] [place], [address] Urine Cultureon 02-28-2025 URC #1 Below infection level. 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 Submit a new specimen if indicated. Normal [facility] Comment on above: Performed By: #### L 7400.0280, M100.2200, L7000.1800 #### [facility] [address] [place], [address] Absolute lymphocyte countOrd ered By: Meghan Ames on 02-27-2025 Lymphocytes Auto (Unsp spec) [#/Vol] 2.17 10*3/uL 0.83-4.51 [facility] Absolute neutrophil countOrd ered By: Meghan Ames on 02-27-2025 Neutrophils (Bld) [#/Vol] 7.0 10*3/uL 2.0-7.7 [facility] Automated lymphocyte count a s percentage of total leukocytesOrdered By: Meghan Ames on 02-27-2025 Lymphocytes/100 WBC Auto (Unsp spec) 22.2 % 19-41 [facility] Basophil percentageOrdered B y: Meghan Ames on 02-27-2025 Basophils/100 WBC (Bld) 0.3 % 0-1 [facility] CBC W/Diff, Automatedon Absolute Lymph 2.17 X10 3/uL Normal 0.83-4.51 [facility] Comment on above: Performed By: #### L 100.0100, L509.8002, L3890.6006, L501.9520, L3410.9992, L501.9985, L506.0400, BTS, L3890.6102, L501.58823, L509.4006, L3890.6301 #### [facility] [address] [place], [address] Absolute Neut 7.0 X10 3/uL Normal 2.0-7.7 [facility] Comment on above: Performed By: #### L 100.0100, L509.8002, L3890.6006, L501.9520, L3410.9992, L501.9985, L506.0400, BTS, L3890.6102, L501.18549, L509.4006, L3890.6301 #### [facility] [address] [place], [address] Basophils/100 WBC (Bld) 0.3 % Normal 0-1 [facility] Comment on above: Performed By: #### L 100.0100, L509.8002, L3890.6006, L501.9520, L3410.9992, L501.9985, L506.0400, BTS, L3890.6102, L501.26140, L509.4006, L3890.6301 #### [facility] [address] [place], [address] Eosinophils/100 WBC (Bld) 1.1 % Normal 0-5 [facility] Comment on above: Performed By: #### L 100.0100, L509.8002, L3890.6006, L501.9520, L3410.9992, L501.9985, L506.0400, BTS, L3890.6102, L501.30126, L509.4006, L3890.6301 #### [facility] [address] [place], [place], [address] Erythrocyte distribution width (RBC) [Ratio] 12.9 % Normal 11.6-14.6 [facility] Comment on above: Performed By: #### L 100.0100, L509.8002, L3890.6006, L501.9520, L3410.9992, L501.9985, L506.0400, BTS, L3890.6102, L501.28099, L509.4006, L3890.6301 #### [facility] [address] [place], [place], [address] Hematocrit (Bld) [Volume fraction] 39.7 % Normal 37-47 [facility] Comment on above: Performed By: #### L 100.0100, L509.8002, L3890.6006, L501.9520, L3410.9992, L501.9985, L506.0400, BTS, L3890.6102, L501.27185, L509.4006, L3890.6301 #### [facility] [address] [place], [place], [address] Hemoglobin (Bld) [Mass/Vol] 13.8 g/dL Normal 12.0-15.0 [facility] Comment on above: Performed By: #### L 100.0100, L509.8002, L3890.6006, L501.9520, L3410.9992, L501.9985, L506.0400, BTS, L3890.6102, L501.15750, L509.4006, L3890.6301 #### [facility] [address] [place], [address] IG% 0.400 Normal 0.0-0.9 [facility] Comment on above: Result Comment: IG% - Immature Granulocytes (promyelocytes, myelocytes and metamyelocytes) > 1% indicates that a LEFT SHIFT is Present. Performed By: #### L 100.0100, L509.8002, L3890.6006, L501.9520, L3410.9992, L501.9985, L506.0400, BTS, L3890.6102, L501.30479, L509.4006, L3890.6301 #### [facility] [address] [facility] [place], [address] Lymphocytes/100 WBC (Bld) 22.2 % Normal 19-41 [facility] Comment on above: Performed By: #### L 100.0100, L509.8002, L3890.6006, L501.9520, L3410.9992, L501.9985, L506.0400, BTS, L3890.6102, L501.58185, L509.4006, L3890.6301 #### [facility] [address] [facility] [place], [address] MCH (RBC) [Entitic mass] 30.9 pg Normal 27.0-32.0 [facility] Comment on above: Performed By: #### L 100.0100, L509.8002, L3890.6006, L501.9520, L3410.9992, L501.9985, L506.0400, BTS, L3890.6102, L501.46774, L509.4006, L3890.6301 #### [facility] [address] [facility] [place], [address] MCHC (RBC) [Mass/Vol] 34.8 g/dL Normal 32-36 [facility] Comment on above: Performed By: #### L 100.0100, L509.8002, L3890.6006, L501.9520, L3410.9992, L501.9985, L506.0400, BTS, L3890.6102, L501.24036, L509.4006, L3890.6301 #### [facility] [address] [place], [address] MCV (RBC) [Entitic vol] 88.8 fL Normal 81-99 [facility] Comment on above: Performed By: #### L 100.0100, L509.8002, L3890.6006, L501.9520, L3410.9992, L501.9985, L506.0400, BTS, L3890.6102, L501.67935, L509.4006, L3890.6301 #### [facility] [address] [place], [address] Monocytes/100 WBC (Bld) 4.3 % Normal 0-10 [facility] Comment on above: Performed By: #### L 100.0100, L509.8002, L3890.6006, L501.9520, L3410.9992, L501.9985, L506.0400, BTS, L3890.6102, L501.07434, L509.4006, L3890.6301 #### [facility] [address] [place], [address] Neutrophils/100 WBC (Bld) 71.7 % High 47-70 [facility] Comment on above: Performed By: #### L 100.0100, L509.8002, L3890.6006, L501.9520, L3410.9992, L501.9985, L506.0400, BTS, L3890.6102, L501.64015, L509.4006, L3890.6301 #### [facility] [address] [place], [address] Nucleated RBC (Bld) [#/Vol] 0 10*3/uL Normal 0-5 [facility] Comment on above: Performed By: #### L 100.0100, L509.8002, L3890.6006, L501.9520, L3410.9992, L501.9985, L506.0400, BTS, L3890.6102, L501.41012, L509.4006, L3890.6301 #### [facility] [address] [place], [address] Platelet mean volume (Bld) [Entitic vol] 10.8 fL Normal 6.2-12.0 [facility] Comment on above: Performed By: #### L 100.0100, L509.8002, L3890.6006, L501.9520, L3410.9992, L501.9985, L506.0400, BTS, L3890.6102, L501.20443, L509.4006, L3890.6301 #### [facility] [address] [place], [address] Platelets (Bld) [#/Vol] 393 10*3/uL Normal 150-450 [facility] Comment on above: Performed By: #### L 100.0100, L509.8002, L3890.6006, L501.9520, L3410.9992, L501.9985, L506.0400, BTS, L3890.6102, L501.46545, L509.4006, L3890.6301 #### [facility] [address] [place], [address] RBC (Bld) [#/Vol] 4.47 10*6/uL Normal 4.2-5.4 [facility] Comment on above: Performed By: #### L 100.0100, L509.8002, L3890.6006, L501.9520, L3410.9992, L501.9985, L506.0400, BTS, L3890.6102, L501.38490, L509.4006, L3890.6301 #### [facility] [address] [place], [address] RDW SD 42.2 fl Normal 35.1-43.9 [facility] Comment on above: Performed By: #### L 100.0100, L509.8002, L3890.6006, L501.9520, L3410.9992, L501.9985, L506.0400, BTS, L3890.6102, L501.00240, L509.4006, L3890.6301 #### [facility] [address] [place], [address] WBC (Bld) [#/Vol] 9.8 10*3/uL Normal 4.4-11.0 [facility] Comment on above: Performed By: #### L 100.0100, L509.8002, L3890.6006, L501.9520, L3410.9992, L501.9985, L506.0400, BTS, L3890.6102, L501.59992, L509.4006, L3890.6301 #### [facility] [address] [place], [address] Cervical or vaginal specimen microscopic examination by liquid based cytology (reportOrdered By: Meghan Ames on 02-27-2025 Cytology report Cyto stain.thin prep Doc (Cvx/Vag) Comment . [facility] Comment on above: Criteria not met, HP V Genotype not performed.Performed at: [address] [id number] Director: Norma Stubbs MD, Phone: [phone] at: =[address] [id number] Director: Norma Stubbs MD, Phone: [phone] Cervical or vagninal specime n microscopic examination by cytology stain (reported asOrdered By: Meghan Ames on 02-27-2025 Cytology report Cyto stain Doc (Cvx/Vag) Comment . [facility] Comment on above: The Pap smear is a s creening test designed to aid in thedetection of premalignant and malignant conditions of theuterine cervix. It is not a diagnostic procedure andshould not be used as the sole means of detecting cervicalcancer. Both false-positive and false-negative reports dooccur. Chlamydia trachomatis rRNA d etection by probe and target amplification methodOrdered By: Meghan Ames on 02-27-2025 C. trachomatis rRNA KAREN+probe Ql (Unsp spec) Negative Negative [facility] Detection in cervical specim en of any of human papilloma virus (HPV) 16, 18, 31, 33,Ordered By: Meghan Ames on 02-27-2025 HPV 16+18+31+33+35+39+45+51+ 52+56+58+59+66+68 DNA Probe+sig amp Ql (Cvx) Negative Negative [facility] Comment on above: This nucleic acid am plification test detects fourteen high-risk HPV types (16,18,31,33,35,39,45,51,52,56,58,59,66,68)without differentiation. Eosinophil percentageOrdered By: Meghan Ames on 02-27-2025 Eosinophils/100 WBC (Bld) 1.1 % 0-5 [facility] Erythrocyte distribution wid th ratioOrdered By: Meghan Ames on 02-27-2025 Erythrocyte distribution width (RBC) [Ratio] 12.9 % 11.6-14.6 [facility] Erythrocyte distribution wid th standard deviationOrdered By: Meghan Ames on 02-27-2025 Erythrocyte distribution width (RBC) [Ratio] 42.2 fl 35.1-43.9 [facility] Free T3on 02-27-2025 Free T3 [Mass/Vol] 3.3 pg/mL Normal 2.18-3.98 [facility] Comment on above: Result Comment: AMENDED REPORT 02/27/25 1316 FREE T3 previously reported as: 3.4 pg/mL Performed By: #### L 100.0100, L509.8002, L3890.6006, L501.9520, L3410.9992, L501.9985, L506.0400, BTS, L3890.6102, L501.62078, L509.4006, L3890.6301 #### [facility] [address] [place], [place], [id number] Free [id number] By: Meghan rodriguez on 02-27-2025 Free T3 [Mass/Vol] 3.3 pg/mL 2.18-3.98 [facility] Comment on above: Previous reported re sult: 3.4 pg/mLEdited by: TANJA on 02/27/25:1316 AMENDED REPORT 02/27/25 1316 FREE T3 previously reported as: 3.4 pg/mL HIVon 02-27-2025 HIV Non-Reactive Normal Nonreactive [facility] Comment on above: Result Comment: Non- Reactive Reactive Repeatedly reactive samples must be confirmed according to CDC recommended confirmatory algorithms. The subresults for either HIVAG or AHIV can be used as an aid in the selection of the confirmation algorithm for reactive samples. Send out specimens with Reactive results to [facility] for confirmation. Order the HIV antibody detection and differentiation: #[id number] Performed By: #### L 100.0100, L509.8002, L3890.6006, L501.9520, L3410.9992, L501.9985, L506.0400, BTS, L3890.6102, L501.60105, L509.4006, L3890.6301 ####[facility] [address] [place], [address] Hematocrit Auto (Bld) [Volum e fraction]Ordered By: Meghan Ames on 02-27-2025 Hematocrit (Bld) [Volume fraction] 39.7 % 37-47 [facility] Hemoglobin A1con 02-27-2025 HbA1c (Bld) [Mass fraction] 5.2 % Normal <=5.6 [facility] Comment on above: Result Comment: Norm al < 5.7 % Prediabetic 5.7 - 6.4 % Diabetic >or= 6.5 % Please note range changes. Performed By: #### L 100.0100, L509.8002, L3890.6006, L501.9520, L3410.9992, L501.9985, L506.0400, BTS, L3890.6102, L501.75128, L509.4006, L3890.6301 #### [facility] [address] [place], [address] Hemoglobin A1c percentageOrd ered By: Meghan Ames on 02-27-2025 HbA1c (Bld) [Mass fraction] 5.2 % <5.7 [facility] Comment on above: Normal < 5.7 % Predi abetic 5.7 - 6.4 % Diabetic >or= 6.5 % Please note range changes. Hemoglobin measurementOrdere d By: Meghan Ames on 02-27-2025 Hemoglobin (Bld) [Mass/Vol] 13.8 g/dL 12.0-15.0 [facility] Hepatitis C Antibodyon 02-27 Hepatitis C Ab Non-Reactive Normal Nonreactive [facility] Comment on above: Result Comment: Reac tive: Presumptive evidence of antibodies to HCV. Follow CDC recommendations for supplemental testing. Non-Reactive: Antibodies to HCV were not detected; does not exclude the possibility of exposure to HCV Reactive Results are presumptive evidence of antibodies to HCV. Follow CDC recommendations for supplemental testing. Order confirmation testing: HCV Quant by PCR testing - HCVPCR #[id number] Non Reactive: < 0.8 Equivocal: >/= 0.8 to < 1.0 Reactive: >/= 1.0 The CDC requires that a reactive/equivocal HCV antibody result be sent out for confirmation. HCV Quant by PCR testing. Performed By: #### L 100.0100, L509.8002, L3890.6006, L501.9520, L3410.9992, L501.9985, L506.0400, BTS, L3890.6102, L501.14531, L509.4006, L3890.6301 ####[facility] [address] [place], [place], [id number] Immature granulocytes/100 WB C Auto (Bld)Ordered By: Meghan Ames on 02-27-2025 Immature granulocytes/100 WBC (Bld) 0.400 % 0.0-0.9 [facility] Comment on above: IG% - Immature Granu locytes (promyelocytes, myelocytes and metamyelocytes) > 1% indicates that a LEFT SHIFT is Present. L3890.6102on 02-27-2025 HEP B Surf Ag Non-Reactive Normal Nonreactive [facility] Comment on above: Result Comment: Reac tive: Presumptive evidence of HBV. Repeatedly reactive samples must be confirmed using a neutralization test ([employer] HBsAg Confirmatory Test) Non-Reactive: HBsAg not detected; does not exclude the possibility of exposure to HBV Performed By: #### L 100.0100, L509.8002, L3890.6006, L501.9520, L3410.9992, L501.9985, L506.0400, BTS, L3890.6102, L501.09670, L509.4006, L3890.6301 ####[facility] [address] [place], [place], [id number] L509.4006on 02-27-2025 Rubella IgG REAC Normal Nonreactive [facility] Comment on above: Result Comment: Anti body Result: Interpretation Non-Reactive: Non-Immune Reactive: Immune The following results were obtained with the [employer] Rubella IgG assay. Results from assays of other manufacturers cannot be used interchangeably. Performed By: #### L 100.0100, L509.8002, L3890.6006, L501.9520, L3410.9992, L501.9985, L506.0400, BTS, L3890.6102, L501.65311, L509.4006, L3890.6301 ####[facility] [address] [place], [place], [id number] Laboratory - CytologyOrdered By: Meghan Ames on 02-27-2025 Biological Science Technician Fish Cyto stain Nom (Cvx/Vag) [ID] Comment . [facility] Comment on above: [facility] - Microbiology an d Antimicrobial susceptibilityOrdered By: Meghan Ames on 02-27-2025 HBV surface Ag Ql (S) Non-Reactive Nonreactive [facility] Comment on above: Reactive: Presumptiv e evidence of HBV. Repeatedly reactive samples must be confirmed using a neutralization test ([employer] HBsAg Confirmatory Test)Non-Reactive: HBsAg not detected; does not exclude the possibility of exposure to HBV Laboratory - Miscellaneous t estsOrdered By: Meghan Ames on 02-27-2025 Service comment (Unsp spec) [Interp] . . [facility] MCV (mean corpuscular volume ) determinationOrdered By: Meghan Ames on 02-27-2025 MCV (RBC) [Entitic vol] 88.8 fL 81-99 [facility] Mean corpuscular hemoglobin (MCH) determinationOrdered By: Meghan Ames on 02-27-2025 MCH (RBC) [Entitic mass] 30.9 pg 27.0-32.0 [facility] Mean corpuscular hemoglobin concentration (MCHC) determinationOrdered By: Meghan Ames on 02-27-2025 MCHC (RBC) [Mass/Vol] 34.8 g/dL 32-36 [facility] Mean platelet volume determi nationOrdered By: Meghan Ames on 02-27-2025 Platelet mean volume (Bld) [Entitic vol] 10.8 fL 6.2-12.0 [facility] Monocyte percentageOrdered B y: Meghan Ames on 02-27-2025 Monocytes/100 WBC (Bld) 4.3 % 0-10 [facility] Neisseria gonorrhoeae nuclei c acid detection by amplified probe techniqueOrdered By: Meghan Ames on 02-27-2025 N. gonorrhoeae DNA KAREN+probe Ql (Unsp spec) Negative Negative [facility] Comment on above: Performed at: =[address] [id number] Director: Norma Stubbs MD, Phone: [phone] Neutrophil percentageOrdered By: Meghan Ames on 02-27-2025 Neutrophils/100 WBC (Bld) 71.7 % High 47-70 [facility] No Panel InformationOrdered By: Meghan Ames on 02-27-2025 Pap Smear Specimen Adequacy Comment . [facility] Comment on above: Satisfactory for pilo luation. Endocervical and/or squamous metaplasticcells (endocervical component) are present. HIV (1&2) Antibody Non-Reactive Nonreactive [facility] Comment on above: Non-ReactiveReactive Repeatedly reactive samples must be confirmed according to CDC recommended confirmatory algorithms. The subresults for either HIVAG or AHIV can be used as an aid in the selection of the confirmation algorithm for reactive samples.Send out specimens with Reactive results to [facility] for confirmation.Order the HIV antibody detection and differentiation: #[id number] Nucleated red blood cell per centageOrdered By: Meghan Ames on 02-27-2025 Nucleated RBC/100 WBC (Bld) [Ratio] 0 % 0-5 [facility] Hematology Oncology Consultant Office Visit Reporton 02-27-2025 Hematology Oncology Consultant Office Visit Report [facility] [address], [address] [place] [address] OFFICE VISIT Date of Service: 02/27/25 MR#: [id number] Acct: [id number] Name: SHEREEN TAVAREZ Rep #: [id number] : 1990 Provider: QI chris Age/Sex: 34/F Location: [facility] Status: Signed Intake Vital Signs 06/08/23 15:36 02/27/25 08:48 Height 5 ft 1.5 in 5 ft 1.5 in Weight: 213 lb BMI 39.6 BP 116/81 H Intake Visit Reasons: *EST* NOB LMP 6/, BERKLEY 09/30 Supervisor Heat Treating Required: No Is patient in pain?: No Allergies amoxicillin Adverse Reaction (Verified 02/27/25 08:48) Hives Medications ???Medication ???Instructions ???Recorded ???Confirmed ???Type vits,calcium no.78-iron 1 tab PO DAILY Check with primary 03/13/17 02/27/25 History fumarate-folic acid 29 mg-1 mg doctor tablet Last Menstrual Period: 12/24/24 Zika: Zika virus screening: Negative : No PFSH PFS Medical History Graves disease Family History Grandmother blood clots Heart disease Grandfather Heart disease Social History adopted: No household members: spouse and children number of children: 4 current occupational status: employed 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 Date Name GA/Weeks Outcome Route Bth Weight Infant Gen Labor Lgth Anesthesia Del Locatn Provider FOB 03/14/17 Munir 40 live - full term vacuum 8lbs 11oz Male [address] [facility] Dr. Manjeet Mclaughlin 12/01/18 Ladarius 40 live - full term 8lbs 7oz Male [address] [facility] Dr. Sharonda Mclaughlin 08/06/20 Stephane 40 live - full term 7lb 10oz Male epidural [facility] Renny Mclaughlin 04/17/23 Malinda 40 live - full term 9lb 2oz Female epidural [facility] Torey Mclaughlin Delivery Date: 03/14/17 Last Updated by: Laura Goodrich No issues during or delivery Delivery Date: 12/01/18 Last Updated by: Laura Goodrich No issues during or delivery Delivery Date: 08/06/20 Last Updated by: Trang Holliday abnormal US- shortened long bones HPI *EST* NOB LMP 12/24, BERKLEY 09/30 Details: SHEREEN TAVAREZ is a [...] list details Initial Weight: 213 lb Date -???-???-???-???-??? -???-???-???-???-??? -???-???- EGA Weight BP Urine Prot -???-???-???-???-??? -???-???-???-???-??? -???-???- Glucose FHR FuHt Pres Dilation -???-???-???-???-??? -???-???-???-???-??? -???-???- Effaced St Visit Note 02/27/25 -???-???-???-???-??? -???-???-???-???-??? -???-???- 8w 1d 213 lb (+0 oz) 116/81 -???-???-???-???-??? -???-???-???-???-??? -???-???- 170 -???-???-???-???-??? -???-???-???-???-??? -???-???- LC-1.79CRL n ot con with LMP. BERKLEY changed 10/08/2025. declines nipt LC-1.79CRL not con with LMP. BERKLEY (more content not included)... Normal [facility] Platelet countOrdered By: Edith Ames on 02-27-2025 Platelets (Bld) [#/Vol] 393 10*3/uL 150-450 [facility] RBC Auto (Bld) [#/Vol]Ordere d By: Meghan Ames on 02-27-2025 RBC (Bld) [#/Vol] 4.47 10*6/uL 4.2-5.4 [facility] Syphilis Antibodieson 2024 Syphilis Abs Non-Reactive Normal Nonreactive [facility] Comment on above: Performed By: #### L 100.0100, L509.8002, L3890.6006, L501.9520, L3410.9992, L501.9985, L506.0400, BTS, L3890.6102, L501.58448, L509.4006, L3890.6301 ####[facility] [address] [place], [address] T4 Free Directon 02-27-2025 T4 FREE DIRECT 1.20 ng/dL Normal 0.76-1.46 [facility] Comment on above: Performed By: #### L 100.0100, L509.8002, L3890.6006, L501.9520, L3410.9992, L501.9985, L506.0400, BTS, L3890.6102, L501.18814, L509.4006, L3890.6301 ####[facility] [address] [place], [place], [id number] T4 freeOrdered By: Meghan rodriguez on 02-27-2025 Free T4 [Mass/Vol] 1.20 ng/dL 0.76-1.46 [facility] TSH DL <= 0.005 mIU/L QnOrde red By: Meghan Ames on 02-27-2025 TSH Qn 0.307 uIU/mL 0.300-4.200 [facility] Comment on above: Previous reported re sult: 0.298 uIU/mLEdited by: TANJA on 02/27/25:1316 AMENDED REPORT 02/27/251315 TSH previously reported as: 0.298 L uIU/mL Thyroid Stim Hormone (TSH)on 02-27-2025 TSH 0.307 uIU/mL Normal 0.300-4.200 [facility] Comment on above: Result Comment: AMENDED REPORT 02/27/256 TSH previously reported as: 0.298 L uIU/mL Performed By: #### L 100.0100, L509.8002, L3890.6006, L501.9520, L3410.9992, L501.9985, L506.0400, BTS, L3890.6102, L501.96665, L509.4006, L3890.6301 ####[facility] [address] [place], [place], [id number] Type AND Screenon 02-27-2025 Ab SCREEN GEL Negative Normal [facility] Comment on above: Order Comment: PN Performed By: #### L 100.0100, L509.8002, L3890.6006, L501.9520, L3410.9992, L501.9985, L506.0400, BTS, L3890.6102, L501.68599, L509.4006, L3890.6301 ####[facility] [address] [place], [place], [id number] ABO and Rh group Nom (Bld) Blood group O Rh(D) positive Normal [facility] Comment on above: Order Comment: PN Performed By: #### L 100.0100, L509.8002, L3890.6006, L501.9520, L3410.9992, L501.9985, L506.0400, BTS, L3890.6102, L501.00788, L509.4006, L3890.6301 ####[facility] [address] 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 [facility] Bacteria identified Cx Nom (U) Positive Abnormal [facility] White blood cell (WBC) count Ordered By: Meghan Ames on 02-27-2025 WBC (Bld) [#/Vol] 9.8 10*3/uL 4.4-11.0 [facility] Laboratory - Chemistry and C hemistry - challengeon 04-02-2023 Glucose Ql (U) Negative [facility] Laboratory - Urinalysison Protein Ql (U) Negative [facility] - Chemistry and C hemistry - challengeon 03-28-2023 Glucose Ql (U) Negative [facility] - Urinalysison Protein Ql (U) Negative [facility] Laboratory - Chemistry and C hemistry - challengeon 03-19-2023 Glucose Ql (U) Negative [facility] Laboratory - Urinalysison Protein Ql (U) Negative [facility] No Panel InformationOrdered By: Jacquelyn Mcdonough on 03-19-2023 Group B Streptococcus Culture Group B Beta Streptococcus is not isolated. [facility] Laboratory - Chemistry and C hemistry - challengeOrdered By: Melida Armas on 03-06-2023 Free T4 [Mass/Vol] 1.00 ng/dL 0.76-1.46 [facility] No Panel InformationOrdered By: Melida Armas on 03-06-2023 Free Triiodothyronine (T3) pg/dL 2.2 pg/mL 2.18-3.98 [facility] Thyroid Stimulating Hormone (TSH) 0.81 uIU/mL 0.358-3.74 [facility] Serum or plasma thyroperoxid ase antibody assay (units/volume)Ordered By: Melida Armas on 03-06-2023 TPO Ab Qn 28 [IU]/mL 0-34 [facility] Comment on above: Performed at: [place] [id number] Director: Shukri Montesinos PhD, Phone: [phone] Laboratory - Chemistry and C hemistry - challengeon 03-05-2023 Glucose Ql (U) Negative [facility] Laboratory - Urinalysison Protein Ql (U) Negative [facility] Laboratory - Chemistry and C hemistry - challengeon 02-19-2023 Glucose Ql (U) Negative [facility] Laboratory - Urinalysison Protein Ql (U) Negative [facility] Laboratory - Chemistry and C hemistry - challengeon 02-05-2023 Glucose Ql (U) Negative [facility] Laboratory - Urinalysison Protein Ql (U) Negative [facility] Laboratory - Chemistry and C hemistry - challengeon 01-22-2023 Glucose Ql (U) Negative [facility] Laboratory - Urinalysison Protein Ql (U) Negative [facility] Absolute lymphocyte countOrd ered By: Dr. Mcdonough on 01-08-2023 Lymphocytes Auto (Unsp spec) [#/Vol] 2.47 10*3/uL 0.83-4.51 [facility] Basophil percentageOrdered B y: Dr. Mcdonough on 01-08-2023 Basophils/100 WBC (Bld) 0.2 % 0-1 [facility] Eosinophils/100 WBC (Bld) 0.8 % 0-5 [facility] Neutrophils (Bld) [#/Vol] 9.8 10*3/uL 2.0-7.7 [facility] Neutrophils/100 WBC (Bld) 75.0 % 47-70 [facility] WBC (Bld) [#/Vol] 13.1 10*3/uL 4.4-11.0 [facility] Blood erythrocytes count (nu mber/volume)Ordered By: Dr. Mcdonough on 01-08-2023 RBC (Bld) [#/Vol] 3.69 10*6/uL 4.2-5.4 [facility] Blood hemoglobin measurement (mass/volume)Ordered By: Dr. Mcdonough on 01-08-2023 Hemoglobin (Bld) [Mass/Vol] 11.5 g/dL 12.0-15.0 [facility] Blood lymphocytes/100 leukoc ytesOrdered By: Dr. Mcdonough on 01-08-2023 Lymphocytes/100 WBC (Bld) 18.9 % 19-41 [facility] Blood monocytes/100 leukocyt esOrdered By: Dr. Mcdonough on 01-08-2023 Monocytes/100 WBC (Bld) 4.3 % 0-10 [facility] Blood platelet mean volumeOr dered By: Dr. Mcdonough on 01-08-2023 Platelet mean volume (Bld) [Entitic vol] 10.6 fL 6.2-12.0 [facility] Determination of erythrocyte mean corpuscular volume (MCV)Ordered By: Dr. Mcdonough on 01-08-2023 MCV (RBC) [Entitic vol] 94.6 fL 81-99 [facility] Gestational diabetes screen 1-hour screen with 50g oral glucose loadOrdered By: Dr. Mcdonough on 01-08-2023 Glucose 1 Hr post 50 g glucose PO [Mass/Vol] 97 mg/dL 70-140 [facility] HIV 1 and HIV-2 antibody ass ay with HIV-1 p24 antigen detectionOrdered By: Dr. Mcdonough on 01-08-2023 HIV 1+2 Ab+HIV1 p24 Ag IA Ql Non-Reactive Nonreactive [facility] Hematocrit Auto (Bld) [Volum e fraction]Ordered By: Dr. Mcdonough on 01-08-2023 Hematocrit (Bld) [Volume fraction] 34.9 % 37-47 [facility] Laboratory - Chemistry and C hemistry - challengeOrdered By: Dr. Mcdonough on 01-08-2023 Free T4 [Mass/Vol] 0.88 ng/dL 0.76-1.46 [facility] Laboratory - Hematology and Cell countsOrdered By: Dr. Mcdonough on 01-08-2023 Erythrocyte distribution width (RBC) [Entitic vol] 47.3 fL 35.1-43.9 [facility] Erythrocyte distribution width (RBC) [Ratio] 13.8 % 11.6-14.6 [facility] Immature granulocytes/100 WBC (Bld) 0.800 % 0.0-0.9 [facility] Comment on above: IG% - Immature Granu locytes (promyelocytes, myelocytes and metamyelocytes) > 1% indicates that a LEFT SHIFT is Present. MCH (RBC) [Entitic mass] 31.2 pg 27.0-32.0 [facility] Nucleated RBC/100 WBC (Bld) [Ratio] 0 % 0-5 [facility] MCHC Auto (RBC) [Mass/Vol]Or dered By: Dr. Mcdonough on 01-08-2023 MCHC (RBC) [Mass/Vol] 33.0 g/dL 32-36 [facility] No Panel InformationOrdered By: Dr. Portillo on 01-08-2023 Free Triiodothyronine (T3) pg/dL 2.4 pg/mL 2.18-3.98 [facility] No Panel InformationOrdered By: Dr. Mcdonough on 01-08-2023 Thyroid Stimulating Hormone (TSH) 1.16 uIU/mL 0.358-3.74 [facility] Platelets bldOrdered By: Dr. Mcdonough on 01-08-2023 Platelets (Bld) [#/Vol] 316 10*3/uL 150-450 [facility] Serum Treponema species anti body detectionOrdered By: Dr. Mcdonough on 01-08-2023 Treponema sp Ab Ql (S) Non-Reactive [facility] Laboratory - Chemistry and C hemistry - challengeOrdered By: Dr. Portillo on 12-21-2022 Free T4 [Mass/Vol] 0.99 ng/dL 0.76-1.46 [facility] No Panel InformationOrdered By: Dr. Portillo on 12-21-2022 Free Triiodothyronine (T3) pg/dL 2.2 pg/mL 2.18-3.98 [facility] Thyroid Stimulating Hormone (TSH) 0.74 uIU/mL 0.358-3.74 [facility] Serum or plasma thyroperoxid ase antibody assay (units/volume)Ordered By: Dr. Mcdonough on 12-21-2022 TPO Ab Qn 39 [IU]/mL 0-34 [facility] Comment on above: Performed at: [address] [id number] Director: Shukri Montesinos PhD, Phone: [phone] Laboratory - Chemistry and C hemistry - challengeon 11-13-2022 Glucose Ql (U) Negative [facility] Laboratory - Urinalysison Protein Ql (U) Negative [facility] Laboratory - Chemistry and C hemistry - challengeOrdered By: Dr. Portillo on 11-02-2022 Free T4 [Mass/Vol] 0.96 ng/dL 0.76-1.46 [facility] No Panel InformationOrdered By: Dr. Portillo on 11-02-2022 Free Triiodothyronine (T3) pg/dL 2.6 pg/mL 2.18-3.98 [facility] Thyroid Stimulating Hormone (TSH) 1.42 uIU/mL 0.358-3.74 [facility] Laboratory - Chemistry and C hemistry - challengeon 10-17-2022 Glucose Ql (U) Negative [facility] Laboratory - Urinalysison Protein Ql (U) Negative [facility] Laboratory - Chemistry and C hemistry - challengeon 09-20-2022 Glucose Ql (U) Negative [facility] Laboratory - Urinalysison Protein Ql (U) Negative [facility] Absolute lymphocyte countOrd ered By: Dr. Mcdonough on 09-08-2022 Lymphocytes Auto (Unsp spec) [#/Vol] 2.28 10*3/uL 0.83-4.51 [facility] Basophil percentageOrdered B y: Dr. Mcdonough on 09-08-2022 Basophils/100 WBC (Bld) 0.3 % 0-1 [facility] Eosinophils/100 WBC (Bld) 1.3 % 0-5 [facility] Neutrophils (Bld) [#/Vol] 8.4 10*3/uL 2.0-7.7 [facility] Neutrophils/100 WBC (Bld) 73.5 % 47-70 [facility] WBC (Bld) [#/Vol] 11.4 10*3/uL 4.4-11.0 [facility] Blood erythrocytes count (nu mber/volume)Ordered By: Dr. Mcdonough on 09-08-2022 RBC (Bld) [#/Vol] 4.20 10*6/uL 4.2-5.4 [facility] Blood hemoglobin measurement (mass/volume)Ordered By: Dr. Mcdonough on 09-08-2022 Hemoglobin (Bld) [Mass/Vol] 13.0 g/dL 12.0-15.0 [facility] Blood lymphocytes/100 leukoc ytesOrdered By: Dr. Mcdonough on 09-08-2022 Lymphocytes/100 WBC (Bld) 19.9 % 19-41 [facility] Blood monocytes/100 leukocyt esOrdered By: Dr. Mcdonough on 09-08-2022 Monocytes/100 WBC (Bld) 4.6 % 0-10 [facility] Blood platelet mean volumeOr dered By: Dr. Mcdonough on 09-08-2022 Platelet mean volume (Bld) [Entitic vol] 10.1 fL 6.2-12.0 [facility] Determination of erythrocyte mean corpuscular volume (MCV)Ordered By: Dr. Mcdonough on 09-08-2022 MCV (RBC) [Entitic vol] 89.3 fL 81-99 [facility] Gestational diabetes screen 1-hour screen with 50g oral glucose loadOrdered By: Dr. Negrete on 09-08-2022 Glucose 1 Hr post 50 g glucose PO [Mass/Vol] 100 mg/dL 70-140 [facility] HIV 1 and HIV-2 antibody ass ay with HIV-1 p24 antigen detectionOrdered By: Dr. Mcdonough on 09-08-2022 HIV 1+2 Ab+HIV1 p24 Ag IA Ql Non-Reactive Nonreactive [facility] Hematocrit Auto (Bld) [Volum e fraction]Ordered By: Dr. Mcdonough on 09-08-2022 Hematocrit (Bld) [Volume fraction] 37.5 % 37-47 [facility] Laboratory - Chemistry and C hemistry - challengeOrdered By: Dr. Portillo on 09-08-2022 Free T4 [Mass/Vol] 1.08 ng/dL 0.76-1.46 [facility] Laboratory - Hematology and Cell countsOrdered By: Dr. Mcdonough on 09-08-2022 Erythrocyte distribution width (RBC) [Entitic vol] 42.6 fL 35.1-43.9 [facility] Erythrocyte distribution width (RBC) [Ratio] 13.2 % 11.6-14.6 [facility] Immature granulocytes/100 WBC (Bld) 0.400 % 0.0-0.9 [facility] Comment on above: IG% - Immature Granu locytes (promyelocytes, myelocytes and metamyelocytes) > 1% indicates that a LEFT SHIFT is Present. MCH (RBC) [Entitic mass] 31.0 pg 27.0-32.0 [facility] Nucleated RBC/100 WBC (Bld) [Ratio] 0 % 0-5 [facility] MCHC Auto (RBC) [Mass/Vol]Or dered By: Dr. Mcdonough on 09-08-2022 MCHC (RBC) [Mass/Vol] 34.7 g/dL 32-36 [facility] No Panel InformationOrdered By: Dr. Portillo on 09-08-2022 Free Triiodothyronine (T3) pg/dL 2.5 pg/mL 2.18-3.98 [facility] Thyroid Stimulating Hormone (TSH) 0.72 uIU/mL 0.358-3.74 [facility] No Panel InformationOrdered By: Dr. Mcdonough on 09-08-2022 Hepatitis B Surface Antigen Non-Reactive Nonreactive [facility] Hepatitis C Antibody Non-Reactive Nonreactive [facility] Comment on above: Non Reactive: < 0.8 Equivocal: >/= 0.8 to < 1.0 Reactive: >/= 1.0The CDC recommends that a reactive/equivocal HCV antibody result be followed up by the HCV Nucleic Acid Amplificationtest (088123) Rubella IgG Antibody Reactive Nonreactive [facility] Comment on above: Antibody Results Int erpretation of Immune Status Non Reactive Presumed Non-Immune Equivocal Equivocal Reactive Presumed Immune Platelets bldOrdered By: Dr. Mcdonough on 09-08-2022 Platelets (Bld) [#/Vol] 340 10*3/uL 150-450 [facility] Serum Treponema species anti body detectionOrdered By: Dr. Mcdonough on 09-08-2022 Treponema sp Ab Ql (S) Non-Reactive [facility] Culture, urineOrdered By: Dr Milton Mcdonough on 08-24-2022 Bacteria identified Cx Nom (U) Presumptive Lactobacillus sp. [facility] Chlamydia trachomatis rRNA d etection by probe and target amplification methodOrdered By: Dr. Mcdonough on 08-22-2022 C. trachomatis rRNA KAREN+probe Ql (Unsp spec) Negative Negative [facility] - Chemistry and C hemistry - challengeOrdered By: Dr. Portillo on 08-22-2022 Free T4 [Mass/Vol] 1.15 ng/dL 0.76-1.46 [facility] - Microbiology an d Antimicrobial susceptibilityOrdered By: Dr. Mcdonough on 08-22-2022 N. gonorrhoeae DNA KAREN+probe Ql (Unsp spec) Negative Negative [facility] Comment on above: Performed at: =[address] [id number] Director: Norma Stubbs MD, Phone: [phone] No Panel InformationOrdered By: Dr. Portillo on 08-22-2022 Free Triiodothyronine (T3) pg/dL 2.8 pg/mL 2.18-3.98 [facility] Thyroid Stimulating Hormone (TSH) 1.23 uIU/mL 0.358-3.74 [facility] - Chemistry and C hemistry - challengeOrdered By: Dr. Portillo on 07-21-2022 Free T4 [Mass/Vol] 0.88 ng/dL 0.76-1.46 [facility] No Panel InformationOrdered By: Dr. Portillo on 07-21-2022 Free Triiodothyronine (T3) pg/dL 2.2 pg/mL 2.18-3.98 [facility] Thyroid Stimulating Hormone (TSH) 2.74 uIU/mL 0.358-3.74 [facility] - Chemistry and C hemistry - challengeon 04-29-2022 Free T4 [Mass/Vol] 1.01 ng/dL 0.76-1.46 [facility] Work Phone: No Panel Informationon 04-29 Free Triiodothyronine (T3) pg/dL 2.5 pg/mL 2.18-3.98 [facility] Work Phone: [phone] Thyroid Stimulating Hormone (TSH) 3.16 uIU/mL 0.358-3.74 [facility] Work Phone: Basophil percentageon 2021 Cholesterol [Mass/Vol] 185 mg/dL <200 [facility] Work Phone: [phone] Comment on above: <200 mg/dL Desirable 200-240 mg/dL Borderline >240 mg/dL High Risk Glucose [Mass/Vol] 94 mg/dL 74-106 [facility] Work Phone: [phone] Triglyceride [Mass/Vol] 91 mg/dL [facility] Work Phone: [phone] Comment on above: The drugs N-Acetylcy steine and Metamizole may falsely depress this assay.Serum Triglycerides Reference Interval Normal <150 mg/dL Borderline high 150 - 199 mg/dL High 200 - 499 mg/dL Very High > or = 500 mg/dL Laboratory - Chemistry and C hemistry - challengeon 12-17-2021 Cobalamin (Vitamin B12) [Mass/Vol] 1546 pg/mL 211-911 [facility] Work Phone: [phone] Free T4 [Mass/Vol] 0.95 ng/dL 0.76-1.46 [facility] Work Phone: [phone] Panel Informationon 12-17 Free Triiodothyronine (T3) pg/dL 2.4 pg/mL 2.18-3.98 [facility] Work Phone: [phone] Thyroid Stimulating Hormone (TSH) 5.15 uIU/mL 0.358-3.74 [facility] Work Phone: [phone] Vitamin D 25-Hydroxy 111.3 ng/mL [facility] Work Phone: [phone] Comment on above: Vitamin D 25(OH) Sta [...] 12-17-2021 Cholesterol in HDL [Mass/Vol] 34 mg/dL [facility] Work Phone: Comment on above: The drugs N-Acetylcy steine and Metamizole may falsely depress this assay. Reference Range HDL <40 mg/dL Low HDL Cholesterol HDL >or= 60 mg/dL High HDL Cholesterol Serum or plasma cholesterol in VLDL measurement (mass/volume)on 12-17-2021 Cholesterol in VLDL [Mass/Vol] 18 mg/dL 5-40 [facility] Work Phone: Serum or plasma low density lipoprotein (LDL) cholesterol measurement (mass/volume)on 12-17-2021 Cholesterol in LDL [Mass/Vol] 133 mg/dL 0-130 [facility] Work Phone: Vital Signs Date Time Vital Sign Value Performing Clinician Christiani richard 04-28-2025 15:54-0400 Body height 156.[address] Gabo Harrington DO Work Phone: [facility] 04-28-2025 15:54-0400 Body mass index (BMI) [Ratio] 40.3 kg/m2 Dr. Gabo Harrington DO Work Phone: [facility] 04-28-2025 15:54-0400 Body weight 98.[address] Gabo Harrington DO Work Phone: 0(410)111-548609 [place] [address] 04-28-2025 15:54-0400 Diastolic blood pressure 82 mm[Hg] Dr. Gabo Harrington DO Work Phone: 2(051)152-185609 [place] [address] 04-28-2025 15:54-0400 Systolic blood pressure 129 mm[Hg] Dr. Gabo Harrington DO Work Phone: 5(711)799-357709 [place] [address] 03-30-2025 08:39-0400 Body height 156.[address] Gabo Harrington DO Work Phone: 7(252)638-699309 [place] [address] 03-30-2025 08:39-0400 Body mass index (BMI) [Ratio] 39.8 kg/m2 Dr. Gabo Harrington DO Work Phone: 5(518)991-029409 [place] [address] 03-30-2025 08:39-0400 Body weight 97.[address] Gabo Harrington DO Work Phone: 2(212)073-317809 [place] [address] 03-30-2025 08:39-0400 Diastolic blood pressure 74 mm[Hg] Dr. Gabo Harrington DO Work Phone: 7(086)176-294009 [place] [address] 03-30-2025 08:39-0400 Systolic blood pressure 123 mm[Hg] Dr. Gabo Harrington DO Work Phone: 8(818)979-032709 [place] [address] 02-27-2025 08:48-0400 Body height 156.[address] Gabo Harrington DO Work Phone: 2(350)463-492909 [place] [address] 02-27-2025 08:48-0400 Body mass index (BMI) [Ratio] 39.6 kg/m2 Dr. Gabo Harrington DO Work Phone: 4(020)043-096309 [place] [address] 02-27-2025 08:48-0400 Body weight 96.[address] Gabo Harrington DO Work Phone: 7(305)688-999209 [place] [address] 02-27-2025 08:48-0400 Diastolic blood pressure 81 mm[Hg] Dr. Gabo Harrington DO Work Phone: 9(528)903-188509 [place] [address] 02-27-2025 08:48-0400 Systolic blood pressure 116 mm[Hg] Dr. Gabo Harrington DO Work Phone: 7(497)872-073663 [place] [address] 04-07-2023 06:11-0400 Diastolic blood pressure 81 mm[Hg] Dr. Gabo Harrington Work Phone: 8(068)209-255809 [place] [address] 04-07-2023 06:11-0400 Heart rate 82 /min Dr. Gabo Harrington Work Phone: 8(735)736-115509 [place] [address] 04-07-2023 06:11-0400 SaO2% (BldA) [Mass fraction] 98 % Dr. Gabo Harrington Work Phone: 9(334)377-173209 [place] [address] 04-07-2023 06:11-0400 Systolic blood pressure 136 mm[Hg] Dr. Gabo Harrington Work Phone: 8(978)164-797509 [place] [address] 04-07-2023 01:55-0400 Body temperature 98.2 [degF] Dr. Gabo Harrington Work Phone: 6(406)290-628609 [place] [address] 04-07-2023 01:47-0400 Body height 154.[address] Gabo Harrington Work Phone: 8(752)354-520909 [place] [address] 04-07-2023 01:47-0400 Body mass index (BMI) [Ratio] 40.7 kg/m2 Dr. Gabo Harrington Work Phone: 4(543)913-934309 [place] [address] 04-07-2023 01:47-0400 Body weight 97.[address] Gabo Harrington Work Phone: 4(523)069-285309 [place] [address] 04-02-2023 08:39-0400 Body mass index (BMI) [Ratio] 39.1 kg/m2 Dr. Gabo Harrington Work Phone: 6(923)292-221709 [place] [address] 04-02-2023 08:39-0400 Body weight 98.[address] Gabo Harrington Work Phone: 1(625)890-306809 [place] [address] 04-02-2023 08:39-0400 Diastolic blood pressure 84 mm[Hg] Dr. Gabo Harrington Work Phone: 1(734)829-390009 [place] [address] 04-02-2023 08:39-0400 Systolic blood pressure 122 mm[Hg] Dr. Gabo Harrington Work Phone: 3(629)663-320209 [place] [address] 03-28-2023 16:21-0400 Body mass index (BMI) [Ratio] 39.8 kg/m2 Dr. Gabo Harrington Work Phone: 9(463)469-551109 [place] [address] 03-28-2023 16:21-0400 Body weight 100.[address] Gabo Harrington Work Phone: 6(893)805-904609 [place] [address] 03-28-2023 16:21-0400 Diastolic blood pressure 68 mm[Hg] Dr. Gabo Harrington Work Phone: 0(258)531-857009 [place] [address] 03-28-2023 16:21-0400 Systolic blood pressure 111 mm[Hg] Dr. Gabo Harrington Work Phone: 6(007)805-178909 [place] [address] 03-19-2023 16:25-0400 Body height 158.[address] Gabo Harrington Work Phone: 0(771)173-761309 [place] [address] 03-19-2023 16:23-0400 Body mass index (BMI) [Ratio] 36 kg/m2 Dr. Gabo Harrington Work Phone: 7(695)222-782809 [place] [address] 03-19-2023 16:23-0400 Body weight 99.[address] Gabo Harrington Work Phone: 7(722)971-613909 [place] [address] 03-19-2023 16:23-0400 Diastolic blood pressure 77 mm[Hg] Dr. Gabo Harrington Work Phone: 3(658)136-949209 [place] [address] 03-19-2023 16:23-0400 Systolic blood pressure 114 mm[Hg] Dr. Gabo Harrington Work Phone: 8(600)061-993309 [place] [address] 03-05-2023 09:14-0400 Body height 158.[address] Gabo Harrington Work Phone: 9(453)655-628409 [place] [address] 03-05-2023 09:10-0400 Body mass index (BMI) [Ratio] 39.3 kg/m2 Dr. Gabo Harrington Work Phone: 6(362)704-069009 [place] [address] 03-05-2023 09:10-0400 Body weight 99.[address] Gabo Harrington Work Phone: 3(010)270-165009 [place] [address] 03-05-2023 09:10-0400 Diastolic blood pressure 79 mm[Hg] Dr. Gabo Harrington Work Phone: 0(797)410-795809 [place] [address] 03-05-2023 09:10-0400 Systolic blood pressure 115 mm[Hg] Dr. Gabo Harrington Work Phone: 7(904)374-345509 [place] [address] 02-19-2023 16:15-0400 Body mass index (BMI) [Ratio] 40.7 kg/m2 Dr. Gabo Harrington Work Phone: 5(838)056-059909 [place] [address] 02-19-2023 16:15-0400 Body weight 99.[address] Gabo Harrington Work Phone: 7(594)416-495909 [place] [address] 02-19-2023 16:15-0400 Diastolic blood pressure 69 mm[Hg] Dr. Gabo Harrington Work Phone: 9(916)563-487909 [place] [address] 02-19-2023 16:15-0400 Systolic blood pressure 97 mm[Hg] Dr. Gabo Harrington Work Phone: 5(397)428-905209 [place] [address] 02-05-2023 15:51-0400 Body mass index (BMI) [Ratio] 39 kg/m2 Dr. Gabo Harrington Work Phone: 9(274)223-522509 [place] [address] 02-05-2023 15:51-0400 Body weight 98.[address] Gabo Harrington Work Phone: 1(163)036-222309 [place] [address] 02-05-2023 15:51-0400 Diastolic blood pressure 76 mm[Hg] Dr. Gabo Harrington Work Phone: 5(534)637-558909 [place] [address] 02-05-2023 15:51-0400 Systolic blood pressure 116 mm[Hg] Dr. Gabo Harrington Work Phone: 8(703)271-069109 [place] [address] 01-22-2023 16:23-0400 Body mass index (BMI) [Ratio] 38.7 kg/m2 Dr. Gabo Harrington Work Phone: 6(941)161-684709 [place] [address] 01-22-2023 16:23-0400 Body weight 97.[address] Gabo Harrington Work Phone: 5(493)033-181609 [place] [address] 01-22-2023 16:23-0400 Diastolic blood pressure 60 mm[Hg] Dr. Gabo Harrington Work Phone: 2(038)908-866909 [place] [address] 01-22-2023 16:23-0400 Systolic blood pressure 114 mm[Hg] Dr. Gabo Harrington Work Phone: 3(459)006-443409 [place] [address] 01-08-2023 16:26-0400 Diastolic blood pressure 75 mm[Hg] Dr. Gabo Harrington Work Phone: 9(050)367-942909 [place] [address] 01-08-2023 16:26-0400 Systolic blood pressure 112 mm[Hg] Dr. Gabo Harrington Work Phone: 1(086)848-767909 [place] [address] 01-08-2023 16:11-0400 Body height 158.[address] Gabo Harrington Work Phone: 8(972)592-441309 [place] [address] 01-08-2023 16:08-0400 Body mass index (BMI) [Ratio] 38.3 kg/m2 Dr. Gabo Harrington Work Phone: 4(815)207-966409 [place] [address] 01-08-2023 16:08-0400 Body weight 96.[address] Gabo Harrington Work Phone: 8(191)598-567209 [place] [address] 12-11-2022 16:19-0400 Body height 158.[address] Gabo Harrington Work Phone: 0(254)606-676609 [place] [address] 12-11-2022 16:10-0400 Body mass index (BMI) [Ratio] 37.7 kg/m2 Dr. Gabo Harrington Work Phone: 2(289)598-879809 [place] [address] 12-11-2022 16:10-0400 Body weight 95.[address] Gabo Harrington Work Phone: 3(803)646-444109 [place] [address] 12-11-2022 16:10-0400 Diastolic blood pressure 79 mm[Hg] Dr. Gabo Harrington Work Phone: 7(193)511-390209 [place] [address] 12-11-2022 16:10-0400 Systolic blood pressure 116 mm[Hg] Dr. Gabo Harrington Work Phone: 9(161)824-012409 [place] [address] 11-13-2022 16:35-0400 Body mass index (BMI) [Ratio] 38.4 kg/m2 Dr. Gabo Harrington Work Phone: 2(114)258-932209 [place] [address] 11-13-2022 16:35-0400 Body weight 95.[address] Gabo Harrington Work Phone: 9(020)298-397209 [place] [address] 11-13-2022 16:35-0400 Diastolic blood pressure 77 mm[Hg] Dr. Gabo Harrington Work Phone: 8(955)210-406609 [place] [address] 11-13-2022 16:35-0400 Systolic blood pressure 116 mm[Hg] Dr. Gabo Harrington Work Phone: 1(455)875-531009 [place] [address] 11-07-2022 16:01-0400 Body temperature 98 [degF] Dr. Gabo Harrington Work Phone: 9(300)063-331109 [place] [address] 11-07-2022 16:01-0400 Body weight 95.[address] Gabo Harrington Work Phone: 0(539)207-080609 [place] [address] 11-07-2022 16:01-0400 Diastolic blood pressure 72 mm[Hg] Dr. Gabo Harrington Work Phone: 2(977)499-553909 [place] [address] 11-07-2022 16:01-0400 Heart rate 85 /min Dr. Gabo Harrington Work Phone: 5(067)395-669109 [place] [address] 11-07-2022 16:01-0400 Respiratory rate 16 /min Dr. Gabo Harrington Work Phone: 8(432)102-897809 [place] [address] 11-07-2022 16:01-0400 SaO2% (BldA) [Mass fraction] 99 % Dr. Gabo Harrington Work Phone: 9(385)909-009809 [place] [address] 11-07-2022 16:01-0400 Systolic blood pressure 115 mm[Hg] Dr. Gabo Harrington Work Phone: 0(285)036-887109 [place] [address] 10-17-2022 16:29-0400 Body height 158.[address] Gabo Harrington Work Phone: 5(858)118-479809 [place] [address] 10-17-2022 16:28-0400 Body mass index (BMI) [Ratio] 37.1 kg/m2 Dr. Gabo Harrington Work Phone: 8(976)070-231309 [place] [address] 10-17-2022 16:28-0400 Body weight 93.[address] Gabo Harrington Work Phone: 2(351)401-293309 [place] [address] 10-17-2022 16:28-0400 Diastolic blood pressure 88 mm[Hg] Dr. Gabo Harrington Work Phone: 6(873)181-846809 [place] [address] 10-17-2022 16:28-0400 Systolic blood pressure 128 mm[Hg] Dr. Gabo Harrington Work Phone: 1(362)922-354809 [place] [address] 09-20-2022 15:45-0500 Body mass index (BMI) [Ratio] 37.1 kg/m2 Dr. Gabo Harrington Work Phone: 9(484)489-389509 [place] [address] 09-20-2022 15:45-0500 Body weight 93.[address] Gabo Harrington Work Phone: 7(478)436-472409 [place] [address] 09-20-2022 15:45-0500 Diastolic blood pressure 80 mm[Hg] Dr. aGbo Harrington Work Phone: 9(479)112-326809 [place] [address] 09-20-2022 15:45-0500 Systolic blood pressure 118 mm[Hg] Dr. Gabo Harrington Work Phone: 3(336)697-537609 [place] [address] 08-22-2022 16:05-0500 Body height 158.[address] Gabo Harrington Work Phone: 1(644)711-126909 [place] [address] 08-22-2022 16:05-0500 Body mass index (BMI) [Ratio] 37.2 kg/m2 Dr. Gabo Harrington Work Phone: 6(685)578-037909 [place] [address] 08-22-2022 16:05-0500 Body weight 93.[address] Gabo Harrington Work Phone: 8(867)845-916209 [place] [address] 08-22-2022 16:05-0500 Diastolic blood pressure 89 mm[Hg] Dr. Gabo Harrington Work Phone: 5(318)488-453463 [place] [address] 08-22-2022 16:05-0500 Systolic blood pressure 130 mm[Hg] Dr. Gabo Harrington Work Phone: 7(426)224-727109 [place] [address] 05-15-2022 16:04-0400 Body height 158.[address] Gabo Harrington Work Phone: 2(886)156-408163 [place] [address] Work Phone: 05-15-2022 16:04-0400 Body mass index (BMI) [Ratio] 36.9 kg/m2 Dr. Gabo Harrington Work Phone: 5(049)901-162409 [place] [address] 05-15-2022 16:04-0400 Body temperature 96.4 [degF] Dr. Gabo Harrington Work Phone: 2(861)048-963509 [place] [address] 05-15-2022 16:04-0400 Body weight 93.[address] Gabo Harrington Work Phone: 8(955)184-911709 [place] [address] 05-15-2022 16:04-0400 Diastolic blood pressure 77 mm[Hg] Dr. Gabo Harrington Work Phone: 2(575)604-296909 [place] [address] 05-15-2022 16:04-0400 Heart rate 97 /min Dr. Gabo Harrington Work Phone: 7(586)042-117763 [place] [address] 05-15-2022 16:04-0400 Respiratory rate 18 /min Dr. Gabo Harrington Work Phone: 9(726)824-581963 [place] [address] 05-15-2022 16:04-0400 SaO2% (BldA) [Mass fraction] 96 % Dr. Gabo Harrington Work Phone: 8(087)076-679363 [place] [address] 05-15-2022 16:04-0400 Systolic blood pressure 119 mm[Hg] Dr. Gabo Harrington Work Phone: 0(370)258-722163 [place] [address] 11-08-2021 16:32-0400 Body height 158.[address] Gabo Harrington Work Phone: 9(508)311-641263 [place] [address] Work Phone: 11-08-2021 16:32-0400 Body mass index (BMI) [Ratio] 37 kg/m2 Dr. Gabo Harrington Work Phone: [facility] Work Phone: 11-08-2021 16:32-0400 Body temperature 95.6 [degF] Dr. Gabo Harrington Work Phone: [facility] Work Phone: 11-08-2021 16:32-0400 Body weight 93.[address] Gabo Harrington Work Phone: [facility] Work Phone: 11-08-2021 16:32-0400 Diastolic blood pressure 84 mm[Hg] Dr. Gabo Harrington Work Phone: [facility] Work Phone: 11-08-2021 16:32-0400 Heart rate 81 /min Dr. Gabo Harrington Work Phone: [facility] Work Phone: 11-08-2021 16:32-0400 Respiratory rate 18 /min Dr. Gabo Harrington Work Phone: [facility] Work Phone: 11-08-2021 16:32-0400 SaO2% (BldA) [Mass fraction] 98 % Dr. Gabo Harrington Work Phone: [facility] Work Phone: 11-08-2021 16:32-0400 Systolic blood pressure 124 mm[Hg] Dr. Gabo Harrington Work Phone: [facility] Work Phone: 10-10-2021 16:26-0400 Body mass index (BMI) [Ratio] 36.7 kg/m2 Dr. Gabo Harrington Work Phone: [facility] Work Phone: 10-10-2021 16:26-0400 Body weight 92.[address] Gabo Harrington Work Phone: [facility] Work Phone: 10-10-2021 16:26-0400 Diastolic blood pressure 88 mm[Hg] Dr. Gabo Harrington Work Phone: [facility] Work Phone: 10-10-2021 16:26-0400 Systolic blood pressure 114 mm[Hg] Dr. Gabo Harrington Work Phone: [facility] Work Phone: Encounters Encounter Date Encounter Type Care Provider Facility Start: 05-27-2025 End: 05-27-2025 ambulatory Jacquelyn Mcdonough Facility:[facility] Start: 05-21-2025 End: 05-21-2025 ambulatory GABO HARRINGTON [facility] Start: 05-13-2025 End: 05-13-2025 ambulatory RUTH ANN DOOLEY Facility:[facility] Start: 04-28-2025 End: 04-28-[address] Mandie العلي DO -[facility] Work Phone: Start: 04-28-2025 End: 04-28-[address] Gabo Harrington DO Work Phone: -[facility] Start: 04-26-2025 End: 04-26-2025 ambulatory ANA PORTILLO Facility:[facility] Start: 03-30-2025 End: 03-30-2025 Patient encounter procedure Marquise OLSON -[facility] Work Phone: Start: 03-30-2025 End: 03-30-[address] Gabo Harrington DO Work Phone: -[facility] Start: 02-27-2025 End: 02-27-2025 Patient encounter procedure Meghan Ames CNM -[facility] Work Phone: Start: 02-27-2025 End: 02-27-[address] Gabo Harrington DO Work Phone: -[facility] Start: 02-27-2025 End: 02-27-2025 ambulatory Meghan Ames Facility:[facility] Start: 02-20-2025 Non-patient / Non-visit Rachel mistry RN -[facility] Work Phone: Start: 02-20-2025 ambulatory Rachel Be Facility :[facility] Start: 07-24-2024 ambulatory Mandie العلي Fa cility:[facility] Start: 04-02-2024 End: 04-02-2024 Telephone encounter Gabo Harrington DO Work Phone: [facility] [place] Comment on above: Patient Question Start: 03-24-2024 End: 03-24-2024 Telemedicine consultation with patient Stef Hare APRN.JESSICA Work Phone: Telemedicine Comment on above: Acute cystitis witho ut hematuria (Primary Dx) Start: 04-07-2023 End: 04-07-[address] Gabo Harrington Work Phone: [facility] Work Phone: Start: 04-07-2023 End: 04-07-[address] Gabo Harrington Work Phone: [facility] Work Phone: Start: 04-02-2023 End: 04-02-[address] Gabo Harrington Work Phone: [facility] Work Phone: Start: 03-28-2023 End: 03-28-[address] Gabo Harrington Work Phone: [facility] Work Phone: Start: 03-19-2023 End: 03-19-[address] Gabo Harrington Work Phone: [facility] Work Phone: Start: 03-19-2023 End: 03-19-[address] Gabo Harrington Work Phone: [facility] Work Phone: Start: 03-06-2023 End: 03-06-[address] Gabo Harrington Work Phone: [facility] Work Phone: Start: 03-06-2023 End: 03-06-[address] Gabo Harrington Work Phone: [facility] Work Phone: Start: 03-05-2023 End: 03-05-[address] Gabo Harrington Work Phone: [facility] Work Phone: Start: 02-19-2023 End: 02-19-[address] Gabo Harrington Work Phone: [facility] Work Phone: Start: 02-05-2023 End: 02-05-[address] Gabo Harrington Work Phone: [facility] Work Phone: Start: 01-22-2023 End: 01-22-[address] Gabo Harrington Work Phone: [facility] Work Phone: Start: 01-08-2023 End: 01-08-[address] Gabo Harrington Work Phone: [facility] Start: 01-08-2023 End: 01-08-[address] Gabo Harrington Work Phone: [facility] Work Phone: Start: 01-08-2023 End: 01-08-[address] Gabo Harrington Work Phone: [facility] Start: 12-21-2022 End: 12-21-[address] Gabo Harrington Work Phone: [facility] Work Phone: Start: 12-21-2022 End: 12-21-[address] Gabo Harrington Work Phone: [facility] Start: 12-11-2022 End: 12-11-[address] Gabo Harrington Work Phone: [facility] Start: 11-13-2022 End: 11-13-[address] Gabo Harrington Work Phone: [facility] Start: 11-07-2022 End: 11-07-[address] Gabo Harrington Work Phone: [facility] Start: 11-02-2022 End: 11-02-[address] Gabo Harrington Work Phone: [facility] Work Phone: Start: 11-02-2022 End: 11-02-[address] Gabo Harrington Work Phone: [facility] Start: 10-17-2022 End: 10-17-[address] Gabo Harrington Work Phone: [facility] Start: 09-20-2022 End: 09-20-[address] Gabo Harrington Work Phone: [facility] Start: 09-08-2022 End: 09-08-[address] Gabo Harrington Work Phone: [facility] Work Phone: Start: 09-08-2022 End: 09-08-[address] [facility] Start: 08-22-2022 End: 08-22-[address] Gabo Harrington Work Phone: [facility] Work Phone: Start: 08-22-2022 End: 08-22-[address] [facility] Start: 08-22-2022 End: 08-22-[address] Gabo Harrington Work Phone: [facility] Start: 07-21-2022 End: 07-21-[address] Gabo Harrington Work Phone: [facility] Work Phone: Start: 07-21-2022 End: 07-21-[address] 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 Gabo Harrington Work Phone: [facility] Start: 04-29-2022 End: 04-29-[address] [facility] Start: 12-17-2021 End: 12-17-[address] [facility] Start: 11-08-2021 End: 11-08-[address] Gabo Harrington Work Phone: [facility] End[facility] Start: 10-10-2021 End: 10-10-[address] Gabo Harrington Work Phone: [facility] Women[facility] Care Procedures Date Procedure Procedure Detail Performing Clinician Start: 02-27-2025 Liquid based cervica l cytology screening Dr. Gabo Harrington DO Work Phone: Comment on above: NEGATIVE FOR INTRAEP ITHELIAL LESION OR MALIGNANCY. This liquid based Th inPrep(R) pap test was screened withthe use of an image guided system. Start: 02-27-[address] Graham Harrington DO Work Phone: Start: 02-27-2025 Hepatitis C antibody measurement Dr. Gabo Harrington DO Work Phone: Comment on above: Reactive: Presumptiv e evidence of antibodies to HCV. Follow CDC recommendations for supplemental testing.Non-Reactive: Antibodies to HCV were not detected; does not exclude the possibility of exposure to HCVReactive Results are presumptive evidence of antibodies to HCV. Follow CDC recommendations for supplemental testing.Order confirmation testing: HCV Quant by PCR testing - HCVPCR #[id number] Non Reactive: < 0.8 Equivocal: >/= 0.8 to < 1.0 Reactive: >/= 1.0The CDC requires that a reactive/equivocal HCV antibody result be sent out for confirmation. HCV Quant by PCR testing. Start: 02-27-[address] Gabo Harrington DO Work Phone: Comment on above: Test Ordered: [id number] TSH Receptor Antibody (TBII)TSH Receptor Antibody (TBII) 1.5 U/L ES Reference Range: .Reference Range:Antibody Titer:<1.0 U/L = Negative1.1 - 1.5 U/L = Equivocal>1.5 U/L = PositivePerformed at: [facility] [id number] [place], [place] [id number] Director: Jona Sánchez MD, Phone: [phone] at: [facility] [id number] Director: Shukri Montesinos PhD, Phone: [phone] Start: 02-27-[address] Gabo Harrington DO Work Phone: Comment on above: Antibody Result: Int erpretationNon-Reactive: Non- ImmuneReactive: ImmuneThe following results were obtained with the [employer] Rubella IgG assay. Results from assays of other manufacturers cannot be used interchangeably. Start: 02-27-2025 Serologic test for syphilis Dr. Gabo Harrington DO Work Phone: Start: 03-19-2023 Group B Streptococcu s Culture Dr. Gabo Harrington Work Phone: Urine culture Dr. Gabo valadez Work Phone: Plan of Treatment Date Care Activity Detail Author Start: 01-22-2033 Urine microalbumin profile DTaP,Tdap,Td Vaccine (4 - Td or Tdap) [facility] Start: 04-28-2025 [facility] Start: 02-27-2025 CBC W Auto Differential panel - Blood [facility] Start: 02-27-2025 Hemoglobin A1c/Hemoglobin.total in Blood [facility] Start: 02-27-2025 Hepatitis C antibody measurement [facility] Start: 02-27-2025 Procedure [facility] Start: 02-27-2025 Rubella IgG measurement [facility] Start: 02-27-2025 Serologic test for syphilis [facility] Start: 02-27-2025 T4 free measurement [facility] Start: 02-27-2025 Thyroid stimulating hormone measurement [facility] Start: 02-27-2025 Triiodothyronine, free measurement [facility] Start: 02-27-2025 [facility] Start: 03-23-2024 Covid-19 Vaccine () Covid-19 Vaccine () [facility] Start: 03-23-2024 Influenza vaccination Influenza Vaccine (#1) [facility] Start: 04-07-2023 Nonstress test [facility] Start: 04-07-2023 Obstetric monitoring [facility] Start: 04-07-2023 Vital signs measurements [facility] Start: 04-07-2023 [facility] Start: 04-07-2023 Patient discharge [facility] Start: 03-23-2022 Influenza vaccination INFLUENZA (#1) [facility] Start: 10-14-2021 COVID-19 VACCINE (3 - Booster for Moderna series) COVID-19 VACCINE (3 - Booster for Moderna series) [facility] Start: 07-23-2021 DEPRESSION ASSESSMENT DEPRESSION ASSESSMENT [facility] Start: 11-07-2019 HPV TESTING HPV TESTING [facility] Start: 2010 PAP TESTING PAP TESTING [facility] Start: 2010 Screening for malignant neoplasm of cervix Cervical Cancer Screening [facility] Start: 2008 Hepatitis B Vaccine (1 of 3 - 19+ 3-dose series) Hepatitis B Vaccine (1 of 3 - 19+ 3-dose series) [facility] Start: 2008 Urine microalbumin profile DTAP,TDAP,TD (1 - Tdap) [facility] Start: 11-07-2007 Anxiety Screening Anxiety Screening [facility] Start: 11-07-2007 Depression Screening Depression Screening [facility] Start: 11-07-2007 HEPATITIS C SCREENING HEPATITIS C SCREENING [facility] Start: 11-07-2007 Hepatitis C screening Hepatitis C Screening [facility] Start: 11-07-2007 HIV SCREENING HIV SCREENING [facility] Start: 1989 HEPATITIS B (1 of 3 - 3-dose series) HEPATITIS B (1 of 3 - 3-dose series) [facility] CBC W Auto Different ial panel - Blood [facility] CBC W Auto Different ial panel - Blood [facility] Chlamydia deoxyribon ucleic acid detection [facility] Erythrocyte mean cor puscular volume determination [facility] Glucose [Mass/volume ] in Serum or Plasma --1 hour post 50 g glucose PO [facility] Glucose [Mass/volume ] in Serum or Plasma --1 hour post 50 g glucose PO [facility] Hematocrit [Volume F raction] of Blood [facility] Hemoglobin [Mass/vol ume] in Blood [facility] Hepatitis B surface antigen measurement [facility] Hepatitis B virus knowles rface Ag [Presence] in Serum [facility] Hepatitis C antibody measurement [facility] HIV 1+2 Ab+HIV1 p24 Ag [Presence] in Serum or Plasma by Immunoassay [facility] HIV 1+2 Ab+HIV1 p24 Ag [Presence] in Serum or Plasma by Immunoassay [facility] Leukocytes [#/volume ] in Blood [facility] Liquid based cervica l cytology screening [facility] Mean corpuscular hem oglobin concentration determination [facility] Mean corpuscular hem oglobin determination [facility] Neutrophil count [facility] Neutrophil percent differential count [facility] Patient Education Kick Counts ED False Labor OB Triage: Return to Hospital or Notify Physician if you Experience: [facility] Work Phone: Patient referral [facility] Work Phone: Platelets [#/volume] in Blood [facility] Red blood cell count [facility] Red cell distributio n width determination [facility] Rubella IgG measurement [facility] T4 free measurement [facility] T4 free measurement [facility] Thyroid stimulating hormone measurement [facility] Thyroid stimulating hormone measurement [facility] Treponema sp Ab [Pre sence] in Serum [facility] Treponema sp Ab [Pre sence] in Serum [facility] Triiodothyronine, fr ee measurement [facility] Immunizations Immunization Date Immunization Notes Care Provider Kenneth kinney 01-22-2023 tetanus toxoid, redu terrence diphtheria toxoid, and acellular pertussis vaccine, adsorbed Dr. Gabo Harrington Work Phone: [facility] 05-12-2020 diphtheria, tetanus toxoids and acellular pertussis vaccine, unspecified formulation Dr. Gabo Harrington Work Phone: [facility] Work Phone: 05-12-2020 tetanus toxoid, redu terrence diphtheria toxoid, and acellular pertussis vaccine, adsorbed Dr. Gabo Harrington Work Phone: [facility] Payers Date Payer Category Payer Self-pay [id number] 2019 Unknown [id number] 2012 Unknown [id number] 1989 Unknown [id number] [id number]. [id number] Unknown [id number] Unknown [id number] 2.16.8 [id number] Unknown [id number] 2.16.8 [id number] Unknown [id number] 2.16.8 [id number] Unknown [id number] 2.16.8 [id number] Unknown [id number] 2.16.8 [id number] Unknown [id number] 2.16.8 [id number] Unknown [id number] 2.16.8 [id number] Unknown [id number] 2.16.8 [id number] Social History Date Type Detail Facility Start: 11-08-2021 End: 04-02-2023 Tobacco smoking status RIIS Unknown if ever smoked [facility] Start: 12-01-2018 None [facility] Start: 1990 Sex Assigned At Female [facility] Start: 08-13-2017 End: 02-20-2025 Tobacco smoking status NHIS Never smoked tobacco [facility] Work Phone: Start: 08-13-2017 Tobacco use and exposure Smoke less tobacco non-user [facility] Work Phone: Start: 02-26-2022 Alcohol intake 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) [facility] Start: 07-06-2022 History SDOH Alcohol Frequency 1 [facility] Start: 07-06-2022 History SDOH Alcohol Std Drinks 0 [facility] Start: 07-06-2022 History SDOH Social Connections Phone 5 [facility] Start: 07-06-2022 History SDOH Social Connections Get Together 2 [facility] Start: 07-06-2022 History SDOH Social Connections Bahai 3 [facility] Start: 1990 Sex Assigned At Not on file [facility] Start: 07-06-2022 End: 08-19-2022 History of Social function [facility] Start: 07-06-2022 End: 08-19-2022 Social connection and isolation panel [facility] Do you belong to any clubs or organizations such as sabianist groups, unions, fraternal or athletic groups, or school groups? Yes [facility] Are you now , , , , never or living with a partner? [facility] How often to you hav e a drink containing alcohol? Never [facility] How many standard dr inks containing alcohol do you have on a typical day? Patient does not drink [facility] In the past 12 month s, was there a time when you were not able to pay the mortgage or rent on time? No [facility] Clinical Notes 07-06-2022 to 05-13-2025 Note Date & Type Note Facility 05-13-2025 Note HNO ID: [id number] Author: RUTH ANN DOOLEY APRN.ELECTRO PLATER Service: ? Author Type: Nurse Practitioner Type: Progress Notes Filed: 05/13/2025 16:52 Note Text: [facility] Tavarez is a 34 year old female. Patient presents with: Urinary Problem: Frequency, chills started this morning HPI Patient presents today with claims of urinary frequency and chills that started this morning. She otherwise denies any nausea vomiting or fever. She is approximately 20 weeks Review of Systems As above Objective BP 104/78 Pulse 95 Temp 36.3 ?C (97.3 ?F) Resp 20 Wt 99.3 kg (218 lb 14.7 oz) SpO2 98% No BMI 41.36 kg/m? Physical Exam Vitals and nursing note reviewed. Constitutional: General: She is not in acute distress. Appearance: Normal appearance. She is not ill-appearing. HENT: Head: Normocephalic. Pulmonary: Effort: Pulmonary effort is normal. Abdominal: Comments: Rounded abdomen Musculoskeletal: General: Normal range of motion. Skin: General: Skin is warm. Neurological: General: No focal deficit present. Mental Status: She is alert and oriented to person, place, and time. Psychiatric: Mood and Affect: Mood normal. Behavior: Behavior normal. {ASSESSMENT/PLAN: 1. Acute UTI - ICD9: 599.0, ICD10: N39.0 acute - UA positive for maisha esterase and hematuria - Send urine for culture - Begin treatment with Keflex for 5 days - Patient education for prevention given -Previous urine culture from her visit about a week ago was negative for infection. We did discuss delaying initiation of antibiotics until culture returns however patient would prefer to initiate antibiotics and then adjust treatment from there. Patient has just recently finished a course of Macrobid. She does note a possible history of rash when she was an infant with amoxicillin. - UA DIP, URINE (POC) - BACTERIAL CULTURE, URINE - CEPHALEXIN 500 MG CAPSULE Ruth Ann Dooley APRN.ELECTRO PLATER History and Record Review External record(s) reviewed: prior outpatient record. Findings from review of outpatient records: Previous urine culture Disposition The patient was discharged. Procedures [facility] 04-26-2025 Note HNO ID: [id number] Author: ANA PORTILLO APRN.JESSICA Service: ? Author Type: Nurse Practitioner Type: Progress Notes Filed: 04/26/2025 09:14 Note Text: [facility] Subjective HPI HPI Shereen Tavarez is a 34 year old female who presents today for CC of urinary burning, frequency, and small amount of blood in urine. This started today. Has tried nothing for relief. Symptoms are worsened by nothing. Risk factors hx of uti, these are classic symptoms for this patient. Patient is 16 weeks y. Denies vaginal bleeding, abd pain, nausea, vomiting. Reports feeling well aside of urinary symptoms. .Patient presents with: UTI PAST MEDICAL HISTORY Diagnosis Date Known health problems: none PAST SURGICAL HISTORY Procedure Laterality Date NONE ALLERGIES Amoxicillin MEDICATIONS albuterol HFA (VENTOLIN HFA) 90 mcg/actuation inhaler Inhale 2 Puffs as instructed every 4 hours as needed for Wheezing/Shortness of Breath. FAMILY HISTORY Problem Relation Age of Onset Heart Maternal Grandfather early [place], age 52 hill SOCIAL HISTORY[1] Review of Systems Constitutional: Negative for fever. Cardiovascular: Negative for chest pain. Gastrointestinal: Negative for abdominal pain, constipation, diarrhea, nausea and vomiting. Genitourinary: Positive for dysuria, frequency and urgency. Negative for flank pain. Musculoskeletal: Negative for back pain. Objective BP 124/78 Pulse 102 Temp 36.7 ?C (98.1 ?F) (Tympanic) Resp 16 Wt 97.1 kg (214 lb 1.1 oz) SpO2 98% BMI 40.45 kg/m? Physical Exam Constitutional: General: She is not in acute distress. Appearance: Normal appearance. She is not toxic-appearing. Cardiovascular: Rate and Rhythm: Normal rate and regular rhythm. Heart sounds: Normal heart sounds. Pulmonary: Effort: Pulmonary effort is normal. Breath sounds: Normal breath sounds. Abdominal: General: Bowel sounds are normal. Palpations: Abdomen is soft. Tenderness: There is no abdominal tenderness. There is no right CVA tenderness or left CVA tenderness. Skin: General: Skin is warm and dry. {ASSESSMENT/PLAN: 1. 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 - UA DIP, URINE (POC) - BACTERIAL CULTURE, URINE - NITROFURANTOIN MONOHYDRATE AND MACROCRYSTAL 100 MG ORAL CAP Ana Portillo APRN.ELECTRO PLATER History and Record Review External record(s) reviewed: prior outpatient record. Disposition The patient was discharged. Procedures [1] Social History Tobacco Use Smoking status: Never Smokeless tobacco: Never Substance Use Topics Alcohol use: No Drug use: No [facility] 02-27-2025 Evaluation note Diagnosis Onset Date Resolution AMA (advanced maternal age) multigravida 35+ acute February 8:45am Obesity affecting acute February 27, 2025 8:45am acute February 27 8:45am Supervision of high-risk acute February 27, 2025 8:45am Graves disease chronic February 8:45am [facility] Work Phone: 1(685) 630-669308-08-2025 Evaluation note* Diagnosis Onset Date Resolution Status Admit Date AMA (advanced maternal age) multigravida 35+ acute February 27 8:45am Obesity affecting acute February 27, 2025 8:45am acute February 27 8:45am Supervision of high-risk acute February 27, 2025 8:45am Graves disease chronic February 8:45am AMA (advanced maternal age) multigravida 35+ acute March 30, 2025 8:29am Obesity affecting acute March 30, 2025 8:29am acute March 30, 2025 8:29am Supervision of high-risk acute March 30, 025 8:29am Graves disease chronic March 30, 2025 8:29am [facility] Work Phone: 1(172) 641-288108-08-2025 Evaluation note* Diagnosis Onset Date Resolution Status Admit Date AMA (advanced maternal age) multigravida 35+ acute February 27 8:45am Obesity affecting acute February 27, 2025 8:45am acute February 27 8:45am Supervision of high-risk acute February 27, 2025 8:45am Graves disease chronic February 8:45am AMA (advanced maternal age) multigravida 35+ acute March 30, 2025 8:29am Obesity affecting acute March 30, 2025 8:29am acute March 30, 2025 8:29am Supervision of high-risk acute March 30, 025 8:29am Graves disease chronic March 30, 2025 8:29am AMA (advanced maternal age) multigravida 35+ acute April 28 3:50pm Obesity affecting acute April 28, 2025 3:50pm acute April 28, 2 025 3:50pm Supervision of high-risk acute April 28 3:50pm Urinary tract infection affecting acute April 28, 2025 3:50pm Graves disease chronic April 3:50pm [facility] Work Phone: 1(870) 902-199108-08-2025 [facility] [address] [place] [address], [address] [place] [address] OFFICE VISIT Date of Service: 02/27/25 MR#: [id number] Acct: [id number] Name: SHEREEN TAVAREZ Rep #: [id number] : 1990 Provider: QI Ames Age/Sex: 34/F [place] [facility] [place] Status: Signed Intake Vital Signs 06/08/23 15:36 02/27/25 08:48 Height 5 ft 1.5 in 5 ft 1.5 in Weight: 213 lb BMI 39.6 BP 116/81 H Intake Visit Reasons: *EST* NOB LMP 12/24, [place] 09/30 Supervisor Heat Treating Required: No Is patient in pain?: No [...] 4 current occupational status: employed 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 Date Name GA/Weeks Outcome Route Bth Weight Infant Gen Labor Lgth Anesthesia Del Locatn Provider FOB 03/14/17 Munir 40 live - full term vacuum 8lbs 11oz Male [address] [facility] Dr. Manjeet Mclaughlin 12/01/18 Ladarius 40 live - full term 8lbs 7oz Male [address] ho [address] [facility] Dr. Sharonda Mclaughlin 08/06/20 Stephane 40 live - full term 7lb 10oz Male ep idural [facility] SHAZIA Arnoldo 04/17/23 Malinda 40 live - full term 9lb 2oz Female epidural [facility] Rustam Mclaughlin Delivery Date: 03/14/17 Last Updated by: Laura Goodrich No issues during or delivery Delivery Date: 12/01/18 Last Updated by: Laura Goodrich No issues during or delivery Delivery Date: 08/06/20 Last Updated by: Trang Holliday abnormal US- shortened long bones HPI *EST* NOB LMP 12/24, [place] 09/30 Details: SHEREEN TAVAREZ is a [...] current plan of care details and appropriate ordersplaced. Relevant counseling for the gestational age provided. [...] (Rh) Sensitized, Pulmonary (e.g.,TB,Asthma), Seasonal allergies, Breast, Farm Management Supervisor surgery, Operations/hospita lizations, Anesthetic complications, History of abnormal pap, Uterine anomaly/etta, Infertility, Anti-retroviral treatment, Relevant family history and Other ACOG First Trimester First Trimester: Desire for , Alcohol, Tobacco Cessation, Illicit/Recreational Drug/Substance Use, Intimate Partner Violence, Barriers to care, Unstable Housing, Communication Barriers, Environmental/Work Hazards, Anticipated Course of Care, Toxoplasmosis Precations, Use of Any med ications, Sexual activity, Exercise, Dental Care, Sauna/Hot tub [...] Symptoms of Preeclampsia, Infant Feeding No , [place] Education and Family Medical Leave or Disability [...] information and see below for orders placed atthis visit. [place] appropriate handout given. 02/27/25 0932 hubert CNM> Date _ Meghan Ames CNM Cosigner Signature: Date (if applicable) CC: ~ [facility]09-11-2024 Telephone encounter Note* Telephone Encounter - Gabo Harrington, - 04/02/2024 7:44 PM EDT rx sent to pharmacy I was able to assess her today Gabo Meyer DO Jyaa [facility]09-11-2024 Miscellaneous Notes* Telephone Encounter - Gabo Harrington Betsy, - 04/02/2024 7:44 PM EDT rx sent to pharmacy I was able to assess her today Gabo Meyer DO Jaya * Telephone Encounter - Lakisha Adrian APRN.CNP - 04/02/2024 7:11 PM EDT Needs appt or express care visit for further tx. Lakisha Adrian APRN.ELECTRO PLATER * Telephone Encounter - Kaye Whitman LPN - 04/02/2024 3:55 PM EDT Patient did virtual visit 03/24/2024, dx UTI, prescribed Macrobid, recommended to take AZO with Macrobid, s/s resolved. Starting with dysuria, urgency, no as bad. Appt offered, Patient prefers not to come in asking for RX to be called into [facility]. Kaye Whitman LPN [facility] Telephone encounter Note * Telephone Encounter - Lakisha Adrian APRN.JESSICA - 04/02/2024 7:11 PM EDT Needs appt or express care visit for further tx. Lakisha Adrian APRN.JESSICA [facility] Work Phone: 1(543) 230-933109-11-2024 Telephone encounter Note* Telephone Encounter - Kaye Whitman LPN - 04/02/2024 3:55 PM EDT Patient did virtual visit 03/24/2024, dx UTI, prescribed Macrobid, recommended to take AZO with Macrobid, s/s resolved. Starting with dysuria, urgency, no as bad. Appt offered, Patient prefers not to come in asking for RX to be called into [facility]. Kaye Whitman LPN [facility]09-02-2024 History of Present illness Narrative* Stef Hare APRN.JESSICA - 03/24/2024 8:16 AM EDT Telemedicine Visit - Distance Health Virtual Visit Note Patient seen on [employer] Video Visit platform. Location of patient: [place] I have communicated my name and active licensure. The patient's identity and physical location wereverified at the time of this visit. Either the patient or their legal provider service representative has been informed of the risks and benefits of -- and alternatives to -- treatment through a remote evaluation andconsents to proceed with the evaluation remotely. History [...] Age of Onset Heart Maternal Grandfather early [place], age 52 hill Social History Tobacco Use [...] 2 Puffs as instructed every 4 hours asneeded for Wheezing/Shortness of Breath. No current facility-administered [...] other concerning symptoms All questions answered Stef Hare APRN.CNP documented in [facility]12-[facility]22 History of Present illness Narrative* Aimee Finch APRN.CNP - 07/06/2022 1:00 PM EST This Team Access Model visit is a virtual encounter. It required patient- provider interaction for the medical decision making as documented below. Patient agrees to the visit: Yes Patient Location: [place] CC: Patient presents with: Sinus Problem HPI [...] positive for Flu A yesterday. 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 Pt reports symptoms are not improving. [...] 2 Puffs as instructed every 4 hours asneeded for Wheezing/Shortness of Breath. FAMILY HISTORY Problem Relation Age of Onset Heart Maternal Grandfather early [place], age 52 [place] Social History Tobacco Use [...] regarding treatment options and medications. Aimee Finch APRN.ELECTRO PLATER [facility] Diagnosis Onset Date Resolution Status BMI 36.0-36.9,adult acute Graves disease acute [facility] Work Phone: Evaluation note* Diagnosis Bacterial sinusitis- Primary Unspecified sinusitis (chronic) documented in this encounter [facility]* Diagnosis Onset Date Resolution Status Graves disease acute [facility] Work Phone: Evaluation note* Diagnosis Onset Date Resolution Status Graves disease acute BMI 36.0-36.9,adult acute Graves disease acute High serum vitamin B12 acute acute Supervision of high risk , antepartum acute [facility] Work Phone: Evaluation note* Diagnosis Onset Date Resolution Status BMI 36.0-36.9,adult acute Graves disease acute High serum vitamin B12 acute acute Supervision of high risk , antepartum acute [facility] Work Phone: Evaluation note* Diagnosis Onset Date Resolution Status BMI 36.0-36.9,adult acute Graves disease acute High serum vitamin B12 acute acute Supervision of high risk , antepartum acute BMI 36.0-36.9,adult acute Graves disease acute High serum vitamin B12 acute acute Supervision of high risk , antepartum acute Graves disease acute acute Supervision of high risk , antepartum acute Graves disease acute [facility] Work Phone: evaluation note* Diagnosis Onset Date [...] Supervision of high risk , antepartum acute [facility] Work Phone: evaluation note* Diagnosis Onset Date [...] Supervision of high risk , antepartum acute [facility] Work Phone: evaluation note* Diagnosis Onset Date [...] Supervision of high risk , antepartum acute [facility] Work Phone: evaluation note* Diagnosis Onset Date [...] Supervision of high risk , antepartum acute [facility] Work Phone: Evaluation note* Diagnosis Onset Date [...] Supervision of high risk , antepartum acute [facility] Work Phone: Evaluation note* Diagnosis Acute cystitis without hematuria- Primary [facility] Onset Date Resolution Status Admit Date AMA (advanced maternal age) multigravida 35+ acute February 27 8:45am Obesity affecting acute February 27, 2025 8:45am acute February 27 8:45am Supervision of high-risk acute February 27, 2025 8:45am Graves disease chronic February 8:45am [facility] Work Phone: Progress note Author Meghan Ames [facility] Note Date/Time February 27, 2025 9:3 2am [facility] [address] [place] [address], [address] [place] [address] OFFICE VISIT Date of Service: 02/27/25 MR#: [id number] Acct: [id number] Name: SHEREEN TAVAREZ Rep #: [id number] : 1990 Provider: QI Ames Age/Sex: 34/F [place] [facility] [place] [facility] [place] Status: Signed Intake Vital Signs 06/08/23 15:36 02/27/25 08:48 Height 5 ft 1.5 in 5 ft 1.5 in Weight: 213 lb BMI 39.6 BP 116/81 H Intake Visit Reasons: *EST* NOB LMP 12/24, [place] 09/30 Supervisor Heat Treating Required: No Is patient in pain?: No Allergies amoxicillin Adverse Reaction (Verified 02/27/25 08:48) Hives Medications ?Medication ?Instructions ?Recorded ?Confirmed ?Type vits,calcium no.78-iron 1 tab PO DAILY Check with primary 03/13/17 02/27/25 History fumarate-folic acid 29 mg-1 mg doctor tablet Last Menstrual Period: 12/24/24 Zika: Zika virus screening: Negative : No PFSH PFS Medical History Graves disease Family History Grandmother blood clots Heart disease Grandfather Heart disease Social History adopted: No household members: spouse and children number of children: 4 current occupational status: employed 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 Date Name GA/Weeks Outcome Route Bth Weight Infant Gen Labor Lgth Anesthesia Del Locatn Provider FOB 03/14/17 Munir 40 live - full term vacuum 8lbs 11oz Male [address] [facility] Dr. Manjeet Mclaughlin 12/01/18 Ladarius 40 live - full term 8lbs 7oz Male [address] ho [address] [facility] Dr. Sharonda Mclaughlin 08/06/20 Stephane 40 live - full term 7lb 10oz Male ep idural [facility] SHAZIA Mclaughlin 04/17/23 Malinda 40 live - full term 9lb 2oz Female epidural [facility] Rustam Mclaughlin Delivery Date: 03/14/17 Last Updated by: Laura Goodrich No issues during or delivery Delivery Date: 12/01/18 Last Updated by: Laura Goodrich No issues during or delivery Delivery Date: 08/06/20 Last Updated by: Trang Holliday abnormal US- shortened long bones HPI *EST* NOB LMP 12/24, [place] 09/30 Details: SHEREEN TAVAREZ is a [...] (Rh) Sensitized, Pulmonary (e.g.,TB,Asthma), Seasonal allergies, Breast, Farm Management Supervisor surgery, Operations/hospitalizations, Anesthetic complications, History of abnormal [...] Movement Monitoring, Signs and Symptoms of Preeclampsia, Feeding No , [place] Education and Family Medical Leave or Disability [...] Status: Chronic Comment: Resolved/Stable; No medications since mid 2022 Plan Details Additional Comments: ACOG trimester [...] this visit. GA appropriate handout given. 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 MARCANTHONY AND GUILLERMO ORDERS Reason for Visit BMI 36.0-36.9,adult Graves [...] 20, 2025 9:2 2am *EST* NOB LMP 6/, [place] 09/30February 27, 2025 8:45am Reason for Visit Admit Date AMA (advanced maternal age) multigravida 35+ February 27, 2025 8:45am Obesity affecting February 27, 2025 8:45am February 27, 2025 8:4 5am Supervision of high-risk Augus t 2024 8:45am Graves disease February 27, 2025 8:4 5am Chief Complaint Admit Date Amb Documentation February 20, 2025 9:2 2am *EST* NOB LMP 6/4, [place] 09/30February 27, 2025 8:45am 13wk OB March 30, 2025 8:29am Reason for Visit Admit Date AMA (advanced maternal age) multigravida 35+ February 27, 2025 8:45am Obesity affecting February 27, 2025 8:45am February 27, 2025 8:4 5am Supervision of high-risk Augus t 2024 8:45am Graves disease February 27, 2025 8:4 5am AMA (advanced maternal age) multigravida March 30, 2025 8:29am Obesity affecting March 8:29am March 30, 2025 8:29am [facility]vision of [facility] 2024 8:29am Graves disease March 30, 2025 8:29am Chief Complaint Admit Date Amb Documentation February 20, 2025 9:2 2am *EST* NOB LMP 6/4, [place] 09/30February 27, 2025 8:45am 13wk OB March 30, 2025 8:29am 17wk OB April 28, 2025 3: 50pm Reason for Visit Admit Date AMA (advanced maternal age) multigravida 35+ February 27, 2025 8:45am Obesity affecting February 27, 2025 8:45am February 27, 2025 8:4 5am Supervision of high-risk Augus t 2024 8:45am Graves disease February 27, 2025 8:4 5am AMA (advanced maternal age) multigravida March 30, 2025 8:29am Obesity affecting March 8:29am March 30, 2025 8:29am [facility] 2024 8:29am Graves disease March 30, 2025 8:29am AMA (advanced maternal age) multigravida + April 28, 2025 3:50pm Obesity affecting April 28, 2025 3:50pm April 28, 2025 3: 50pm Supervision of high-risk Octob 2024 3:50pm Urinary tract infection affecting pregna ncy April 28, 2025 3:50pm Graves disease April 28, 2025 3: 50pm Family History No Family History Records Found Relationship Condition Age at Onset Recorded Date/T eduarda grandmother Unknown Cardiac disease Unknown grandfather Cardiac disease Unknown Advance Directives No Advanced Directives Records Found Advance Directive Response Recorded Date/ Time Living Will No August 06 4:14am Power of Drilling Inspector No August 06, 2020 4:14am Advance Directive Response Recorded Date/ Time Living Will No August 06 3:14am Power of Drilling Inspector No August 06, 2020 3:14am Summary Purpose Additional Source Comments Goals (unrecognized section and content) Type Care Experience SVDLabor Preferences -labor support person: Carlanlabor intervention preferences: openpain management options preferred: epiduralcut cord/dad catch: Yes - bothbreastfeeding: []PP control planned: []discussed possible routes of delivery and associated risks: discussed possible delivery modalities and possible indications for each including R/B/A of , VAVD, FAVD, and CS. questions answered.special requests: [] Care Experience svdLabor Preferences -CB/BF classes: declineslabor support person: Carlinlabor intervention preferences: []pain management options preferred: epiduralcut cord/dad catch: cordbreastfeeding: yesPP control planned: condomsdiscussed possible routes of delivery and associated risks: []special requests: [] Care Experience Labor Preferences-CB /BF classes: []labor support person: []labor intervention preferences: []pain management options preferred: []cut cord/dad catch: []: []PP control planned: []discussed possible routes of delivery and associated risks: []special requests: [] Source Comments (unrecognize d section and content) In the event this informatio n is protected by the Federal Confidentiality of Alcohol and Drug Abuse Patient Records regulations: The Federal rules restrict any use of the information to criminally investigate or prosecute any alcohol or drug abuse patient.[facility] Hospital[facility] the event this information is protected by the Federal Confidentiality of Alcohol and Drug Abuse Patient Records regulations: The Federal rules restrict any use of the information to criminally investigate or prosecute any alcohol or drug abuse patient.[facility] HospitalIn the event this information is protected by the Federal Confidentiality of Alcohol and Drug Abuse Patient Records regulations: The Federal rules restrict any use of the information to criminally investigate or prosecute any alcohol or drug abuse patient.[facility] Reason for Visit (unrecogniz ed section and content) Reason Comments Sinus Problem Reason Comments UTI Reason Comments Patient Question Care Teams (unrecognized sec tion and content) Traffic Enumerator Relationship Specialty Start Date End Date Gbao Harrington DO [address] [place], [place] [id number] PCP - General Family Medicine 12/21/17 Team [...] Referr ing Provider Active Dr. Mandie العلي , DO Attending Provider Activ e Team Status: [...] MD Attending Provider Active Dr. Mandie العلي , DO Other Provider Active Dr. Ruddy Portillo [...] Provider, Referr ing Provider Active Marquise Tse ADMINISTRATIVE ASSISTANT DATA ENTRY, ADMINISTRATIVE ASSISTANT DATA ENTRY-C Attending Provider Active Team Status: Inactive Member [...] MD Attending Provider, Referr ing Provider Active Traffic Enumerator Relationship Specialty Start Date End Date Gabo Harrington DO [address] [place] [address] PCP - General Family Medicine 12/21/17 Traffic Enumerator Relationship Specialty Start Date End Date Gabo Hrarington DO [address] [place] [address] PCP - General Family Medicine 12/21/17 Team [...] Referring Provider Active Start: February 27, 2025 Team Status: Inactive Member Role/Relationship Status Dates Dr. Gabo Harrington DO Primary Care Provider Active Start: February 27, 2025 End: February 27, 2025 Megahn Ames CNM Attending Provider Active Start: February 27, 2025 End: February 27, 2025 Meghan Ames CNM Referring Provider Active Start: February 27, 2025 End: February 27, 2025 Team Status: Inactive Member Role/Relationship Status Dates Dr. Gabo Harrington DO Primary Care Provider Active Start: March 30, 2025 End: March 30, 2025 Dr. Gabo Harrington DO Referring Provider Active Start: March 30, 2025 End: March 30, 2025 Marquise Tse ADMINISTRATIVE ASSISTANT DATA ENTRY, ADMINISTRATIVE ASSISTANT DATA ENTRY-C Attending Provider Active Start: March 30, 2025 End: March 30, 2025 Team Status: Active Member Role/Relationship Status Dates Dr. Gabo Harrington DO Primary care physician Active Team Status: Active Member Role/Relationship Status Dates Dr. Gabo Harrington DO Primary care physician Active Start: February 20, 2025 Rachel Be RN Attending physician Active S tart: February 20, 2025 Team Status: Inactive Member Role/Relationship Status Dates Dr. Gabo Harrington DO Primary care physician Active Start: February 27, 2025 End: February 27, 2025 Dr. Gabo Harrington DO Referring Provider Active Start: February 27, 2025 End: February 27, 2025 Meghan Ames CNM Attending physician Active Start: February 27, 2025 End: February 27, 2025 Team Status: Inactive Member Role/Relationship Status Dates Dr. Gabo Harrington DO Primary care physician Active Start: February 27, 2025 End: February 27, 2025 Meghan Ames CNM Attending physician Active Start: February 27, 2025 End: February 27, 2025 Meghan Ames CNM Referring Provider Active Start: February 27, 2025 End: February 27, 2025 Team Status: Inactive Member Role/Relationship Status Dates Dr. Gabo Harrington DO Primary care physician Active Start: March 30, 2025 End: March 30, 2025 Dr. Gabo Harrington DO Referring Provider Active Start: March 30, 2025 End: March 30, 2025 Marquise Tse NP, ADMINISTRATIVE ASSISTANT DATA ENTRY-C Attending physician Active Start: March 30, 2025 End: March 30, 2025 Team Status: Inactive Member Role/Relationship Status Dates Dr. Gabo Harrington DO Primary care physician Active Start: April 28, 2025 End: April 28, 2025 Dr. Gabo Harrington DO Referring Provider Active Start: April 28, 2025 End: April 28, 2025 Dr. Mandie العلي DO Attending physician Acti ve Start: April 28, 2025 End: April 28, 2025 INFORMATION SOURCE (unrecogn ized section and content) DATE CREATED AUTHOR 05/15/2025 [facility] DATE CREATED AUTHOR AUTHOR'S ORGANIZ ATION 05/23/2025 [facility] DATE CREATED AUTHOR AUTHOR'S ORGANIZ ATION 05/31/2025 [facility] FOR RECORDS PERTAINING TO PATIENTS WHO [...] BE BASED ON THE PRIMARY CLINICAL RECORDS. [facility]. provides no warranty or guarantee of the accuracy or completeness of information in this document.
== END | disposition home or self-care (01) ==
LOC: LAB 13:00
PROVIDERS: PCP Student in an Organized Health Care Education/Training Program; Referring Provider Internal Medicine Endocrinology, Diabetes & Metabolism; Visit Provider Internal Medicine Endocrinology, Diabetes & Metabolism
DX: E05.00 Thyrotoxicosis with diffuse goiter without thyrotoxic crisis or storm (principal)
CPT/HCPCS: 36415; 84439; 84443